=== PATIENT | male | born 1960 | race Caucasian/White ===

== ENCOUNTER 2024-08-26 15:37 | Outpatient (CLI) | payer MEDICARE, OTHER, SELFPAY ==
--- OUTSIDE RECORDS SUMMARY | 2024-08-26 15:45 | XMS_ITS | Clinical Summary ---
Author Organization [facility] Address [address] [place] [address] Care Team Providers Care Orange Picker Name Role Phone Susy Bauman SCAR[employer] - REFINERY [employer]ATOR [employer] Primary Care Provider Allergies Active Allergy Reactions Criticality Noted Date Comments Codeine Nausea And Vomiting Low 02/09/2013 Patient vomits when he takes pain killers Molds & Smuts 10/31/2019 Oxycodone-Acetaminoph en Nausea And Vomiting Low 04/15/2013 Hydrocodone-Acetamino phen Nausea And Vomiting Low 04/15/2013 Medications amLODIPine (NORVASC) 10 MG tablet Take 10 mg by mouth daily Active budesonide-form oterol (SYMBICORT) 80-4.5 MCG/ACT AERO Inhale 2 puffs into the lungs 2 times daily as needed Active glimepiride (AMARYL) 1 MG tablet Take 3 mg by mouth every morning (before breakfast) Active Ergocalciferol (VITAMIN D2 PO) Take by mouth Active albuterol-iprat ropium (COMBIVENT RESPIMAT) 20-100 MCG/ACT AERS inhaler Inhale 1 puff into the lungs every 6 hours as needed for Wheezing or Shortness of Breath 1 Inhaler 6 0 Active Active Problems Problem Noted Date Diagnosed Date Acute respiratory failure 03/11/2019 Other wrist sprain and strain 03/16/2013 Bilateral wrist pain 02/18/2013 COPD exacerbation Febrile illness Leukocytosis Tobacco abuse Pneumonia due to organism Sepsis with acute organ dysfunction without sept ic shock COPD with acute exacerbation Essential hypertension Resolved Problems Problem Noted Date Diagnosed Date Resolved Date Community acquired pneumonia of left lower lobe of lung 01/10/2020 01/10/2020 Immunizations Immunization Administration Dates Next Due DT (pediatric) 10/18/2008,01/01/1998 Influenza Virus Vaccine 02/14/1999 Pneumococcal, PPSV23, PNEUMO VAX 23, (age 2y+), SC/IM, 0.5mL 10/18/2008,01/24/2000 Td, unspecified formulation 10/18/2008, 8 Family History Medical History Relation Name Comments Diabetes Brother High Blood Pressure Brother Cancer Mother colon Relation Name Status Comments Brother Father Mother Social History Tobacco Use Types Packs/Day Years Used Date Smoking Tobacco: Former Cigarettes 0.5 38 1 982 - 03/07/2019 Smokeless Tobacco: Former Chew Tobacco Cessation:Counseling Given: Yes Alcohol Use Standard Drinks/Week Comments Yes 0 (1 standard drink = 0.6 oz pur e alcohol) occassional Sex and Gender Information Value Date Recorded Sex Assigned at Not on file Legal Sex Male 3:32 AM EST Gender Identity Not on file Sexual Orientation Not on file Last Filed Vital Signs Vital Sign Reading Time Taken Comments Blood Pressure 142/84 05/04/2019 10:46 AM EST Pulse 127 05/04/2019 10:37 AM EST Temperature 36 C (96.8 F) 03/15/2019 9:32 AM EST Respiratory Rate 17 05/04/2019 10:3 7 AM EST Oxygen Saturation 94% 05/04/2019 10: 37 AM EST RA Inhaled Oxygen Concentration - - Weight 136.4 kg (300 lb 12.8 oz) 2019 10:37 AM EST Height 182.9 cm (6') 05/04/2019 10:37 AM EST Body Mass Index 40.8 05/04/2019 10:37 AM EST Plan of Treatment Not on file Advance Directives * Full Code (Latest Code Status on File) Date Activated Date Inactivated Comments 03/11/2019 3:57 PM 03/15/2019 4:44 PM * Full Code Date Activated Date Inactivated Comments 06/10/2013 5:36 PM 06/11/2013 6:02 PM Care Teams Orange Picker Relationship Specialty Start Date End Date Susy Bauman APRN - [facility] [address] [phone] PCP - General 03/11/19
--- OUTSIDE RECORDS SUMMARY | 2024-08-26 15:45 | XMS_ITS | Clinical Summary ---
Author Organization AND [facility] 98 Care Team Providers Care Oil Distributor Name Role Phone Unavailable Primary Care Provider Unavailabl e Allergies Active Allergy Reactions Criticality Noted Date Comments Codeine Unknown 03/11/2016 Oxycodone-Acetaminophen Nausea 03/11/2016 Hydrocodone-Acetaminophen Sweating 03/11/2016 Medications oxymetazoline (AFRIN) 0.05 % SOLN Use 0.1-0.2 mLs in each nostril 3 (three) times daily. 1 bottle 8 Active acetaminophen (TYLENOL) 500 MG TABS Take 1,000 mg by mouth every 6 (six) hours as needed for Mild Pain (1-3). Active atorvastatin (LIPITOR) 40 MG TABSIndications: Dyslipidemia Take 1 tablet by mouth every evening. 30 tablet 6 0 Active ibuprofen (ADVIL,MOTRIN) 800 MG TABS Take 1 tablet by mouth every 8 (eight) hours as needed for Mild Pain (1-3). 50 tablet 0 Active methocarbamol (ROBAXIN) 750 MG TABS Take 1 tablet by mouth 4 (four) times daily as needed (FOR SPASM). 40 tablet 0 Active albuterol 108 (90 Base) mcg/puff AERSIndications: Chronic obstructive pulmonary disease, unspecified COPD type (HCC) Use 2 puffs every 4 (four) hours as needed. 1 inhaler 3 0 Active sildenafil (VIAGRA) 50 MG TABS Take 1 tablet by mouth daily as needed. 30 tablet 0 Active amlodipine (NORVASC) 10 MG TABSIndications: Essential hypertension TAKE 1 TABLET BY MOUTH EVERY DAY 90 tablet 1 0 Active glimepiride (AMARYL) 2 MG TABS TAKE 1 TABLET BY MOUTH EVERY DAY BEFORE BREAKFAST 90 tablet 1 0 Active glimepiride (AMARYL) 1 MG TABS TAKE 1 TABLET BY MOUTH EVERY DAY 30 tablet 2 0 Active Fluticasone Propionate (FLONASE NA) Use. Active albuterol (PROVENTIL) (2.5 MG/3ML) 0.083% NEBU 3 mLs by Nebulization route every 6 (six) hours as needed. 60 vial 0 Active budesonide-formo terol (SYMBICORT) 80-4.5 MCG/ACT AERO Use 2 puffs 2 (two) times daily. 1 inhaler 2 0 Active vitamin D-2 (ERGOCALCIFEROL) 53056 UNIT CAPS TAKE 1 CAPSULE BY MOUTH ONE TIME PER WEEK 8 capsule 1 0 Active Active Problems Problem Noted Date Diagnosed Date Type 2 diabetes mellitus wit hout complication, without long-term current use of insulin 02/11/2019 Vitamin D deficiency 02/11/2019 Chronic obstructive pulmonary disease 06/08/2018 Severe obesity with body mas s index (BMI) of 35.0 to 39.9 with serious comorbidity 06/08/2018 Other male erectile dysfunction 01/08/2018 Essential hypertension 03/26/2016 Pulmonary nodule 12/08/2014 Resolved Problems Problem Noted Date Diagnosed Date Resolved Date Non-compliance with treatment 11/13/2016 01/27/2017 Immunizations Immunization Administration Dates Next Due Influenza Whole, IM 02/14/1999 Influenza, IM (Adult)-Fluzone 02/14/1999 Pneumococcal Polysaccharide (PPV23) Pneumovax-23 10/18/2008,01/24/2000 dT, adult 10/18/2008,01/01/1998 Family History Relation Name Status Comments Father Mother Social History Tobacco Use Types Packs/Day Years Used Date Smoking Tobacco: Former Cigarettes Q uit: 03/09/2019 Smokeless Tobacco: Former Chew, Snuff Tobacco Cessation:Counseling Given: No Alcohol Use Standard Drinks/Week Comments Yes 0 (1 standard drink = 0.6 oz pur e alcohol) OCCASSIONALLY PHQ-2 Answer Date Recorded PHQ-2 Score 0 04/13/2019 Sex and Gender Information Value Date Recorded Sex Assigned at Not on file Legal Sex Male 5:06 AM EDT Gender Identity Not on file Sexual Orientation Not on file Last Filed Vital Signs Vital Sign Reading Time Taken Comments Blood Pressure 128/80 09/21/2019 11:39 AM EDT Pulse 103 10/28/2019 10:08 AM EDT Temperature 36.5 C (97.7 F) 09/21/2019 11:39 AM EDT Respiratory Rate - - Oxygen Saturation 93% 10/28/2019 10:08 AM EDT Inhaled Oxygen Concentration - - Weight 134.3 kg (296 lb) 09/21/2019 11:39 AM EDT Height 182.9 cm (6') 09/21/2019 11:39 AM EDT Body Mass Index 40.14 09/21/2019 11:39 AM EDT Plan of Treatment Health Maintenance Due Date Last Done Comments Colonoscopy 12/23/2003 Shingrix (#1) 2008 Pneumococcal 50+ (2 of 2 - PCV) 10/18/2009 10/18/2008, 01/24/2000 DTap,Tdap,and Td (2 - Td or Tdap) 10/18/2018 10/18/2008 (Previously Completed) PSA YEARLY 04/13/2020 04/13/2019, 06/11/2017 Influenza Vaccine (Season Ended) 2024 06/18/2018 (Declined), 02/14/1999, 02/14/1999 RSV Vaccine (60+ or ) (1 - 1-dose 75+ series) 2033 Pneumococcal 0-49 Discontinued 10/18/2008, 01/24/2000 Hepatitis C Screening Addressed 06/11/2017 (Refused) Overridden with the intention of not completing the topic Abdominal Aortic Aneurysm Screening Completed 09/22/2019, 06/26/2018 HPV Aged Out No longer eligi ble based on patient's age to complete this topic Meningococcal conjugate valent 4 (MCV4) Aged Out No longer eligible b ased on patient's age to complete this topic RSV Immunization (<20 months) Aged Out No longer eligible b ased on patient's age to complete this topic Goals Goal Patient Goal Type Associated Problems Recent Progress Patient-Stated? Author Blood Pressure < 140/90 Blood Pressure 128/80(2019 11:39 AM EDT) No Grosheim, Natividad L Note: http://www.nhlbi.nih.gov LDL, CALCULATED < 100 Result Component 130( 9 8:57 AM EDT) No Grosheim, Natividad L CREATININE < 1.3 Result Component 1(09/26/2019 4:34 PM EDT) No Grosheim, Natividad L Exercising Regularly Self-Managemen t No Grosheim, Natividda L Note: [email or web address] Patient has no barriers to completing goals Self-Managemen t No Grosheim, Natividad L Patient working to improve diet Self-Managemen t No Grosheim, Natividad L Patient is monitoring Blood Pressure weekly Self-Managemen t No Grosheim, Natividad L Note: Sample Blood Pressure Log Date Time Systolic Diastolic 1 2 3 4 5 http://www.nhlbi.nih.gov Procedures Procedure Name Priority Date/Time Associated Diagnosis Comments CT ABDOMEN PELVIS W CONTRAST STAT 09/22/2019 12:53 PM EDT Periumbilical abdominal pain Leukocytosis, unspecified type PROSTATIC SPECIF AG-BLOOD Routine 04/13/2019 11:21 AM EST from Last 3 Months or Most Recently Relevant to Health Maintenance Results * CT ABDOMEN PELVIS W CONTRAST (09/22/2019 12:53 PM EDT) Anatomical Region Laterality Modality Pelvis Computed Tomogra phy 09/22/2019 1:12 PM EDT Impressions 09/22/2019 1:28 PM EDT 3.2 cm solid mass or complex cyst in the right kidney. Recommend further evaluation with an MRI abdomen with and without contrast, as this lesion may represent renal cell carcinoma. NOTE: Report marked for documented transmission to the ordering physician per [facility] Radiology department protocol. Suspected pancreatic cysts which may also be further assessed on the recommended MRI abdomen. No evidence of appendicitis. Possible bowel wall thickening of the hepatic flexure and right aspect of the transverse colon, which may be due to underdistention or may represent colitis in the appropriate clinical setting. Narrative 09/22/2019 1:28 PM EDT HISTORY: Abd pain, unspecified Abd pain, appendicitis suspected Leukocytosis,, mid abdomen pain, umbilical pain, sharp pain, r/o appendicitis Periumbilical pain;Elevated white blood cell count, unspecified COMPARISON: Abdominal radiographs 09/21/2019 TECHNIQUE: Post IV contrast multiplanar CT images of the abdomen and pelvis NOTE: If there are questions about the content of this report, please contact [facility] radiology by calling [phone]. NOTE: Report marked for documented transmission to the ordering physician per [facility] Radiology department protocol. FINDINGS: LOWER CHEST: Unremarkable LIVER: Diffuse low attenuation consistent with fatty infiltration GALLBLADDER/BILE DUCTS: Gallbladder surgically absent. Bile ducts unremarkable PANCREAS: Possible fluid density lesions in the pancreatic head/neck region. No solid mass. No pancreatic duct dilation. SPLEEN: Unremarkable ADRENALS: Unremarkable KIDNEYS/URETERS: 3.2 x 2.3 x 2.2 cm solid mass in the upper pole of the right kidney. 8.7 cm simple cyst in the left kidney. GI TRACT: Colonic diverticulosis with no evidence of diverticulitis. Possible bowel wall thickening of the hepatic flexure right aspect of the transverse colon. No obstruction or pneumatosis. Normal appendix (series 3 image 60). VESSELS: Unremarkable. No aneurysm or dissection LYMPH NODES: Unremarkable. No enlarged lymph nodes ABD WALL: Unremarkable PELVIS: Unremarkable BONES: Degenerative changes of the spine. OTHER: None Procedure Note Eric Tovar MD - 09/22/2019 HISTORY: Abd pain, unspecified Abd pain, appendicitis suspected Leukocytosis,, mid abdomen pain,umbilical pain, sharp pain, r/o appendicitis Periumbilical pain;Elevatedwhite blood cell count, unspecified COMPARISON: Abdominal radiographs 09/21/2019 TECHNIQUE: Post IV contrast multiplanar CT images of the abdomen andpelvis NOTE: If there are questions about the content of this report, pleasecontact [facility] radiology by calling [phone]. NOTE: Report markedfor documented transmission to the ordering physician [facility]. FINDINGS: LOWER CHEST: Unremarkable LIVER: Diffuse low attenuation consistent with fatty infiltration GALLBLADDER/BILE DUCTS: Gallbladder surgically absent. Bile ductsunremarkable PANCREAS: Possible fluid density lesions in the pancreatic head/neckregion. No solid mass. No pancreatic duct dilation. SPLEEN: Unremarkable ADRENALS: Unremarkable KIDNEYS/URETERS: 3.2 x 2.3 x 2.2 cm solid mass in the upper pole of theright kidney. 8.7 cm simple cyst in the left kidney. GI TRACT: Colonic diverticulosis with no evidence of diverticulitis.Possible bowel wall thickening of the hepatic flexure right aspect of thetransverse colon. No obstruction or pneumatosis. Normal appendix (series 3image 60). VESSELS: Unremarkable. No aneurysm or dissection LYMPH NODES: Unremarkable. No enlarged lymph nodes ABD WALL: Unremarkable PELVIS: Unremarkable BONES: Degenerative changes of the spine. OTHER: None IMPRESSION 3.2 cm solid mass or complex cyst in the right kidney. Recommend furtherevaluation with an MRI abdomen with and without contrast, as this lesionmay represent renal cell carcinoma. NOTE: Report marked for documentedtransmission to the ordering physician per [facility] Radiology department protocol. Suspected pancreatic cysts which may also be further assessed on therecommended MRI abdomen. No evidence of appendicitis. Possible bowel wall thickening of the hepatic flexure and right aspect ofthe transverse colon, which may be due to underdistention or may representcolitis in the appropriate clinical setting. Rosalinda Ortega [facility] CT Final Result * PROSTATIC SPECIF AG-BLOOD (04/13/2019 11:21 AM EST) PROSTATIC SPECIF AG 3.77 <=4.00 ng/mL [facility] Comment: (NOTE) Ingestion of shanta doses of biotin (>5 mg/day) taken within 8 hours of drawing blood sample can interfere with this immunoassay test. Tested at: [facility] [employer] [facility], [address] [place] [address] 04/13/2019 11:2 1 AM EST 04/13/2019 9:51 PM EST Susy Bauman [facility] B[facility] ORDERABLES Final Result [facility] [address] [place], [place] [id number] [facility] from Last 3 Months or Most Recently Relevant to Health Maintenance
--- OUTSIDE RECORDS SUMMARY | 2024-08-26 15:45 | XMS_ITS | Encounter Summary ---
Author Organization [facility] Address [address] [place] [address] Care Team Providers Care Western Tack Assembly Line Worker Name Role Phone Susy Bauman APRN, CNP Primary Care Provider Encounter Details Date Type Department Care Team ([facility] Contact Info) Description 09/22/2013 PAT Telephone [facility] PAT [address] [place], [place] [phone] Traci Goldsmith RN Social History Tobacco Use Types Packs/Day Years Used Date Smoking Tobacco: Every Day Cigarettes Smokeless Tobacco: Never Alcohol Use Standard Drinks/Week Comments Yes 0 (1 standard drink = 0.6 oz pur e alcohol) occassional Sex and Gender Information Value Date Recorded Sex Assigned at Not on file Legal Sex Male 3:32 AM EST Gender Identity Not on file Sexual Orientation Not on file documented as of this encounter Plan of Treatment Not on file documented as of this encounter Visit Diagnoses Not on filedocumented in this encounter Care Teams Western Tack Assembly Line Worker Relationship Specialty Start Date End Date Susy Bauman APRN - CNP [facility] [place] [address] PCP - General 03/11/19 documented as of this encounter
--- OUTSIDE RECORDS SUMMARY | 2024-08-26 15:45 | XMS_ITS | Encounter Summary ---
Author Organization [facility] [place] [address] Phone Care Team Providers Care Automated Teller Manager Name Role Phone Susy Bauman CNP Primary Care Provider [phone] Encounter Details Date Type Department Care Team (Late st Contact Info) Description 03/25/[address] [facility] V[facility] [place] [address] [place] [address] Social History Tobacco Use Types Packs/Day Years Used Date Smoking Tobacco: Every Day Cigarettes Smokeless Tobacco: Former Chew, Snuff Alcohol Use Standard Drinks/Week Comments Yes 0 (1 standard drink = 0.6 oz pur e alcohol) OCCASSIONALLY Sex and Gender Information Value Date Recorded Sex Assigned at Not on file Legal Sex Male 5:06 AM EDT Gender Identity Not on file Sexual Orientation Not on file documented as of this encounter Plan of Treatment Not on file documented as of this encounter Goals Goal Patient Goal Type Associated Problems Recent Progress Patient-Stated? Author Blood Pressure < 140/90 Blood Pressure 128/80(2019 11:39 AM EDT) Natividad Anthony Note: http://www.nhlbi.nih.gov LDL, CALCULATED < 100 Result Component 130( 9 8:57 AM EDT) No Grosheim, Natividad L CREATININE < 1.3 Result Component 1(09/26/2019 4:34 PM EDT) No Grosheim, Natividad L Exercising Regularly Self-Managemen t No Grosheim, Natividad L Note: [email or web address] Patient has no barriers to completing goals Self-Managemen t No Grosheim, Natividad L Patient working to improve diet Self-Managemen t No Grosheim, Natividad L Patient is monitoring Blood Pressure weekly Self-Managemen t No Grosheim, Natividad L Note: Sample Blood Pressure Log Date Time Systolic Diastolic 1 2 3 4 5 http://www.nhlbi.nih.gov documented as of this encounter Procedures Procedure Name Priority Date/Time Associated Diagnosis Comments ELECTROCARDIOGRAM, COMPLETE Routine 03/11/2019 ELECTROCARDIOGRAM, COMPLETE Routine 03/09/2019 documented in this encounter Results * ELECTROCARDIOGRAM, COMPLETE (03/11/2019) us Historical Med EKG Final Result * ELECTROCARDIOGRAM, COMPLETE (03/09/2019) us Historical Med EKG Final Result documented in this encounter Visit Diagnoses Not on filedocumented in this encounter Additional Health Concerns Infection Onset Date Last Indicated Resolved Time COVID-19 Suspect 09/02/2019 09/02/2019 09/16/2019 1:28 PM EDT documented as of this encounter Care Teams Automated Teller Manager Relationship Specialty Start Date End Date Susy Bauman CNP PCP - General 01/08/18 03/08/20 documented as of this encounter
--- OUTSIDE RECORDS SUMMARY | 2024-08-26 15:45 | XMS_ITS ---
Author Organization Unknown TREATMENT PLAN [facility] Start Date Provider Encounter for Check-up [phone] [facility]
--- OUTSIDE RECORDS SUMMARY | 2024-08-26 15:45 | XMS_ITS | Encounter Summary ---
Author Organization [facility] Address [address] [place] [address] Care Team Providers Care Community Development Aide Name Role Phone Susy Bauman APRN, CNP Primary Care Provider Encounter Details Date Type Department Care Team ([facility] Contact Info) Description 04/15/2013 PAT Telephone [facility] PAT [address] [place], [place] [phone] Traci Goldsmith RN Social History Tobacco Use Types Packs/Day Years Used Date Smoking Tobacco: Every Day Alcohol Use Standard Drinks/Week Comments Yes 0 (1 standard drink = 0.6 oz pur e alcohol) Sex and Gender Information Value Date Recorded Sex Assigned at Not on file Legal Sex Male 3:32 AM EST Gender Identity Not on file Sexual Orientation Not on file documented as of this encounter Last Filed Vital Signs Vital Sign Reading Time Taken Comments Blood Pressure - - Pulse - - Temperature - - Respiratory Rate - - Oxygen Saturation - - Inhaled Oxygen Concentration - - Weight 111.1 kg (245 lb) 04/15/2013 10:27 AM EST Height 182.9 cm (6') 04/15/2013 10:27 AM EST Body Mass Index 33.23 04/15/2013 10:27 AM EST documented in this encounter Plan of Treatment Not on file documented as of this encounter Visit Diagnoses Not on filedocumented in this encounter Care Teams Community Development Aide Relationship Specialty Start Date End Date Susy Bauman APRN - CNP [address] [place] [id number] PCP - General 03/11/19 documented as of this encounter
--- OUTSIDE RECORDS SUMMARY | 2024-08-26 15:45 | XMS_ITS | Encounter Summary ---
Author Organization [facility] Address [address] [place] [address] Care Team Providers Care Ski Binding Fitter And Repairer Name Role Phone Susy Bauman APRN, CNP Primary Care Provider Encounter Details Date Type Department Care Team ([facility] Contact Info) Description 08/22/2013 PAT Telephone [facility] PAT [address] [place], [place] [phone] Deanne Tyler, JENA Social History Tobacco Use Types Packs/Day Years Used Date Smoking Tobacco: Every Day Cigarettes Alcohol Use Standard Drinks/Week Comments Yes 0 [...] on filedocumented in this encounter Care Teams Ski Binding Fitter And Repairer Relationship Specialty Start Date End Date Susy Bauman APRN - CNP [facility] [place] [address] PCP - General 03/11/19 documented as of this encounter
--- OUTSIDE RECORDS SUMMARY | 2024-08-26 15:45 | XMS_ITS | Referral Summary ---
Author Organization AND [facility] 98 Care Team Providers Care Assistant Manager Trainee Name Role Phone Unavailable Primary Care Provider [...] inhaler 2 0 Active vitamin D-2 (ERGOCALCIFEROL) 01161 UNIT CAPS TAKE 1 CAPSULE BY MOUTH [...] Polysaccharide (PPV23) Pneumovax-23 10/18/2008,01/24/2000 dT, adult 10/18/2008,01/01/1998 Social History Tobacco Use Types Packs/Day Years [...] 09/21/2019 11:39 AM EDT Plan of Treatment Not on file Goals Goal Patient Goal Type Associated Problems [...] Self-Managemen t No Grosheim, Natividad L Note: [email or web address] Patient has no barriers to completing goals [...] documented transmission to the ordering physician per [facility] Radiology department protocol. Suspected pancreatic cysts which [...] the content of this report, please contact [facility] radiology by calling [phone]. NOTE: Report marked for documented transmission to the ordering physician per [facility] Radiology department protocol. FINDINGS: LOWER CHEST: Unremarkable [...] about the content of this report, pleasecontact [facility] radiology by calling [phone]. NOTE: Report markedfor documented transmission to the ordering physician [facility]. FINDINGS: LOWER CHEST: Unremarkable LIVER: [...] for documentedtransmission to the ordering physician per [facility] Radiology department protocol. Suspected pancreatic cysts which may also be further assessed on therecommended MRI abdomen. No evidence of appendicitis. Possible bowel wall thickening of the hepatic flexure and right aspect ofthe transverse colon, which may be due to underdistention or may representcolitis in the appropriate clinical setting. us Rosalinda Ortega CNP CT Final Result * PROSTATIC SPECIF AG-BLOOD (04/13/2019 11:21 AM EST) PROSTATIC SPECIF AG 3.77 <=4.00 ng/mL [facility] Comment: (NOTE) Ingestion of shanta doses of biotin (>5 mg/day) taken within 8 hours of drawing blood sample can interfere with this immunoassay test. Tested at: [facility], [address] [place] [address] 04/13/2019 11:2 1 AM EST 04/13/2019 9:51 PM EST us Susy Bauman [facility] BLOOD ORDERABLES Final Result [facility] [address] [place] [address] [facility] from Last 3 Months or Most Recently Relevant to Health Maintenance
[2024-08-26 17:02] LABS: Basophils # 0.3 K/mm3 (0-0.2); Basophils % 0.9 % (0.1-2.0); Eosinophils % 0.1 % (0.1-12.0); Hematocrit 43.2 % (42.0-52.0); Hemoglobin 13.8 g/dL (14.1-18.0); Immature Granulocytes # 5.85 10^3uL; Immature Granulocytes % 17.8 %; Lymphocytes # 2.8 K/mm3 (0.7-4.5); Lymphocytes % 8.5 % (10-50); Mean Corpuscular HGB Conc 31.9 g/dL (31.8-35.4); Mean Corpuscular Hemoglobin 29.7 pg (27.0-31.2); Mean Corpuscular Volume 92.9 fl (80-94); Mean Platelet Volume 10.3 fl (7.4-10.4); Monocytes # 2.5 K/mm3 (0.1-1.0); Monocytes % 7.6 % (1.7-9.3); Neutrophils # 21.4 K/mm3 (1.8-7.8); Neutrophils % 65.1 % (37.0-80.0); Nucleated Red Blood Cells # 0.02 10^3/uL; Nucleated Red Blood Cells % 0.1 %; Platelet Count 144 K/mm3 (142-424); Red Blood Count 4.65 M/mm3 (4.60-6.20); Red Cell Distribution Width 21.6 % (11.5-17.5); Red Cell Distribution Width-SD 72.8 fL
[2024-08-26 17:09] LABS: Creatinine,Urine Random 152 mg/dL (Not Estab.)
[2024-08-26 17:21] LABS: Hemoglobin A1C 8.7 % (4.0-6.0)
[2024-08-26 17:23] LABS: White Blood Count 32.9 K/mm3 (4.8-10.8)
[2024-08-26 17:24] LABS: MANUAL DIFFERENTIAL MANUAL DIFFERENTIAL (MANUAL DIFF)
[2024-08-26 17:42] LABS: Alanine Aminotransferase 22 U/L (12-78); Albumin Level 4.6 g/dl (3.5-5.0); Albumin/Globulin Ratio 1.6 (1.1-1.8); Alkaline Phosphatase 83 U/L (38-126); Anion Gap 15.4 mEq/L (5-15); Aspartate Amino Transferase 28 U/L (17-59); Bilirubin,Total 0.8 mg/dl (0.2-1.3); Blood Urea Nitrogen 20 mg/dl (9-20); Calcium 10.3 mg/dl (8.4-10.2); Carbon Dioxide 24 mmol/L (22.0-30.0); Chloride 103 mmol/L (98-107); Cholesterol 124 mg/dl (140-200); Estimated Glomerular Filt Rate 85 ml/min (>60); GFR (African American) 102 ML/MIN (>60); Globulin 2.9 g/dL (1.3-3.2); Glucose 93 mg/dl (74-100); HDL Cholesterol 25 mg/dl (40-60); Potassium 4.4 mmoL/L (3.5-5.1); Sodium 138 mmol/L (136-145); Total Protein,Serum 7.5 g/dl (6.3-8.2); Triglycerides 165 mg/dl (30-150); VLDL Cholesterol 33 mg/dL (0-40)
[2024-08-26 17:47] LABS: Eosinophils % 2 % (0-3); Lymphocytes % 15 % (10-50); Metamyelocytes % 1 (0-1); Monocytes % 19 % (2-9); Myelocytes % 1 (0-1); Neutrophils % 57 % (42-76); Total Cells Counted 100
[2024-08-26 17:48] LABS: Giant Platelets 1+; Platelet Estimate Normal
[2024-08-26 17:49] LABS: Anisocytosis 1+; Ovalocytes 1+; Polychromasia 1+; Target Cells 1+
[2024-08-26 17:50] LABS: Macrocytosis 1+; Microcytosis 1+; Poikilocytosis 1+
[2024-08-26 17:52] LABS: Tear Drop Cells 1+
[2024-08-26 17:53] LABS: Basophilic Stippling 1+; Direct LDL Cholesterol < 30.00 mg/dL (100-129)
[2024-08-26 18:13] LABS: Thyroid Stimulating Hormone 5.75 uIU/mL (0.465-4.68)
[2024-08-28 15:48] LABS: Peripheral Smear Review Scanned Result
== END 2024-08-26 23:59 | disposition home or self-care (01) ==
LOC: LAB 15:43
PROVIDERS: PCP Family Medicine; Visit Provider Family Medicine
DX: C95.10 Chronic leukemia of unspecified cell type not having achieved remission (principal); E11.9 Type 2 diabetes mellitus without complications; R97.20 Elevated prostate specific antigen [PSA]; Z12.5 Encounter for screening for malignant neoplasm of prostate
CPT/HCPCS: 36415; 80053; 80061; 82043; 82570; 83036; 84443; 85007; 85025; G0103

== ENCOUNTER 2024-11-16 14:40 | Outpatient (CLI) | payer MEDICARE, OTHER, SELFPAY ==
--- OUTSIDE RECORDS SUMMARY | 2024-11-16 14:45 | XMS_ITS | Encounter Summary ---
Author Organization [facility] Address [facility] [place] [address] Phone Care Team Providers Care Wire Chief Name Role Phone Susy Bauman CNP Primary Care Provider +1- [phone] Encounter Details Date Type Department Care Team (Late st Contact Info) Description 03/25/2019 SCAN [facility] Heart & Vascular [place] [address] [place] [address] Social History Tobacco Use Types [...] Self-Managemen t No Grosheim, Natividad L Note: [email or web address] Patient has no barriers to completing goals [...] documented as of this encounter Care Teams Wire Chief Relationship Specialty Start Date End Date Susy Bauman CNP PCP - General 01/08/18 03/08/20 documented as of this encounter
--- OUTSIDE RECORDS SUMMARY | 2024-11-16 14:45 | XMS_ITS | Clinical Summary ---
Author Organization [facility] Address [address] [place] [id number] Care Team Providers Care Geological Specialist Name Role Phone None, None Primary Care Provider Unavailabl e Allergies Active Allergy Reactions Criticality Noted Date Comments Codeine 04/19/2013 N & V Hydrocodone 04/19/2013 N & V Oxycodone 04/19/2013 N & V Medications aspirin 81 mg Tablet, Delayed Release (E.C.) 81 mg daily. Ac tive losartan (COZAAR) 100 mg Tablet 100 mg daily. Active predniSONE (DELTASONE) 20 mg tabletIndicatio ns:Acute bronchitis 3 tabs QD for 3 day, 2 tabs QD for 3 days, 1 tab QD for 3 days, 1/2 tab QD for 4 days. 20 Tab 0 12/08/2014 Active benzonatate (TESSALON) 200 mg capsuleIndicati ons:Acute bronchitis Dispense #40. Take one cap PO TID PRN cough. Swallow whole. Do not chew or suck. 40 Cap 1 12/08/2014 Active azithromycin (ZITHROMAX) 250 mg tablet Take 2 tabs today, and then 1 tab QD for 4 more days. 6 Tab 0 03/30/2015 Active Active Problems Problem Noted Date Diagnosed Date HTN (hypertension) 12/08/2014 Pulmonary nodule 12/08/2014 Colon polyp 12/08/2014 Hx of cholecystectomy 12/08/2014 Traumatic rupture of tendon of wrist - bilat 01/2014 Immunizations Immunization Administration Dates Next Due Influenza (whole) 02/14/1999 Pneumococcal Polysaccharide 23 Valent (PNEUMOVAX ) 10/18/2008,01/24/2000 dT 10/18/2008,01/01/1998 Family History Medical History Relation Name Comments Cancer Mother colon Relation Name Status Comments Father Mother Social History Tobacco Use Types Packs/Day Years Used Date Smoking Tobacco: Every Day Cigarettes Smokeless Tobacco: Never Tobacco Cessation:Ready to Q uit: No; Counseling Given: Yes Alcohol Use Standard Drinks/Week Comments Yes 0 (1 standard drink = 0.6 oz pur e alcohol) occ Sex and Gender Information Value Date Recorded Sex Assigned at Not on file Legal Sex Male 5:21 PM EST Gender Identity Not on file Sexual Orientation Not on file Last Filed Vital Signs Vital Sign Reading Time Taken Comments Blood Pressure 158/100 12/08/2014 12:13 PM EDT Pulse 85 12/08/2014 12:13 PM EDT Temperature 36.7 C (98 F) 12/08/2014 12:13 PM EDT Respiratory Rate 12 12/08/2014 12:13 PM EDT Oxygen Saturation 96% 12/08/2014 12:13 PM EDT Inhaled Oxygen Concentration - - Weight 113.4 kg (250 lb) 12/08/2014 12:13 PM EDT Height 182.9 cm (6') 12/08/2014 12:13 PM EDT Body Mass Index 33.91 12/08/2014 12:13 PM EDT Plan of Treatment Health Maintenance Due Date Last Done Comments Cologuard 1958 Colonoscopy 1958 Colorectal Cancer Screening 1958 FIT 1958 Lipid Screening 1976 Tetanus Vaccination (Every 10 Years) 1976 Hepatitis C Virus (HCV) Screening 12/23/1979 Zoster-RZV(Shingrix) (1 of 2) 2008 Pneumococcal Vaccine: 50+ Ye ars (2 of 2 - PCV) 10/18/2009 10/18/2008, 01/24/2000 Fall Risk Assessment 12/23/2023 Advance Care Planning 03/09/2024 Depression Screening 03/09/2024 COVID-19 Vaccine ( - season) 2024 Influenza Vaccination (#1) 2024 02/14/1999 RSV Vaccines (1 - 1-dose 75+ series) 2033 Influenza Vaccination (Yearly) Discontinued 02/14/1999 Care Teams Geological Specialist Relationship Specialty Start Date End Date None, None [address] [place] [address] PCP - General 02/24/18
--- OUTSIDE RECORDS SUMMARY | 2024-11-16 14:45 | XMS_ITS | Encounter Summary ---
Author Organization [facility] Address [address], [address] [place] [address] Care Team Providers Care Assistant Sales Manager Name Role Phone Susy Bauman APRN, CNP Primary Care Provider Encounter Details Date Type Department Care Team ([facility] Contact Info) Description 04/15/2013 PAT Telephone [facility] PAT [address] [place], [place] [phone] Traci Goldsmith RN Social History Tobacco Use [...] on filedocumented in this encounter Care Teams Assistant Sales Manager Relationship Specialty Start Date End Date Susy Bauman APRN - CNP [address] [place] [id number] PCP - General 03/11/19 documented as of this encounter
--- OUTSIDE RECORDS SUMMARY | 2024-11-16 14:46 | XMS_ITS | Clinical Summary ---
Author Organization [facility] Address [address], [address] [place] [address] Care Team Providers Care Emt Basic Name Role Phone Susy Bauman SCARLET - PICK UP ATTENDANT Primary Care Provider Allergies Active Allergy Reactions [...] 5:36 PM 06/11/2013 6:02 PM Care Teams Emt Basic Relationship Specialty Start Date End Date Susy Bauman APRN - BUTCH [address] [place] [address] PCP - General 03/11/19
--- OUTSIDE RECORDS SUMMARY | 2024-11-16 14:46 | XMS_ITS | Encounter Summary ---
Author Organization [facility] Address [address], [address] [place] [address] Care Team Providers Care Job Coach/Job Developer Name Role Phone Susy Bauman APRN, CNP Primary Care Provider Encounter Details Date Type Department Care Team (Late st Contact Info) Description 09/22/2013 PAT Telephone [facility] PAT [address] [place], [place] [phone] Traci Goldsmith RN Social History Tobacco Use [...] on filedocumented in this encounter Care Teams Job Coach/Job Developer Relationship Specialty Start Date End Date Susy Bauman APRN - CNP [facility] [place] [address] PCP - General 03/11/19 documented as of this encounter
--- OUTSIDE RECORDS SUMMARY | 2024-11-16 14:48 | XMS_ITS | Referral Summary ---
Author Organization [facility] 98 Care Team Providers Care Salvage Grinder Name Role Phone Unavailable Primary Care Provider [...] inhaler 2 0 Active vitamin D-2 (ERGOCALCIFEROL) 14026 UNIT CAPS TAKE 1 CAPSULE BY MOUTH [...] Self-Managemen t No Grosheim, Natividad L Note: [email or web address] Patient has no barriers to completing goals [...] documented transmission to the ordering physician per [facility] Radiology department protocol. Suspected pancreatic cysts which [...] the content of this report, please contact [facility] radiology by calling [phone]. NOTE: Report marked for documented transmission to the ordering physician per [facility] Radiology department protocol. FINDINGS: LOWER CHEST: Unremarkable [...] about the content of this report, pleasecontact [facility] radiology by calling [phone]. NOTE: Report markedfor documented transmission to the [facility]. FINDINGS: LOWER CHEST: Unremarkable LIVER: [...] for documentedtransmission to the ordering physician per [facility] Radiology department protocol. Suspected pancreatic cysts which [...] EST) PROSTATIC SPECIF AG 3.77 <=4.00 ng/mL [facility] Comment: (NOTE) Ingestion of shanta doses of biotin (>5 mg/day) taken within 8 hours of drawing blood sample can interfere with this immunoassay test. Tested at: [facility], [address] [place] [address] 04/13/2019 11:2 1 AM EST 04/13/2019 9:51 PM EST us Susy Bauman [facility]OD ORDERABLES Final Result [facility] [address] [place] [address] [facility] from Last 3 Months or Most Recently Relevant to Health Maintenance
--- OUTSIDE RECORDS SUMMARY | 2024-11-16 14:48 | XMS_ITS | Clinical Summary ---
Author Organization [facility] 98 Care Team Providers Care Automobile Repair Service Estimator Name Role Phone Unavailable Primary Care Provider [...] inhaler 2 0 Active vitamin D-2 (ERGOCALCIFEROL) 91025 UNIT CAPS TAKE 1 CAPSULE BY MOUTH [...] PSA YEARLY 04/13/2020 04/13/2019, 06/11/2017 Influenza Vaccine (#1) 2024 9 (Declined), 02/14/1999, 02/14/1999 RSV Vaccine (60+ or [...] Self-Managemen t No Grosheim, Natividad L Note: [email or web address] Patient has no barriers to completing goals [...] documented transmission to the ordering physician per [facility] Radiology department protocol. Suspected pancreatic cysts which [...] the content of this report, please contact [facility] radiology by calling [phone]. NOTE: Report marked for documented transmission to the ordering physician per [facility] Radiology department protocol. FINDINGS: LOWER CHEST: Unremarkable [...] about the content of this report, pleasecontact [email or web address] radiology by calling [phone]. NOTE: Report markedfor documented transmission to the [facility]. FINDINGS: LOWER CHEST: Unremarkable LIVER: [...] for documentedtransmission to the ordering physician per [facility] Radiology department protocol. Suspected pancreatic cysts which may also be further assessed on therecommended MRI abdomen. No evidence of appendicitis. Possible bowel wall thickening of the hepatic flexure and right aspect ofthe transverse colon, which may be due to underdistention or may representcolitis in the appropriate clinical setting. Rosalinda Ortega [facility] CT Final Result * PROSTATIC SPECIF AG-BLOOD (04/13/2019 11:21 AM EST) PROSTATIC SPECIF AG 3.77 <=4.00 ng/mL [place] [facility] Comment: (NOTE) Ingestion of shanta doses of biotin (>5 mg/day) taken within 8 hours of drawing blood sample can interfere with this immunoassay test. Tested at: [facility], [address] [place] [address] 04/13/2019 11:2 1 AM EST 04/13/2019 9:51 PM EST Susy Bauman [facility] BLOOD ORDERABLES Final Result [facility] [address] [place] [address] [place] [facility] from Last 3 Months or Most Recently Relevant to Health Maintenance
--- OUTSIDE RECORDS SUMMARY | 2024-11-16 14:49 | XMS_ITS | Encounter Summary ---
Author Organization [facility] Address [address], [address] [place] [address] Care Team Providers Care Trace Clerk Name Role Phone Susy Bauman APRN, CNP Primary Care Provider Encounter Details Date Type Department Care Team ([facility] Contact Info) Description 08/22/2013 PAT Telephone [facility] PAT [address] [place], [place] [phone] Deanne Tyler, RN Social History Tobacco Use Types Packs/Day [...] on filedocumented in this encounter Care Teams Trace Clerk Relationship Specialty Start Date End Date Susy Bauman APRN - CNP [facility] [place] [address] PCP - General 03/11/19 documented as of this encounter
--- OUTSIDE RECORDS SUMMARY | 2024-11-16 14:49 | XMS_ITS | CCD ---
Author Name Interface, [id number] lity Address [place] [address] Organization [facility] Address [place] [address] Care Team Providers Care Linux Security Administrator Name Role Phone Raji Pizano MD Unavailable Unavailable Allergies and Adverse Reactions Medication/Group Name Reaction Severity Date codeine 04/27/2024 Care Plan Date Type Value 06/29/2024 APPOINTMENT [facility]ZANO TELEMED CLD S WP (PT RQ ) 06/24/2024 APPOINTMENT PIZANO TELEMED CLD S WP (PT RQ ) 05/27/2024 APPOINTMENT PIZANO TELEMED 4 WK 04/27/2024 APPOINTMENT PIZANO TELEMED SWP 04/08/2024 APPOINTMENT PIZANO L OV 4WKS 04/08/2024 APPOINTMENT PIZANO L OV 4WKS 03/11/2024 APPOINTMENT PIZANO L OV CLD SWP 03/11/2024 APPOINTMENT PIZANO L OV CLD [facility] 02/23/2024 APPOINTMENT PIZANO L OV 4WKS 02/23/2024 APPOINTMENT PIZANO L OV 4WKS 02/18/2024 APPOINTMENT PIZANO/KB ORAL TREAT MENT REVIEW 02/16/2024 APPOINTMENT PIZANO L OV 4WKS 02/16/2024 APPOINTMENT PIZANO L OV 4WKS 01/22/2024 APPOINTMENT PIZANO L OV 4WKS 01/22/2024 APPOINTMENT PIZANO L OV 4WKS 01/22/2024 APPOINTMENT PIZANO L OV 4WKS 01/22/2024 APPOINTMENT PIZANO L OV 4WKS 12/24/2023 APPOINTMENT PIZANO ELECTRICAL LABORATORY TECHNICIAN REF [facility] 12/24/2023 APPOINTMENT PIZANO ELECTRICAL LABORATORY TECHNICIAN LAB 12/24/2023 LABORDER TSH panel 12/24/2023 LABORDER BCR-ABL1 minor ( p190) quant panel 12/24/2023 LABORDER BCR-ABL1 major ( p210) quant panel 12/24/2023 LABORDER Chronic hepatiti s panel (A,B & C) 12/24/2023 LABORDER QIG 12/24/2023 LABORDER HIV 1/2 antibody panel 12/24/2023 LABORDER CMP 12/24/2023 LABORDER CBC w/auto diff with reflex 12/24/2023 LABORDER LDH panel 12/24/2023 LABORDER Flow Cytometry ( Leukemia/Lymphoma Phenotyping Panel) 12/24/2023 LABORDER C-reactive prote in panel 12/24/2023 LABORDER CA 19-9 panel 01/11/2024 LABORDER MRI abdomen w/ & w/o contrast 01/22/2024 LABORDER CBC w/auto diff with reflex 01/22/2024 LABORDER CMP 01/22/2024 LABORDER Sedimentation ra te panel 01/22/2024 LABORDER BCR-ABL1 major ( p210) quant panel 02/23/2024 LABORDER CMP 02/23/2024 LABORDER Uric acid panel 02/23/2024 LABORDER CBC w/auto diff with reflex 03/01/2024 LABORDER CMP 03/01/2024 LABORDER CBC w/auto diff with reflex 03/11/2024 LABORDER CMP 03/11/2024 LABORDER CBC w/auto diff with reflex 03/25/2024 LABORDER CBC w/auto diff with reflex 03/25/2024 LABORDER CMP 04/08/2024 LABORDER CBC w/auto diff with reflex 04/08/2024 LABORDER CMP 04/14/2024 LABORDER CBC w/auto diff with reflex 05/11/2024 LABORDER CMP 05/11/2024 LABORDER CBC w/auto diff with reflex 05/27/2024 LABORDER CBC w/auto diff with reflex 05/27/2024 LABORDER CMP 06/10/2024 LABORDER CBC w/auto diff with reflex 06/10/2024 LABORDER CMP 06/24/2024 LABORDER CBC w/auto diff with reflex 06/24/2024 LABORDER CMP 07/14/2024 LABORDER CMP 07/14/2024 LABORDER CBC w/auto diff with reflex Reason for Visit PIZANO TELEMED CLD SWP (PT RQ ) Encounters Date Name 06/29/2024 Thrombocytopenic dis order (disorder) Functional Status Date Name/Question Score/Answer 11/12/2024 Are you deaf, or do you have ser ious difficulty hearing? Yes 11/12/2024 Are you blind or do you have serious difficulty seeing, even when wearing glasses? No 11/12/2024 Because of a physica l, mental, or emotional condition, do you have serious difficulty concentrating, remembering, or making decisions? No 11/12/2024 Do you have serious difficulty w alking or climbing stairs? No 11/12/2024 Do you have difficulty dressing or bathing? No 11/12/2024 Because of a physica l, mental, or emotional condition, do you have difficulty doing errands alone such as visiting a physician's office or shopping? No Immunizations Date Name Route Dose Instructions Refusal Reason Stat us Covid-19 vaccine (Pfizer) Not given other reason Not Administered Flu vaccine - Adult Not given other reason Not Administered Pneumococcal vaccine (13 valent) Not given other reason Not Administered Zoster vaccine Not g iven other reason Not Administered Diagnostic Results Date Type Test Units Lower Limit Upper Limit Result Flag Comments Status Ordered By Specimen Source Lab Address 01/21 BCR-A BL1 major (p210 ) quant panel BCR-A BL1 major (p210 ) quant inter preta tion BCR-ABL 1 MAJOR (p210) QUANTIT ATIVE FINAL [facility] Whole Blood 01/21 BCR-A BL1 major (p210 ) quant panel PDF Repor t See futures trader d FINAL [facility] Whole Blood 01/21 Manua l diffe renti al Teard rop cells 1+ FINAL [facility]. [address] [facility] [address] CLIA#45D [id number] 01/21 Manua l diffe renti al Promy elocy te % % 0.0 0.0 1 High FINAL [place] [address] [address] [facility] [address] CLIA#45D [id number] 01/21 Manua l diffe renti al Ellip tocyt e 0.00 FINAL [place] [address] [address] [facility] [address] CLIA#45D [id number] 01/21 Manua l diffe renti al Poiki locyt osis (shap e) 1+ FINAL Raji [facility] [place]. [address] [place] [address] CLIA#45D [id number] 12/23 TSH panel TSH, mIU/L mIU/L 0.4 4.5 6.37 High FINAL Raji Pizano Serum Med Fusion.2 [address] [facility] [address] [address] 12/23 C-alex ctive prote in panel C-alex ctive prote in, quant , mg/L mg/L 4.5 FINAL [facility].2 [address] [facility] [address].[place] [facility] [address] 12/23 BCR-A BL1 minor (p190 ) quant panel BCR-A BL1, minor (p190 ) BCR-ABL 1 MINOR (p190) QUANTIT ATIVE Procedure s/Addenda BCR/ABL1 by Quant RT-PCR: Minor(p19 0)Interpr etationTh e BCR-ABL1 Minor (p190) fusion transcrip t was not detected. This result doesnot preclude the presence of very low levels of BCR-ABL1 transcrip t below theassay limit of detection .Current and Previous Test Results Accession # Specimen Collectio n Date BCR-ABL1M inor % [id number] Whole Blood 4 0.0000Res ultBCR-AB L1 Minor (p190) fusion transcrip t not detectedM ethodolog y: This test was performed by real-time , reverse-t ranscript ionpolyme rase chain reaction (RT-PCR) to measure the quantity of BCR-ABL1 Minor(p19 0) fusion transcrip ts. Amplifica tion of endogenou s ABL1 is assessed as areferenc e for relative quantific ation and RNA quality. The normalize d copynumbe r (NCN) is derived by comparing the amount of BCR-ABL1 mRNA normalize d toABL1 and is reported as a percentag e. The lower limit of quantific ation for thisassay is approxima tely 0.036%.In tended Use: This test can detect the t(9;22) BCR-ABL1 Minor (p190) fusiontra nscript (i.e. the minor breakpoin t cluster region variant, e1a2). The [id number] cript is found in a small minority of CML and the majority of [place] hiachromo some-posi tive precursor B-ALL. This test may be used to monitor theeffica cy of therapy and is not recommend ed as a sole primary diagnosti c test forCML or ALL. The trend of these results over time is more informati ve of diseasest atus than an individua l result.Re ferences: Wilver et al. Establish ment of a standardi zed multiplex assay with the analytica lperforma ncerequir ed for quantitat ric measureme nt of BCRABL1 on the internati onal reporting scale. Blood Cancer Journal 1(e13):1- 9, 2010.Milton lewis et al. Desirable performan ce character istics for BCR-ABL measureme nton an internati onal reporting scale to allow consisten t interpret ation ofindivid ual patient response and compariso n of response rate between clinicalt rials. Blood.112 :3330-333 8, 2007.Paco paniagua et al. Inter-Lab oratory Compariso n of Chronic Myeloid Leukemia MinimalRe sidual Disease Monitorin g: Summary and Recommend ations. JMD 9(4):421- 430,2006. Hannah et al. Standardi zation and vice president quality improvement studies of real-maura e quantit ative reverse transcrip tase polymeras e chain reaction (RQ-PCR) of fusiongen e transcrip ts for minimal residual disease detection in leukemia A [facility] inst Cancer Program. Leukemia 17, 2318 235, 2002.Rah PARKER. The diversity of BCR-ABL fusion proteins and their relations hip toleukemi a phenotype . Blood 88:2375-2 384,1995. This test was developed and its analytica l performan ce character istics have beendeter mined by [employer] [facility]. It has not been cleared or approvedb y the U.S. Food and Drug Administr ation. This assay has been validated pursuantt o the CLIA regulatio ns and is used for clinical purposes. Technical and Professio nal services performed at: [facility], [address] [place] [address], [address], [place] [address], CLIA# [id number] 7 Rn Team Leader, Lisa Mcdowell MD, PhD Electr onically Signed Out Ruben Kwon, Ph.D., FACPati [facility] Name: SHERI MARROQUIN [facility]. Rec. #: [id number] ccession #: [id number] 3Taken: 4Received : 4Reported : 4Physicia n(s): JINGDONG SUSpecime n(s) ReceivedA : Whole Blood with EDTAClini danii HistoryD7 2.823 D69.6 FINAL Jingdong Pizano Whole Blood 01/21 Sedim entat ion rate panel ESR mm/h 0.0 20.0 2 FINAL Jingdong Pizano Whole Blood Med Fusion.2 [address] [place] [address] [address] [address] 02/11 Bone marro w biops y diagn osis See futures trader d 07/14 Lab Repor t See futures trader d 03/11 CMP ALT/S GPT U/L 16.0 63.0 20 FINAL Jingdong Pizano Plasma [facility] [place]. [address] [place] [address] CLIA#45D [id number] 03/11 CMP Gluco se mg/dL 74.0 106.0 169 High FINAL Jingdong Pizano Plasma [facility] [place]. [address] [place] [address] CLIA#45D [id number] 03/11 CMP Total prote in g/dL 6.4 8.2 7.6 FINAL Jingdong Pizano Plasma [facility] [place]. [address] [place] [address] CLIA#45D [id number] 03/11 CMP AST/S GOT U/L 15.0 37.0 14 Low FINAL Jingdong Pizano Plasma [facility] [place]. [address] [place] [address] CLIA#45D [id number] 03/11 CMP Bilir ubin, total mg/dL 0.2 1.0 0.7 FINAL Jingdong Pizano Plasma [facility] [place]. [address] [place] [address] CLIA#45D [id number] 03/11 CMP Sodiu m mmol/L 136.0 145.0 140 FINAL Jingdong Pizano Plasma [address] [place] [address] CLIA#45D [id number] 03/11 CMP Alkal ine phosp hatas e U/L 46.0 116.0 93 FINAL Jingdong Pizano Plasma [address] [place] [id number] CLIA#45D [id number] 03/11 CMP Calci um mg/dL 8.5 10.1 9.7 FINAL Jingdong Pizano Plasma [address] [place] [id number] CLIA#45D [id number] 03/11 CMP GFR estim ate mL/min /1.73m sq 81 Result based on the eGFR 2020 calculati on.60-89 mL/min/1. 73m^2 without kidney damage may be normal.60 -89 mL/min/1. 73m^2 for 3 months or more, along with kidney damage, may indicate early kidney disease.C alculatio n modified to the 2020 formula effective 06/07/22. FINAL Jingdong Pizano Plasma [address] [place] [address] CLIA#45D [id number] 03/11 CMP CO2 mmol/L 21.0 32.0 27.7 FINAL Jingdong Pizano Plasma [address] [place] [id number] CLIA#45D [id number] 03/11 CMP Creat inine , mg/dL mg/dL 0.55 1.3 1.02 FINAL Jingdong Pizano Plasma [address] [place] [address] CLIA#45D [id number] 03/11 CMP Chlor anil mmol/L 97.0 107.0 105.00 FINAL Jingdong Pizano Plasma [address] [place] [address] CLIA#45D [id number] 03/11 CMP BUN mg/dL 7.0 18.0 10 FINAL Jingdong Pizano Plasma [address] [place] [address] CLIA#45D [id number] 03/11 CMP Album in g/dL 3.4 5.0 4.1 FINAL Jingdong Pizano Plasma [facility]. [address] [place] [address] CLIA#45D [id number] 03/11 CMP Potas sium mmol/L 3.5 5.1 4.2 FINAL Jingdong Pizano Plasma [facility]. [address] [place] [address] CLIA#45D [id number] 12/23 LDH panel LDH U/L 85.0 227.0 529 High FINAL Jingdong Pizano Plasma [facility]. [address] [place] [address] CLIA#45D [id number] 12/23 Chron ic hepat itis panel Hepat itis B core antib angeline, total NonReac t FINAL Jingdong Pizano Serum Med Fusion.[address] [place] [address] [address] [address] 12/23 Chron ic hepat itis panel Hepat itis C antib angeline, qual NonReac t HCV antibody was non-react ric. There is no laborator y evidence of HCV infection . In most cases, no further action is required. However, if recent HCV exposure is suspected , a test for HCV RNA (test code 41400) is suggested . FINAL Jingdong Pizano Serum Med Fusion.[address] [place] [address] [address] [address] 12/23 Chron ic hepat itis panel Hepat itis B surfa ce antig en NonReac t FINAL Jingdong Pizano Serum Med Fusion.[address] [place] [address] [address] [address] 12/23 Chron ic hepat itis panel Hepat itis A ab, total , qual NonReac t FINAL Jingdong Pizano Serum Med Fusion.[address] [place] [address] [address] [address] 12/23 Chron ic hepat itis panel Hepat itis B surfa ce ab, qual NonReac t FINAL Jingdong Pizano Serum Med Fusion.[address] [place] [address] [address] [address] 03/11 CBC w/aut o diff with refle x MCV fL 80.0 94.0 89.1 FINAL Jingdong Pizano Whole Blood [facility]. [address] [place] [address] CLIA#45D [id number] 03/11 CBC w/aut o diff with refle x RBC 10^6/u L 4.7 6.1 5.1 FINAL Raji Pizano Whole Blood [address] [place] [address] CLIA#45D [id number] 03/11 CBC w/aut o diff with refle x MPV fL 9.4 12.4 ---- FINAL Raji Pizano Whole Blood [place] [address] [address] [place] [address] CLIA#45D [id number] 03/11 CBC w/aut o diff with refle x Auto CBC comme nts Man Diff FINAL Raji Pizano Whole Blood [place] [address] [address] [place] [address] CLIA#45D [id number] 03/11 CBC w/aut o diff with refle x HGB g/dL 14.0 18.0 14.3 FINAL Raji Pizano Whole Blood [place] [address] [address] [place] [address] CLIA#45D [id number] 03/11 CBC w/aut o diff with refle x MCHC g/dL 33.0 37.0 31.8 Low FINAL Raji Pizano Whole Blood [place] [address] [address] [place] [address] CLIA#45D [id number] 03/11 CBC w/aut o diff with refle x HCT % 40.0 50.0 45.00 FINAL Raji Pizano Whole Blood [facility]. [address] [place] [address] CLIA#45D [id number] 03/11 CBC w/aut o diff with refle x Plate let, immat ure, fract ion % 1.0 7.0 18 High FINAL Raji Pizano Whole Blood [place] [address] [address] [place] [address] CLIA#45D [id number] 03/11 CBC w/aut o diff with refle x NRBC, % % 0.0 0.2 0.2 FINAL Raji Pizano Whole Blood [place] [address] [address] [place] [address] CLIA#45D [id number] 03/11 CBC w/aut o diff with refle x WBC 10^3/u L 4.8 10.8 30.5 High [facility]. [address] [place] [address] . [address]. [place] [address] CLIA#45D [id number] 03/11 CBC w/aut o diff with refle x PLT 10^3/u L 130.0 400.0 158 Platelet count obtained using fluoresce nt platelet methodolo gy. [facility]AL [facility]. [address] [place] [address] . [address]. [place] [address] CLIA#45D [id number] 03/11 CBC w/aut o diff with refle x RDW % 10.5 14.5 25.5 High [facility]. [address] [place] [address] . [address] [place] [address] CLIA#45D [id number] 03/11 CBC w/aut o diff with refle x MCH pg 27.0 31.0 28.3 FINAL [facility] Whole Blood [facility]. [address] [place] [address] CLIA#45D [id number] 03/11 CBC w/aut o diff with refle x NRBC, absol alfredo, x 10^3/ uL 10^3/u L 0.0 0.0 0.1 High FINAL [facility] Whole Blood [place] [address] [address] [place] [address] CLIA#45D [id number] 03/11 Manua l diffe renti al Metam yeloc yte % % 2 FINAL [place] [address] [address] [place] [address] CLIA#45D [id number] 03/11 Manua l diffe renti al Myelo cyte count 10^3/u L 0.00 FINAL [facility]. [address] [place] [address] CLIA#45D [id number] 03/11 Manua l diffe renti al LY# (M) 10^3/u L 1.2 3.4 2.65 FINAL [facility]. [address] [place] [address] CLIA#45D [id number] 03/11 Manua l diffe renti al Polyc hroma camila (M) 1+ FINAL [facility]. [address] [place] [address] CLIA#45D [id number] 03/11 Manua l diffe renti al Plate let estim ate Normal FINAL [facility]. [address] [place] [address] CLIA#45D [id number] 03/11 Manua l diffe renti al Lymph ocyte % % 15.0 41.0 9 Low FINAL [facility]. [address] [place] [address] CLIA#45D [id number] 03/11 Manua l diffe renti al Metam yeloc yte 10^3/u L 0.58 FINAL [facility]. [address] [place] [address] CLIA#45D [id number] 03/11 Manua l diffe renti al Band % % 0.0 0.0 15 High FINAL [facility]. [address] [place] [address] CLIA#45D [id number] 03/11 Manua l diffe renti al Neutr ophil % (M) % 40.0 77.0 62 FINAL [facility]. [address] [place] [address] CLIA#45D [id number] 03/11 Manua l diffe renti al Promy elocy te, absol alfredo 10^3/u L 0.00 FINAL [facility]. [address] [place] [address] CLIA#45D [id number] 03/11 Manua l diffe renti al Monoc yte % % 3.0 11.0 12 High FINAL [facility]. [address] [place] [address] CLIA#45D [id number] 03/11 Manua l diffe renti al MO# (M) 10^3/u L 0.0 1.0 3.57 High FINAL [facility]. [address] [place] [address] CLIA#45D [id number] 03/11 Manua l diffe renti al Blast count 10^3/u L 0.00 FINAL [facility]. [address] [place] [address] CLIA#45D [id number] 03/11 Manua l diffe renti al Aniso cytos is (size ) 2+ FINAL [place] [address] [address] [place] [address] CLIA#45D [id number] 03/11 Manua l diffe renti al Basop hil count (M) 10^3/u L 0.0 0.2 0.31 High FINAL [facility]. [address] [place] [address] CLIA#45D [id number] 03/11 Manua l diffe renti al Micro cytos is 1+ FINAL [place] [address] [address] [place] [address] CLIA#45D [id number] 03/11 Manua l diffe renti al ANC (M) K/uL 1.5 6.5 23.4 High FINAL [facility]. [address] [place] [address] CLIA#45D [id number] 03/11 Manua l diffe renti al Basop hil % % 0.0 1.0 1 FINAL [place] [address] [address] [place] [address] CLIA#45D [id number] 12/23 Leuke nadine/L ympho ma pheno typin g panel Leuk/ Lymph , panel inter preta tion Leukemi a/Lymph yfn Panel by Flow Procedure s/Addenda Flow Cytometry - Leukemia/ Lymphoma ProfileIn terpretat ionGranul ocytic left-shif t.Flow Cytometri c Immunophe notype: No immunophe notypic abnormali tiesdetec mandeep CD45 vs SSComment :Flow cytometry of periphera l blood demonstra pita the presence of immature myeloidce lls. There is no increase in myeloid blasts (0.2%); however, it should benoted that this methodolo gy may underesti mate the percentag e of morpholog icallyide ntifiable blasts. Periphera l blood smear and bone marrow morpholog icexamina tions may be of use for further evaluatio n. Cytogenet ic analysis andFISH studies may also be of use in this regard.Re sultsSpec imen Type: Periphera l BloodOthe r Cells:0.2 % Myeloblas ts0.2% Polyclona l B-cells, [place]/Leiva bda ratio=1.2 :14.9% Small T-cells, CD4:CD8 ratio=2.6 :10.1% Natural Killer (NK) cells1.7% Mature Monocytes 0.2% Immature Monocytes 90.5% Neutrophi ls0.3% Eosinophi ls0.6% Basophils <0.1% Plasma cellsViab ility: 89.1% Cellulari ty: 46.3 x10^6 cells / mL, 4.0 mLtotal specimenM arkers analyzed: CD2, CD3, CD4, CD5, CD7, CD8, CD10, CD11b, CD13, CD14, CD16, CD19, CD20, CD33,CD34 , CD38, CD45, CD56, CD64, CD117, CD123, HLA-DR, [place], LambdaThi s test was developed and its analytica l performan ce character istics have beendeter mined by [facility]. It has not been cleared or approved by the U.S. Foodand Drug Administr ation. This assay has been validated pursuant to the [facility] ations and is used for clinical purposes. Electr onically Signed Out Mauri Natarajan M.D.Techn ical services performed at: [facility], [address] [place] [address] [address], [id number] , [place] [address]- CLIA# [id number] Rn Team Leader, Lisa Damon MD, PhD.Profe ssional services performed at: [facility], [address], [place] [address].Pat ient Name: SHERI MARROQUIN [facility]. Rec. #: [id number] ccession #: [id number] : 4Received : 4Reported : 4Physicia n(s): Jingdong SuSpecime n(s) ReceivedA : Whole Blood with EDTAClini danii HistoryD7 2.823 D69.6 FINAL Jingdong Pizano Periphera l Blood or Bone Marrow 6 cells / mL, 4.0 mL 12/23 HIV 1/2 antib angeline panel HIV ag/ab , 4th gen NonReac t HIV-1 antigen and HIV-1/HIV -2 antibodie s were not detected. There is no laborator y evidence of HIV infection .(Note)PL EASE NOTE: This informati on has been disclosed to you from recordswh ose confident iality may be protected by state law. If your staterequ ires such protectio n, then the state law prohibits you frommakin g any further disclosur e of the informati on without the specificw ritten consent of the person to whom it pertains, or as otherwise permitted by law. A general authoriza tion for the release of medicalor other informati on is NOT sufficien t for this purpose.T he performan ce of this assay has not been clinicall y validated inpatient s less than 2 years old.For additiona l informati on, please refer tohttp:// education .QPSoftware/faq/F AQ106(Thi s link is being provided for informati onal/educ atst. luke's jer[facility].) FINAL Jingdong Pizano Serum Med Fusion.2 [address] [place] [address] [address] [address] 02/22 Uric acid panel Uric acid mg/dL 3.5 7.2 5.9 FINAL Jingdong Pizano Plasma [facility]. [address] [place] [address] . [address] [facility] [address] CLIA#45D [id number] 12/23 Immun oglob ulin measu remen t IgA, quant mg/dl 87.0 474.0 208.00 FINAL Jingdong Pizano Serum [facility]. [address] [place] [address] . [address] [facility] [address] CLIA#45D [id number] 12/23 Immun oglob ulin measu remen t IgG, quant mg/dl 681.0 1648.0 1086.00 FINAL [facility]. [address] [place] [address] . [address] [facility] [address] CLIA#45D [id number] 12/23 Immun oglob ulin measu remen t IgM, quant mg/dl 48.0 312.0 218.00 FINAL [facility]. [address] [place] [address] . [address] [facility] [address] CLIA#45D [id number] 06/08 CT scan resul t See futures trader d 12/23 CA 19-9 panel CA 19-9 U/mL 33 (Note)Thi s test was performed using the Siemens chemilumi nescent method.Va lues obtained from different assay methods cannot be usedinter changeabl y. CA 19-9 levels, regardles s of value, should not beinterpr eted as absolute evidence of the presence or absence ofdisease . FINAL [facility] Serum Med Fusion.2 [address] [place] [address] [address] [address] 02/22 [place] diffe renti al Hypoc hromi a 1+ FINAL [facility]. [address] [place] [address] . [address] [facility] [address] CLIA#45D [id number] 02/22 Lakeshia buiti al Myelo cyte % % 3 FINAL [facility]. [address] [place] [address] [address]. [facility] [address] CLIA#45D [id number] Medications Date Name Route Dose Frequency Instructions Start Date End Date Status Fill Status Indication 06/29 Elemen naif iron Nutrit ional Supple ment Oral orally 85.0 mg every day quantity sufficient for 30 days active 12/22 Amlodi pine Oral orally 2.0 mg daily active 06/29 Sennos ides Oral orally 7.5 mg every day at bedtime prn constipation active 12/22 Ascorb ic Acid Oral orally 500.0 mg BID active 12/22 Tamsul osin Oral orally 0.4 mg daily active 12/22 Ergoca lcifer ol Oral orally 1250.0 every week active 12/22 Glimep iride Oral orally 2.0 mg every morning administer with breakfast active 12/22 Albute rol HFA Inhale r 90 mcg/ac tuatio n inhaled 2.0 every 6 hours prn shortness of breath or wheezing active 12/22 Atorva statin Oral orally 40.0 mg daily inactive 12/22 Tadala lex Oral orally 10.0 mg daily prn sexual activity; administer approximately 30min before sexual activity; do not use more than 1 dose per 24hrs inactive 05/27 Albute rol Nebuli zed (lilliam ntrate ) inhaled 5.0 every 6 hours prn shortness of breath or wheezing active 05/27 [address]ou s Drug twice a day magnesium malate active 07/21 hydrox yurea 500 MG Oral Capsul e orally 1.0 capsul e As Directed 2024 active Myelodyspla stic/myelop roliferativ e neoplasm, unclassifia ble (disorder) 06/15 hydrox yurea 500 MG Oral Capsul e orally 1.0 capsul e As Directed 2024 active Myelodyspla stic/myelop roliferativ e neoplasm, unclassifia ble (disorder) 03/23 hydrox yurea 500 MG Oral Capsul e orally 1.0 capsul e daily 2024 active Myelodyspla stic/myelop roliferativ e neoplasm, unclassifia ble (disorder) 03/11 hydrox yurea 500 MG Oral Capsul e orally 1.0 capsul e daily 2024 active 03/04 hydrox yurea 500 MG Oral Capsul e orally 1.0 capsul e every other day 2023 active CML 02/17 ondans etron 8 MG Oral Tablet orally 1.0 tablet every 8 hours 2023 active 02/16 dasati nib 100 MG Oral Tablet orally 100.0 mg daily Take whole with water. Take antacids 2 hrs before or 2 hrs after each dose. Do not take H2-antagonist or PPI. 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 For evaluation of cystic lesion (s) of the head of the pancreas. 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 Positive BCR ABL 1. Pt requires full sedation for the procedure. Ordered 02/18/2024 Physician Order RTC chemo teaching Dasatinib O rdered 02/23/2024 Physician Order RTC MD Ordered 03/11/2024 Physician Order RTC MD Ordered 04/08/2024 Physician Order RTC MD Ordered 04/14/2024 Physician Order RTC NALDO/Lab Ordered 04/27/2024 Physician Order RTC MD telehealth Or dered 05/27/2024 Physician Order RTC ELECTRICAL LABORATORY TECHNICIAN/PA telehealth Ok to see MD per Dr. Pizano Ordered 06/24/2024 Physician Order RTC ELECTRICAL LABORATORY TECHNICIAN/PA telehealth Ordered 09/14/2024 Physician Order Transitional car e management services with the following required elements: Communication (direct contact, telephone, electronic) with the patient and/or caregiver within 2 business days of discharge At least moderate level of medical decision making duri D/C Social History Date Name Value 02/18/2024 Sex Male Vital Signs Date Type Value 12/24/2023 BSA 2.41 12/24/2023 BMI 38.08 12/24/2023 Height 71.00 12/24/2023 Weight 273.00 12/24/2023 Intravascular Systolic 144 12/24/2023 Intravascular Diastolic 88 12/24/2023 Respiratory Rate 16.00 12/24/2023 Heart Beat 81.00 12/24/2023 Body Temperature 98.90 12/24/2023 Pain Scale 0.00 01/22/2024 Height 71.00 01/22/2024 Pain Scale 2.00 02/18/2024 Respiratory Rate 18.00 02/18/2024 Body Temperature 97.20 02/18/2024 Intravascular Systolic 147 02/18/2024 Intravascular Diastolic 88 02/18/2024 Pain Scale 0.00 02/18/2024 Weight 272.00 02/18/2024 Height 71.00 02/18/2024 BMI 37.94 02/18/2024 BSA 2.40 02/18/2024 Oxygen Saturation 98.00 02/18/2024 Heart Beat 79.00 02/23/2024 Height 71.00 02/23/2024 BSA 2.39 02/23/2024 Pain Scale 0.00 02/23/2024 Intravascular Systolic 145 02/23/2024 Intravascular Diastolic 80 02/23/2024 Respiratory Rate 16.00 02/23/2024 Heart Beat 98.00 02/23/2024 Body Temperature 98.70 02/23/2024 Weight 268.00 02/23/2024 BMI 37.38 03/11/2024 Body Temperature 99.30 03/11/2024 BSA 2.41 03/11/2024 BMI 38.21 03/11/2024 Height 71.00 03/11/2024 Weight 274.00 03/11/2024 Intravascular Systolic 135 03/11/2024 Intravascular Diastolic 88 03/11/2024 Pain Scale 0.00 03/11/2024 Heart Beat 97.00 03/11/2024 Respiratory Rate 16.00 04/27/2024 Height 71.00 04/27/2024 Pain Scale 0.00 05/27/2024 Pain Scale 0.00 05/27/2024 Height 71.00 06/29/2024 Height 71.00 06/29/2024 Pain Scale 0.00 Notes Section * HemOn Follow Up - [facility] [address] [address] [place] [address] P: F: PATIENT: SHERI MARROQUIN : 1960 Date of Service: 06/29/2024 Referring Provider: Dr. Romain Graham Chief Complaint: Principal Diagnosis: * Leukemoid reaction ( ICD-10:D72.823 ;Leukemoid reaction ) * Leukocytosis ( ICD-10:D72.828 ;Other elevated white blood cell count ) * Myelodysplastic/myeloproliferative neoplasm, unclassifiable (disorder) ( ICD- 10:C94.6 ;Myelodysplastic disease, not elsewhere classified ) * Thrombocytopenic disorder (disorder) ( ICD-10:D69.6 ;Thrombocytopenia, unspecified ) Diagnosis*: Treatment History: ? Treatment History*: Pathology: History of Present Illness: Sheri Marroquin is a 63-year-old gentleman referred by his primary care physician Dr. Romain Graham for evaluation of leukocytosis? and? thrombocytopenia. Per record from [facility], he has been having mild thrombocytopenia since at least March 2020, with platelet count ranging between 110s and 120s most of the time, although there was a platelet count of 81,000 in March 2020, and occasional normal platelet count. ?His hemoglobin level has been mildly low to normal. ?White blood cell count was also normal in the past, but started trending up since October 2022. ? Most recent labs on December 09, 2023 showed a WBC 39.9, segments 71%, lymphocytes 9%, hemoglobin 15.2, and platelet count 138,000. ?Repeated CBC on December 11, 2023 showed a persistent leukocytosis (WBC 38.8, neutrophils 88.8%, lymphocytes 8%), normal hemoglobin level (14.2), and thrombocytopenia (126,000). He had a?bone marrow aspiration and biopsy on February 12, 2024.?Initially?concerning for?CML. ?However,?final?report?showed myeloproliferative neoplasm.? Marked?leukocytosis with left shift and rare circulating blasts (2%).? Iron store?absent.? Comment:?Markedly hypercellular marrow (greater than 95%?cellular)?for age with a marked?granulocytic hyperplasia.? Blasts are?mildly increased (3% by?CD34 immunostain).? The megakaryocytes?show variable?morphology.? No dysplasia is identified.? BCR/ABL 1 FISH is negative.? Myeloid?next-generation sequencing panel?reveals?multiple mutations?(see below).? O verall,?these findings are consistent with a?myeloproliferative neoplasm?or possibly?a myelodysplastic/myeloproliferative neoplasm, although a specific diagnosis remains difficult.? Early?pretty fibrotic?primary myelofibrosis?is a consideration, although?the patient's white blood cell count is higher than?typically seen in this?entity?and?megakaryocyte?clustering is not appreciated.? The JAK2 mutation essentially?excludes?entities such as?atypical CML, and CMML.? Clinical correlation and close follow-up is recommended. Morphology: Markedly hypercellular bone marrow with?myeloid hypoplasia and 3% blasts.? Marked Leukocytosis with left shift and rare?circulating blasts (2%).? Iron storage absent. Flow cytometry: The findings reveal no definitive?immunophenotypic evidence of?hematolymphoid malignancy. Cytogenetics:? Normal male karyotype Negative?BCR:: ABL 1?rearrangement [t(9;22)?translocation]?by FISH. Molecular?diagnostics: Myeloid NGS panel?reveals multiple mutations including?JAK2?V617F,?CBL,?TET2,?and?SRSF2 On hydroxyurea?for?myeloproliferative?neoplasm.? Interval History: Sheri is evaluated today through?telemedicine encounter via?VSee platform.? This?audio/video assessment is?patient?initiated assessment, and a consent was?obtained.? He is at home, and the provider is in office. He has been doing very well recently with no acute events. ?Denies any?infections.? He is still recovering from the flu?he had?8 weeks ago.? He is getting?his strength back?gradually. ?He still feels?shortness of breath?with?physical activities, but generally?i mproved.? He denies any fever or chills.? He has been eating pretty well?and weight has been stable. He had a lab check?on June 14, 2024, with WBC?23.9, decreased from 26.5. ?Had a repeated lab work?a few days ago?on?June 27, 2024.? However,?leukocytosis?has slightly?worsened, with WBC?25.2.? He is currently taking hydroxyurea 500 mg daily, except for 1000 mg?on Mondays,?Wednesdays and Fridays. ?He has been?compliant?with the treatment and?tolerating?very well. Past Medical History: Hypertension, asthma, cancer of the right kidney, chronic kidney disease, diabetes, hyperlipidemia, - Diabetes - Torn tendon in left lower leg on lateral side Past Surgical History: ? 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 Take 1000mg Thursday, Thursday, and Thursday. Take 500mg on Thursday, Thursday, , Thursday * Senokot (Sennosides Oral) 7.5 mg orally every day at bedtime prn constipation * Ondansetron Oral 8 mg tablet 1 tablet orally every 8 hours as needed for nausea and vomiting. * Ascorbic Acid Oral 500 mg orally BID * Ergocalciferol Oral orally every week * Tamsulosin Oral 0.4 mg orally daily * Albuterol Nebulized (concentrate) inhaled every 6 hours prn shortness of breath or wheezing * Aniceto-plex sr (Elemental iron Nutritional Supplement Oral) 85 mg orally every day quantity sufficient for 30 days * Glimepiride Oral 2 mg orally every morning administer with breakfast * Albuterol HFA Inhaler 90 mcg/actuation inhaled every 6 hours prn shortness of breath or wheezing * Amlodipine Oral 5 mg tablet 2 mg orally daily * Miscellaneous Drug twice a day magnesium malate Medications reviewed and reconciled with patient. Medications*: - Albuterol inhaler - Glimepiride for diabetes Allergies: * codeine Allergies*: Smoking Status: Smoking Tobacco : none found; Smokeless Tobacco : none found; Vaping : none found Social History: He is , he smoked half a pack a day for 36 years, and quit in February 2019. ?Denies alcohol abuse or illicit drug use. Family History: * Father: - COPD * Mother: - Colorectal cancer Family History*: Mother had colon cancer at age 78 ROS: General: +WEIGHT LOSS Musculoskeletal: +JOINT PAIN Vitals: Height: None Today; Weight: None Today; Blood pressure: , Pulse: , Temperature: , Respirations: , Pain Scale: Karnofsky: Not Assessed Physical Exam: General: ?Well-developed, well-nourished, sitting in chair, wearing a facial mask?with oxygen. ?Appeared comfortable with no acute distress.?He is oriented x 3.? See below for?previous?physical?examination findings. Eyes - PERRLA, EOMI, No scleral icterus or erythema.? ENT - Normal nasal mucosa. No nasal or pharyngeal erythema or discharge. No ulceration in oral cavity. ? Neck - Supple. Trachea midline. No thyromegaly. No jugular vein distension. No carotid bruits. ?No lymphadenopathy Lungs - Clear to auscultation, no crackles or wheezes.? Cardiovascular - RRR. No m/r/g.? Abdomen - Soft, NT, ND. No masses or hepatosplenomegaly. ?Bowel sound normal. Extremities - No edema, cyanosis or clubbing. ? Musculoskeletal - Muscle strength 5/5 in all extremities. No joint swelling. Normal range of motion.? Neurological - Awake, alert and oriented x 3, CN II-XII grossly intact. Labs: CBC Lab Results 06/14/2024 05/10/2024 04/26/2024 03/11/2024 03/04/20 24 02/23/2024 CBC WBC x 10^3/uL 30.5 (H) 27.4 (H) RBC x 10^6/uL 5.1 5.1 NRBC, absolute, x 10^3/uL 0.1 (H) 0.1 (H) NRBC, % 0.2 0.4 (H) HGB g/dL 14.3 14.2 HCT % 45.00 44.10 MCV fL 89.1 86.0 MCH pg 28.3 27.7 MCHC g/dL 31.8 (L) 32.2 (L) RDW % 25.5 (H) 23.6 (H) PLT x 10^3/uL 158 114 (L) MPV fL ---- ---- Platelet, immature, fraction % 18 (H) 18 (H) Auto CBC comments Man Diff Man Dif f Chemistries Lab Results 06/14/2024 05/10/2024 04/26/2024 03/11/2024 03/04/20 24 02/23/2024 Chemistries Glucose mg/dL 169 (H) 194 (H) BUN mg/dL 10 17 Creatinine, mg/dL 1.02 1.04 Sodium mmol/L 140 138 Potassium mmol/L 4.2 4.2 Chloride mmol/L 105.00 103.00 CO2 mmol/L 27.7 24.1 Calcium mg/dL 9.7 9.6 Albumin g/dL 4.1 3.8 Total protein g/dL 7.6 7.6 Bilirubin, total mg/dL 0.7 1.0 Alkaline phosphatase U/L 93 97 AST/SGOT U/L 14 (L) 13 (L) ALT/SGPT U/L 20 25 Uric acid mg/dL 5.9 GFR estimate mL/min/1.73m2 81 80 Tumor Markers Lab Results 06/14/2024 05/10/2024 04/26/2024 03/11/2024 03/04/20 24 02/23/2024 Tumor Markers Labs*: - White blood cell count: 60.4 (current), 50,000 (previous visit) - Platelet count: 138 (current), 177 (previous visit) - Lymphocytes: 5% - Creatinine: 1.07 - Blood sugar: high - BCR-ABL: positive, not quantifiable December 28, 2023 BCR-ABL 1 major (p210) fusion transcript detected; low positive (nonquantifiable). ? However, the transcript detected is below the limit of quantification for this assay (0.002%, MR 4.7). Imaging: CT of the chest abdomen and pelvis with contrast on December 16, 2023. 1. ?Postsurgical changes of partial right nephrectomy. No evidence of recurrent or metastatic disease. 2. ?Unchanged small pulmonary nodules. No new or enlarging nodules. ?6 mm nodule in the posterior left lower lobe; 3 mm nodule in the medial left lower lobe, and a 4 mm nodule in the superior segment of the right lower lobe, all unchanged. ?No new or enlarging pulmonary nodules. 3. ?Unchanged enlarged bilateral external iliac lymph nodes, on the right side measuring 2.3 x 1.9 cm, on the left side measuring 2.1 x 1.9 cm, unchanged from November 2021.. No enlarging lymph nodes in the abdomen or pelvis. 4. ?Similar appearance of what appears to be a cluster of cysts versus a large cyst with internal septations in the pancreatic head. No pancreatic duct dilation. Consider a full characterization with MRI abdomen with and without contrast. MRI ABDOMEN W WO CONTRAST ?02/01/2024? COMPARISON: CT chest abdomen and pelvis 12/16/2023. IMPRESSION: 1. ?Large nonenhancing cluster of cysts occupying the pancreatic head and neck. The aggregate measures 6.2 x 2.4 x 2.7 cm. There is a 15 mm cyst at the pancreatic body and an 8 mm cyst at the pancreatic tail. No pancreatic ductal dilatation. 2. ?Mild hepatic steatosis. 3. ?9 cm cyst off the lower pole of the left kidney. Problem List: * Leukemoid reaction ( ICD-10:D72.823 ;Leukemoid reaction ) * Leukocytosis ( ICD-10:D72.828 ;Other elevated white blood cell count ) * Myelodysplastic/myeloproliferative neoplasm, unclassifiable (disorder) ( ICD- 10:C94.6 ;Myelodysplastic disease, not elsewhere classified ) * Thrombocytopenic disorder (disorder) ( ICD-10:D69.6 ;Thrombocytopenia, unspecified ) * COPD ( ICD-10:J44.9 ;Chronic obstructive pulmonary disease, unspecified ) * 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) ( ICD-10:E11.65 ;Type 2 diabetes mellitus with hyperglycemia ) * Essential hypertension (disorder) ( ICD-10:I10 ;Essential (primary) hypertension ) * Hyperlipidemia (disorder) ( ICD-10:E78.2 ;Mixed hyperlipidemia ) * Other long-term current use of drug therapy ( ICD-10:Z79.899 ;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 ?Myeloproliferative neoplasm?versus?myelodysplastic/myeloproliferative neoplasm. -Normal baseline WBC on December 21, 2020 (9.3). ?Slightly elevated WBC in November 2021 (11.1),and October 2022 (13.0). ?Significantly elevated WBC on December 08 and December 11, 2023 (39.9, and 38.8). -Lab work (December 24, 2023)?showed further? worsened leukocytosis?(WBC?50.0 -->60.4). -Asymptomatic with no obvious source of infection clinically. -Peripheral smear reviewed. ?No evidence of blasts.?Flow cytometry?from peripheral blood negative. - BCR-ABL 1 major (p210) fusion transcript detected; low positive (nonquantifiable). ?However, the transcript detected is below the limit of quantification for this assay (0.002%, MR 4.7).? Repeated BCR ABL 1?(major p210)?was negative. -?Bone marrow aspiration and biopsy on February 12, 2024.?Initially?concerning for?CML. ?However,?final?report?showed myeloproliferative neoplasm.? Marked?leukocytosis with left shift and rare circulating blasts (2%).? Iron store?absent.? Comment:?Markedly hypercellular marrow (greater than 95%?cellular)?for age with a marked?granulocytic hyperplasia.? Blasts are?mildly increased (3% by?CD34 immunostain).? The megakaryocytes?show variable?morphology.? No dysplasia is identified.? BCR/ABL 1 FISH is negative.? Myeloid?next-generation sequencing panel?reveals?multiple mutations?(see below).? Overall, ?these findings are consistent with a?myeloproliferative neoplasm?or possibly?a myelodysplastic/myeloproliferative neoplasm, although a specific diagnosis remains difficult.? Early?prefibrotic?primary myelofibrosis?is a consideration, although?the patient's white blood cell count is higher than?typically seen in this?entity?and?megakaryocyte?clustering isnot appreciated.? The JAK2 mutation essentially?excludes?entities such as?atypical CML,and CMML.? Clinical correlation and close follow-up is recommended. Myeloid NGS panel?revealsmultiple mutations including?JAK2?V617F,?CBL,?TET2,?and?SRSF2 -?Discussed with the patient and?his ?about?unclear but possible diagnosis of?MPN, versus?MDS/MPN, versus?early?prefibrotic?primary? myelofibrosis.?Need cl ose monitor?while?on treatment.? -Continue?hydroxyurea. ?Started with?500 mg?every other day. ?Increased to 500 mg daily from April 07, 2024.? Had hospitalization?due to?upper respiratory?tract?infection (flu A, and pneumonia)?with lab findings of thrombocytopenia (platelet count?87,000).? Hydrea was temporarily held, and resumed on?April 15, 2024?(500 mg?daily). - Repeated lab work April 26, 2024.? WBC?33.7, hemoglobin 11.6, platelet count?180,000.? - Lab work on May 10, 2024. ?WBC 36.6, hemoglobin 12.4 g/dL, MCV 86.3%, platelet count 116,000 - Labs on May 26, 2024. ?WBC 36.5, hemoglobin 12.7, MCV 87.1%, platelet count to 80,000. -?Continue?Hydrea. ?Changed to?500 mg?daily, except?for 1000 mg?on?Mondays,Wednesdays and Fridays?starting from?(May 27, 2024). -Repeated?lab work on?June 27, 2024?showed?improved, but still?elevated WBC count (25.2).? Asked patient to?take?1000 mg every day, except for?500 mg on Mondays and Fridays?(from?June 29, 2024). -He is planning to move to?[place]?mid July 2024. ?Will repeat labs in 2 weeks?in [place].? If?WBC count?is not?further decreased to?15.0 or lower,?we will change?hydroxyurea to 1000 mg?daily.? He voiced understanding of the plan. -Will send records to?office when he establish care with a new oncologist?in [place], [place]. -He was asked to call with any questions or concerns in the interim. 2.?History of renal cell carcinoma of the right kidney -Diagnosed in March 2020, status post right robotic partial nephrectomy. 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 -Following up with urology service. 3. ?Pulmonary nodules. -Subcentimeter. ?No change compared with?previous imaging.? Continue monitor. 4.?Cystic?lesion in the head of the pancreas. -CT scan?December 16, 2023.? Findings of a cluster of cysts versus?a large?cyst with?internal septations?in the head of the pancreas.? No pancreatic duct dilatation. -MRI?of the abdomen showed?large nonenhancing cluster of cysts occupying the pancreatic head and neck. The aggregate measures 6.2 x 2.4 x 2.7 cm. There is a 15 mm cyst at the pancreatic body and an 8 mm cyst at the pancreatic tail. No pancreatic ductal dilatation.? Continue monitor. 5.?Hypertension, hyperlipidemia, diabetes, asthma, -Stable. ?Continue follow-up with Dr. Gladys Pizano MD ? Send copy of note to: DrTeddy?Romain Graham Electronically signed by Raji Pizano MD 06/29/2024 09:35 CDT * HemOnc Follow Up - [facility] [address] [place] [address] P: F: PATIENT: SHERI MARROQUIN : 1960 Date of Service: 05/27/2024 Referring Provider: Dr. Romain Graham Chief Complaint: Principal Diagnosis: * Leukemoid reaction ( ICD-10:D72.823 ;Leukemoid reaction ) * Leukocytosis ( ICD-10:D72.828 ;Other elevated white blood cell count ) * Myelodysplastic/myeloproliferative neoplasm, unclassifiable (disorder) ( ICD- 10:C94.6 ;Myelodysplastic disease, not elsewhere classified ) * Thrombocytopenic disorder (disorder) ( ICD-10:D69.6 ;Thrombocytopenia, unspecified ) Diagnosis*: Treatment History: ? Treatment History*: Pathology: History of Present Illness: Sheri Marroquin is a 63-year-old gentleman referred by his primary care physician Dr. Romain Graham for evaluation of leukocytosis? and? thrombocytopenia. Per record from [facility], he has been having mild thrombocytopenia since at least March 2020, with platelet count ranging between 110s and 120s most of the time, although there was a platelet count of 81,000 in March 2020, and occasional normal platelet count. ?His hemoglobin level has been mildly low to normal. ?White blood cell count was also normal in the past, but started trending up since October 2022. ? Most recent labs on December 09, 2023 showed a WBC 39.9, segments 71%, lymphocytes 9%, hemoglobin 15.2, and platelet count 138,000. ?Repeated CBC on December 11, 2023 showed a persistent leukocytosis (WBC 38.8, neutrophils 88.8%, lymphocytes 8%), normal hemoglobin level (14.2), and thrombocytopenia (126,000). He had a?bone marrow aspiration and biopsy on February 12, 2024.?Initially?concerning for?CML. ?However,?final?report?showed myeloproliferative neoplasm.? Marked?leukocytosis with left shift and rare circulating blasts (2%).? Iron store?absent.? Comment:?Markedly hypercellular marrow (greater than 95%?cellular)?for age with a marked?granulocytic hyperplasia.? Blasts are?mildly increased (3% by?CD34 immunostain).? The megakaryocytes?show variable?morphology.? No dysplasia is identified.? BCR/ABL 1 FISH is negative.? Myeloid?next-generation sequencing panel?reveals?multiple mutations?(see below).? O verall,?these findings are consistent with a?myeloproliferative neoplasm?or possibly?a myelodysplastic/myeloproliferative neoplasm, although a specific diagnosis remains difficult.? Early?pretty fibrotic?primary myelofibrosis?is a consideration, although?the patient's white blood cell count is higher than?typically seen in this?entity?and?megakaryocyte?clustering is not appreciated.? The JAK2 mutation essentially?excludes?entities such as?atypical CML, and CMML.? Clinical correlation and close follow-up is recommended. Morphology: Markedly hypercellular bone marrow with?myeloid hypoplasia and 3% blasts.? Marked Leukocytosis with left shift and rare?circulating blasts (2%).? Iron storage absent. Flow cytometry: The findings reveal no definitive?immunophenotypic evidence of?hematolymphoid malignancy. Cytogenetics:? Normal male karyotype Negative?BCR:: ABL 1?rearrangement [t(9;22)?translocation]?by FISH. Molecular?diagnostics: Myeloid NGS panel?reveals multiple mutations including?JAK2?V617F,?CBL,?TET2,?and?SRSF2 On hydroxyurea?for?myeloproliferative?neoplasm.? Interval History: Sheri?is evaluated through telemedicine visit today?via?[employer] platform.? This A/V visit?is patient initiated, and?a consent was obtained.? Patient is currently?located at his home, and?the provider is in clinic. He is currently taking?hydroxyurea 500?mg daily?for myeloproliferative?neoplasm.? Tolerating treatment well with no?bleeding or bruising.? He had?respiratory symptoms, associated with influenza? infection?5 weeks ago, much improved, however, still feeling weak and tired.? No fever or chills.? Hydrea?treatment was held for a few days,?but?was resumed?afterwards. Lab work?2 weeks ago?and yesterday?showed?persistent leukocytosis with?WBC around 33, and his platelet count was found to be?low?(80,000?yesterday). Past Medical History: Hypertension, asthma, cancer of the right kidney, chronic kidney disease, diabetes, hyperlipidemia, - Diabetes - Torn tendon in left lower leg on lateral side Past Surgical History: ? 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 * Ergocalciferol Oral orally every week * Tamsulosin Oral 0.4 mg orally daily * Ondansetron Oral 8 mg tablet 1 tablet orally every 8 hours as needed for nausea and vomiting. * Miscellaneous Drug twice a day magnesium malate * Albuterol HFA Inhaler 90 mcg/actuation inhaled every 6 hours prn shortness of breath or wheezing * Glimepiride Oral 2 mg orally every morning administer with breakfast Medications reviewed and reconciled with patient. Medications*: - Albuterol inhaler - Glimepiride for diabetes Allergies: * codeine Allergies*: Smoking Status: Smoking Tobacco : none found; Smokeless Tobacco : none found; Vaping : none found Social History: He is , he smoked half a pack a day for 36 years, and quit in February 2019. ?Denies alcohol abuse or illicit drug use. Family History: * Father: - COPD * Mother: - Colorectal cancer Family History*: Mother had colon cancer at age 78 ROS: General: +WEIGHT LOSS Musculoskeletal: +JOINT PAIN Vitals: Height: 71 in; Weight: None Today; Blood pressure: , Pulse: , Temperature: , Respirations: , Pain Scale: 0 Karnofsky: Not Assessed Physical Exam: General: ?Well-developed, well-nourished, sitting in chair, wearing a facial mask?with oxygen. ?Appeared comfortable with no acute distress.?He is oriented x 3.? See below for?previous?physical?examination findings. Eyes - PERRLA, EOMI, No scleral icterus or erythema.? ENT - Normal nasal mucosa. No nasal or pharyngeal erythema or discharge. No ulceration in oral cavity. ? Neck - Supple. Trachea midline. No thyromegaly. No jugular vein distension. No carotid bruits. ?No lymphadenopathy Lungs - Clear to auscultation, no crackles or wheezes.? Cardiovascular - RRR. No m/r/g.? Abdomen - Soft, NT, ND. No masses or hepatosplenomegaly. ?Bowel sound normal. Extremities - No edema, cyanosis or clubbing. ? Musculoskeletal - Muscle strength 5/5 in all extremities. No joint swelling. Normal range of motion.? Neurological - Awake, alert and oriented x 3, CN II-XII grossly intact. Labs: CBC Lab Results 04/26/2024 03/11/2024 03/04/2024 02/23/2024 02/12/2001/22/2024 CBC WBC x 10^3/uL 30.5 (H) 27.4 (H) 60.4 (H) RBC x 10^6/uL 5.1 5.1 5.2 NRBC, absolute, x 10^3/uL 0.1 (H) 0.1 (H) 0.2 (H) NRBC, % 0.2 0.4 (H) 0.3 (H) HGB g/dL 14.3 14.2 15.0 HCT % 45.00 44.10 46.50 MCV fL 89.1 86.0 88.7 MCH pg 28.3 27.7 28.6 MCHC g/dL 31.8 (L) 32.2 (L) 32.3 (L) RDW % 25.5 (H) 23.6 (H) 23.2 (H) PLT x 10^3/uL 158 114 (L) 138 MPV fL ---- ---- ---- Platelet, immature, fraction % 18 (H) 18 (H) 21 (H) Auto CBC comments Man Diff Man Diff Man Dif f Chemistries Lab Results 04/26/2024 03/11/2024 03/04/2024 02/23/2024 02/12/20 24 01/22/2024 Chemistries Glucose mg/dL 169 (H) 194 (H) 177 (H) BUN mg/dL 10 17 11 Creatinine, mg/dL 1.02 1.04 1.07 Sodium mmol/L 140 138 142 Potassium mmol/L 4.2 4.2 4.3 Chloride mmol/L 105.00 103.00 104.00 CO2 mmol/L 27.7 24.1 27.3 Calcium mg/dL 9.7 9.6 9.7 Albumin g/dL 4.1 3.8 3.9 Total protein g/dL 7.6 7.6 7.5 Bilirubin, total mg/dL 0.7 1.0 0.8 Alkaline phosphatase U/L 93 97 113 AST/SGOT U/L 14 (L) 13 (L) 17 ALT/SGPT U/L 20 25 21 Uric acid mg/dL 5.9 GFR estimate mL/min/1.73m2 81 80 77 Tumor Markers Lab Results 04/26/2024 03/11/2024 03/04/2024 02/23/2024 02/12/20 24 01/22/2024 Tumor Markers Labs*: - White blood cell count: 60.4 (current), 50,000 (previous visit) - Platelet count: 138 (current), 177 (previous visit) - Lymphocytes: 5% - Creatinine: 1.07 - Blood sugar: high - BCR-ABL: positive, not quantifiable December 28, 2023 BCR-ABL 1 major (p210) fusion transcript detected; low positive (nonquantifiable). ? However, the transcript detected is below the limit of quantification for this assay (0.002%, MR 4.7). Imaging: CT of the chest abdomen and pelvis with contrast on December 16, 2023. 1. ?Postsurgical changes of partial right nephrectomy. No evidence of recurrent or metastatic disease. 2. ?Unchanged small pulmonary nodules. No new or enlarging nodules. ?6 mm nodule in the posterior left lower lobe; 3 mm nodule in the medial left lower lobe, and a 4 mm nodule in the superior segment of the right lower lobe, all unchanged. ?No new or enlarging pulmonary nodules. 3. ?Unchanged enlarged bilateral external iliac lymph nodes, on the right side measuring 2.3 x 1.9 cm, on the left side measuring 2.1 x 1.9 cm, unchanged from November 2021.. No enlarging lymph nodes in the abdomen or pelvis. 4. ?Similar appearance of what appears to be a cluster of cysts versus a large cyst with internal septations in the pancreatic head. No pancreatic duct dilation. Consider a full characterization with MRI abdomen with and without contrast. MRI ABDOMEN W WO CONTRAST ?02/01/2024? COMPARISON: CT chest abdomen and pelvis 12/16/2023. IMPRESSION: 1. ?Large nonenhancing cluster of cysts occupying the pancreatic head and neck. The aggregate measures 6.2 x 2.4 x 2.7 cm. There is a 15 mm cyst at the pancreatic body and an 8 mm cyst at the pancreatic tail. No pancreatic ductal dilatation. 2. ?Mild hepatic steatosis. 3. ?9 cm cyst off the lower pole of the left kidney. Problem List: * Leukemoid reaction ( ICD-10:D72.823 ;Leukemoid reaction ) * Leukocytosis ( ICD-10:D72.828 ;Other elevated white blood cell count ) * Myelodysplastic/myeloproliferative neoplasm, unclassifiable (disorder) ( ICD- 10:C94.6 ;Myelodysplastic disease, not elsewhere classified ) * Thrombocytopenic disorder (disorder) ( ICD-10:D69.6 ;Thrombocytopenia, unspecified ) * COPD ( ICD-10:J44.9 ;Chronic obstructive pulmonary disease, unspecified ) * 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) ( ICD-10:E11.65 ;Type 2 diabetes mellitus with hyperglycemia ) * Essential hypertension (disorder) ( ICD-10:I10 ;Essential (primary) hypertension ) * Hyperlipidemia (disorder) ( ICD-10:E78.2 ;Mixed hyperlipidemia ) * Other long-term current use of drug therapy ( ICD-10:Z79.899 ;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 ?Myeloproliferative neoplasm?versus?myelodysplastic/myeloproliferative neoplasm. -Normal baseline WBC on December 21, 2020 (9.3). ?Slightly elevated WBC in November 2021 (11.1),and October 2022 (13.0). ?Significantly elevated WBC on December 08 and December 11, 2023 (39.9, and 38.8). -Lab work (December 24, 2023)?showed further? worsened leukocytosis?(WBC?50.0 -->60.4). -Asymptomatic with no obvious source of infection clinically. -Peripheral smear reviewed. ?No evidence of blasts.?Flow cytometry?from peripheral blood negative. - BCR-ABL 1 major (p210) fusion transcript detected; low positive (nonquantifiable). ?However, the transcript detected is below the limit of quantification for this assay (0.002%, MR 4.7).? Repeated BCR ABL 1?(major p210)?was negative. -?Bone marrow aspiration and biopsy on February 12, 2024.?Initially?concerning for?CML. ?However,?final?report?showed myeloproliferative neoplasm.? Marked?leukocytosis with left shift and rare circulating blasts (2%).? Iron store?absent.? Comment:?Markedly hypercellular marrow (greater than 95%?cellular)?for age with a marked?granulocytic hyperplasia.? Blasts are?mildly increased (3% by?CD34 immunostain).? The megakaryocytes?show variable?morphology.? No dysplasia is identified.? BCR/ABL 1 FISH is negative.? Myeloid?next-generation sequencing panel?reveals?multiple mutations?(see below).? Overall, ?these findings are consistent with a?myeloproliferative neoplasm?or possibly?a myelodysplastic/myeloproliferative neoplasm, although a specific diagnosis remains difficult.? Early?prefibrotic?primary myelofibrosis?is a consideration, although?the patient's white blood cell count is higher than?typically seen in this?entity?and?megakaryocyte?clustering isnot appreciated.? The JAK2 mutation essentially?excludes?entities such as?atypical CML,and CMML.? Clinical correlation and close follow-up is recommended. Myeloid NGS panel?revealsmultiple mutations including?JAK2?V617F,?CBL,?TET2,?and?SRSF2 -?Discussed with the patient and?his ?about?unclear but possible diagnosis of?MPN, versus?MDS/MPN, versus?early?prefibrotic?primary? myelofibrosis.?Need cl ose monitor?while?on treatment.? -Continue?hydroxyurea. ?Started with?500 mg?every other day. ?Increased to 500 mg daily from April 07, 2024.? Had recent hospitalization?due to?upper respiratory?tract?infection (flu A, and pneumonia)?with lab findings of thrombocytopenia (platelet count?87,000) .? Hydrea was temporarily held, and resumed on?April 15, 2024?(500 mg?daily). -Repeated lab work April 26, 2024.? WBC?33.7, hemoglobin 11.6, platelet count?180,000.? - Lab work on May 10, 2024. ?WBC 36.6, hemoglobin 12.4 g/dL, MCV 86.3%, platelet count 116,000 - Labs on May 26, 2024. ?WBC 36.5, hemoglobin 12.7, MCV 87.1%, platelet count to 80,000. -?Continue?Hydrea at current?dose and frequency (500 mg p.o. daily). - Will continue Hydrea.? He was asked to?take?500 mg?daily, except?for 1000 mg?on?Mondays, Wednesdays and Fridays?starting from today (May 27, 2024). -Lab check in 2 weeks?and 4 weeks?by home health nurse.? Will arrange telemedicine visit with a?nurse practitioner in 4 weeks.? -He was asked to call with any questions or concerns in the interim. 2.?History of renal cell carcinoma of the right kidney -Diagnosed in March 2020, status post right robotic partial nephrectomy. 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 -Following up with urology service (Dr. Talbot). 3. ?Pulmonary nodules. -Subcentimeter. ?No change compared with?previous imaging.? Continue monitor. 4.?Cystic?lesion in the head of the pancreas. -CT scan?December 16, 2023.? Findings of a cluster of cysts versus?a large?cyst with?internal septations?in the head of the pancreas.? No pancreatic duct dilatation. -MRI?of the abdomen showed?large nonenhancing cluster of cysts occupying the pancreatic head and neck. The aggregate measures 6.2 x 2.4 x 2.7 cm. There is a 15 mm cyst at the pancreatic body and an 8 mm cyst at the pancreatic tail. No pancreatic ductal dilatation.? Continue monitor. 5.?Hypertension, hyperlipidemia, diabetes, asthma, -Stable. ?Continue follow-up with Dr. Gladys Pizano MD ? Send copy of note to: ?Romain Graham Electronically signed by Raji Pizano MD 05/27/2024 09:47 CDT * [facility] Follow Up - [place] (Amended) ? [facility] [place] [address] P: F: PATIENT: SHERI MARROQUIN : 1960 Date of Service: 04/27/2024 Referring Provider: Dr. Romain Graham Chief Complaint: Principal Diagnosis: * Leukemoid reaction ( ICD-10:D72.823 ;Leukemoid reaction ) * Leukocytosis ( ICD-10:D72.828 ;Other elevated white blood cell count ) * Myelodysplastic/myeloproliferative neoplasm, unclassifiable (disorder) ( ICD- 10:C94.6 ;Myelodysplastic disease, not elsewhere classified ) * Thrombocytopenic disorder (disorder) ( ICD-10:D69.6 ;Thrombocytopenia, unspecified ) Diagnosis*: Treatment History: ? Treatment History*: Pathology: History of Present Illness: Sheri Marroqiun is a 63-year-old gentleman referred by his primary care physician Dr. Romain Graham for evaluation of leukocytosis? and? thrombocytopenia. Per record from [facility], he has been having mild thrombocytopenia since at least March 2020, with platelet count ranging between 110s and 120s most of the time, although there was a platelet count of 81,000 in March 2020, and occasional normal platelet count. ?His hemoglobin level has been mildly low to normal. ?White blood cell count was also normal in the past, but started trending up since October 2022. ? Most recent labs on December 09, 2023 showed a WBC 39.9, segments 71%, lymphocytes 9%, hemoglobin 15.2, and platelet count 138,000. ?Repeated CBC on December 11, 2023 showed a persistent leukocytosis (WBC 38.8, neutrophils 88.8%, lymphocytes 8%), normal hemoglobin level (14.2), and thrombocytopenia (126,000). He had a?bone marrow aspiration and biopsy on February 12, 2024.?Initially?concerning for?CML. ?However,?final?report?showed myeloproliferative neoplasm.? Marked?leukocytosis with left shift and rare circulating blasts (2%).? Iron store?absent.? Comment:?Markedly hypercellular marrow (greater than 95%?cellular)?for age with a marked?granulocytic hyperplasia.? Blasts are?mildly increased (3% by?CD34 immunostain).? The megakaryocytes?show variable?morphology.? No dysplasia is identified.? BCR/ABL 1 FISH is negative.? Myeloid?next-generation sequencing panel?reveals?multiple mutations?(see below).? O verall,?these findings are consistent with a?myeloproliferative neoplasm?or possibly?a myelodysplastic/myeloproliferative neoplasm, although a specific diagnosis remains difficult.? Early?pretty fibrotic?primary myelofibrosis?is a consideration, although?the patient's white blood cell count is higher than?typically seen in this?entity?and?megakaryocyte?clustering is not appreciated.? The JAK2 mutation essentially?excludes?entities such as?atypical CML, and CMML.? Clinical correlation and close follow-up is recommended. Morphology: Markedly hypercellular bone marrow with?myeloid hypoplasia and 3% blasts.? Marked Leukocytosis with left shift and rare?circulating blasts (2%).? Iron storage absent. Flow cytometry: The findings reveal no definitive?immunophenotypic evidence of?hematolymphoid malignancy. Cytogenetics:? Normal male karyotype Negative?BCR:: ABL 1?rearrangement [t(9;22)?translocation]?by FISH. Molecular?diagnostics: Myeloid NGS panel?reveals multiple mutations including?JAK2?V617F,?CBL,?TET2,?and?SRSF2 On hydroxyurea?for?myeloproliferative?neoplasm. Interval History: Sheri?is evaluated today through telemedicine visit to?via [employer] platform. He was recently hospitalized due to?upper respiratory?infection?and?acute respiratory failure.? He was tested positive for influenza A, treated with Tamiflu.? He was also given IV an tibiotics for possible?pneumonia, improved. ?He was?discharged home with?supplemental?oxygen.?He also took some steroids.? During hospital stay,?lab?showed?thrombocytopenia with platelet count to 87,000.? Hydroxyurea was?held.? He restarted?hydroxyurea?500 mg?dating from April 15, 2024.? He had a lab check yesterday (April 26, 2024) which showed?WBC 33.7, hemoglobin 11.6, and platelet count to 180,000. He denies any fever or chills.? Breathing has much improved. ?He is able to walk?longer distance without?shortness of breath.? Past Medical History: Hypertension, asthma, cancer of the right kidney, chronic kidney disease, diabetes, hyperlipidemia, - Diabetes - Torn tendon in left lower leg on lateral side Past Surgical History: ? 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 * Hydroxyurea Oral 500 mg capsule 1 capsule orally daily. * Tamsulosin Oral 0.4 mg orally daily * Amlodipine Oral 5 mg tablet 2 mg orally daily * Atorvastatin Oral 40 mg orally daily * Glimepiride Oral 2 mg orally every morning administer with breakfast * Tadalafil Oral 10 mg orally daily prn sexual activity; administer approximately 30min before sexualactivity; do not use more than 1 dose per 24hrs * Ergocalciferol Oral orally every week Medications reviewed and reconciled with patient. Medications*: - Albuterol inhaler - Glimepiride for diabetes Allergies: * codeine Allergies*: Smoking Status: Smoking Tobacco : none found; Smokeless Tobacco : none found; Vaping : none found Social History: He is , he smoked half a pack a day for 36 years, and quit in February 2019. ?Denies alcohol abuse or illicit drug use. Family History: * Father: - COPD * Mother: - Colorectal cancer Family History*: Mother had colon cancer at age 78 ROS: General: +WEIGHT LOSS Musculoskeletal: +JOINT PAIN Vitals: Height: None Today; Weight: None Today; Blood pressure: , Pulse: , Temperature: , Respirations: , Pain Scale: Karnofsky: Not Assessed Physical Exam: General: ?Well-developed, well-nourished, sitting in chair, wearing a facial mask?with oxygen. ?Appeared comfortable with no acute distress.?He is oriented x 3.? See below for?previous?physical?examination findings. Eyes - PERRLA, EOMI, No scleral icterus or erythema.? ENT - Normal nasal mucosa. No nasal or pharyngeal erythema or discharge. No ulceration in oral cavity. ? Neck - Supple. Trachea midline. No thyromegaly. No jugular vein distension. No carotid bruits. ?No lymphadenopathy Lungs - Clear to auscultation, no crackles or wheezes.? Cardiovascular - RRR. No m/r/g.? Abdomen - Soft, NT, ND. No masses or hepatosplenomegaly. ?Bowel sound normal. Extremities - No edema, cyanosis or clubbing. ? Musculoskeletal - Muscle strength 5/5 in all extremities. No joint swelling. Normal range of motion.? Neurological - Awake, alert and oriented x 3, CN II-XII grossly intact. Labs: CBC Lab Results 04/26/2024 03/11/2024 03/04/2024 02/23/2024 02/12/20 24 01/22/2024 CBC WBC x 10^3/uL 30.5 (H) 27.4 (H) 60.4 (H) RBC x 10^6/uL 5.1 5.1 5.2 NRBC, absolute, x 10^3/uL 0.1 (H) 0.1 (H) 0.2 (H) NRBC, % 0.2 0.4 (H) 0.3 (H) HGB g/dL 14.3 14.2 15.0 HCT % 45.00 44.10 46.50 MCV fL 89.1 86.0 88.7 MCH pg 28.3 27.7 28.6 MCHC g/dL 31.8 (L) 32.2 (L) 32.3 (L) RDW % 25.5 (H) 23.6 (H) 23.2 (H) PLT x 10^3/uL 158 114 (L) 138 MPV fL ---- ---- ---- Platelet, immature, fraction % 18 (H) 18 (H) 21 (H) Auto CBC comments Man Diff Man Diff Man Dif f Chemistries Lab Results 04/26/2024 03/11/2024 03/04/2024 02/23/2024 02/12/20 24 01/22/2024 Chemistries Glucose mg/dL 169 (H) 194 (H) 177 (H) BUN mg/dL 10 17 11 Creatinine, mg/dL 1.02 1.04 1.07 Sodium mmol/L 140 138 142 Potassium mmol/L 4.2 4.2 4.3 Chloride mmol/L 105.00 103.00 104.00 CO2 mmol/L 27.7 24.1 27.3 Calcium mg/dL 9.7 9.6 9.7 Albumin g/dL 4.1 3.8 3.9 Total protein g/dL 7.6 7.6 7.5 Bilirubin, total mg/dL 0.7 1.0 0.8 Alkaline phosphatase U/L 93 97 113 AST/SGOT U/L 14 (L) 13 (L) 17 ALT/SGPT U/L 20 25 21 Uric acid mg/dL 5.9 GFR estimate mL/min/1.73m2 81 80 77 Tumor Markers Lab Results 04/26/2024 03/11/2024 03/04/2024 02/23/2024 02/12/2001/22/2024 Tumor Markers Labs*: - White blood cell count: 60.4 (current), 50,000 (previous visit) - Platelet count: 138 (current), 177 (previous visit) - Lymphocytes: 5% - Creatinine: 1.07 - Blood sugar: high - BCR-ABL: positive, not quantifiable December 28, 2023 BCR-ABL 1 major (p210) fusion transcript detected; low positive (nonquantifiable). ? However, the transcript detected is below the limit of quantification for this assay (0.002%, MR 4.7). Imaging: CT of the chest abdomen and pelvis with contrast on December 16, 2023. 1. ?Postsurgical changes of partial right nephrectomy. No evidence of recurrent or metastatic disease. 2. ?Unchanged small pulmonary nodules. No new or enlarging nodules. ?6 mm nodule in the posterior left lower lobe; 3 mm nodule in the medial left lower lobe, and a 4 mm nodule in the superior segment of the right lower lobe, all unchanged. ?No new or enlarging pulmonary nodules. 3. ?Unchanged enlarged bilateral external iliac lymph nodes, on the right side measuring 2.3 x 1.9 cm, on the left side measuring 2.1 x 1.9 cm, unchanged from November 2021.. No enlarging lymph nodes in the abdomen or pelvis. 4. ?Similar appearance of what appears to be a cluster of cysts versus a large cyst with internal septations in the pancreatic head. No pancreatic duct dilation. Consider a full characterization with MRI abdomen with and without contrast. MRI ABDOMEN W WO CONTRAST ?02/01/2024? COMPARISON: CT chest abdomen and pelvis 12/16/2023. IMPRESSION: 1. ?Large nonenhancing cluster of cysts occupying the pancreatic head and neck. The aggregate measures 6.2 x 2.4 x 2.7 cm. There is a 15 mm cyst at the pancreatic body and an 8 mm cyst at the pancreatic tail. No pancreatic ductal dilatation. 2. ?Mild hepatic steatosis. 3. ?9 cm cyst off the lower pole of the left kidney. Problem List: * Leukemoid reaction ( ICD-10:D72.823 ;Leukemoid reaction ) * Leukocytosis ( ICD-10:D72.828 ;Other elevated white blood cell count ) * Myelodysplastic/myeloproliferative neoplasm, unclassifiable (disorder) ( ICD- 10:C94.6 ;Myelodysplastic disease, not elsewhere classified ) * Thrombocytopenic disorder (disorder) ( ICD-10:D69.6 ;Thrombocytopenia, unspecified ) * COPD ( ICD-10:J44.9 ;Chronic obstructive pulmonary disease, unspecified ) * 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) ( ICD-10:E11.65 ;Type 2 diabetes mellitus with hyperglycemia ) * Essential hypertension (disorder) ( ICD-10:I10 ;Essential (primary) hypertension ) * Hyperlipidemia (disorder) ( ICD-10:E78.2 ;Mixed hyperlipidemia ) * Other long-term current use of drug therapy ( ICD-10:Z79.899 ;Other [facility] (current) drug therapy ) * Pancreatic cyst ( ICD-10:K86.2 ;Cyst of pancreas ) * Sleep apnea (disorder) ( ICD-10:G47.33 ;Obstructive sleep apnea (adult) (pediatric) ) * Vitamin D deficiency (disorder) ( ICD-10:E55.9 ;Vitamin D deficiency, unspecified ) Impression: 1. ?Myeloproliferative neoplasm?versus?myelodysplastic/myeloproliferative neoplasm. -Normal baseline WBC on December 21, 2020 (9.3). ?Slightly elevated WBC in November 2021 (11.1),and October 2022 (13.0). ?Significantly elevated WBC on December 08 and December 11, 2023 (39.9, and 38.8). -Lab work (December 24, 2023)?showed further? worsened leukocytosis?(WBC?50.0 -->60.4). -Asymptomatic with no obvious source of infection clinically. -Peripheral smear reviewed. ?No evidence of blasts.?Flow cytometry?from peripheral blood negative. - BCR-ABL 1 major (p210) fusion transcript detected; low positive (nonquantifiable). ?However, the transcript detected is below the limit of quantification for this assay (0.002%, MR 4.7).? Repeated BCR ABL 1?(major p210)?was negative. -?Bone marrow aspiration and biopsy on February 12, 2024.?Initially?concerning for?CML. ?However,?final?report?showed myeloproliferative neoplasm.? Marked?leukocytosis with left shift and rare circulating blasts (2%).? Iron store?absent.? Comment:?Markedly hypercellular marrow (greater than 95%?cellular)?for age with a marked?granulocytic hyperplasia.? Blasts are?mildly increased (3% by?CD34 immunostain).? The megakaryocytes?show variable?morphology.? No dysplasia is identified.? BCR/ABL 1 FISH is negative.? Myeloid?next-generation sequencing panel?reveals?multiple mutations?(see below).? Overall, ?these findings are consistent with a?myeloproliferative neoplasm?or possibly?a myelodysplastic/myeloproliferative neoplasm, although a specific diagnosis remains difficult.? Early?prefibrotic?primary myelofibrosis?is a consideration, although?the patient's white blood cell count is higher than?typically seen in this?entity?and?megakaryocyte?clustering isnot appreciated.? The JAK2 mutation essentially?excludes?entities such as?atypical CML,and CMML.? Clinical correlation and close follow-up is recommended. Myeloid NGS panel?revealsmultiple mutations including?JAK2?V617F,?CBL,?TET2,?and?SRSF2 -?Discussed with the patient and?his ?about?unclear but possible diagnosis of?MPN, versus?MDS/MPN, versus?early?prefibrotic?primary? myelofibrosis.?Need cl ose monitor?while?on treatment.? -Continue?hydroxyurea. ?Started with?500 mg?every other day. ?Increased to 500 mg daily from April 07, 2024.? Had recent hospitalization?due to?upper respiratory?tract?infection (flu A, and pneumonia)?with lab findings of thrombocytopenia (platelet count?87,000) .? Hydrea was temporarily held, and resumed on?April 15, 2024?(500 mg?daily). -Repeated lab work April 26, 2024.? WBC?33.7, hemoglobin 11.6, platelet count?180,000.? Continue?Hydrea at current?dose and frequency (500 mg p.o. daily). -Lab check in 2 weeks?by home health nurse.? Will arrange telemedicine visit with a?nurse practitioner in 4 weeks.? He also needs lab check in 4 weeks?by home health nurse. -He was asked to call with any questions or concerns in the interim. 2.?History of renal cell carcinoma of the right kidney -Diagnosed in March 2020, status post right robotic partial nephrectomy. 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 -Following up with urology service (Dr. Talbot). 3. ?Pulmonary nodules. -Subcentimeter. ?No change compared with?previous imaging.? Continue monitor. 4.?Cystic?lesion in the head of the pancreas. -CT scan?December 16, 2023.? Findings of a cluster of cysts versus?a large?cyst with?internal septations?in the head of the pancreas.? No pancreatic duct dilatation. -MRI?of the abdomen showed?large nonenhancing cluster of cysts occupying the pancreatic head and neck. The aggregate measures 6.2 x 2.4 x 2.7 cm. There is a 15 mm cyst at the pancreatic body and an 8 mm cyst at the pancreatic tail. No pancreatic ductal dilatation.? Continue monitor. 5.?Hypertension, hyperlipidemia, diabetes, asthma, -Stable. ?Continue follow-up with Dr. Graham Addendum?May 26, 2024. Lab work on May 10, 2024. ?WBC 36.6, hemoglobin 12.4 g/dL, MCV 86.3%, platelet count 116,000 Labs on May 26, 2024. ?WBC 36.5, hemoglobin 12.7, MCV 87.1%, platelet count to 80,000. Due to persistent?leukocytosis,?will?adjust?hydroxyurea?dose/frequency, and?closely monitor?WBC, and platelet count.. Raji Pizano MD ? Send copy of note to: ?Romain Graham Electronically signed by Raji Pizano MD 05/26/2024 21:19 CDT * HemOnc Follow Up - [facility] [place] [address] P: F: PATIENT: SHERI MARROQUIN : 1960 Date of Service: 03/11/2024 Referring Provider: Dr. Romain Graham Chief Complaint: Principal Diagnosis: * Leukemoid reaction ( ICD-10:D72.823 ;Leukemoid reaction ) * Leukocytosis ( ICD-10:D72.828 ;Other elevated white blood cell count ) * Myelodysplastic/myeloproliferative neoplasm, unclassifiable (disorder) ( ICD- 10:C94.6 ;Myelodysplastic disease, not elsewhere classified ) * Thrombocytopenic disorder (disorder) ( ICD-10:D69.6 ;Thrombocytopenia, unspecified ) Diagnosis*: Treatment History: ? Treatment History*: Pathology: History of Present Illness: Sheri Marroquin is a 62-year-old gentleman referred by his primary care physician Dr. Romain Graham for evaluation of leukocytosis? and? thrombocytopenia. Per record from [facility], he has been having mild thrombocytopenia since at least March 2020, with platelet count ranging between 110s and 120s most of the time, although there was a platelet count of 81,000 in March 2020, and occasional normal platelet count. ?His hemoglobin level has been mildly low to normal. ?White blood cell count was also normal in the past, but started trending up since October 2022. ? Most recent labs on December 09, 2023 showed a WBC 39.9, segments 71%, lymphocytes 9%, hemoglobin 15.2, and platelet count 138,000. ?Repeated CBC on December 11, 2023 showed a persistent leukocytosis (WBC 38.8, neutrophils 88.8%, lymphocytes 8%), normal hemoglobin level (14.2), and thrombocytopenia (126,000). He denies recent?infections.? He is not on any steroids treatment.? He is a non-smoker.? He has been eating?healthy,?trying to?control his?weight and?diabetes. He had a?bone marrow aspiration and biopsy on February 12, 2024.?Initially?concerning for?CML. ?However,?final?report?showed myeloproliferative neoplasm.? Marked?leukocytosis with left shift and rare circulating blasts (2%).? Iron store?absent.? Comment:?Markedly hypercellular marrow (greater than 95%?cellular)?for age with a marked?granulocytic hyperplasia.? Blasts are?mildly increased (3% by?CD34 immunostain).? The megakaryocytes?show variable?morphology.? No dysplasia is identified.? BCR/ABL 1 FISH is negative.? Myeloid?next-generation sequencing panel?reveals?multiple mutations?(see below).? O verall,?these findings are consistent with a?myeloproliferative neoplasm?or possibly?a myelodysplastic/myeloproliferative neoplasm, although a specific diagnosis remains difficult.? Early?pretty fibrotic?primary myelofibrosis?is a consideration, although?the patient's white blood cell count is higher than?typically seen in this?entity?and?megakaryocyte?clustering is not appreciated.? The JAK2 mutation essentially?excludes?entities such as?atypical CML, and CMML.? Clinical correlation and close follow-up is recommended. Morphology: Markedly hypercellular bone marrow with?myeloid hypoplasia and 3% blasts.? Marked Leukocytosis with left shift and rare?circulating blasts (2%).? Iron storage absent. Flow cytometry: The findings reveal no definitive?immunophenotypic evidence of?hematolymphoid malignancy. Cytogenetics:? Normal male karyotype Negative?BCR:: ABL 1?rearrangement [t(9;22)?translocation]?by FISH. Molecular?diagnostics: Myeloid NGS panel?reveals multiple mutations including?JAK2?V617F,?CBL,?TET2,?and?SRSF2 Interval History: Sheri returns to the clinic today with his for scheduled office visit.? He is currently on?hydroxyurea?500 mg?p.o.?every other day.? Lab work?today showed?elevated white blood cell again?(30.5, from 15?2 weeks ago).? He is doing very well clinically?with no complaints. He is here today to discuss?final bone marrow aspiration and biopsy?results. Past Medical History: Hypertension, asthma, cancer of the right kidney, chronic kidney disease, diabetes, hyperlipidemia, - Diabetes - Torn tendon in left lower leg on lateral side Past Surgical History: ? 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 * Ondansetron Oral 8 mg tablet 1 tablet orally every 8 hours as needed for nausea and vomiting. * Tamsulosin Oral 0.4 mg orally daily * Amlodipine Oral 5 mg tablet 2 mg orally daily * Atorvastatin Oral 40 mg orally daily * Glimepiride Oral 2 mg orally every morning administer with breakfast * Tadalafil Oral 10 mg orally daily prn sexual activity; administer approximately 30min before sexualactivity; do not use more than 1 dose per 24hrs * Ergocalciferol Oral orally every week Medications reviewed and reconciled with patient. Medications*: - Albuterol inhaler - Glimepiride for diabetes Allergies: * codeine Allergies*: Smoking Status: Smoking Tobacco : none found; Smokeless Tobacco : none found; Vaping : none found Social History: He is , he smoked half a pack a day for 36 years, and quit in February 2019. ?Denies alcohol abuse or illicit drug use. Family History: * Father: - COPD * Mother: - Colorectal cancer Family History*: Mother had colon cancer at age 78 ROS: General: +WEIGHT LOSS Musculoskeletal: +JOINT PAIN Vitals: Height: 71 in; Weight: 274 lb; Blood pressure: 135/88, Pulse: 97, Temperature: 99.3 F, Respirations: 16, Pain Scale: 0 Karnofsky: Not Assessed Physical Exam: General: ?Well-developed, well-nourished, sitting in chair, ?appeared comfortable with no acute distress.? Eyes - PERRLA, EOMI, No scleral icterus or erythema.? ENT - Normal nasal mucosa. No nasal or pharyngeal erythema or discharge. No ulceration in oral cavity. ? Neck - Supple. Trachea midline. No thyromegaly. No jugular vein distension. No carotid bruits. ?No lymphadenopathy Lungs - Clear to auscultation, no crackles or wheezes.? Cardiovascular - RRR. No m/r/g.? Abdomen - Soft, NT, ND. No masses or hepatosplenomegaly. ?Bowel sound normal. Extremities - No edema, cyanosis or clubbing. ? Musculoskeletal - Muscle strength 5/5 in all extremities. No joint swelling. Normal range of motion.? Neurological - Awake, alert and oriented x 3, CN II-XII grossly intact. Labs: CBC Lab Results 03/11/2024 03/04/2024 02/23/2024 02/12/2024 01/22/20 24 12/24/2023 CBC WBC x 10^3/uL 30.5 (H) 27.4 (H) 60.4 (H) 50.0 (H) RBC x 10^6/uL 5.1 5.1 5.2 5.2 NRBC, absolute, x 10^3/uL 0.1 (H) 0.1 (H) 0.2 (H) 0.2 (H) NRBC, % 0.2 0.4 (H) 0.3 (H) 0.3 (H) HGB g/dL 14.3 14.2 15.0 14.8 HCT % 45.00 44.10 46.50 45.90 MCV fL 89.1 86.0 88.7 89.0 MCH pg 28.3 27.7 28.6 28.7 MCHC g/dL 31.8 (L) 32.2 (L) 32.3 (L) 32.2 (L) RDW % 25.5 (H) 23.6 (H) 23.2 (H) 23.2 (H) PLT x 10^3/uL 158 114 (L) 138 177 MPV fL ---- ---- ---- ---- Platelet, immature, fraction % 18 (H) 18 (H) 21 (H) 18 (H) Auto CBC comments Man Diff Man Diff Man Diff Man Dif f Chemistries Lab Results 03/11/2024 03/04/2024 02/23/2024 02/12/2024 01/22/20 24 12/24/2023 Chemistries Glucose mg/dL 169 (H) 194 (H) 177 (H) 188 (H) BUN mg/dL 10 17 11 11 Creatinine, mg/dL 1.02 1.04 1.07 0.94 Sodium mmol/L 140 138 142 138 Potassium mmol/L 4.2 4.2 4.3 4.7 Chloride mmol/L 105.00 103.00 104.00 102.00 CO2 mmol/L 27.7 24.1 27.3 27.5 Calcium mg/dL 9.7 9.6 9.7 9.8 Albumin g/dL 4.1 3.8 3.9 4.0 Total protein g/dL 7.6 7.6 7.5 7.8 Bilirubin, total mg/dL 0.7 1.0 0.8 0.7 Alkaline phosphatase U/L 93 97 113 106 AST/SGOT U/L 14 (L) 13 (L) 17 12 (L) ALT/SGPT U/L 20 25 21 22 LDH U/L 529 (H) Uric acid mg/dL 5.9 GFR estimate mL/min/1.73m2 81 80 77 90 C-reactive protein, quant, mg/L 4.5 Tumor Markers Lab Results 03/11/2024 03/04/2024 02/23/2024 02/12/2024 01/22/20 24 12/24/2023 Tumor Markers CA 19-9 U/mL 33 Labs*: - White blood cell count: 60.4 (current), 50,000 (previous visit) - Platelet count: 138 (current), 177 (previous visit) - Lymphocytes: 5% - Creatinine: 1.07 - Blood sugar: high - BCR-ABL: positive, not quantifiable Imaging: CT of the chest abdomen and pelvis with contrast on December 16, 2023. 1. ?Postsurgical changes of partial right nephrectomy. No evidence of recurrent or metastatic disease. 2. ?Unchanged small pulmonary nodules. No new or enlarging nodules. ?6 mm nodule in the posterior left lower lobe; 3 mm nodule in the medial left lower lobe, and a 4 mm nodule in the superior segment of the right lower lobe, all unchanged. ?No new or enlarging pulmonary nodules. 3. ?Unchanged enlarged bilateral external iliac lymph nodes, on the right side measuring 2.3 x 1.9 cm, on the left side measuring 2.1 x 1.9 cm, unchanged from November 2021.. No enlarging lymph nodes in the abdomen or pelvis. 4. ?Similar appearance of what appears to be a cluster of cysts versus a large cyst with internal septations in the pancreatic head. No pancreatic duct dilation. Consider a full characterization with MRI abdomen with and without contrast. MRI ABDOMEN W WO CONTRAST ?02/01/2024? COMPARISON: CT chest abdomen and pelvis 12/16/2023. IMPRESSION: 1. ?Large nonenhancing cluster of cysts occupying the pancreatic head and neck. The aggregate measures 6.2 x 2.4 x 2.7 cm. There is a 15 mm cyst at the pancreatic body and an 8 mm cyst at the pancreatic tail. No pancreatic ductal dilatation. 2. ?Mild hepatic steatosis. 3. ?9 cm cyst off the lower pole of the left kidney. Problem List: * Leukemoid reaction ( ICD-10:D72.823 ;Leukemoid reaction ) * Leukocytosis ( ICD-10:D72.828 ;Other elevated white blood cell count ) * Myelodysplastic/myeloproliferative neoplasm, unclassifiable (disorder) ( ICD- 10:C94.6 ;Myelodysplastic disease, not elsewhere classified ) * Thrombocytopenic disorder (disorder) ( ICD-10:D69.6 ;Thrombocytopenia, unspecified ) * COPD ( ICD-10:J44.9 ;Chronic obstructive pulmonary disease, unspecified ) * 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) ( ICD-10:E11.65 ;Type 2 diabetes mellitus with hyperglycemia ) * Essential hypertension (disorder) ( ICD-10:I10 ;Essential (primary) hypertension ) * Hyperlipidemia (disorder) ( ICD-10:E78.2 ;Mixed hyperlipidemia ) * Other long-term current use of drug therapy ( ICD-10:Z79.899 ;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 ?Myeloproliferative neoplasm?versus?myelodysplastic/myeloproliferative neoplasm. -Normal baseline WBC on December 21, 2020 (9.3). ?Slightly elevated WBC in November 2021 (11.1),and October 2022 (13.0). ?Significantly elevated WBC on December 08 and December 11, 2023 (39.9, and 38.8). -Lab work (December 24, 2023)?showed further? worsened leukocytosis?(WBC?50.0 -->60.4). -Asymptomatic with no obvious source of infection clinically. -Peripheral smear reviewed. ?No evidence of blasts.?Flow cytometry?from peripheral blood negative. - BCR-ABL 1 major (p210) fusion transcript detected; low positive (nonquantifiable). ?However, the transcript detected is below the limit of quantification for this assay (0.002%, MR 4.7).? Repeated BCR ABL 1?(major p210)?was negative. -?Bone marrow aspiration and biopsy on February 12, 2024.?Initially?concerning for?CML. ?However,?final?report?showed myeloproliferative neoplasm.? Marked?leukocytosis with left shift and rare circulating blasts (2%).? Iron store?absent.? Comment:?Markedly hypercellular marrow (greater than 95%?cellular)?for age with a marked?granulocytic hyperplasia.? Blasts are?mildly increased (3% by?CD34 immunostain).? The megakaryocytes?show variable?morphology.? No dysplasia is identified.? BCR/ABL 1 FISH is negative.? Myeloid?next-generation sequencing panel?reveals?multiple mutations?(see below).? Overall, ?these findings are consistent with a?myeloproliferative neoplasm?or possibly?a myelodysplastic/myeloproliferative neoplasm, although a specific diagnosis remains difficult.? Early?prefibrotic?primary myelofibrosis?is a consideration, although?the patient's white blood cell count is higher than?typically seen in this?entity?and?megakaryocyte?clustering isnot appreciated.? The JAK2 mutation essentially?excludes?entities such as?atypical CML,and CMML.? Clinical correlation and close follow-up is recommended. Myeloid NGS panel?revealsmultiple mutations including?JAK2?V617F,?CBL,?TET2,?and?SRSF2 -?Discussed with the patient and?his ?about?unclear but possible diagnosis of?MPN, versus?MDS/MPN, versus?early?prefibrotic?primary? myelofibrosis.?Need cl ose monitor?while?on treatment.? -Continue?hydroxyurea. ?Currently on?500 mg?every other day. ?Will increase to 500 mg daily from today (April 07, 2024). -Lab check in 2 weeks in [place].? Return to clinic in 4 weeks to see me. -He and his were asked to call with any questions or concerns in the interim. 2.?History of renal cell carcinoma of the right kidney -Diagnosed in March 2020, status post right robotic partial nephrectomy. 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 -Following up with urology service (Dr. Talbot). 3. ?Pulmonary nodules. -Subcentimeter. ?No change compared with?previous imaging.? Continue monitor. 4.?Cystic?lesion in the head of the pancreas. -CT scan?December 16, 2023.? Findings of a cluster of cysts versus?a large?cyst with?internal septations?in the head of the pancreas.? No pancreatic duct dilatation. -MRI?of the abdomen showed?large nonenhancing cluster of cysts occupying the pancreatic head and neck. The aggregate measures 6.2 x 2.4 x 2.7 cm. There is a 15 mm cyst at the pancreatic body and an 8 mm cyst at the pancreatic tail. No pancreatic ductal dilatation.? Continue monitor. 5.?Hypertension, hyperlipidemia, diabetes, asthma, -Stable. ?Continue follow-up with Dr. Gladys Pizano MD ? 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 [address] P: F: PATIENT: SHERI MARROQUIN : 1960 Date of Service: 02/23/2024 Referring Provider: Dr. 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, Stage Chronic phase Date of Dx:02/12/2024 Disease Status: Initial presentation; Hepatitis B Testing Status: Result: Negative; CML Relative Risk-Sokal: High; BCR-ABL at Diagnosis: Positive; ICD-10:C92.10 ;Chronic myeloidleukemia, BCR/ABL-positive, not having achieved remission ) * Leukemoid reaction ( ICD-10:D72.823 ;Leukemoid reaction ) * Leukocytosis ( ICD-10:D72.828 ;Other elevated white blood cell count ) * Thrombocytopenic disorder (disorder) ( ICD-10:D69.6 ;Thrombocytopenia, unspecified ) Diagnosis*: Treatment History: Dasatinib Q30D (CML) Cycle Length: 30 Number Cycles: 6 Start: C1D1 on 02/24/2024 Assoc Dx: CML LOT:1st Line or Induction Stage: Chronic phase 02/24/2024 C1 D1 * Dasatinib Oral, 100 mg qday Treatment History*: Pathology: History of Present Illness: Sheri Marroquin is a 62-year-old gentleman referred by his primary care physician Dr. Romain Graham for evaluation of leukocytosis? and? thrombocytopenia. Per record from [facility], he has been having mild thrombocytopenia since at least March 2020, with platelet count ranging between 110s and 120s most of the time, although there was a platelet count of 81,000 in March 2020, and occasional normal platelet count. ?His hemoglobin level has been mildly low to normal. ?White blood cell count was also normal in the past, but started trending up since October 2022. ? Most recent labs on December 09, 2023 showed a WBC 39.9, segments 71%, lymphocytes 9%, hemoglobin 15.2, and platelet count 138,000. ?Repeated CBC on December 11, 2023 showed a persistent leukocytosis (WBC 38.8, neutrophils 88.8%, lymphocytes 8%), normal hemoglobin level (14.2), and thrombocytopenia (126,000). He denies recent?infections.? He is not on any steroids treatment.? He is a non-smoker.? He has been eating?healthy,?trying to?control his?weight and?diabetes. Interval History: Sheri returns to the clinic today with his for a scheduled office visit.? Since last visit,?he had a?MRI of the abdomen?with and without contrast on February 01, 2024, which showed?large?nonenhancing?cluster of?cysts occupying the pancreatic?head?and the neck?with the?aggregate?measures 6.2?x 2.4 x 2.7 cm, as well as a 15 mm cyst?at the pancreatic?body, and 8 mm cyst at the pancreatic tail.? No pancreatic?ductal dilatation. 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 Markedly hypercellular marrow?(95% cellularity)?with myeloid?hypoplasia and 3% blasts.? Marked leukocytosis and left shift?with rare circulating?blasts (2%).? Pending cytogenetic?and molecular?testing. I received a phone call later on (February 22, 2024)?from?[place]?with?[facility]service?mentioning that?further?evaluation needs to be done before?making diagnosis. ? The previously?reported?CML?may not be?the real diagnosis.? I will be notified?when the final diagnosis?is made. Due to?concern of extreme?leukocytosis,?hydroxyurea?2000?milligram daily?was start ed on?Thursday,?February 20, 2024.? He has been on it for 4 days, and?repeated lab worktoday showed?already?significantly improved leukocytosis (WBC?27, from?60).? He has been doing very well clinically.? Pending uric acid level?to see if he needs to take allopurino l?to prevent?tumor lysis. Past Medical History: Hypertension, asthma, cancer of the right kidney, chronic kidney disease, diabetes, hyperlipidemia, - Diabetes - Torn tendon in left lower leg on lateral side Past Surgical History: ? 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 * Amlodipine Oral 5 mg tablet 2 mg orally daily * Ergocalciferol Oral orally every week * Glimepiride Oral 2 mg orally every morning administer with breakfast * Tadalafil Oral 10 mg orally daily prn sexual activity; administer approximately 30min before sexualactivity; do not use more than 1 dose per 24hrs * Dasatinib Oral 100 mg tablet 100 mg orally daily. Take with or without food. * Hydroxyurea Oral 1,000 mg tablet 2 capsule orally daily. * Tamsulosin Oral 0.4 mg orally daily * Atorvastatin Oral 40 mg orally daily Medications reviewed and reconciled with patient. Medications*: - Albuterol inhaler - Glimepiride for diabetes Allergies: * codeine Allergies*: Smoking Status: Smoking Tobacco : none found; Smokeless Tobacco : none found; Vaping : none found Social History: He is , he smoked half a pack a day for 36 years, and quit in February 2019. ?Denies alcohol abuse or illicit drug use. Family History: * Father: - COPD * Mother: - Colorectal cancer Family History*: Mother had colon cancer at age 78 ROS: General: +WEIGHT LOSS Musculoskeletal: +JOINT PAIN Vitals: Height: 71 in; Weight: 268 lb; Blood pressure: 145/80, Pulse: 98, Temperature: 98.7 F, Respirations: 16, Pain Scale: 0 Karnofsky: Not Assessed Physical Exam: General: ?Well-developed, well-nourished, sitting in chair, ?appeared comfortable with no acute distress.? Eyes - PERRLA, EOMI, No scleral icterus or erythema.? ENT - Normal nasal mucosa. No nasal or pharyngeal erythema or discharge. No ulceration in oral cavity. ? Neck - Supple. Trachea midline. No thyromegaly. No jugular vein distension. No carotid bruits. ?No lymphadenopathy Lungs - Clear to auscultation, no crackles or wheezes.? Cardiovascular - RRR. No m/r/g.? Abdomen - Soft, NT, ND. No masses or hepatosplenomegaly. ?Bowel sound normal. Extremities - No edema, cyanosis or clubbing. ? Musculoskeletal - Muscle strength 5/5 in all extremities. No joint swelling. Normal range of motion.? Neurological - Awake, alert and oriented x 3, CN II-XII grossly intact. Labs: CBC Lab Results 02/23/2024 01/22/2024 12/24/2023 12/11/2023 CBC WBC x 10^3/uL 27.4 (H) 60.4 (H) 50.0 (H) RBC x 10^6/uL 5.1 5.2 5.2 NRBC, absolute, x 10^3/uL 0.1 (H) 0.2 (H) 0.2 (H) NRBC, % 0.4 (H) 0.3 (H) 0.3 (H) HGB g/dL 14.2 15.0 14.8 HCT % 44.10 46.50 45.90 MCV fL 86.0 88.7 89.0 MCH pg 27.7 28.6 28.7 MCHC g/dL 32.2 (L) 32.3 (L) 32.2 (L) RDW % 23.6 (H) 23.2 (H) 23.2 (H) PLT x 10^3/uL 114 (L) 138 177 MPV fL ---- ---- ---- Platelet, immature, fraction % 18 (H) 21 (H) 18 (H) Auto CBC comments Man Diff Man Diff Man Diff Chemistries Lab Results 02/23/2024 01/22/2024 12/24/2023 12/11/2023 Chemistries Glucose mg/dL 194 (H) 177 (H) 188 (H) BUN mg/dL 17 11 11 Creatinine, mg/dL 1.04 1.07 0.94 Sodium mmol/L 138 142 138 Potassium mmol/L 4.2 4.3 4.7 Chloride mmol/L 103.00 104.00 102.00 CO2 mmol/L 24.1 27.3 27.5 Calcium mg/dL 9.6 9.7 9.8 Albumin g/dL 3.8 3.9 4.0 Total protein g/dL 7.6 7.5 7.8 Bilirubin, total mg/dL 1.0 0.8 0.7 Alkaline phosphatase U/L 97 113 106 AST/SGOT U/L 13 (L) 17 12 (L) ALT/SGPT U/L 25 21 22 LDH U/L 529 (H) Uric acid mg/dL 5.9 GFR estimate mL/min/1.73m2 80 77 90 C-reactive protein, quant, mg/L 4.5 Tumor Markers Lab Results 02/23/2024 01/22/2024 12/24/2023 12/11/2023 Tumor Markers CA 19-9 U/mL 33 Labs*: - White blood cell count: 60.4 (current), 50,000 (previous visit) - Platelet count: 138 (current), 177 (previous visit) - Lymphocytes: 5% - Creatinine: 1.07 - Blood sugar: high - BCR-ABL: positive, not quantifiable Imaging: CT of the chest abdomen and pelvis with contrast on December 16, 2023. 1. ?Postsurgical changes of partial right nephrectomy. No evidence of recurrent or metastatic disease. 2. ?Unchanged small pulmonary nodules. No new or enlarging nodules. ?6 mm nodule in the posterior left lower lobe; 3 mm nodule in the medial left lower lobe, and a 4 mm nodule in the superior segment of the right lower lobe, all unchanged. ?No new or enlarging pulmonary nodules. 3. ?Unchanged enlarged bilateral external iliac lymph nodes, on the right side measuring 2.3 x 1.9 cm, on the left side measuring 2.1 x 1.9 cm, unchanged from November 2021.. No enlarging lymph nodes in the abdomen or pelvis. 4. ?Similar appearance of what appears to be a cluster of cysts versus a large cyst with internal septations in the pancreatic head. No pancreatic duct dilation. Consider a full characterization with MRI abdomen with and without contrast. MRI ABDOMEN W WO CONTRAST ?02/01/2024? COMPARISON: CT chest abdomen and pelvis 12/16/2023. IMPRESSION: 1. ?Large nonenhancing cluster of cysts occupying the pancreatic head and neck. The aggregate measures 6.2 x 2.4 x 2.7 cm. There is a 15 mm cyst at the pancreatic body and an 8 mm cyst at the pancreatic tail. No pancreatic ductal dilatation. 2. ?Mild hepatic steatosis. 3. ?9 cm cyst off the lower pole of the left kidney. 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/12/2024, Stage Chronic phase Date of Dx:02/12/2024 ; ICD-10:C92.10 ;Chronic myeloid leukemia, BCR/ABL- positive, not having achieved remission ) * Leukemoid reaction ( ICD-10:D72.823 ;Leukemoid reaction ) * Leukocytosis ( ICD-10:D72.828 ;Other elevated white blood cell count ) * Thrombocytopenic disorder (disorder) ( ICD-10:D69.6 ;Thrombocytopenia, unspecified ) * COPD ( ICD-10:J44.9 ;Chronic obstructive pulmonary disease, unspecified ) * 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) ( ICD-10:E11.65 ;Type 2 diabetes mellitus with hyperglycemia ) * Essential hypertension (disorder) ( ICD-10:I10 ;Essential (primary) hypertension ) * Hyperlipidemia (disorder) ( ICD-10:E78.2 ;Mixed hyperlipidemia ) * Other long-term current use of drug therapy ( ICD-10:Z79.899 ;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 ?Leukocytosis -Normal baseline WBC on December 21, 2020 (9.3). ?Slightly elevated WBC in November 2021 (11.1),and October 2022 (13.0). ?Significantly elevated WBC on December 08 and December 11, 2023 (39.9, and 38.8). -Lab work (December 24, 2023)?showed further? worsened leukocytosis?(WBC?50.0 -->60.4). -Asymptomatic with no obvious source of infection clinically. -Peripheral smear reviewed. ?No evidence of blasts.?Flow cytometry?from peripheral blood negative. - BCR-ABL 1 major (p210) fusion transcript detected; low positive (nonquantifiable). ?However, the transcript detected is below the limit of quantification for this assay (0.002%, MR 4.7).? Repeated BCR ABL 1?(major p210)?was negative. -?Bone marrow aspiration and biopsy on February 12, 2024.? -->?Initial?pathology?report showed myeloproliferative neoplasm, favor chronic myeloid leukemia, chronic phase. ?Markedly hypercellular bone marrow with myeloid hypoplasia and 3% blasts. ?Marked leukocytosis with left shift and rare circulating blasts (2%). ?Iron stores absent. Markedly hypercellular (greater than 95% cellular)?marrow for age with marked granulocytic hyperplasia. ?Blasts are mildly increased (3% by CD34 immunostain and manual differential). ?Overall, these findings are highly suggestive of chronic myeloid leukemia. ?The overall blast count is consistent with chronic phase. ?BCR/ABL 1 FISH and BCR/ABL 1 quantitative assay are pending. -->?I got a phone call from ?Devon from?[facility], mentioning that?further?workup needs to be done before making a definite diagnosis.? -Discussed with the patient and?his ?about?the?current situation of?pending?pathology report/diagnosis. ?They understand that?further treatment will be based on diagnosis.? Will arrange?an office visit in 2 weeks?or sooner?for further discussion of?treatment plan. -In the meantime, continue?hydroxyurea. ?Since there is already dramatic decrease of?whiteblood cell count, will decrease?hydroxyurea?from 2000 mg p.o. daily?to 1000 mg p.o. daily.? Lab check in 1 week in [place]?[facility]; and?return to clinic in 2 weeks?in [place]?for an office visit, and a lab check. -He and his were asked to call with any questions or concerns in the interim. 2. ?Mild thrombocytopenia -Unclear etiology. ?Differentials include infection/inflammation, nutritional, medications, autoimmune, bone marrow dysfunction, etc. -Pending CRP, ESR, hepatitis panel, HIV antibodies, LDH,? -CT of the chest abdomen and pelvis December 16, 2023 showed no evidence of hepatosplenomegaly. -Repeated lab work?on December 24, 2023?showed resolved thrombocytopenia (platelet count 177,000). 3. ?History of renal cell carcinoma of the right kidney -Diagnosed in March 2020, status post right robotic partial nephrectomy. 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 -Following up with urology service (Dr. Talbot). 4. ?Pulmonary nodules. -Subcentimeter. ?No change compared with?previous imaging.? Continue monitor. 5.?Cystic?lesion in the head of the pancreas. -CT scan?December 16, 2023.? Findings of a cluster of cysts versus?a large?cyst with?internal septations?in the head of the pancreas.? No pancreatic duct dilatation. -MRI?of the abdomen showed?large nonenhancing cluster of cysts occupying the pancreatic head and neck. The aggregate measures 6.2 x 2.4 x 2.7 cm. There is a 15 mm cyst at the pancreatic body and an 8 mm cyst at the pancreatic tail. No pancreatic ductal dilatation.? Continue monitor. 6.?Hypertension, hyperlipidemia, diabetes, asthma, -Stable. ?Continue follow-up with Dr. Gladys Pizano MD ? Send copy of note to: ?Romain Graham Electronically signed by Raji Pizano MD 02/23/2024 16:22 FREIGHT SEPARATOR * *Ghulam SINGH Follow Up Note - TR Note MD/NALDO [facility] [place] [address] [place] [address] P: Patient Name: SHERI MARROQUIN Patient Patient : 1960 Date of Service:?02/18/2024 NALDO Treatment Review and Coordination Note Referring Provider: Dr. Romain Graham Chief Complaint: Mr. Marroquin presents today for a treatment review regarding newly diagnosed chronic myeloid leukemia (CML). His treatment will be dasatanib. Principal Diagnosis: * CML ( Stage Date: 02/12/2024, Stage Chronic phase Date of Dx:02/12/2024 Disease Status: Initial presentation; Hepatitis B Testing Status: Result: Negative; CML Relative Risk-Sokal: High; BCR-ABL at Diagnosis: Positive; ICD-10:C92.10 ;Chronic myeloidleukemia, BCR/ABL-positive, not having achieved remission ) * Leukemoid reaction ( ICD-10:D72.823 ;Leukemoid reaction ) * Leukocytosis ( ICD-10:D72.828 ;Other elevated white blood cell count ) * Thrombocytopenic disorder (disorder) ( ICD-10:D69.6 ;Thrombocytopenia, unspecified ) Diagnosis*: Treatment History: Dasatinib Q30D (CML)[Assoc Dx: CML LOT: 1st Line or Induction Stage: Chronic phase ] Treatment History*: Pathology: - Bone marrow biopsy (February 11): - Myeloproliferative neoplasm, favor chronic CML, chronic phase - Marked hypercellular - 3% blast History of Present Illness: Sheri Marroquin is a 62-year-old gentleman referred by his primary care physician Dr. Romain Graham for evaluation of leukocytosis? and? thrombocytopenia. Per record from [facility], he has been having mild thrombocytopenia since at least March 2020, with platelet count ranging between 110s and 120s most of the time, although there was a platelet count of 81,000 in March 2020, and occasional normal platelet count. ?His hemoglobin level has been mildly low to normal. ?White blood cell count was also normal in the past, but started trending up since October 2022. ? Most recent labs on December 09, 2023 showed a WBC 39.9, segments 71%, lymphocytes 9%, hemoglobin 15.2, and platelet count 138,000. ?Repeated CBC on December 11, 2023 showed a persistent leukocytosis (WBC 38.8, neutrophils 88.8%, lymphocytes 8%), normal hemoglobin level (14.2), and thrombocytopenia (126,000). Bone marrow aspiration and biopsy on February 12, 2024. Pathology showed myeloproliferative neoplasm, favor chronic myeloid leukemia, chronic phase. ?Markedly hypercellular bone marrow with myeloid hypoplasia and 3% blasts. ?Marked leukocytosis withleft shift and rare circulating blasts (2%). ?Iron stores absent. Comment: The patient's bone marrow is markedly hypercellular (greater than 95% cellular) for age with marked granulocytic hyperplasia. ?Blasts are mildly increased (3% by CD34 immunostain and manual differential) and a subset of megakaryocytes show Dorff morphology. ?Overall, these findings are highly suggestive of chronic myeloid leukemia. ?The overall blast count is consistent with chronic phase. ?BCR/ABL 1 FISH and BCR/ABL 1 quantitative assay are pending. ? Sokal index 1.3, based on age (63 years old), normal spleen size, normal platelet count (138,000), and percent mild blasts in peripheral blood (2%). ?Considered high risk. ?2-year survival 65%.?Median survival 2.5 years. Preferred treatment include second-generation TKI (bosutinib, Dasatinib, or nilotinib) or Allosteric TKI (asciminib), or other recommended regimen (first generation TKI, imatinib) Interval History: Mr. Marroquin reports experiencing random spots of bruising on chest and back over the past year, along with occasional epistaxis. 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 Mr. Marroquin's white bloodcell count increased from 50 to 60 in a month (normal is 5-10)..? Mr. Marroquin denies any current significant symptoms, issues with reflux or heartburn.?He denies recent?infections.? He is not on any steroids treatment.? He is a non-smoker.? Past Medical History: Hypertension, asthma, cancer of the right kidney, chronic kidney disease, diabetes, hyperlipidemia, - Diabetes - Torn tendon in left lower leg on lateral side - Kidney cancer Past Surgical History: ? Past Surgical History*: Cholecystectomy January 2011, inguinal hernia repair (left) 1991, right knee arthroscopy, laparoscopic partial nephrectomy (right) April 05, 2020, left shoulder surgery, tonsillectomy 1981 - Surgery on both knees for torn meniscus ? 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 Medications: * Glimepiride Oral * Ondansetron Oral?8 mg tablet * Albuterol HFA Inhaler 90 mcg/actuation * Amlodipine Oral?5 mg tablet * Tadalafil Oral * Tamsulosin Oral * Dasatinib Oral?100 mg tablet * Hydroxyurea Oral?1,000 mg tablet * Atorvastatin Oral * Ascorbic Acid Oral * Ergocalciferol Oral Medications*: - Albuterol inhaler - Glimepiride for diabetes Allergies: * codeine Allergies*: Smoking Status: Smoking Tobacco : none found; Smokeless Tobacco : none found; Vaping : none found Social History: He is , he smoked half a pack a day for 36 years, and quit in February 2019. ?Denies alcohol abuse or illicit drug use. ? Family History: * Father: - COPD * Mother: - Colorectal cancer Family History*: Mother had colon cancer at age 78 ? ROS: GENERAL: -fever, -chills, -night sweats, -anorexia, -weight loss EYES: -blurred vision, -double vision HEENT: -tinnitus, -epistaxis, -mucositis, -sore throat, -vertigo CARDIOVASCULAR: -chest pain, -palpitations, -syncope, -orthopnea RESPIRATORY: -cough, -wheezing, -hemoptysis, -shortness of breath GI: -nausea, -vomiting, -diarrhea, -constipation, -melena, -hematochezia, -heartburn : -dysuria, -frequency, -urgency, -hematuria MUSCULOSKELETAL: -bone pain, -joint pain, -joint swelling, -limited range of motion SKIN: -rash, -pruritus, -abrasions or lesions NEUROLOGIC: -headache, -numbness, -tingling, -weakness, -tremor, -seizures, - change in mentation PSYCHIATRIC: -insomnia, -depression, -anxiety HEMATOLOGIC: -easy bruising, -easy bleeding Vitals: Height 71 inl Weight 272 lb; Blood pressure: 147/88, Pulse: 79, Temperature: 97.2 F, Respirations: 18, Pain Scale: 0 Physical Exam: GENERAL: Well developed, well-nourished 63-year-old gentleman in no acute distress. Skin turgor good for age. ?not evidently jaundiced. Good hygiene. ?Patient clean. Patient is accompanied by his ?for this exam.? MOOD: Euthymic without evidence of agitation, anxiety, or depression. EYES: PERRL, no sclera icterus. HENT: Normocephalic, Atraumatic SKIN: No rashes, petechiae, or excessive bruising to visible areas of skin MUSCULOSKELETAL: Normal gait, digits unremarkable. ?Movement of all four extremities seen and symmetric. No tremor is seen. PSYCHIATRIC: Alert and oriented x 3, normal mood & affect, judgment intact. FUNCTIONAL: Patient ambulates without difficulty and without assistive devices. PAIN: No pain reported. Labs: Lab Results 01/22/2024 12/24/2023 12/11/2023 CBC WBC x 10^3/uL 60.4 (H) 50.0 (H) RBC x 10^6/uL 5.2 5.2 NRBC, absolute, x 10^3/uL 0.2 (H) 0.2 (H) NRBC, % 0.3 (H) 0.3 (H) HGB g/dL 15.0 14.8 HCT % 46.50 45.90 MCV fL 88.7 89.0 MCH pg 28.6 28.7 MCHC g/dL 32.3 (L) 32.2 (L) RDW % 23.2 (H) 23.2 (H) PLT x 10^3/uL 138 177 MPV fL ---- ---- Platelet, immature, fraction % 21 (H) 18 (H) Auto CBC comments Man Diff Man Diff Manual Differential Neutrophil % (M) % 57 65 Band % 21 (H) 9 Lymphocyte % 5 (L) 7 (L) Monocyte % 2 (L) 5 Basophil % 1 Metamyelocyte % 5 10 Myelocyte % 10 3 Promyelocyte % 1 (H) 1 (H) ANC (M) x 10^3/uL 46.8 (H) 36.8 (H) LY# (M) x 10^3/uL 2.72 3.65 (H) MO# (M) x 10^3/uL 1.09 (H) 2.25 (H) Basophil count (M) x 10^3/uL 0.45 (H) Metamyelocyte x 10^3 2.72 5.00 Myelocyte count x 10^3 5.98 1.35 Promyelocyte, absolute x 10^3/uL 0.54 0.45 Blast count x 10^3/uL 0.00 0.00 Anisocytosis (size) 3+ 3+ Teardrop cells 1+ Elliptocyte 0.00 0.00 Poikilocytosis (shape) 1+ 2+ Hypochromia 1+ Polychromasia (M) 1+ 1+ Platelet estimate Decreased Normal Chemistries Glucose mg/dL 177 (H) 188 (H) BUN mg/dL 11 11 Creatinine, mg/dL 1.07 0.94 Sodium mmol/L 142 138 Potassium mmol/L 4.3 4.7 Chloride mmol/L 104.00 102.00 CO2 mmol/L 27.3 27.5 Calcium mg/dL 9.7 9.8 Albumin g/dL 3.9 4.0 Total protein g/dL 7.5 7.8 Bilirubin, total mg/dL 0.8 0.7 Alkaline phosphatase U/L 113 106 AST/SGOT U/L 17 12 (L) ALT/SGPT U/L 21 22 LDH U/L 529 (H) GFR estimate mL/min/1.73m2 77 90 C-reactive protein, quant, mg/L 4.5 Tumor Markers CA 19-9 U/mL 33 Immunology Hepatitis A ab, total, qual NonReact Hepatitis B surface antigen NonReact Hepatitis B surface ab, qual NonReact Hepatitis B core antibody, total NonReact Hepatitis C antibody, qual NonReact HIV ag/ab, 4th gen NonReact IgG, quant mg/dL 1086.00 IgA, quant mg/dL 208.00 IgM, quant mg/dL 218.00 Hormones TSH, mIU/L 6.37 (H) Pathology/Cytology Leuk/Lymph, panel interpretation Leukemia/Lymphoma Panel by [employer] BCR-ABL1 major (p210) quant interpretation BCR-ABL1 MAJOR (p210) QUANTITATIVE BCR-ABL1 MAJOR (p210) QUANTITATIVE BCR-ABL1, minor (p190) BCR-ABL1 MINOR (p190) QUANTITATIVE Lab - Other ESR mm/hr 2 Lab Report See attached Labs*: - White blood cell count: 60.4 (current), 50,000 (previous visit) - Platelet count: 138 (current), 177 (previous visit) - Lymphocytes: 5% - Creatinine: 1.07 - Blood sugar: high - BCR-ABL: positive, not quantifiable - White blood cell count: 60,000 (normal range up to 10,000) - Hemoglobin: Normal - Platelets: Normal - Blasts: 2% - BCR-ABL: Low-positive for T922 BCR label, one major mutation Imaging: CT of the chest abdomen and pelvis with contrast on December 16, 2023. 1. ?Postsurgical changes of partial right nephrectomy. No evidence of recurrent or metastatic disease. 2. ?Unchanged small pulmonary nodules. No new or enlarging nodules. ?6 mm nodule in the posterior left lower lobe; 3 mm nodule in the medial left lower lobe, and a 4 mm nodule in the superior segment of the right lower lobe, all unchanged. ?No new or enlarging pulmonary nodules. 3. ?Unchanged enlarged bilateral external iliac lymph nodes, on the right side measuring 2.3 x 1.9 cm, on the left side measuring 2.1 x 1.9 cm, unchanged from November 2021.. No enlarging lymph nodes in the abdomen or pelvis. 4. ?Similar appearance of what appears to be a cluster of cysts versus a large cyst with internal septations in the pancreatic head. No pancreatic duct dilation. Consider a full characterization with MRI abdomen with and without contrast. - MRI: Kidney, no cancer recurrence noted 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/12/2024, Stage Chronic phase Date of Dx:02/12/2024 ; ICD-10:C92.10 ;Chronic myeloid leukemia, BCR/ABL- positive, not having achieved remission ) * Leukemoid reaction ( ICD-10:D72.823 ;Leukemoid reaction ) * Leukocytosis ( ICD-10:D72.828 ;Other elevated white blood cell count ) * Thrombocytopenic disorder (disorder) ( ICD-10:D69.6 ;Thrombocytopenia, unspecified ) * COPD ( ICD-10:J44.9 ;Chronic obstructive pulmonary disease, unspecified ) * 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) ( ICD-10:E11.65 ;Type 2 diabetes mellitus with hyperglycemia ) * Essential hypertension (disorder) ( ICD-10:I10 ;Essential (primary) hypertension ) * Hyperlipidemia (disorder) ( ICD-10:E78.2 ;Mixed hyperlipidemia ) * Other long-term current use of drug therapy ( ICD-10:Z79.899 ;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 ?Leukocytosis -Normal baseline WBC on December 21, 2020 (9.3). ?Slightly elevated WBC in November 2021 (11.1),and October 2022 (13.0). ?Significantly elevated WBC on December 08 and December 11, 2023 (39.9, and 38.8). -Lab work (December 24, 2023)?showed further? worsened leukocytosis?(WBC?50.0 -->60.4). -Asymptomatic with no obvious source of infection clinically. -Differentials include leukemoid reaction associated with occult infection, medication side effects, versus leukemia, etc. -Peripheral smear reviewed. ?No evidence of blasts. -?Flow cytometry negative. - BCR-ABL 1 major (p210) fusion transcript detected; low positive (nonquantifiable). ?However, the transcript detected is below the limit of quantification for this assay (0.002%, MR 4.7). - A bone marrow aspiration and biopsy is suggested to check for potential problems and to avoid delayed detection of disease progression. -Close monitor. ?If leukocytosis is persistent, will need a bone marrow aspiration and biopsy. -?Return to clinic in 4 weeks for reevaluation. ? 2. ?Mild thrombocytopenia -Unclear etiology. ?Differentials include infection/inflammation, nutritional, medications, autoimmune, bone marrow dysfunction, etc. -Pending CRP, ESR, hepatitis panel, HIV antibodies, LDH,? -CT of the chest abdomen and pelvis December 16, 2023 showed no evidence of hepatosplenomegaly. -Repeated lab work?on December 24, 2023?showed resolved thrombocytopenia (platelet count 177,000). -Clinically doing well. ?Continue monitor 3. ?History of renal cell carcinoma of the right kidney -Diagnosed in March 2020, status post right robotic partial nephrectomy. 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 -Following up with urology service (Dr. Talbot). 4. ?Pulmonary nodules. -Subcentimeter. ?No change compared with?previous imaging.? Continue monitor. 5.?Cystic?lesion in the head of the pancreas. -CT scan?December 16, 2023.? Findings of a cluster of cysts versus?a large?cyst with?internal septations?in the head of the pancreas.? No pancreatic duct dilatation. -Recommended?for a full?characterization?with MRI?of the abdomen with and without contrast. 6.?Hypertension, hyperlipidemia, diabetes, asthma, -Stable. ?Continue follow-up with Dr. Graham Addendum February 02, 2024. MRI ABDOMEN W WO CONTRAST ?02/01/2024? COMPARISON: CT chest abdomen and pelvis 12/16/2023. ? FINDINGS:? Liver: -No suspicious hepatic lesion -Non-cirrhotic morphology -Mild hepatic steatosis. Biliary: -Intrahepatic and extra hepatic biliary tree nondistended -Gallbladder has been resected. ? Spleen: -Splenic volume not increased -No focal splenic abnormality ? Pancreas: Large nonenhancing cluster of cysts occupying the pancreatic head and neck. There is no pancreatic ductal dilatation. At the pancreatic body there is a smoothly marginated 15 mm nonenhancing pancreatic cyst. There is an 8 mm cyst at the pancreatic tail?nonenhancing. ? Adrenals: -Unremarkable ? Kidneys: -Kidneys appear symmetric -No suspicious renal lesion. There is a 9 cm cyst off the lower pole of the left kidney. -No hydronephrosis ? Lymph nodes: -No adenopathy by size criteria. Peritoneum: -No upper abdominal free fluid. Vasculature: Unremarkable ? Bowel: -Unremarkable ? Osseous: Unremarkable Soft tissues: Unremarkable. Thorax:Visualized thorax unremarkable ? IMPRESSION: 1. ?Large nonenhancing cluster of cysts occupying the pancreatic head and neck. The aggregate measures 6.2 x 2.4 x 2.7 cm. There is a 15 mm cyst at the pancreatic body and an 8 mm cyst at the pancreatic tail. No pancreatic ductal dilatation. 2. ?Mild hepatic steatosis. 3. ?9 cm cyst off the lower pole of the left kidney. Addendum?February 16, 2024. Raji Pizano MD [facility] - - Described patient's risk index score as 1.3, indicating high risk (over 1.2 is considered high risk). - Estimated 2-year survival rate at 65% and median survival at 2.5 years based on risk calculations. - Initiated Hydrea (hydroxyurea) as a temporary measure while awaiting targeted therapy.? 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 - Selected dasatinib (Sprycel) as the primary treatment drug due to its potency for high-risk cases. - Planned to monitor white blood cell count, blast percentage, and overall response to treatment. - Aimed to reduce total white blood cells and blast cells to achieve remission. - Considered potential for long-term survival with good treatment response. - Prescribed ondansetron for potential nausea as a precautionary measure. - Scheduled follow-up visit with Dr. Pizano for further discussion. Plan: C92.10 CHRONIC MYELOID LEUKEMIA, BCR/ABL-POSITIVE, NOT HAVING ACHIEVED REMISSION: - Educated patient on CML as a chronic, slow-growing type of leukemia, not hereditary. - Explained preference for targeted drugs over bone marrow transplants for CML treatment. - Instructed to take medication at the same time daily, avoiding missed doses. - Advised to avoid antacid medicines; occasional use of calcium carbonate acceptable if from medication. - Warned about potential decrease in white and RBC counts due to treatment. - Discussed potential side effects: edema in extremities, diarrhea, arthralgia/myalgia, cutaneous reactions, nausea, vomiting, cephalalgia. - Instructed to report pyrexia, chills, or cardiac palpitations. - Recommend use of automated check-in system for symptom reporting. - Advised to avoid NSAIDs; use acetaminophen for cephalalgia if needed. - Recommend hydrocortisone cream for minor cutaneous reactions. - Suggested polyethylene glycol for constipation. - Ordered regular hematological monitoring to check white blood cell counts, hemoglobin levels, andplatelet counts. - Initiated Hydrea (hydroxyurea) 2000 mg daily, administered as two 1000 mg tablets daily in the morning. - Prescribed dasatinib (Sprycel) 1 tablet daily, to commence when available after insurance approval. - Prescribed ondansetron every 8 hours as needed for nausea. - Schedule follow-up visit with Dr. Pizano on Thursday. Z85.528 PERSONAL HISTORY OF OTHER MALIGNANT NEOPLASM OF KIDNEY: - Explained that CML is not related to renal cancer. LIFESTYLE CHANGES: - Encouraged maintaining regular physical activity. ?Smoking history: Former smoker.?Clinic contact information was provided, and it was discussed when to call our office. Wallet card was provided. ?Introduced patient to [facility]. ?Patient is in agreement with recommended plan of care and wishes to proceed. ?Questions appeared to be answered to their satisfaction. ?Consent was reviewed and signed. A total of?50?minutes were spent with patient in counseling and coordination.? This was my first visit with this patient and involved extensive review of the medical records and imaging studies that are pertinent for the management of this patient?s condition. 10?minutes were spent in review of?medical records and treatment plan, preparation of patienteducation materials, case discussion with physician, and documentation. 40?minutes were spent with patient and his . RINKU Morrell APRN [facility] Send copy of note: Dr. Romain Graham . Electronically signed by RINKU Morrell APRN 02/18/2024 12:56 FREIGHT SEPARATOR * *Pizano - DS Follow Up Note - HemOnc (Amended) ? [facility] [address] [place] [address] [facility] [address] P: F: PATIENT: SHERI MARROQUIN : 1960 Date of Service: 01/22/2024 Referring Provider: Dr. Romain Graham Chief Complaint: Mr. Marroquin presents today for follow-up regarding leukocytosis Principal Diagnosis: * Leukemoid reaction ( ICD-10:D72.823 ;Leukemoid reaction ) * Leukocytosis ( ICD-10:D72.828 ;Other elevated white blood cell count ) * Thrombocytopenic disorder (disorder) ( ICD-10:D69.6 ;Thrombocytopenia, unspecified ) Diagnosis*: Treatment History: ? Treatment History*: Pathology: History of Present Illness: Sheri Marroquin is a 62-year-old gentleman referred by his primary care physician Dr. Romain Graham for evaluation of leukocytosis? and? thrombocytopenia. Per record from [facility], he has been having mild thrombocytopenia since at least March 2020, with platelet count ranging between 110s and 120s most of the time, although there was a platelet count of 81,000 in March 2020, and occasional normal platelet count. ?His hemoglobin level has been mildly low to normal. ?White blood cell count was also normal in the past, but started trending up since October 2022. ? Most recent labs on December 09, 2023 showed a WBC 39.9, segments 71%, lymphocytes 9%, hemoglobin 15.2, and platelet count 138,000. ?Repeated CBC on December 11, 2023 showed a persistent leukocytosis (WBC 38.8, neutrophils 88.8%, lymphocytes 8%), normal hemoglobin level (14.2), and thrombocytopenia (126,000). He denies recent?infections.? He is not on any steroids treatment.? He is a non-smoker.? He has been eating?healthy,?trying to?control his?weight and?diabetes. Interval History: Mr. Marroquin's white blood cell count has increased from 50,000 at the last visit to 60,400 currently, while platelet count has decreased from 177 to 138, though still within normal range. Flow cytometry was performed and was negative for cancer cells in peripheral blood. BCR-ABL test was positive but not quantifiable. Hemoglobin is normal, Sodium, potassium, and liver function tests are normal, while creatinine is 1.07. Blood glucose is elevated. Mr. Marroquin denies taking any steroids or receiving steroid injections. He reports using an albuterol inhaler. Mr. Marroquin mentions experiencing sharp, stinging, burning pains in knees and ankles, as well as soreness in shoulders and knees. He has lost weight, going from 297 lbs to 248 lbs about a month and a half ago. A bone marrow aspiration and biopsy has been recommended?due to worsened leukocytosis. Past Medical History: Hypertension, asthma, cancer of the right kidney, chronic kidney disease, diabetes, hyperlipidemia, - Diabetes - Torn tendon in left lower leg on lateral side Past Surgical History: ? 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 Medications*: - Albuterol inhaler - Glimepiride for diabetes Allergies: * codeine Allergies*: Smoking Status: Smoking Tobacco : none found; Smokeless Tobacco : none found; Vaping : none found Social History: He is , he smoked half a pack a day for 36 years, and quit in February 2019. ?Denies alcohol abuse or illicit drug use. Family History: * Father: - COPD * Mother: - Colorectal cancer Family History*: Mother had colon cancer at age 78 ROS: General: +WEIGHT LOSS Musculoskeletal: +JOINT PAIN Vitals: Height: None Today; Weight: None Today; Blood pressure: , Pulse: , Temperature: , Respirations: , Pain Scale: Karnofsky: Not Assessed Physical Exam: General: ?Well-developed, well-nourished, sitting in chair, ?appeared comfortable with no acute distress.? Eyes - PERRLA, EOMI, No scleral icterus or erythema.? ENT - Normal nasal mucosa. No nasal or pharyngeal erythema or discharge. No ulceration in oral cavity. ? Neck - Supple. Trachea midline. No thyromegaly. No jugular vein distension. No carotid bruits. ?No lymphadenopathy Lungs - Clear to auscultation, no crackles or wheezes.? Cardiovascular - RRR. No m/r/g.? Abdomen - Soft, NT, ND. No masses or hepatosplenomegaly. ?Bowel sound normal. Extremities - No edema, cyanosis or clubbing. ? Musculoskeletal - Muscle strength 5/5 in all extremities. No joint swelling. Normal range of motion.? Neurological - Awake, alert and oriented x 3, CN II-XII grossly intact. Labs: CBC Lab Results 01/22/2024 12/24/2023 12/11/2023 CBC WBC x 10^3/uL 60.4 (H) 50.0 (H) RBC x 10^6/uL 5.2 5.2 NRBC, absolute, x 10^3/uL 0.2 (H) 0.2 (H) NRBC, % 0.3 (H) 0.3 (H) HGB g/dL 15.0 14.8 HCT % 46.50 45.90 MCV fL 88.7 89.0 MCH pg 28.6 28.7 MCHC g/dL 32.3 (L) 32.2 (L) RDW % 23.2 (H) 23.2 (H) PLT x 10^3/uL 138 177 MPV fL ---- ---- Platelet, immature, fraction % 21 (H) 18 (H) Auto CBC comments Man Diff Man Diff Chemistries Lab Results 01/22/2024 12/24/2023 12/11/2023 Chemistries Glucose mg/dL 177 (H) 188 (H) BUN mg/dL 11 11 Creatinine, mg/dL 1.07 0.94 Sodium mmol/L 142 138 Potassium mmol/L 4.3 4.7 Chloride mmol/L 104 102 CO2 mmol/L 27.3 27.5 Calcium mg/dL 9.7 9.8 Albumin g/dL 3.9 4.0 Total protein g/dL 7.5 7.8 Bilirubin, total mg/dL 0.8 0.7 Alkaline phosphatase U/L 113 106 AST/SGOT U/L 17 12 (L) ALT/SGPT U/L 21 22 LDH U/L 529 (H) GFR estimate mL/min/1.73m2 77 90 C-reactive protein, quant, mg/L 4.5 Tumor Markers Lab Results 01/22/2024 12/24/2023 12/11/2023 Tumor Markers CA 19-9 U/mL 33 Labs*: - White blood cell count: 60.4 (current), 50,000 (previous visit) - Platelet count: 138 (current), 177 (previous visit) - Lymphocytes: 5% - Creatinine: 1.07 - Blood sugar: high - BCR-ABL: positive, not quantifiable Imaging: CT of the chest abdomen and pelvis with contrast on December 16, 2023. 1. ?Postsurgical changes of partial right nephrectomy. No evidence of recurrent or metastatic disease. 2. ?Unchanged small pulmonary nodules. No new or enlarging nodules. ?6 mm nodule in the posterior left lower lobe; 3 mm nodule in the medial left lower lobe, and a 4 mm nodule in the superior segment of the right lower lobe, all unchanged. ?No new or enlarging pulmonary nodules. 3. ?Unchanged enlarged bilateral external iliac lymph nodes, on the right side measuring 2.3 x 1.9 cm, on the left side measuring 2.1 x 1.9 cm, unchanged from November 2021.. No enlarging lymph nodes in the abdomen or pelvis. 4. ?Similar appearance of what appears to be a cluster of cysts versus a large cyst with internal septations in the pancreatic head. No pancreatic duct dilation. Consider a full characterization with MRI abdomen with and without contrast. 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 ) * COPD ( ICD-10:J44.9 ;Chronic obstructive pulmonary disease, unspecified ) * 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) ( ICD-10:E11.65 ;Type 2 diabetes mellitus with hyperglycemia ) * Essential hypertension (disorder) ( ICD-10:I10 ;Essential (primary) hypertension ) * Hyperlipidemia (disorder) ( ICD-10:E78.2 ;Mixed hyperlipidemia ) * Other long-term current use of drug therapy ( ICD-10:Z79.899 ;Other [facility] (current[facility] drug therapy ) * Pancreatic cyst ( ICD-10:K86.2 ;Cyst of pancreas ) * Sleep apnea (disorder) ( ICD-10:G47.33 ;Obstructive sleep apnea (adult) (pediatric) ) * Vitamin D deficiency (disorder) ( ICD-10:E55.9 ;Vitamin D deficiency, unspecified ) Impression: 1. ?Leukocytosis -Normal baseline WBC on December 21, 2020 (9.3). ?Slightly elevated WBC in November 2021 (11.1),and October 2022 (13.0). ?Significantly elevated WBC on December 08 and December 11, 2023 (39.9, and 38.8). -Lab work (December 24, 2023)?showed further? worsened leukocytosis?(WBC?50.0 -->60.4). -Asymptomatic with no obvious source of infection clinically. -Differentials include leukemoid reaction associated with occult infection, medication side effects, versus leukemia, etc. -Peripheral smear reviewed. ?No evidence of blasts. -?Flow cytometry negative. - BCR-ABL 1 major (p210) fusion transcript detected; low positive (nonquantifiable). ?However, the transcript detected is below the limit of quantification for this assay (0.002%, MR 4.7). - A bone marrow aspiration and biopsy is suggested to check for potential problems and to avoid delayed detection of disease progression. -Close monitor. ?If leukocytosis is persistent, will need a bone marrow aspiration and biopsy. -?Return to clinic in 4 weeks for reevaluation. ? 2. ?Mild thrombocytopenia -Unclear etiology. ?Differentials include infection/inflammation, nutritional, medications, autoimmune, bone marrow dysfunction, etc. -Pending CRP, ESR, hepatitis panel, HIV antibodies, LDH,? -CT of the chest abdomen and pelvis December 16, 2023 showed no evidence of hepatosplenomegaly. -Repeated lab work?on December 24, 2023?showed resolved thrombocytopenia (platelet count 177,000). -Clinically doing well. ?Continue monitor 3. ?History of renal cell carcinoma of the right kidney -Diagnosed in March 2020, status post right robotic partial nephrectomy. 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 -Following up with urology service (Dr. Talbot). 4. ?Pulmonary nodules. -Subcentimeter. ?No change compared with?previous imaging.? Continue monitor. 5.?Cystic?lesion in the head of the pancreas. -CT scan?December 16, 2023.? Findings of a cluster of cysts versus?a large?cyst with?internal septations?in the head of the pancreas.? No pancreatic duct dilatation. -Recommended?for a full?characterization?with MRI?of the abdomen with and without contrast. 6.?Hypertension, hyperlipidemia, diabetes, asthma, -Stable. ?Continue follow-up with Dr. Graham Addendum February 02, 2024. MRI ABDOMEN W WO CONTRAST ?02/01/2024? COMPARISON: CT chest abdomen and pelvis 12/16/2023. ? FINDINGS:? Liver: -No suspicious hepatic lesion -Non-cirrhotic morphology -Mild hepatic steatosis. Biliary: -Intrahepatic and extra hepatic biliary tree nondistended -Gallbladder has been resected. ? Spleen: -Splenic volume not increased -No focal splenic abnormality ? Pancreas: Large nonenhancing cluster of cysts occupying the pancreatic head and neck. There is no pancreatic ductal dilatation. At the pancreatic body there is a smoothly marginated 15 mm nonenhancing pancreatic cyst. There is an 8 mm cyst at the pancreatic tail?nonenhancing. ? Adrenals: -Unremarkable ? Kidneys: -Kidneys appear symmetric -No suspicious renal lesion. There is a 9 cm cyst off the lower pole of the left kidney. -No hydronephrosis ? Lymph nodes: -No adenopathy by size criteria. Peritoneum: -No upper abdominal free fluid. Vasculature: Unremarkable ? Bowel: -Unremarkable ? Osseous: Unremarkable Soft tissues: Unremarkable. Thorax:Visualized thorax unremarkable ? IMPRESSION: 1. ?Large nonenhancing cluster of cysts occupying the pancreatic head and neck. The aggregate measures 6.2 x 2.4 x 2.7 cm. There is a 15 mm cyst at the pancreatic body and an 8 mm cyst at the pancreatic tail. No pancreatic ductal dilatation. 2. ?Mild hepatic steatosis. 3. ?9 cm cyst off the lower pole of the left kidney. Addendum?February 16, 2024. Bone marrow aspiration and biopsy on February 12, 2024. Pathology showed myeloproliferative neoplasm, favor chronic myeloid leukemia, chronic phase. ?Markedly hypercellular bone marrow with myeloid hypoplasia and 3% blasts. ?Marked leukocytosis withleft shift and rare circulating blasts (2%). ?Iron stores absent. Comment: The patient's bone marrow is markedly hypercellular (greater than 95% cellular) for age with marked granulocytic hyperplasia. ?Blasts are mildly increased (3% by CD34 immunostain and manual differential) and a subset of megakaryocytes show Dorff morphology. ?Overall, these findings are highly suggestive of chronic myeloid leukemia. ?The overall blast count is consistent with chronic phase. ?BCR/ABL 1 FISH and BCR/ABL 1 quantitative assay are pending. ? Sokal index 1.3, based on age (63 years old), normal spleen size, normal platelet count (138,000), and percent mild blasts in peripheral blood (2%). ?Considered high risk. ?2-year survival 65%.?Median survival 2.5 years. Preferred treatment include second-generation TKI (bosutinib, Dasatinib, or nilotinib) or Allosteric TKI (asciminib), or other recommended regimen (first generation TKI, imatinib) Raji Pizano MD ? 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 Romain Graham Reason for Consultation/Chief Complaint: Leukocytosis, and?thrombocytopenia Principal Diagnosis: * Leukemoid reaction ( ICD-10:D72.823 ;Leukemoid reaction ) * Leukocytosis ( ICD-10:D72.828 ;Other elevated white blood cell count ) * Thrombocytopenic disorder (disorder) ( ICD-10:D69.6 ;Thrombocytopenia, unspecified ) Diagnosis*: Treatment History: ? Treatment History*: Pathology: History of Present Illness: Sheri Marroquin is a 62-year-old gentleman referred by his primary care physician Dr. Romain Graham for evaluation of leukocytosis? and? thrombocytopenia. Per record from [facility], he has been having mild thrombocytopenia since at least March 2020, with platelet count ranging between 110s and 120s most of the time, although there was a platelet count of 81,000 in March 2020, and occasional normal platelet count. ?His hemoglobin level has been mildly low to normal. ?White blood cell count was also normal in the past, but started trending up since October 2022. ? Most recent labs on December 09, 2023 showed a WBC 39.9, segments 71%, lymphocytes 9%, hemoglobin 15.2, and platelet count 138,000. ?Repeated CBC on December 11, 2023 showed a persistent leukocytosis (WBC 38.8, neutrophils 88.8%, lymphocytes 8%), normal hemoglobin level (14.2), and thrombocytopenia (126,000). He denies recent?infections.? He is not on any steroids treatment.? He is a non-smoker.? He has been eating?healthy,?trying to?control his?weight and?diabetes. Past Medical History: Hypertension, asthma, cancer of the right kidney, chronic kidney disease, diabetes, hyperlipidemia, Past Surgical History: ? 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 Medications*: Allergies: * codeine Allergies*: Smoking Status: Smoking Tobacco : none found; Smokeless Tobacco : none found; Vaping : none found Social History: He is , he smoked half a pack a day for 36 years, and quit in February 2019. ?Denies alcohol abuse or illicit drug use. Family History: * Father: - COPD * Mother: - Colorectal cancer Family History*: Mother had colon cancer at age 78 ROS: Constitutional - Denied fever, chills, night sweat, or weight loss. ? Eyes - Denied double vision, blurry vision. No itching of the eyes or photo sensitivity.? ENT - No nasal congestion, rhinorrhea. No changes in hearing. ? NECK - Denied neck stiffness or masses.? Cardiovascular - No chest pain, heart palpitation, dyspnea on exertion, no leg edema. ? Pulmonary - Denied cough, shortness of breath, pleurisy.? Gastrointestinal - Denied abdominal pain, nausea, vomiting, diarrhea or constipation.? Genitourinary - Denied urinary frequency or urgency. No dysuria, pyuria or hematuria.? Endocrine - Denied heat or cold- intolerance, polydipsia or polyuria.? Musculoskeletal - No changes in muscle strengths, no joint tenderness or swelling. ? Neurologic - No focal motor or sensation changes. Denied syncope or seizures.? Psychiatric - Denies depression, anxiety, memory loss, hallucinations, or paranoia? Hematologic/Lymph - Denies easy bruising, bleeding. Denied lymphadenopathy.? Allergic/Immunologic: denies urticaria, recurrent infections,? Dermatologic - Denied skin rash or ulcerations.? Vitals: Height: 71 in; Weight: 273 lb; Blood pressure: 144/88, Pulse: 81, Temperature: 98.9 F, Respirations: 16, Pain Scale: 0 Karnofsky: Not Assessed Physical Exam: General: ?Well-developed, well-nourished, sitting in chair, ?appeared comfortable with no acute distress.? Eyes - PERRLA, EOMI, No scleral icterus or erythema.? ENT - Normal nasal mucosa. No nasal or pharyngeal erythema or discharge. No ulceration in oral cavity. ? Neck - Supple. Trachea midline. No thyromegaly. No jugular vein distension. No carotid bruits. ?No lymphadenopathy Lungs - Clear to auscultation, no crackles or wheezes.? Cardiovascular - RRR. No m/r/g.? Abdomen - Soft, NT, ND. No masses or hepatosplenomegaly. ?Bowel sound normal. Extremities - No edema, cyanosis or clubbing. ? Musculoskeletal - Muscle strength 5/5 in all extremities. No joint swelling. Normal range of motion.? Neurological - Awake, alert and oriented x 3, CN II-XII grossly intact. Labs: CBC Lab Results 12/24/2023 12/11/2023 CBC WBC x 10^3/uL 50.0 (H) RBC x 10^6/uL 5.2 NRBC, absolute, x 10^3/uL 0.2 (H) NRBC, % 0.3 (H) HGB g/dL 14.8 HCT % 45.90 MCV fL 89.0 MCH pg 28.7 MCHC g/dL 32.2 (L) RDW % 23.2 (H) PLT x 10^3/uL 177 MPV fL ---- Platelet, immature, fraction % 18 (H) Auto CBC comments Man Diff Chemistries Lab Results 12/24/2023 12/11/2023 Chemistries Glucose mg/dL 188 (H) BUN mg/dL 11 Creatinine, mg/dL 0.94 Sodium mmol/L 138 Potassium mmol/L 4.7 Chloride mmol/L 102 CO2 mmol/L 27.5 Calcium mg/dL 9.8 Albumin g/dL 4.0 Total protein g/dL 7.8 Bilirubin, total mg/dL 0.7 Alkaline phosphatase U/L 106 AST/SGOT U/L 12 (L) ALT/SGPT U/L 22 GFR estimate mL/min/1.73m2 90 Tumor Markers None Today Labs*: Imaging: CT of the chest abdomen and pelvis with contrast on December 16, 2023. 1. ?Postsurgical changes of partial right nephrectomy. No evidence of recurrent or metastatic disease. 2. ?Unchanged small pulmonary nodules. No new or enlarging nodules. ?6 mm nodule in the posterior left lower lobe; 3 mm nodule in the medial left lower lobe, and a 4 mm nodule in the superior segment of the right lower lobe, all unchanged. ?No new or enlarging pulmonary nodules. 3. ?Unchanged enlarged bilateral external iliac lymph nodes, on the right side measuring 2.3 x 1.9 cm, on the left side measuring 2.1 x 1.9 cm, unchanged from November 2021.. No enlarging lymph nodes in the abdomen or pelvis. 4. ?Similar appearance of what appears to be a cluster of cysts versus a large cyst with internal septations in the pancreatic head. No pancreatic duct dilation. Consider a full characterization with MRI abdomen with and without contrast. ? Problem List: * Leukemoid reaction ( ICD-10:D72.823 ;Leukemoid reaction ) * Leukocytosis ( ICD-10:D72.828 ;Other elevated white blood cell count ) * Thrombocytopenic disorder (disorder) ( ICD-10:D69.6 ;Thrombocytopenia, unspecified ) * COPD ( ICD-10:J44.9 ;Chronic obstructive pulmonary disease, unspecified ) * 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) ( ICD-10:E11.65 ;Type 2 diabetes mellitus with hyperglycemia ) * Essential hypertension (disorder) ( ICD-10:I10 ;Essential (primary) hypertension ) * Hyperlipidemia (disorder) ( ICD-10:E78.2 ;Mixed hyperlipidemia ) * Other long-term current use of drug therapy ( ICD-10:Z79.899 ;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 ?Leukocytosis -Normal baseline WBC on December 21, 2020 (9.3). ?Slightly elevated WBC in November 2021 (11.1),and October 2022 (13.0). ?Significantly elevated WBC on December 08 and December 11, 2023 (39.9, and 38.8). -Lab work today (December 24, 2023)?showed worsened leukocytosis?(WBC?50.0). -Asymptomatic with no obvious source of infection clinically. -Differentials include leukemoid reaction associated with occult infection, medication side effects, versus leukemia, etc. -Peripheral smear reviewed. ?No evidence of blasts. -Ordered a flow cytometry, and a BCR ABL 1 for further evaluation. -Close monitor. ?If leukocytosis is persistent, will need a bone marrow aspiration and biopsy. -?Return to clinic in 4 weeks for reevaluation. ? 2. ?Mild thrombocytopenia -Unclear etiology. ?Differentials include infection/inflammation, nutritional, medications, autoimmune, bone marrow dysfunction, etc. -Pending CRP, ESR, hepatitis panel, HIV antibodies, LDH,? -CT of the chest abdomen and pelvis December 16, 2023 showed no evidence of hepatosplenomegaly. -Repeated lab work?on December 24, 2023?showed resolved thrombocytopenia (platelet count 177,000). -Clinically doing well. ?Continue monitor 3. ?History of renal cell carcinoma of the right kidney -Diagnosed in March 2020, status post right robotic partial nephrectomy. 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 -Following up with urology service (Dr. Talbot). 4. ?Pulmonary nodules. -Subcentimeter. ?No change compared with?previous imaging.? Continue monitor. 5.?Cystic?lesion in the head of the pancreas. -CT scan?December 16, 2023.? Findings of a cluster of cysts versus?a large?cyst with?internal septations?in the head of the pancreas.? No pancreatic duct dilatation. -Recommended?for a full?characterization?with MRI?of the abdomen with and without contrast. 6.?Hypertension, hyperlipidemia, diabetes, asthma, -Stable. ?Continue follow-up with Dr. Graham Addendum December 28, 2023 BCR-ABL 1 major (p210) fusion transcript detected; low positive (nonquantifiable). ? However, the transcript detected is below the limit of quantification for this assay (0.002%, MR 4.7). Raji Pizano MD ? Send copy of note to: ?Romain Graham Electronically signed by Raji Pizano MD 12/28/2023 15:26 CDT
[2024-11-16 15:35] LABS: Hematocrit 36.9 % (42.0-52.0); Hemoglobin 11.7 g/dL (14.1-18.0); Immature Granulocytes % 10.3 %; Mean Corpuscular HGB Conc 31.7 g/dL (31.8-35.4); Mean Corpuscular Hemoglobin 30.2 pg (27.0-31.2); Mean Corpuscular Volume 95.1 fl (80-94); Nucleated Red Blood Cells % 0.1 %; Platelet Count 148 K/mm3 (142-424); Red Blood Count 3.88 M/mm3 (4.60-6.20); Red Cell Distribution Width-SD 66.4 fL; White Blood Count 25.2 K/mm3 (4.8-10.8)
[2024-11-16 16:01] LABS: Anisocytosis 1+; Hypochromasia 1+; RBC Morphology Normal
[2024-11-16 16:09] LABS: Total Cells Counted 100
== END 2024-11-16 23:59 | disposition home or self-care (01) ==
LOC: LAB 14:43
PROVIDERS: PCP Family Medicine; Visit Provider Internal Medicine Medical Oncology
DX: C93.10 Chronic myelomonocytic leukemia not having achieved remission (principal)
CPT/HCPCS: 36415; 85007; 85025

== ENCOUNTER 2024-12-10 15:37 | Inpatient (IN) | payer MEDICARE, OTHER, SELFPAY ==
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
--- OUTSIDE RECORDS SUMMARY | 2024-11-18 10:00 | XMS_ITS ---
Author Organization [facility] Address [facility]0 [facility] 36 [facility] [address] [place] [id number] Care Team Providers Care Cistern Room Operator Name Role Phone Marek Holland Unavailable [phone] Allergies Allergen (clinical drug ingredient) Drug/Non Drug Allergy documented on EMR Reaction Allergy Type Onset Date Status codeine Codeine Unknown Drug Allergy Active Reason For Referral Diagnosis 1 Chronic obstructive pulmonary disease, unspecified COPD type (J44.9) [facility] Referring Provider First Name Marek Referring Provider Last Name Amalia Referring Provider Speciality [facility] ctice Referred Organization [facility] OP Referred Provider Cathy Cardoso Referred Address [address] [facility] [address] [facility],JESS[facility],[phone], Referred Provider Specialty Pulmonary [facility] General Notes Silvia Waters 2024 02:52:13 PM > faxed to Evelin Christensen Brynn 11/23/2024 03:35:41 PM > spoke with [facility] Pulmonology; they are calling today to set up the appt for the patient Referral Priority Routine REASON FOR VISIT pain under LT shoulder blade Medications Medication SIG (Take, Route, Frequency, Duration) Notes Start Date End Date Status Tamsulosin HCl 0.4 MG 1 capsule Orally O nce a day Active Glimepiride 2 MG 1 Tablet Orally twic e a day Active Hydroxyurea 500 MG 1 capsule Orally Onc e a day Active amLODIPine Besylate 5 MG 1 tablet Orally Once a day Active Formoterol Fumarate 20 MCG/2ML 2 mL Inhalation Twice a day; Duration: 30 days Active Ipratropium-Albuterol 0.5-2.5 (3) MG/3ML 3 mL as needed Inhalation every 6 hrs Active Albuterol Sulfate (2.5 MG/3ML) 0.083% 3 mL as needed Inhalation every 6 hrs Active Problems Problem Type SNOMED Code ICD Code Onset Dates Problem Status W/U Status Risk Notes Problem COPD - Chronic obstructive pulmonary disease (07164074) Chronic obstructive pulmonary disease, unspecified COPD type (J44.9) Active confirmed Problem Obese class II (830457297282365 ) BMI 37.0-37.9, adult (Z68.37) Active confirmed Problem Obesity (157936386) Non morbid obesity (E66.9) Active confirmed Vital Signs Weight 277.8 lbs 11/18/2024 Blood pressure systolic 138 mm Hg 11/19/19 25 Blood pressure diastolic 82 mm Hg 025 Heart Rate 128 /min 11/18/2024 Height 72 in 11/18/2024 BMI 37.67 kg/m2 11/18/2024 Encounters Encounter Location Date Provider Diagnosis [facility] [address] [facility] 36 [facility] [address] [place] [phone] 11/18/2024 Marek Amalia Chronic obstructive pulmonary disease, unspecified COPD type J44.9 ; Acute pain of left shoulder M25.512 ; BMI 37.0-37.9, adult Z68.37 and Non morbid obesity E66.9 Assessments Encounter Date Diagnosis (ICD Code) Assessment Notes Treatment Notes Treatment Clinical Notes Section Notes 11/18/2024 Chronic obstructive pulmonary disease, unspecified COPD type (ICD-10 - J44.9) 11/18/2024 Acute pain of left shoulder (ICD-10 - M25.512) heating pad to affected areas 2 to 3 times a day TENS unit OTC recommended 11/18/2024 BMI 37.0-37.9, adult (ICD-10 - Z68.37) 11/18/2024 Non morbid obesity (ICD-10 - E66.9) Plan Of Treatment Medication Medication Name Sig Start Date Stop Date Notes Formoterol Fumarate 20 MCG/2ML 2 mL Inhalation Twice a day; Duration: 30 days Treatment Notes Assessment Notes Acute pain of left shoulder heating pad to affected areas 2 to 3 times a day TENS unit OTC recommended Referrals Referral Date Details 11/18/2024 11/18/2024, Cathy Cardoso, [address], [place], [place], [phone], Next Appt Details Follow Up: via phone to repo rt progress, Reason: Provider Name:Marek Ngo ry, 02/24/2025 01:30:00 PM, [address] [facility] [address], [place], [place], [phone], Progress Notes * Thad CABRERADOB:1960 (63 yo M)Acc No.[id number]:11/18/2024 Progress Notes Patient: Thad FORTUNE Provider: Kam Holland M.D. :1960 A ge:63 Y S ex:Male Date:11/18/2024 Address:[address] [place] [address] Subjective: * Chief Complaints: * 1 . pain under LT shoulder blade. * HPI: S houlder/Upper arm: 63 year old male presents with c/o shoulder pain P t states the pain does not radiate anywhere else it just feels like a jabbing pain. Pt states this started last week. Pt states he has been having clear mucus come up in the morning. E NT/respiratory: c/o Short of Breath P t states he has had shortness of breath for the past week. * ROS: D ERMATOLOGY: no R rojelio. n o H adrienne. G ASTROENTEROLOGY: no N ausea. n o V omiting. U ROLOGY: no D ifficulty urinating. n o B lood in urine. * Medical History: H ypertension, Allergic Rhinitis, COPD, Asthma, Chronic Leukemia, Type 2 diabetes, BPH, 35 pack year smoking history, quit in 2019. * Surgical History: R T Kidney Cyst [...] . Alcohol: no. * Medications: T aking Formoterol Fumarate 20 MCG/2ML Nebulization Solution 2 mL Inhalation Twice a day , Taking Albuterol Sulfate (2.5 MG/3ML) 0.083% Nebulization Solution [...] reconciled with the patient * Allergies: C odeine. Objective: * Vitals: W t: 277.8, Temp: 97.8, BP: 138/82, HR: 128, Nurse: KATHY, Ht: 72, BMI:37.67. * Examination: G eneral Examination: General Appearance: N AD. H eart: R SR. L ungs:?clear to auscultation. B ack: s ome tenderness to palpation along the left mid trapezieus muscle, spasm present. Assessment: * Assessment: 1. C hronic obstructive pulmonary disease, unspecified COPD type - J44.9 (Primary) ?2. A cute pain of left shoulder - M25.512 3 . B [place] 37.0-37.9, adult - Z68.37 4 . N on morbid obesity - E66.9 Plan: * Treatment: 2. A cute pain of left shoulder Notes: heating pad to affected areas 2 to 3 times a day TENS unit OTC recommended * Procedure Codes: G 2211 Complex e/m visit add on, 1036F TOBACCO NON-USER, G8783 BP SCR PRFRM RCMDD DEFIND SCR INTVL, G8752 MOST RECENT SYSTOLIC BP < 140MM HG, G8754 MOST RECENT DIASTOLIC BP < 90MM HG * Follow Up: v ia phone to report progress * Images: Billing Information: * Visit Code: 79199 Office Visit, Est Pt., Level 3. * Procedure Codes: G2211 Complex e/m visit add on. 1036F TOBACCO NON-USER. G8783 BP SCR PRFRM RCMDD DEFIND SCR INTVL. G8752 MOST RECENT SYSTOLIC BP < 140MM HG. G8754 MOST RECENT DIASTOLIC BP < 90MM HG. * Electronic signature of Raquel Holland MD on 12/10/2024 at 03:50 PM EDT Sign off status: Pending * Provider: Kam Holland M.D. Date: 0 11/18/2024 Generated for Bal buchanan/Thad/eTransmitting on: 1 03:50 PM EDT History and Physical Notes * HPI (History of Present Illness) Category Sub-Category Detail Notes Category Not es ENT/respiratory Short of Breath Pt states he has had shortness of breath for the past week Shoulder/Upper arm shoulder pain Pt states the pain does not radiate anywhere else it just feels like a jabbing pain. Pt states this started last week. Pt states he has been having clear mucus come up in the morning Examination Category Sub-Category Detail Notes Category Not es General Examination Heart: RSR Lungs: clear to auscultatio n General Appearance: NAD Back: some tenderness to p alpation along the left mid trapezieus muscle, spasm present Consultation Request Notes Referral Date Referring Provider Referred Provider Not es 11/18/2024 Marek Holland Srinadh
--- OUTSIDE RECORDS SUMMARY | 2024-12-07 10:45 | XMS_ITS ---
Author Organization [facility] Address [facility] [address] [place] [phone] Care Team Providers Care Food Service Sales Representatives Name Role Phone [place]ar, Marek Unavailable [phone] Allergies Allergen (clinical drug ingredient) Drug/Non Drug Allergy documented on EMR Reaction Allergy Type Onset Date Status codeine Codeine Unknown Drug Allergy Active REASON FOR VISIT bump on the back of his neck and a spot on his arm Medications Medication SIG (Take, Route, Frequency, Duration) Notes Start Date End Date Status Glimepiride 2 MG 1 Tablet Orally twic e a day Active Hydroxyurea 500 MG 1 capsule Orally Onc e a day Active amLODIPine Besylate 5 MG 1 tablet Orally Once a day Active Tamsulosin HCl 0.4 MG 1 capsule Orally O nce a day; Duration: 30 days Active Formoterol Fumarate 20 MCG/2ML 2 mL Inhalation Twice a day; Duration: 30 days Active Ipratropium-Albuterol 0.5-2.5 (3) MG/3ML 3 mL as needed Inhalation every 6 hrs Active Albuterol Sulfate (2.5 MG/3ML) 0.083% 3 mL as needed Inhalation every 6 hrs Active Vital Signs Weight 279.8 lbs 12/07/2024 Blood pressure systolic 130 mm Hg 12/08/19 25 Blood pressure diastolic 76 mm Hg 025 Heart Rate 110 /min 12/07/2024 Height 72 in 12/07/2024 BMI 37.94 kg/m2 12/07/2024 Encounters Encounter Location Date Provider Diagnosis [facility] [address] [place]ESS[place] Marte [phone] 12/07/2024 Marek Holland Neoplasm of uncertai n behavior of skin of forearm D48.5 Assessments Encounter Date Diagnosis (ICD Code) Assessment Notes Treatment Notes Treatment Clinical Notes Section Notes 12/07/2024 Neoplasm of uncertain behavior of skin of forearm (ICD-10 - D48.5) Plan Of Treatment Pending Test Test Name Order Date P-Surgical Pathology 12/07/2024 Next Appt Details Follow Up: via phone to repo rt test results, Reason: Provider Name:Marek Ngo ry, 02/24/2025 01:30:00 PM, [address], [place], [place], [phone], Procedure Notes * Category Sub-Category Detail Notes Shave Biopsy Indication: Uncertain nature of the lesion Consent: All risks, benefits, and potential complications were discussed including bleeding, infection, scarring, and the need for further surgery to improve the resultant scar or to remove a cancerous process. It was explained that this procedure was for diagnostic purposes and was not being performed with the intention of curing the condition Method: The biopsy was taken using the tangential shave technique. The area was first prepped with Betadine and anesthetized with 1% Lidocaine with epi. A flexible blade was used to harvest a medical device sales representative specimen, Light ED for hemostasis Post-op: The likelihood of sc arring and the possibility of recurrence was reiterated to the patient. The patient is instructed to cleanse the wound twice daily with soap and water or hydrogen peroxide, and then apply a bandage for one week's time. The patient is instructed to notify the office if the wound site(s) ooze, become painful or red. The biopsy specimen was sent to the laboratory for pathological evaluation Progress Notes * Thad CABRERADOB:1960 (63 yo M)Acc No.[id number]:12/07/2024 Progress Notes Patient: Thad FORTUNE Provider: Kam Holland M.D. :1960 A ge:63 Y S ex:Male Date:12/07/2024 Address:[address] [place] [address] Subjective: * Chief Complaints: * 1 . Bump on the back of his neck and a spot on his arm. * HPI: D ermatology: 63 year old male presents with c/o knot P t complains of knot on the back of his neck. Pt states it has gotten bigger but is not painful. c/o Scratch Pt states he has a place on his lower right arm that has gotten bigger. Pt states it has been there for a few months. * Medical History: H ypertension, Allergic Rhinitis, [...] Tablet Orally twice a day , Taking Formoterol Fumarate 20 MCG/2ML Nebulization Solution 2 mL Inhalation Twice a day , Taking Tamsulosin HCl 0.4 MG Capsule 1 capsule Orally Once a day , Medication List reviewed and reconciled with the patient * Allergies: C odeine. Objective: * Vitals: W t: 279.8, Temp: 98.3, BP: 130/76, HR: 110, Nurse: KATHY, Ht: 72, BMI:37.94. * Examination: G eneral Examination: General Appearance: N AD. S kin: d istal right forearm with a 1.1 cm pink pearly papule with a small central skin ulceration, mid posterior neck with a 1 cm wide subcutaneous, soft moveable mass, seems to be a sebaceous cyst vs a lipoma. Assessment: * Assessment: 1. N eoplasm of uncertain behavior of skin of forearm - D48.5 (Primary) Plan: * Treatment: * Procedures: S have Biopsy: Indication: U ncertain nature of the lesion. C onsent:?All risks, benefits,and potential complications were discussed including bleeding, infection, scarring, and the need for further surgery to improve the resultant scar or to remove a cancerous process. It was explained that this procedure was for diagnostic purposes and was not being performed with the intention of curing the condition. M ethod: T he biopsy was taken using the tangential shave technique. The area was first prepped with Betadine and anesthetized with 1% Lidocaine with epi. A flexible blade was used to harvest a medical device sales representative specimen, Light ED for hemostasis. P ost-op: T he likelihood of scarring and the possibility of recurrence was reiterated to the patient. The patient is instructed to cleanse the wound twice daily with soap and water or hydrogen peroxide, and then apply a bandage for one week's time. The patient is instructed to notify the office if the wound site(s) ooze, become painful or red. The biopsy specimen was sent to the laboratory for pathological evaluation. * Procedure Codes: 1 1302 SHAVE LESION,TRUNK,ARMS,LEGS 1.1 TO 2.0 CM, G2211 Complex e/m visit add on * Follow Up: v ia phone to report test results * Images: Billing Information: * Visit Code: * Procedure Codes: 14604 SHAVE LESION,TRUNK,ARMS,LEGS 1.1 TO 2.0 CM. G2211 Complex e/m visit add on. * Electronic signature of Raquel Holland MD on 12/10/2024 at 03:50 PM EDT Sign off status: Pending * Provider: Kam Holland M.D. Date: Generated for Bal buchanan/Thad/Miriam on: 03:50 PM EDT History and Physical Notes * HPI (History of Present Illness) Category Sub-Category Detail Notes Category Not es Dermatology knot Pt complains of knot on the back of his neck. Pt states it has gotten bigger but is not painful Scratch Pt states he has a p lace on his lower right arm that has gotten bigger. Pt states it has been there for a few months Examination Category Sub-Category Detail Notes Category Not es General Examination General Appearance: NAD Skin: distal right forearm with a 1.1 cm pink pearly papule with a small central skin ulceration, mid posterior neck with a 1 cm wide subcutaneous, soft moveable mass, seems to be a sebaceous cyst vs a lipoma
[2024-12-10] VITALS (12 sets, daily range): BP systolic 105–135; BP diastolic 60–96; PULSE 88–140; RESP 17–30; TEMP 36.7–37.4; O2SAT 90–95; BMI 35.2; BMI 36.4
--- NOTE | 2024-12-10 15:39 | ECG_ITS ---
APPROVED REPORT Exam: Resting ECG HR:144 bpm ECG Measurements Heart Rate 144 AXES QRSd 102 QRS 41 QT 300 T 51 QTc 383 Conclusion ATRIAL FLUTTER/TACHYCARDIA WITH RAPID VENTRICULAR RESPONSE WITH ABERRANT CONDUCTION OR VENTRICULAR PREMATURE COMPLEXES MODERATE ST DEPRESSION [0.05+ mV ST DEPRESSION] ABNORMAL ECG UNCONFIRMED REPORT Narrow complex, irregular rhythm, no identifiable P waves, tachycardia consistent with A-fib with RVR. No ST elevation or depression to suggest STEMI. No T wave inversions. Occasional PVC Electronically signed by : JAYME MURRAY, 12/10/2024 20:40:56
--- OUTSIDE RECORDS SUMMARY | 2024-12-10 15:50 | XMS_ITS | Encounter Summary ---
Author Organization [facility] [place] [place] [address] Phone Care Team Providers Care Packing Inspector Name Role Phone Susy Bauman CNP Primary Care Provider [phone] Encounter Details Date Type Department Care Team (Late st Contact Info) Description 03/25/2019 SCAN [facility] [place] [address] [place] [address] Social History Tobacco Use Types [...] Self-Managemen t No [place], Natividad L Note: [email or web address] Patient has no barriers to completing goals [...] documented as of this encounter Care Teams Packing Inspector Relationship Specialty Start Date End Date Susy Bauman CNP PCP - General 01/08/18 03/08/20 documented as of this encounter
--- OUTSIDE RECORDS SUMMARY | 2024-12-10 15:50 | XMS_ITS | Continuity of Care Document ---
Author Organization [facility] [place] Address [address] [place] [address] Assessment No assessment recorded. Plan of Treatment Reminders Order Date Submit Date Provider Last Modified By Organization Details Last Modified Time Details Appointments OV EST 15 2025 11:15A M Merrill Delgado Jr, MD Not available Not available Not available Lab None recorded. Referral None recorded. Procedures None recorded. Surgeries None recorded. Imaging None recorded. Medication Orders levofloxa myles 500 mg tablet 2024 025 [facility][id number], [address] [place], [address], 10/29/2024 05:02:16 Patient TargetsNo targets recorded. Patient InstructionsNo instructions recorded. Reason for Referral None Reported. Medical Equipment None Reported. Allergies Allergen ID Allergen Name Allergen Category Reaction Reaction Severity Criticality Documentation Date Start Date Code Code System Note Provider Name and Address Organization Details Recorded Time [id number] codeine medicatio n Not available Not available Not available 10/19/2024 2670 RxNorm Samra Mcdonald [facility] 09:08:37 Medications Name Sig Start Date Stop Date Status Note LastModified by Organization Details LastModified Time hydroxyurea 500 mg capsule TAKE 1 CAPSULE BY MOUTH EVERY DAY active Not Available Not Available No t Available ipratropium 0.5 mg-albutero l 3 mg (2.5 mg base)/3 mL nebulizatio n soln INHALE 3 MLS INTO THE LUNGS EVERY 6 (SIX) HOURS NEEDED FOR SHORTNESS OF BREATH OR WHEEZING active Not Available Not Available No t Available albuterol sulfate 2.5 mg/3 mL (0.083 %) solution for nebulizatio n USE 3 MLS IN NEBULIZER EVERY 6 (SIX) HOURS NEEDED FOR WHEEZING OR SHORTNESS OF BREATH active Not Available Not Available No t Available ondansetron HCl 8 mg tablet TAKE 1 TABLET ORALLY EVERY 8 HOURS NEEDED FOR NAUSEA AND VOMITING. active Not Available Not Available No t Available amlodipine 5 mg tablet TAKE 2 TABLETS BY MOUTH EVERY DAY active Not Available Not Available No t Available Ready-To-Us e Enema 19 gram-7 gram/[address] MLS (1 EACH TOTAL) RECTALLY ONCE FOR 1 DOSE 10/19 completed Not Available Not Available Not Available ciprofloxac in 500 mg tablet TAKE 1 TABLET (500 MG TOTAL) BY MOUTH 2 (TWO) TIMES DAILY START THE DAY PRIOR TO BIOPSY. FOR 5 DAYS 10/19 completed Not Available Not Available Not Available glimepiride 2 mg tablet TAKE 1 TABLET BY MOUTH 2 TIMES DAILY. active Not Available Not Available No t Available tamsulosin 0.4 mg capsule TAKE 1 CAPSULE BY MOUTH EVERY DAY active Not Available Not Available No t Available budesonide 0.5 mg/2 mL suspension for nebulizatio n 2 MLS (0.5 MG TOTAL) BY NEBULIZAT ION ROUTE 2 (TWO) TIMES DAILY active Not Available Not Available No t Available cefuroxime axetil 500 mg tablet TAKE 1 TABLET BY MOUTH 2 TIMES DAILY FOR 14 DAYS. active Not Available Not Available No t Available levofloxaci n 500 mg tablet Take 1 tablet every 24 hours by oral route for 3 days. 10/29 completed Not Available Not Available Not Available albuterol sulfate HFA 90 mcg/actuati on aerosol inhaler INHALE 2 PUFFS INTO THE LUNGS EVERY 6 HOURS NEEDED FOR WHEEZE active Not Available Not Available No t Available formoterol fumarate 20 mcg/2 mL solution for nebulizatio n USE 2 MLS (20 MCG TOTAL) IN NEBULIZER 2 (TWO) TIMES DAILY active Not Available Not Available No t Available Spiriva Respimat 2.5 mcg/actuati on solution for inhalation INHALE 2 PUFFS BY MOUTH INTO THE LUNGS DAILY active Not Available Not Available No t Available Vitals Date Recorded Body height Body mass index (BMI) Body weight Provider Name and Address Organization Details Last Updated DateTime 10/19/2024 182.88 cm 35.4 kg/m2 559374.61 g Samra Mcdonald [place] [facility] [place] 10/19/2024 09:08:27 Social History None recorded. Functional Status Question Answer Note LastModified by Organization D etails LastModified Time What is your level of alcohol consumption? None [email or web address] Information not available 10/19/2024 Mental Status None recorded. Family History Nothing Reported Notes:Mother and Father both Medical History Condition Response Diabetes Y Kidney Stones Y Past Encounters Encounter ID Performer Location Encounter Start Date Encounter Closed Date Diagnosis/Indication Diagnosis SNOMED-CT Code Diagnosis ICD10 Code Diagnosis IMO Codes Diagnosis Note [id number] Merrill Delgado Jr, MD [facility] [address] [address] 10/19/2024 08:43:49 10/19/2024 09:58:40 Prostate specific antigen above reference range 694156984 R97.20 [id number] patient with elevated PSA. His PSA was 8.0 in August 26, 2024. He was 4.6 in December 2023. MRI of the prostate has shown no significan t suspicious areas. CT scan has shown some bilateral pelvic lymphadeno kalee. We have discussed options of close monitoring versus prostate biopsy. Patient would like to proceed with prostate biopsy. We discussed the operative procedure, complicati ons including blood in the urine, stool and ejaculate and possible sepsis. We will cover him with antibiotic s and he was to perform enema preop. History of primary malignant neoplasm of kidney 460684885 Z85.528 [id number] patient is status post right partial nephrectom y in 2020 in [facility]. Follow up studies have shown no evidence of renal cell carcinoma. Erectile dysfunction 860 269257 N52.9 [id number] Patient complains of erectile dysfunctio n. We discussed treatment options. We will hold off until after his prostate biopsy. Health Concerns Section Related Observation LastModified by Organization Detai ls LastModified Time None Recorded Concern Status LastModified by Organization Details LastModified Time None Recorded Payers Encounter Date Sequence Insurance Name Policy Number Policy Santiago Covered Member ID Santiago Member ID Guarantor Name 10/19/2024 1 MEDICARE-IN (MEDICARE) Stephanie Marroquin [id number] Stephanie Marroquin 10/19/2024 2 DIANNAEtherios (MEDICARE SUPPLEMENT) Stephanie Marroquin [id number] Stephanie Marroquin Notes Date Note Type Note Provider Name and Address Organization Details Recorded Time 10/19/2024 text/html ROS as noted in the HPI PATIENT IS A 63-YEAR-OLD WHITE MALE REFERRED FOR ELEVATED PSA. HIS PSA WAS 8.0 ON AUGUST 26, 2024. PATIENT WAS RECENTLY MOVED TO [facility] FROM [facility]. HE HAS A HISTORY OF A RIGHT PARTIAL NEPHRECTOMY IN 2020. EXTENSIVE RECORDS REVIEW WAS PERFORMED PER RECORDS THAT HE BROUGHT IN FROM HIS FORMER UROLOGIST AND PRIMARY CARE PHYSICIAN. MRI SCAN IN MARCH 2024 REVEALED A 70 G PROSTATE WITH NO EVIDENCE OF A PI-RADS [address] SCAN HAS SHOWN bilateral pelvic lymphadenopathy with lymph nodes greater than 2 cm. Patient has been seen by medical oncology for possible lymphoproliferative disorder. Bone scan December 2023 showed no evidence of metastatic disease. patient was on Flomax.Patient also complains of erectile dysfunction and history of kidney stones. Merrill Delgado Jr, MD [address] [place] [address], [address], [place], [address], [place] [facility] [place] 11/03/2024 09:31:22
--- OUTSIDE RECORDS SUMMARY | 2024-12-10 15:50 | XMS_ITS | Encounter Summary ---
Author Organization [facility] Address [address], [address] [place] [address] Care Team Providers Care Blueberry Grower Name Role Phone Susy Bauman APRN, CNP Primary Care Provider Encounter Details Date Type Department Care Team ([facility] Contact Info) Description 04/15/2013 PAT Telephone [facility] PAT [address], [place] [id number] Traci Goldsmith RN Social History Tobacco Use [...] on filedocumented in this encounter Care Teams Blueberry Grower Relationship Specialty Start Date End Date Susy Bauman APRN - CNP [address] [place] [id number] PCP - General 03/11/19 documented as of this encounter
--- OUTSIDE RECORDS SUMMARY | 2024-12-10 15:50 | XMS_ITS | CCD ---
Author Name Interface, [id number] lity Address [place] [address] Organization [facility] Address [place] [address] Care Team Providers Care Information Technology Security Analyst Name Role Phone Raji Pizano MD Unavailable [...] SWP 03/11/2024 APPOINTMENT PIZANO L OV CLD [facility] 02/23/2024 APPOINTMENT PIZANO L OV 4WKS 02/23/2024 APPOINTMENT PIZANO L OV 4WKS 02/18/2024 APPOINTMENT PIZANO/KB ORAL TREAT MENT REVIEW 02/16/2024 APPOINTMENT PIZANO L OV 4WKS 02/16/2024 APPOINTMENT PIZANO L OV 4WKS 01/22/2024 APPOINTMENT PIZANO L OV 4WKS 01/22/2024 APPOINTMENT PIZANO L OV 4WKS 01/22/2024 APPOINTMENT PIZANO L OV 4WKS 01/22/2024 APPOINTMENT PIZANO L OV 4WKS 12/24/2023 APPOINTMENT PIZANO ATTENDING RADIOLOGIST REF [facility] 12/24/2023 APPOINTMENT PIZANO ATTENDING RADIOLOGIST LAB 12/24/2023 LABORDER TSH panel 12/24/2023 LABORDER [...] (PT RQ ) Encounters Date Name 06/29/2024 Leukocytosis Functional Status Date Name/Question Score/Answer 11/12/2024 Are [...] BCR-ABL 1 MAJOR (p210) QUANTIT ATIVE FINAL [facility] Whole Blood 01/21 BCR-A BL1 major (p210 ) quant panel PDF Repor t See laborer yard d FINAL [facility] Whole Blood 01/21 Manua l diffe renti al Teard rop cells 1+ FINAL [facility]. [facility] [address] [facility] [address] CLIA#45D [id number] 01/21 Manua l diffe renti al Promy elocy te % % 0.0 0.0 1 High FINAL [facility]. [facility] [address] [facility] [address] CLIA#45D [id number] 01/21 Manua l diffe renti al Ellip tocyt e 0.00 FINAL [facility]. [facility] [address] [facility] [address] CLIA#45D [id number] 01/21 Manua l diffe renti al Poiki locyt osis (shap e) 1+ FINAL [facility] [place]. [address] [place] [address] CLIA#45D [id number] 12/23 TSH panel TSH, mIU/L mIU/L 0.4 4.5 6.37 High FINAL [facility] Serum Med Fusion.2 [address] [facility] [address] [address] 12/23 C-alex ctive prote in panel C-alex ctive prote in, quant , mg/L mg/L 4.5 FINAL [facility] Serum Med Fusion.2 [address] [facility] [address] Building 12.[place] [facility] [address] 12/23 BCR-A BL1 minor (p190 ) quant [...] Specimen Collectio n Date BCR-ABL1M inor % [id number] Whole Blood 4 0.0000Res ultBCR-AB L1 [...] breakpoin t cluster region variant, e1a2). The [id number] cript is found in a small minority [...] 430,2006. Hannah et al. Standardi zation and it quality assurance analyst studies of real-maura e quantit ative reverse transcrip tase polymeras e chain reaction (RQ-PCR) of fusiongen e transcrip ts for minimal residual disease detection in leukemia A [facility] inst Cancer [facility]. Leukemia 17, 2318 235, 2002.Rah PARKER. The diversity of BCR-ABL fusion proteins and their relations hip toleukemi a phenotype . Blood 88:2375-2 384,1995. This test was developed and its analytica l performan ce character istics have beendeter mined by [employer] [facility]. It has not been cleared or approvedb y the U.S. Food and Drug Administr ation. This assay has been validated pursuantt o the CLIA regulatio ns and is used for clinical purposes. Technical and Professio nal services performed at: [facility], [address] [place] [address], [address], [place] [address], CLIA# [id number] 7 Green Feed Attendant, Lisa Mcdowell MD, PhD Electr onically Signed Out Ruben Kwon Ph.D., FACMGPati ent Name: SHERI MARROQUIN [facility]. Rec. #: [id number] ccession #: [id number] 3Taken: 4Received : 4Reported : 4Physicia n(s): JINGDONG SUSpecime n(s) ReceivedA : Whole Blood with EDTAClini danii HistoryD7 2.823 D69.6 FINAL Jingdong Pizano Whole Blood 01/21 Sedim entat ion rate panel ESR mm/h 0.0 20.0 2 FINAL Jingdong Pizano Whole Blood Med Fusion.2 [address] [place] [address] [address] [address] 07/14 Lab Repor t See laborer yard d 03/11 CMP ALT/S GPT U/L 16.0 63.0 20 FINAL Jingdong Pizano Plasma [facility] [place]. [facility] [address] [place] [address] CLIA#45D [id number] 03/11 CMP Gluco se mg/dL 74.0 106.0 169 High FINAL Jingdong Pizano Plasma [facility] [place]. [facility] [address] [place] [address] CLIA#45D [id number] 03/11 CMP Total prote in g/dL 6.4 8.2 7.6 FINAL Jingdong Pizano Plasma [facility] [place]. [facility] [address] [place] [address] CLIA#45D [id number] 03/11 CMP AST/S GOT U/L 15.0 37.0 14 Low FINAL Jingdong Pizano Plasma [facility] [place]. [facility] [address] [place] [address] CLIA#45D [id number] 03/11 CMP Bilir ubin, total mg/dL 0.2 1.0 0.7 FINAL Jingdong Pizano Plasma [facility] [place]. [facility] [address] [place] [address] CLIA#45D [id number] 03/11 CMP Sodiu m mmol/L 136.0 145.0 140 FINAL Jingdong Pizano Plasma [facility] [place]. [facility] [address] [place] [address] CLIA#45D [id number] 03/11 CMP Alkal ine phosp hatas e U/L 46.0 116.0 93 FINAL Jingdong Pizano Plasma [address] [place] [address] CLIA#45D [id number] 03/11 CMP Calci um mg/dL 8.5 10.1 9.7 [facility]AL [facility] [address] [place] [facility] CLIA#45D [id number] 03/11 CMP GFR estim ate mL/min /1.73m sq 81 Result based on the eGFR 2020 calculati on.60-89 mL/min/1. 73m^2 without kidney damage may be normal.60 -89 mL/min/1. 73m^2 for 3 months or more, along with kidney damage, may indicate early kidney disease.C alculatio n modified to the 2020 formula effective 06/07/22. FINAL Jingdong Pizano Plasma [address] . [address] [place] [id number] CLIA#45D [id number] 03/11 CMP CO2 mmol/L 21.0 32.0 27.7 FINAL Jingdong Pizano Plasma [address] [place] [address] CLIA#45D [id number] 03/11 CMP Creat inine , mg/dL mg/dL 0.55 1.3 1.02 [facility]AL [facility] [address] [place] [id number] CLIA#45D [id number] 03/11 CMP Chlor anil mmol/L 97.0 107.0 105.00 FINAL Jingdong Pizano Plasma [address] [place] [address] CLIA#45D [id number] 03/11 CMP BUN mg/dL 7.0 18.0 10 FINAL Jingdong Pizano Plasma [address] [place] [address] CLIA#45D [id number] 03/11 CMP Album in g/dL 3.4 5.0 4.1 FINAL Jingdong Pizano Plasma [address] [place] [id number] CLIA#45D [id number] 03/11 CMP Potas sium mmol/L 3.5 5.1 4.2 FINAL Jingdong Pizano Plasma [facility]. [address] [place] [address] CLIA#45D [id number] 12/23 LDH panel LDH U/L 85.0 227.0 529 High FINAL Jingdong Pizano Plasma [facility]. [address] [place] [address] CLIA#45D [id number] 12/23 Chron ic hepat itis panel Hepat itis B core antib angeline, total NonReac t FINAL Jingdong Pizano Serum Med Fusion.[address] [place] [address] 12[place] [address] 12/23 Chron ic hepat itis panel Hepat itis C antib angeline, qual NonReac t HCV antibody was non-react ric. There is no laborator y evidence of HCV infection . In most cases, no further action is required. However, if recent HCV exposure is suspected , a test for HCV RNA (test code 02224) is suggested . FINAL Jingdong Pizano Serum Med Fusion.[address] [place] [address] 12[place] [address] 12/23 Chron ic hepat itis panel Hepat itis B surfa ce antig en NonReac t FINAL Jingdong Pizano Serum Med Fusion.[address] [place] [address] Building 12.[place] [address] 12/23 Chron ic hepat itis panel Hepat itis A ab, total , qual NonReac t FINAL Jingdong Pizano Serum Med Fusion.[address] [place] [address] Building 12.[place] [address] 12/23 Chron ic hepat itis panel Hepat itis B surfa ce ab, qual NonReac t FINAL Jingdong Pizano Serum Med Fusion.[address] [place] [address] [address] 12[place] [address] 03/11 CBC w/aut o diff with refle x MCV fL 80.0 94.0 89.1 FINAL Jingdong Pizano Whole Blood [facility]. [address] [place] [address] CLIA#45D [id number] 03/11 CBC w/aut o diff with refle x RBC 10^6/u L 4.7 6.1 5.1 FINAL Raji Pizano Whole Blood [facility]. [facility] [address] [place] [address] CLIA#45D [id number] 03/11 CBC w/aut o diff with refle x MPV fL 9.4 12.4 ---- FINAL Raji Pizano Whole Blood [facility]. [facility] [address] [place] [address] CLIA#45D [id number] 03/11 CBC w/aut o diff with refle x Auto CBC comme nts Man Diff FINAL Raji Pizano Whole Blood [facility]. [facility] [address] [place] [address] CLIA#45D [id number] 03/11 CBC w/aut o diff with refle x HGB g/dL 14.0 18.0 14.3 FINAL Raji Pizano Whole Blood [facility]. [facility] [address] [place] [address] CLIA#45D [id number] 03/11 CBC w/aut o diff with refle x MCHC g/dL 33.0 37.0 31.8 Low FINAL Raji Pizano Whole Blood [facility]. [facility] [address] [place] [address] CLIA#45D [id number] 03/11 CBC w/aut o diff with refle x HCT % 40.0 50.0 45.00 FINAL Raji Pizano Whole Blood [facility]. [facility] [address] [place] [address] CLIA#45D [id number] 03/11 CBC w/aut o diff with refle x Plate let, immat ure, fract ion % 1.0 7.0 18 High FINAL Raji Pizano Whole Blood [facility]. [facility] [address] [place] [address] CLIA#45D [id number] 03/11 CBC w/aut o diff with refle x NRBC, % % 0.0 0.2 0.2 FINAL Raji Pizano Whole Blood [facility]. [facility] [address] [place] [address] CLIA#45D [id number] 03/11 CBC w/aut o diff with refle x WBC 10^3/u L 4.8 10.8 30.5 High FINAL Raji Pizano Whole Blood [facility]. [address] [place] [address] . [address] [place] [address] CLIA#45D [id number] 03/11 CBC w/aut o diff with refle x PLT 10^3/u L 130.0 400.0 158 Platelet count obtained using fluoresce nt platelet methodolo gy. FINAL Raji Pizano Whole Blood [address] [place] [facility] CLIA#45D [id number] 03/11 CBC w/aut o diff with refle x RDW % 10.5 14.5 25.5 High FINAL Raji Pizano Whole Blood [address] [place] [address] CLIA#45D [id number] 03/11 CBC w/aut o diff with refle x MCH pg 27.0 31.0 28.3 FINAL Raji Pizano Whole Blood [address] [place] [id number] CLIA#45D [id number] 03/11 CBC w/aut o diff with refle x NRBC, absol nome, x 10^3/ uL 10^3/u L 0.0 0.0 0.1 High FINAL Raji Pizano Whole Blood [address] [place] [address] CLIA#45D [id number] 03/11 Manua l diffe renti al Metam yeloc yte % % 2 FINAL Raji [address] [place] [id number] CLIA#45D [id number] 03/11 Manua l diffe renti al Myelo cyte count 10^3/u L 0.00 FINAL Raji [address] [place] [address] CLIA#45D [id number] 03/11 Manua l diffe renti al LY# (M) 10^3/u L 1.2 3.4 2.65 FINAL Raji [address] [place] [id number] CLIA#45D [id number] 03/11 Manua l diffe renti al Polyc hroma camila (M) 1+ FINAL [facility]. [address] [place] [address] CLIA#45D [id number] 03/11 Manua l diffe renti al Plate let estim ate Normal [facility]AL [facility]. [address] [place] [address] CLIA#45D [id number] 03/11 Manua l diffe renti al Lymph ocyte % % 15.0 41.0 9 Low [facility]AL [facility]. [address] [place] [address] CLIA#45D [id number] 03/11 Manua l diffe renti al Metam yeloc yte 10^3/u L 0.58 FINAL [facility]. [address] [place] [address] CLIA#45D [id number] 03/11 Manua l diffe renti al Band % % 0.0 0.0 15 High [facility]AL [facility]. [address] [place] [address] CLIA#45D [id number] 03/11 Manua l diffe renti al Neutr ophil % (M) % 40.0 77.0 62 FINAL [facility]. [address] [place] [address] CLIA#45D [id number] 03/11 Manua l diffe renti al Promy elocy te, absol nome 10^3/u L 0.00 FINAL [facility]. [address] [place] [address] CLIA#45D [id number] 03/11 Manua l diffe renti al Monoc yte % % 3.0 11.0 12 High [facility]AL [facility]. [address] [place] [address] CLIA#45D [id number] 03/11 Manua l diffe renti al MO# (M) 10^3/u L 0.0 1.0 3.57 High FINAL [address] [facility] [address] CLIA#45D [id number] 03/11 Manua l diffe renti al Blast count 10^3/u L 0.[address] [place] [address] CLIA#45D [id number] 03/11 Manua l diffe renti al Aniso cytos is (size ) 2+ FINAL [address] [place] [address] CLIA#45D [id number] 03/11 Manua l diffe renti al Basop hil count (M) 10^3/u L 0.0 0.2 0.31 High FINAL [address] [place] [address] CLIA#45D [id number] 03/11 Manua l diffe renti al Micro cytos is 1+ FINAL [address] [place] [address] CLIA#45D [id number] 03/11 Manua l diffe renti al ANC (M) K/uL 1.5 6.5 23.4 High FINAL [address] [place] [address] CLIA#45D [id number] 03/11 Manua l diffe renti al Basop hil % % 0.0 1.0 [address] [place] [id number] CLIA#45D [id number] 12/23 Leuke nadine/L ympho ma pheno typin g panel Leuk/ Lymph , panel inter preta tion Leukemi a/Lymph yfn Panel by Flow Procedure s/Addenda Flow Cytometry - Leukemia/ Lymphoma ProfileIn terpretat ionGranul ocytic left-shif t.Flow Cytometri c Immunophe notype: No immunophe notypic abnormali tiesdetec madneep CD45 vs SSComment :Flow cytometry of periphera [...] Cells:0.2 % Myeloblas ts0.2% Polyclona l B-cells, Steger/Leiva bda ratio=1.2 :14.9% Small T-cells, CD4:CD8 ratio=2.6 :10.1% Natural Killer (NK) cells1.7% Mature Monocytes 0.2% Immature Monocytes 90.5% Neutrophi ls0.3% Eosinophi ls0.6% Basophils <0.1% Plasma cellsViab ility: 89.1% Cellulari ty: 46.3 x10^6 cells / mL, 4.0 mLtotal specimenM arkers analyzed: CD2, CD3, CD4, CD5, CD7, CD8, CD10, CD11b, CD13, CD14, CD16, CD19, CD20, CD33,CD34 , CD38, CD45, CD56, CD64, CD117, CD123, HLA-DR, Steger, LambdaThi s test was developed and its analytica l performan ce character istics have beendeter mined by [facility]. It has not been cleared or approved by the U.S. Foodand Drug Administr ation. This assay has been validated pursuant to the [facility] ations and is used for clinical purposes. Electr onically Signed Out Mauri Natarajan M.D.Techn ical services performed at: [facility], [address] [place] [address] 121, [id number] , [place] [address]- CLIA# [id number] 7 Green Feed Attendant, Lisa Damon MD, PhD.Profe ssional services performed at: [facility], [address] [place] [address].Pat ient Name: RAHEEMMIGUEL AAlba [facility]ERI [facility]. Rec. #: [id number] ccession #: [id number] : 4Received : 4Reported : 4Physicia n(s): Raji SuSpecime n(s) ReceivedA : Whole Blood with EDTAClini danii HistoryD7 2.823 D69.6 FINAL Raji Pizano Periphera l Blood or Bone Marrow [...] l informati on, please refer tohttp:// education .[email or web address]/faq/F [email or web address](Thi s link is being provided for informati onal/educ at[facility].) FINAL Raji Pizano Serum Med Fusion.2 [address] [place] [address] [address] [address] [address] 02/11 Bone marro w biops y diagn osis See laborer yard d 02/22 Uric acid panel Uric acid mg/dL 3.5 7.2 5.9 FINAL Viviong Pizano Plasma [facility]. [facility] [address] [facility] [address] CLIA#45D [id number] 12/23 Immun oglob ulin measu remen t IgA, quant mg/dl 87.0 474.0 208.00 FINAL Viviong Pizano Serum [facility]. [address] [place] [address] . [address] [facility] [address] CLIA#45D [id number] 12/23 Immun oglob ulin measu remen t IgG, quant mg/dl 681.0 1648.0 1086.00 FINAL [facility]. [facility] [address] [facility] [address] CLIA#45D [id number] 12/23 Immun oglob ulin measu remen t IgM, quant mg/dl 48.0 312.0 218.00 FINAL [facility]. [facility] [address] [facility] [address] CLIA#45D [id number] 06/08 CT scan resul t See laborer yard d 12/23 CA 19-9 panel CA 19-9 U/mL 33 (Note)Thi s test was performed using the Siemens chemilumi nescent method.Va lues obtained from different assay methods cannot be usedinter changeabl y. CA 19-9 levels, regardles s of value, should not beinterpr eted as absolute evidence of the presence or absence ofdisease . FINAL [facility] Serum Med Fusion.2 [address] [place] [address] [address] 12.[facility] [address] 02/22 Lakeshia ruggiero al Hypoc hromi a 1+ FINAL [facility]. [address] [place] [address] . [address] [facility] [address] CLIA#45D [id number] 02/22 Lakeshia ruggiero al Myelo cyte % % 3 FINAL [facility]. [address] [place] [address] . [address] [facility] [address] CLIA#45D [id number] Medications Date Name Route Dose Frequency Instructions Start Date End Date Status Fill Status Indication 06/29 Donald naif iron Nutrit ional Supple ment Oral orally 85.0 mg every day quantity sufficient for 30 days active 12/22 Amlodi pine Oral orally 2.0 mg daily active 06/29 Sennos ides Oral orally 7.5 mg every day at bedtime prn constipation active 12/22 Ascorb ic Acid Oral orally 500.0 mg BID active 12/22 Tamsul osin Oral orally 0.4 mg daily active 12/22 Glimep iride Oral orally 2.0 mg every morning administer with breakfast active 12/22 Ergoca lcifer ol Oral orally 1250.0 every week active 12/22 Albute rol HFA Inhale r [...] telehealth Or dered 05/27/2024 Physician Order RTC ATTENDING RADIOLOGIST/PA telehealth Ok to see MD per Dr. Pizano Ordered 06/24/2024 Physician Order RTC ATTENDING RADIOLOGIST/PA telehealth Ordered 09/14/2024 Physician Order Transitional car e management services with the following required elements: Communication (direct contact, telephone, electronic) with the patient and/or caregiver within 2 business days of discharge At least moderate level of medical decision making duri D/C Social History Date Name Value 02/18/2024 Sex Male Vital Signs Date Type Value 12/24/2023 BMI 38.08 12/24/2023 Height 71.00 12/24/2023 Weight 273.00 12/24/2023 Pain Scale 0.00 12/24/2023 BSA 2.41 12/24/2023 Heart Beat 81.00 12/24/2023 Body Temperature 98.90 12/24/2023 Intravascular Systolic 144 12/24/2023 Intravascular Diastolic 88 12/24/2023 Respiratory Rate 16.00 01/22/2024 Pain Scale 2.00 01/22/2024 Height 71.00 02/18/2024 Respiratory Rate 18.00 02/18/2024 Body Temperature 97.20 02/18/2024 Intravascular Systolic 147 02/18/2024 Intravascular Diastolic 88 02/18/2024 Pain Scale 0.00 02/18/2024 Weight 272.00 02/18/2024 Height 71.00 02/18/2024 BMI 37.94 02/18/2024 BSA 2.40 02/18/2024 Oxygen Saturation 98.00 02/18/2024 Heart Beat 79.00 02/23/2024 Pain Scale 0.00 02/23/2024 Weight 268.00 02/23/2024 Body Temperature 98.70 02/23/2024 BSA 2.39 02/23/2024 Height 71.00 02/23/2024 BMI 37.38 02/23/2024 Intravascular Systolic 145 02/23/2024 Intravascular Diastolic 80 02/23/2024 Respiratory Rate 16.00 02/23/2024 Heart Beat 98.00 03/11/2024 BMI 38.21 03/11/2024 BSA 2.41 03/11/2024 Pain Scale 0.00 03/11/2024 Height 71.00 03/11/2024 Body Temperature 99.30 03/11/2024 Intravascular Systolic 135 03/11/2024 Intravascular Diastolic 88 03/11/2024 Respiratory Rate 16.00 03/11/2024 Heart Beat 97.00 03/11/2024 Weight 274.00 04/27/2024 Height 71.00 04/27/2024 Pain Scale 0.00 05/27/2024 Pain Scale 0.00 05/27/2024 Height 71.00 06/29/2024 Pain Scale 0.00 06/29/2024 Height 71.00 Notes Section * HemOnc Follow Up - [facility] [place] [address] P: F: PATIENT: SHERI MARROQUIN : 1960 [...] of leukocytosis? and? thrombocytopenia. 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 -He is planning to move to?[place]?mid July 2024. ?Will repeat labs in 2 weeks?in [place].? If?WBC count?is not?further decreased to?15.0 or lower,?we will change?hydroxyurea to 1000 mg?daily.? He voiced understanding of the plan. -Will send records to?office when he establish care with a new oncologist?in [place], [place]. -He was asked to call with [...] CDT * HemOnc Follow Up - [facility] [address] [place] [address] P: F: PATIENT: SHERI MARROQUIN : 1960 [...] of leukocytosis? and? thrombocytopenia. Per record from [facility] [place] [facility], he has been having mild thrombocytopenia since [...] Surgery on both knees for torn meniscus HSE SPECIALIST History: Medications: * Amlodipine Oral 5 mg [...] use of drug therapy ( ICD-10:Z79.899 ;Other group home (current) drug therapy ) * Pancreatic cyst [...] Raji Pizano MD 05/27/2024 09:47 CDT * [facility] ? [facility] [place] [address] P: F: PATIENT: SHERI MARROQUIN : 1960 [...] of leukocytosis? and? thrombocytopenia. Per record from [facility] [place] [facility], he has been having mild thrombocytopenia since [...] Sheri?is evaluated today through telemedicine visit to?via [employer]. He was recently hospitalized due to?upper [...] Surgery on both knees for torn meniscus HSE SPECIALIST History: Medications: * Albuterol HFA Inhaler 90 [...] use of drug therapy ( ICD-10:Z79.899 ;Other group home (current) drug therapy ) * Pancreatic cyst [...] 21:19 CDT * HemOnc Follow Up - [facility] [address] [place] [address] P: F: PATIENT: SHERI MARROQUIN : 1960 [...] of leukocytosis? and? thrombocytopenia. Per record from [facility] [place] [facility], he has been having mild thrombocytopenia since [...] Surgery on both knees for torn meniscus HSE SPECIALIST History: Medications: * Albuterol HFA Inhaler 90 [...] use of drug therapy ( ICD-10:Z79.899 ;Other group home (current) drug therapy ) * Pancreatic cyst [...] 2024). -Lab check in 2 weeks in [place]?[facility].? Return to clinic in 4 weeks to [...] signed by Raji Pizano MD 03/11/2024 18:27 ASSISTANT GUEST SERVICES MANAGER * HemOnc Follow Up - [facility] [place] [address] P: F: PATIENT: SHERI MARROQUIN : 1960 [...] of leukocytosis? and? thrombocytopenia. 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 Lab check in 1 week in [place]?[facility]; and?return to clinic in 2 weeks?in [place]?for an office visit, and a lab check. [...] signed by Raji Pizano MD 02/23/2024 16:22 ASSISTANT GUEST SERVICES MANAGER * *Ghulam SINGH Follow Up Note - TR Note MD/NALDO [facility] [address] [place] [address] P: Patient Name: SHERI MARROQUIN Patient Patient [...] of leukocytosis? and? thrombocytopenia. Per record from [facility], he has been having mild thrombocytopenia since [...] on both knees for torn meniscus ? HSE SPECIALIST History: ? Medications: * Glimepiride Oral * [...] use of drug therapy ( ICD-10:Z79.899 ;Other group home (current) drug therapy ) * Pancreatic cyst [...] kidney. Addendum?February 16, 2024. Raji Pizano MD [facility] - [place] - - Described patient's risk index score as 1.3, indicating high risk (over 1.2 is considered high risk). - Estimated 2-year survival rate at 65% and median survival at 2.5 years based on risk calculations. - Initiated Hydrea (hydroxyurea) as a temporary measure while awaiting targeted therapy.? He will pick out hand and start today. - Selected dasatinib (Sprycel) [...] patient and his . RINKU Morrell APRN [facility] - [place] - Send copy of note: Dr. Romain Graham . Electronically signed by RINKU Morrell APRN 02/18/2024 12:56 ASSISTANT GUEST SERVICES MANAGER * *Pizano - DS Follow Up Note - HemOnc (Amended) ? [facility] [address] [place] [address] P: F: PATIENT: SHERI MARROQUIN : 1960 [...] of leukocytosis? and? thrombocytopenia. 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 and? thrombocytopenia. Per record from [facility], he has been having mild thrombocytopenia since [...] 05, 2020, left shoulder surgery, tonsillectomy 1981 HSE SPECIALIST History: Medications: * Albuterol HFA Inhaler 90 [...] use of drug therapy ( ICD-10:Z79.899 ;Other group home (current) drug therapy ) * Sleep apnea [...] diabetes, asthma, -Stable. ?Continue follow-up with Dr. Grahma Addendum December 28, 2023 BCR-ABL 1 major (p210) fusion transcript detected; low positive (nonquantifiable). ? However, the transcript detected is below the limit of quantification for this assay (0.002%, MR 4.7). Raji Pizano MD ? Send copy of note to: ?Romain Graham Electronically signed by Raji Pizano MD 12/28/2023 15:26 CDT
--- OUTSIDE RECORDS SUMMARY | 2024-12-10 15:51 | XMS_ITS ---
Author Name Interface, [id number] lity Address [place] [address] Organization [facility] Address [place] [address] Allergies and Adverse Reactions Medication/Group Name Reaction Severity Date codeine 04/27/2024 Plan Date Type Value 06/29/2024 APPOINTMENT [facility] S WP (PT RQ ) 07/14/2024 LABORDER CMP 07/14/2024 LABORDER CBC w/auto diff with reflex Reason for Visit [facility] SWP (PT RQ ) Encounters Date Name 06/29/2024 Leukemoid reaction 06/29/2024 Leukocytosis 06/29/2024 Myelodysplastic/myel oproliferative neoplasm, unclassifiable (disorder) 06/29/2024 Thrombocytopenic dis order (disorder) Diagnostic Results Date Type Test Units Lower Limit Upper Limit Result Flag Comments Status Ordered By Specimen Source Lab Address 07/14 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 t See 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 parts d Medications Date Name Route Dose Frequency Instructions Start Date End Date Status Fill Status Indication 12/22 Ergocal ciferol Oral orally 1250.0 every week active 12/22 Amlodip ine Oral orally 2.0 mg daily active 12/22 Ascorbi c Acid Oral orally 500.0 mg BID active 12/22 Tamsulo sin Oral orally 0.4 mg daily active 06/29 Sennosi bean Oral orally 7.5 mg every day at bedtime prn constipation active 05/27 Miscell aneous Drug twice a day magnesium malate active 06/29 Element al iron Nutriti onal Supplem ent Oral orally 85.0 mg every day quantity sufficient for 30 days active 05/27 Albuter ol Nebuliz ed (concen trate) inhaled 5.0 every 6 hours prn shortness of breath or wheezing active 12/22 Albuter ol HFA Inhaler 90 mcg/act uation inhaled 2.0 every 6 hours prn shortness of breath or wheezing active 12/22 Glimepi ride Oral orally 2.0 mg every morning administer with breakfast active 07/21 hydroxy urea 500 MG Oral Capsule orally 1.0 capsul e As Directed 2024 active Myelodysplas tic/myelopro liferative neoplasm, unclassifiab le (disorder) 06/15 hydroxy urea 500 MG Oral Capsule orally 1.0 capsul e As Directed 2024 active Myelodysplas tic/myelopro liferative neoplasm, unclassifiab le (disorder) 03/23 hydroxy urea 500 MG Oral Capsule orally 1.0 capsul e daily 2024 active Myelodysplas tic/myelopro liferative neoplasm, unclassifiab le (disorder) 03/11 hydroxy urea 500 MG Oral Capsule orally 1.0 capsul e daily 2024 active 03/04 hydroxy urea 500 MG Oral Capsule orally 1.0 capsul e every other day 2023 active CML 02/17 ondanse fatuma 8 MG Oral Tablet orally 1.0 tablet every 8 hours 2023 active 02/16 hydroxy urea 1000 MG Oral Tablet orally 2.0 capsul [...] (disorder) Active Vitamin D deficiency (disorder) Active Myelodysplastic/myeloprolife rative neoplasm, unclassifiable (disorder) Active Vital Signs Date Type Value 06/29/2024 Height 71.00 06/29/2024 Pain Scale 0.00 Notes Section * HemOnc Follow Up - [facility] [place] [address] [place] [address] P: F: PATIENT: SHERI CABRERA : 1960 Date of Service: 06/29/2024 Referring [...] History*: Pathology: History of Present Illness: Sheri Cabrera is a 63-year-old gentleman referred by his primary care physician Dr. Romain Graham for evaluation of leukocytosis?? and?? thrombocytopenia. Per record from [facility], he has been having mild thrombocytopenia since at least March 2020, with platelet count ranging between 110s and 120s most of the time, although there was a platelet count of 81,000 in March 2020, and occasional normal platelet count. ??His hemoglobin level has been mildlylow to normal. ??White blood cell count was also normal in the past, but started trending up since October 2022. ?? Most recent labs on December 09, 2023 showed a WBC 39.9, segments 71%, lymphocytes 9%, hemoglobin 15.2, and platelet count 138,000. ??Repeated CBC on December 11, 2023 showed a persistent leukocytosis (WBC 38.8, neutrophils 88.8%, lymphocytes 8%), normal hemoglobin level (14.2), and thrombocytopenia (126,000). He had a??bone marrow aspiration and biopsy on February 12, 2024.?Initially??concerning for??CML.??However,??final??report??showed myeloproliferative neoplasm.?? Marked??leukocytosis with left shift and rare circulating blasts (2%).?? Iron store??absent.?? Comment:??Markedly hypercellular marrow(greater than 95%??cellular)??for age with a marked??granulocytic hyperplasia.?? Blasts are??mildlyincreased (3% by??CD34 immunostain).?? The megakaryocytes??show variable??morphology.?? No dysplasia is identified.?? BCR/ABL 1 FISH is negative.?? Myeloid??next-generation sequencing panel??reveals??multiple mutations??(see below).?? Overall,??these findings are consistent with a??myeloproliferative neoplasm??or possibly??a myelodysplastic/myeloproliferative neoplasm, although a specific diagnosis remains difficult.?? Early??pretty fibrotic??primary myelofibrosis??is a consideration, although??the patient's white blood cell count is higher than??typically seen in this??entity??and??megakaryocyte??clustering is not appreciated.?? The JAK2 mutation essentially??excludes??entities such as??aty pical CML, and CMML.?? Clinical correlation and close follow-up is recommended. Morphology: Markedly hypercellular bone marrow with??myeloid hypoplasia and 3% blasts.?? Marked Leukocytosis with left shift and rare??circulating blasts (2%).?? Iron storage absent. Flow cytometry: The findings reveal no definitive??immunophenotypic evidence of??hematolymphoid malignancy. Cytogenetics:?? Normal male karyotype Negative??BCR:: ABL 1??rearrangement [t(9;22)??translocation]??by FISH. Molecular??diagnostics: Myeloid NGS panel??reveals multiple mutations including??JAK2??V617F,??CBL,??TET2,??and??SRSF2 On hydroxyurea??for??myeloproliferative??neoplasm.?? Interval History: Sheri is evaluated today through??telemedicine encounter via??[employer] platform.?? This??audio/video assessment is??patient??initiated assessment, and a consent was??obtained.?? He is at home, and the provider is in office. He has been doing very well recently with no acute events. ??Denies any??infections.?? He is still recovering from the flu??he had??8 weeks ago.?? He is getting??his strength back??gradually. ??He still feels??shortness of breath??with??physical activities, but generally??improved.?? He denies any f ever or chills.?? He has been eating pretty well??and weight has been stable. He had a lab check??on June 14, 2024, with WBC??23.9, decreased from 26.5. ??Had a repeated lab work??a few days ago??on??June 27, 2024.?? However,??leukocytosis??has slightly??worsened, with WBC??25.2.?? He is currently taking hydroxyurea 500 mg daily, except for 1000 mg??on Mondays,??Wednesdays and Fridays. ??He has been??compliant??with the treatment and??tolerating??very well. 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 ??Denies alcohol abuse or illicit drug use. Family History: * Father: - COPD * Mother: - Colorectal cancer Family History*: Mother had colon cancer at age 78 ROS: General: +WEIGHT LOSS Musculoskeletal: +JOINT PAIN Vitals: Height: None Today; Weight: None Today; Blood pressure: , Pulse: , Temperature: , Respirations: , Pain Scale: Karnofsky: Not Assessed Physical Exam: General: ??Well-developed, well-nourished, sitting in chair, wearing a facial mask??with oxygen. ??Appeared comfortable with no acute distress.?He is oriented x 3.?? See below for??previous??physical??examination findings. Eyes - PERRLA, EOMI, No scleral icterus or erythema.?? ENT - Normal nasal mucosa. No nasal or pharyngeal erythema or discharge. No ulceration in oral cavity. ? Neck - Supple. Trachea midline. No thyromegaly. No jugular vein distension. No carotid bruits. ??Nolymphadenopathy Lungs - Clear to auscultation, no crackles or wheezes.?? Cardiovascular - RRR. No m/r/g.?? Abdomen - Soft, NT, ND. No masses or hepatosplenomegaly. ??Bowel sound normal. Extremities - No edema, cyanosis or clubbing. ?? Musculoskeletal - Muscle strength 5/5 in all extremities. No joint swelling. Normal range of motion.?? Neurological - Awake, alert and oriented x [...] (p210) fusion transcript detected; low positive (nonquantifiable). ?? However, the transcript detected is below the limit of quantification for this assay (0.002%, MR 4.7). Imaging: CT of the chest abdomen and pelvis with contrast on December 16, 2023. 1. ??Postsurgical changes of partial right nephrectomy. No evidence of recurrent or metastatic disease. 2. ??Unchanged small pulmonary nodules. No new or enlarging nodules. ??6 mm nodule in the posteriorleft lower lobe; 3 mm nodule in the medial left lower lobe, and a 4 mm nodule in the superior segment of the right lower lobe, all unchanged. ??No new or enlarging pulmonary nodules. 3. ??Unchanged enlarged bilateral external iliac lymph nodes, on the right side measuring 2.3 x 1.9cm, on the left side measuring 2.1 x 1.9 cm, unchanged from November 2021.. No enlarging lymph nodes in the abdomen or pelvis. 4. ??Similar appearance of what appears to be a cluster of cysts versus a large cyst with internal septations in the pancreatic head. No pancreatic duct dilation. Consider a full characterization with MRI abdomen with and without contrast. MRI ABDOMEN W WO CONTRAST ??02/01/2024? COMPARISON: CT chest abdomen and pelvis 12/16/2023. IMPRESSION: 1. ??Large nonenhancing cluster of cysts occupying the pancreatic head and neck. The aggregate measures 6.2 x 2.4 x 2.7 cm. There is a 15 mm cyst at the pancreatic body and an 8 mm cyst at the pancreatic tail. No pancreatic ductal dilatation. 2. ??Mild hepatic steatosis. 3. ??9 cm cyst off the lower pole of [...] use of drug therapy ( ICD-10:Z79.899 ;Other nursing home (current) drug therapy ) * Pancreatic cyst ( ICD-10:K86.2 ;Cyst of pancreas ) * Sleep apnea (disorder) ( ICD-10:G47.33 ;Obstructive sleep apnea (adult) (pediatric) ) * Vitamin D deficiency (disorder) ( ICD-10:E55.9 ;Vitamin D deficiency, unspecified ) Impression: Plan 1. ??Myeloproliferative neoplasm??versus??myelodysplastic/myeloproliferative neoplasm. -Normal baseline WBC on December 21, 2020 (9.3). ??Slightly elevated WBC in November 2021 (11.1), and October 2022 (13.0). ??Significantly elevated WBC on December 08 and December 11, 2023 (39.9, and 38.8). -Lab work (December 24, 2023)??showed further?? worsened leukocytosis??(WBC??50.0 -->60.4). -Asymptomatic with no obvious source of infection clinically. -Peripheral smear reviewed. ??No evidence of blasts.??Flow cytometry??from peripheral blood negative. - BCR-ABL 1 major (p210) fusion transcript detected; low positive (nonquantifiable). ??However, thetranscript detected is below the limit of quantification for this assay (0.002%, MR 4.7).?? Repeated BCR ABL 1??(major p210)??was negative. -??Bone marrow aspiration and biopsy on February 12, 2024.?Initially??concerning for??CML. ??However,??final??report??showed myeloproliferative neoplasm.?? Marked??leukocytosis with left shift and rare circulating blasts (2%).?? Iron store??absent.?? Comment:??Markedly hypercellular marrow (greater than 95%??cellular)??for age with a marked??granulocytic hyperplasia.?? Blasts are??mildly increased (3% by??CD34 immunostain).?? The megakaryocytes??show variable??morphology.?? No dysplasia is identified.?? BCR/ABL 1 FISH is negative.?? Myeloid??next-generation sequencing panel??reveals??multiple mutations??(see below).?? Overall,??these findings are consistent with a??myeloproliferative neoplasm??or possibly??a myelodysplastic/myeloproliferative neoplasm, although a specific diagnosis remai ns difficult.?? Early??prefibrotic??primary myelofibrosis??is a consideration, although??the patient's white blood cell count is higher than??typically seen in this??entity??and??megakaryocyte??clustering is not appreciated.?? The JAK2 mutation essentially??excludes??entities such as??atypical CML,and CMML.?? Clinical correlation and close follow-up is recommended. Myeloid NGS panel??reveals multiple mutations including??JAK2??V617F,??CBL,??TET2,??and??SRSF2 -??Discussed with the patient and??his ??about??unclear but possible diagnosis of??MPN, versus??MDS/MPN, versus??early??prefibrotic?primary?? myelofibrosis.?Need close monitor??while??on treatment.?? -Continue??hydroxyurea. ??Started with??500 mg??every other day. ??Increased to 500 mg daily from April 07, 2024.?? Had hospitalization??due to??upper respiratory??tract??infection (flu A, and pneumonia)??with lab findings of thrombocytopenia (platelet count??87,000).?? Hydrea was temporarily held, and resumed on??April 15, 2024??(500 mg??daily). - Repeated lab work April 26, 2024.?? WBC??33.7, hemoglobin 11.6, platelet count??180,000.?? - Lab work on May 10, 2024. ??WBC 36.6, hemoglobin 12.4 g/dL, MCV 86.3%, platelet count 116,000 - Labs on May 26, 2024. ??WBC 36.5, hemoglobin 12.7, MCV 87.1%, platelet count to 80,000. -??Continue??Hydrea. ??Changed to??500 mg??daily, except??for 1000 mg??on??Mondays, Wednesdays and Fridays??starting from??(May 27, 2024). -Repeated??lab work on??June 27, 2024??showed??improved, but still??elevated WBC count (25.2).?? Asked patient to??take??1000 mg every day, except for??500 mg on Mondays and Fridays??(from??June 29, 2024). -He is planning to move to??[place]??mid July 2024. ??Will repeat labs in 2 weeks??in [place].?? If??WBC count??is not??further decreased to??15.0 or lower,??we will change??hydroxyurea to 1000 mg??daily.?? He voiced understanding of the plan. -Will send records to??office when he establish care with a new oncologist??in [place], [place]. -He was asked to call with any questions or concerns in the interim. 2.??History of renal cell carcinoma of the right kidney -Diagnosed in March 2020, status post right robotic partial nephrectomy. 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 -Following up with urology service. 3. ??Pulmonary nodules. -Subcentimeter. ??No change compared with??previous imaging.?? Continue monitor. 4.?Cystic??lesion in the head of the pancreas. -CT scan??December 16, 2023.?? Findings of a cluster of cysts versus??a large??cyst with??internal septations??in the head of the pancreas.?? No pancreatic duct dilatation. -MRI??of the abdomen showed??large nonenhancing cluster of cysts occupying the pancreatic head and neck. The aggregate measures 6.2 x 2.4 x 2.7 cm. There is a 15 mm cyst at the pancreatic body and an8 mm cyst at the pancreatic tail. No pancreatic ductal dilatation.?? Continue monitor. 5.??Hypertension, hyperlipidemia, diabetes, asthma, -Stable. ??Continue follow-up with Dr. Gladys Raines MD ? Send copy of note to: DrTeddy??Romain Graham Electronically signed by Raji Raines MD 06/29/2024 09:35 CDT
--- OUTSIDE RECORDS SUMMARY | 2024-12-10 15:51 | XMS_ITS | Clinical Summary ---
Author Organization [facility] Address [address] [place] [id number] Care Team Providers Care Generalist Name Role Phone None, None Primary Care [...] Influenza Vaccination (Yearly) Discontinued 02/14/1999 Care Teams Generalist Relationship Specialty Start Date End Date None, None [address] [place] [address] PCP - General 02/24/18
--- OUTSIDE RECORDS SUMMARY | 2024-12-10 15:51 | XMS_ITS | Clinical Summary ---
Author Organization [facility] 98 Care Team Providers Care Entry Clerk Name Role Phone Unavailable Primary Care Provider [...] inhaler 2 0 Active vitamin D-2 (ERGOCALCIFEROL) 99057 UNIT CAPS TAKE 1 CAPSULE BY MOUTH [...] Self-Managemen t No Gros[place], Natividad L Note: [email or web address] Patient has no barriers to completing goals [...] documented transmission to the ordering physician per [facility] Radiology department protocol. Suspected pancreatic [...] the content of this report, please contact [facility] radiology by calling [phone]. NOTE: Report marked for documented transmission to the ordering physician per [facility] Radiology department protocol. FINDINGS: LOWER [...] about the content of this report, pleasecontact [facility] radiology by calling [phone]. NOTE: Report markedfor documented transmission to the ordering physician [facility]. FINDINGS: LOWER CHEST: [...] for documentedtransmission to the ordering physician per [facility] Radiology department protocol. Suspected pancreatic cysts which may also be further assessed on therecommended MRI abdomen. No evidence of appendicitis. Possible bowel wall thickening of the hepatic flexure and right aspect ofthe transverse colon, which may be due to underdistention or may representcolitis in the appropriate clinical setting. Rosalinda Ortega [facility] CT Final Result * PROSTATIC SPECIF AG-BLOOD (04/13/2019 11:21 AM EST) PROSTATIC SPECIF AG 3.77 <=4.00 ng/mL [facility] Comment: (NOTE) Ingestion of shanta doses of biotin (>5 mg/day) taken within 8 hours of drawing blood sample can interfere with this immunoassay test. Tested at: [facility], [address] [place] [address] 04/13/2019 11:2 1 AM EST 04/13/2019 9:51 PM EST Susy Bauman [facility] ORDERABLES Final Result [facility] [address] [place] [address] [facility] from Last 3 Months or Most Recently Relevant to Health Maintenance
--- OUTSIDE RECORDS SUMMARY | 2024-12-10 15:51 | XMS_ITS | Encounter Summary ---
Author Organization [facility] Address [address], [address] [place] [address] Care Team Providers Care Source Water Protection Specialist Name Role Phone Susy Bauman APRN, CNP Primary Care Provider Encounter Details Date Type Department Care Team (Late st Contact Info) Description 09/22/2013 PAT Telephone [facility] PAT [address] [place], [place] [id number] Traci Goldsmith RN Social History Tobacco Use [...] on filedocumented in this encounter Care Teams Source Water Protection Specialist Relationship Specialty Start Date End Date Susy Bauman APRN - CNP [facility] [place] [address] PCP - General 03/11/19 documented as of this encounter
--- OUTSIDE RECORDS SUMMARY | 2024-12-10 15:51 | XMS_ITS ---
Author Name Interface, [id number] lity Address [place] [address] Organization [facility] Address [place] [address] Allergies and Adverse Reactions Medication/Group Name Reaction Severity Date codeine 04/27/2024 Plan Date Type Value 06/29/2024 APPOINTMENT RAINES TELEMED CLD S WP (PT RQ ) 06/24/2024 APPOINTMENT RAINES TELEMED CLD S WP (PT RQ ) 05/27/2024 APPOINTMENT RAINES TELEMED 4 WK 04/27/2024 APPOINTMENT RAINES TELEMED SWP 04/08/2024 APPOINTMENT RAINES L OV 4WKS 04/08/2024 APPOINTMENT RAINES L OV 4WKS 03/11/2024 APPOINTMENT RAINES L OV CLD SWP 03/11/2024 APPOINTMENT RAINES L OV CLD SWP 02/23/2024 APPOINTMENT RAINES L OV 4WKS 02/23/2024 APPOINTMENT RAINES L OV 4WKS 02/18/2024 APPOINTMENT RAINES/KB ORAL TREAT MENT REVIEW 02/23/2024 LABORDER CMP 02/23/2024 LABORDER Uric acid [...] SWP (PT RQ ) Encounters Date Name 02/18/2024 CML 02/18/2024 COPD 02/18/2024 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) 02/18/2024 Leukemoid reaction 02/18/2024 Leukocytosis 02/18/2024 Myelodysplastic/myel oproliferative neoplasm, unclassifiable (disorder) 02/18/2024 Thrombocytopenic dis order (disorder) Immunizations Date Name Route Dose Instructions Refusal Reason Stat Flu vaccine - Adult Not given other reason Not Administered Pneumococcal vaccine (13 valent) Not given other reason Not Administered Zoster vaccine Not g iven other reason Not Administered Diagnostic Results Date Type Test Units Lower Limit Upper Limit Result Flag Comments Status Ordered By Specimen Source Lab Address 02/22 Uric acid panel Uric acid mg/dL 3.5 7.2 5.9 FINAL [facility] [address] [place] [address] CLIA#45D [id number] 02/22 CMP Sodiu m mmol/L 136.0 145.0 138 FINAL [facility] [address] [place] [address] CLIA#45D [id number] 02/22 CMP Potas sium mmol/L 3.5 5.1 4.2 FINAL [facility] [address] [place] [address] CLIA#45D [id number] 02/22 CMP Chlor anil mmol/L 97.0 107.0 103.00 FINAL [facility] [address] [place] [id number] CLIA#45D [id number] 02/22 CMP Calci um mg/dL 8.5 10.1 9.6 FINAL [facility] [place] [address] [address] [place] [address] CLIA#45D [id number] 02/22 CMP CO2 mmol/L 21.0 32.0 24.1 FINAL [facility] [address] [place] [address] CLIA#45D [id number] 02/22 CMP BUN mg/dL 7.0 18.0 17 FINAL [facility] [address] [place] [address] CLIA#45D [id number] 02/22 CMP Creat inine , mg/dL mg/dL 0.55 1.3 1.04 FINAL [facility] [address] [place] [address] CLIA#45D [id number] 02/22 CMP GFR estim ate mL/min /1.73m sq 80 Result based on the eGFR 2020 calculati on.60-89 mL/min/1. 73m^2 without kidney damage may be normal.60 -89 mL/min/1. 73m^2 for 3 months or more, along with kidney damage, may indicate early kidney disease.C alculatio n modified to the 2020 formula effective 06/07/22. FINAL [facility] [address] [place] [address] CLIA#45D [id number] 02/22 CMP Gluco se mg/dL 74.0 106.0 194 High FINAL [facility] [address] [place] [address] CLIA#45D [id number] 02/22 CMP Album in g/dL 3.4 5.0 3.8 FINAL [facility] [address] [place] [address] CLIA#45D [id number] 02/22 CMP Total prote in g/dL 6.4 8.2 7.6 FINAL [facility] [address] [place] [address] CLIA#45D [id number] 02/22 CMP Bilir ubin, total mg/dL 0.2 1.0 1.0 FINAL [facility] [place]. [address] [place] [address] CLIA#45D [id number] 02/22 CMP Alkal ine phosp hatas e U/L 46.0 116.0 97 FINAL [facility] Plasma [facility] [place]. [address] [place] [address] CLIA#45D [id number] 02/22 CMP AST/S GOT U/L 15.0 37.0 13 Low FINAL [facility] Plasma [facility] [place]. [address] [place] [address] CLIA#45D [id number] 02/22 CMP ALT/S GPT U/L 16.0 63.0 25 FINAL [facility] Plasma [facility] [place]. [address] [place] [address] CLIA#45D [id number] 02/22 Manua l diffe renti al Neutr ophil % (M) % 40.0 77.0 80 High Toxic Vaculoati on Present [facility] [address] [place] [address] CLIA#45D [id number] 02/22 Manua l diffe renti al Band % % 0.0 0.0 0 [facility]AL [facility] [address] [place] [address] CLIA#45D [id number] 02/22 Manua l diffe renti al Lymph ocyte % % 15.0 41.0 11 Low Atypical Lymphs Few Seen [facility] [address] [place] [address] CLIA#45D [id number] 02/22 Manua l diffe renti al Monoc yte % % 3.0 11.0 2 Low [facility] [address] [place] [address] CLIA#45D [id number] 02/22 Manua l diffe renti al Basop hil % % 0.0 1.0 3 High [facility]AL [facility] [address] [place] [address] CLIA#45D [id number] 02/22 Manua l diffe renti al Metam yeloc yte % % [address] [facility]. [facility] [address] [place] [facility] CLIA#45D [id number] 02/22 Manua l diffe renti al Myelo cyte % % 3 FINAL [place] [address] [address] [place] [address] CLIA#45D [id number] 02/22 Manua l diffe renti al ANC (M) K/uL 1.5 6.[address] [facility]. [facility] [address] [place] [address] CLIA#45D [id number] 02/22 Manua l diffe renti al LY# (M) 10^3/u L 1.[address] [facility]. [facility] [address] [place] [id number] CLIA#45D [id number] 02/22 Manua l diffe renti al MO# (M) 10^3/u L 0.[address] [facility]. [facility] [address] [place] [id number] CLIA#45D [id number] 02/22 Manua l diffe renti al Basop hil count (M) 10^3/u L 0.0 0.[address] [facility]. [facility] [address] [place] [address] CLIA#45D [id number] 02/22 Manua l diffe renti al Metam yeloc yte 10^3/u L 0.[address] [facility]. [facility] [address] [place] [id number] CLIA#45D [id number] 02/22 Manua l diffe renti al Myelo cyte count 10^3/u L 0.79 FINAL [place] [address] [address] [place] [address] CLIA#45D [id number] 02/22 Manua l diffe renti al Promy elocy te, absol [place] 10^3/u L 0.[address] [facility]. [facility] [address] [place] [address] CLIA#45D [id number] 02/22 Manua l diffe renti al Blast count 10^3/u L 0.[address] [facility]. [facility] [address] [place] [address] CLIA#45D [id number] 02/22 Manua l diffe renti al Plate let estim ate Decreas ed FINAL [facility]. [facility] [address] [place] [address] CLIA#45D [id number] 02/22 Manua l diffe renti al Aniso cytos is (size ) 1+ FINAL [facility]. [facility] [address] [place] [address] CLIA#45D [id number] 02/22 Manua l diffe renti al Polyc hroma camila (M) 1+ FINAL [facility]. [facility] [address] [place] [address] CLIA#45D [id number] 02/22 Manua l diffe renti al Hypoc hromi a 1+ FINAL [facility]. [facility] [address] [place] [address] CLIA#45D [id number] 02/22 CBC w/aut o diff with refle x WBC 10^3/u L 4.8 10.8 27.4 High [facility]. [facility] [address] [place] [address] CLIA#45D [id number] 02/22 CBC w/aut o diff with refle x RBC 10^6/u L 4.7 6.1 5.1 [facility]. [facility] [address] [place] [address] CLIA#45D [id number] 02/22 CBC w/aut o diff with refle x HGB g/dL 14.0 18.0 14.2 [facility]. [facility] [address] [place] [address] CLIA#45D [id number] 02/22 CBC w/aut o diff with refle x HCT % 40.0 50.0 44.10 FINAL [facility] Whole Blood [facility]. [facility] [address] [place] [address] CLIA#45D [id number] 02/22 CBC w/aut o diff with refle x MCV fL 80.0 94.0 86.0 FINAL [facility] Whole Blood [facility]. [facility] [address] [place] [address] CLIA#45D [id number] 02/22 CBC w/aut o diff with refle x MCHC g/dL 33.0 37.0 32.2 Low FINAL [facility] Whole Blood [facility]. [facility] [address] [place] [address] CLIA#45D [id number] 02/22 CBC w/aut o diff with refle x MCH pg 27.0 31.0 27.7 FINAL [facility] Whole Blood [facility]. [facility] [address] [place] [address] CLIA#45D [id number] 02/22 CBC w/aut o diff with refle x MPV fL 9.4 12.4 ---- FINAL [facility] Whole Blood [facility]. [facility] [address] [place] [address] CLIA#45D [id number] 02/22 CBC w/aut o diff with refle x RDW % 10.5 14.5 23.6 High FINAL [facility] Whole Blood [facility]. [facility] [address] [place] [address] CLIA#45D [id number] 02/22 CBC w/aut o diff with refle x PLT 10^3/u L 130.0 400.0 114 Low Platelet count obtained using fluoresce nt platelet methodolo gy. FINAL [facility] Whole Blood [facility]. [facility] [address] [place] [address] CLIA#45D [id number] 02/22 CBC w/aut o diff with refle x Plate let, immat ure, fract ion % 1.0 7.0 18 High FINAL [facility] Whole Blood [place] [address] [address] [place] [address] CLIA#45D [id number] 02/22 CBC w/aut o diff with refle x NRBC, % % 0.0 0.2 0.4 High FINAL [facility] Whole Blood [place] [address] [address] [place] [address] CLIA#45D [id number] 02/22 CBC w/aut o diff with refle x NRBC, absol [place], x 10^3/ uL 10^3/u L 0.0 0.0 0.1 High FINAL [facility] [address] [place] [address] CLIA#45D [id number] 02/22 CBC w/aut o diff with refle x Auto CBC comme nts Man Diff FINAL [facility] [address] [place] [address] CLIA#45D [id number] 03/04 Lab Repor t See wrapper off d 03/11 CBC w/aut o diff with refle x WBC 10^3/u L 4.8 10.8 30.5 High FINAL [facility] Whole Blood [address] [place] [address] CLIA#45D [id number] 03/11 CBC w/aut o diff with refle x RBC 10^6/u L 4.7 6.1 5.1 FINAL [facility] Whole Blood [place] [address] [address] [place] [address] CLIA#45D [id number] 03/11 CBC w/aut o diff with refle x HGB g/dL 14.0 18.0 14.3 FINAL [facility] Whole Blood [place] [address] [address] [place] [address] CLIA#45D [id number] 03/11 CBC w/aut o diff with refle x HCT % 40.0 50.0 45.00 FINAL [facility] Whole Blood [place] [address] [address] [place] [address] CLIA#45D [id number] 03/11 CBC w/aut o diff with refle x MCV fL 80.0 94.0 89.1 FINAL [facility] [address] [place] [address] CLIA#45D [id number] 03/11 CBC w/aut o diff with refle x MCHC g/dL 33.0 37.0 31.8 Low FINAL [facility] [address] [place] [address] CLIA#45D [id number] 03/11 CBC w/aut o diff with refle x MCH pg 27.0 31.0 28.3 FINAL [facility] [address] [place] [address] CLIA#45D [id number] 03/11 CBC w/aut o diff with refle x MPV fL 9.4 12.4 ---- FINAL [facility] [address] [place] [address] CLIA#45D [id number] 03/11 CBC w/aut o diff with refle x RDW % 10.5 14.5 25.5 High FINAL [facility] [address] [place] [address] CLIA#45D [id number] 03/11 CBC w/aut o diff with refle x PLT 10^3/u L 130.0 400.0 158 Platelet count obtained using fluoresce nt platelet methodolo gy. FINAL [facility] [address] [place] [address] CLIA#45D [id number] 03/11 CBC w/aut o diff with refle x Plate let, immat ure, fract ion % 1.0 7.0 18 High FINAL [facility] [address] [place] [address] CLIA#45D [id number] 03/11 CBC w/aut o diff with refle x NRBC, % % 0.0 0.2 0.2 FINAL [facility] [address] [facility] [address] CLIA#45D [id number] 03/11 CBC w/aut o diff with refle x NRBC, absol [place], x 10^3/ uL 10^3/u L 0.0 0.0 0.1 High FINAL [facility] Whole Blood [facility]. [address] [place] [address] . [address] [place] [address] CLIA#45D [id number] 03/11 CBC w/aut o diff with refle x Auto CBC comme nts Man Diff FINAL [facility] [address] [place] [address] CLIA#45D [id number] 03/11 CMP Sodiu m mmol/L 136.0 145.0 140 FINAL [facility] Plasma [facility]. [address] [place] [address] . [address]. [place] [address] CLIA#45D [id number] 03/11 CMP Potas sium mmol/L 3.5 5.1 4.2 FINAL [facility] Plasma [facility]. [address] [place] [address] . [address] [place] [address] CLIA#45D [id number] 03/11 CMP Chlor anil mmol/L 97.0 107.0 105.00 FINAL [facility] Plasma [facility]. [address] [place] [address] . [address] [place] [address] CLIA#45D [id number] 03/11 CMP Calci um mg/dL 8.5 10.1 9.7 FINAL [facility] Plasma [facility]. [address] [place] [address] . [address] [place] [address] CLIA#45D [id number] 03/11 CMP CO2 mmol/L 21.0 32.0 27.7 FINAL [facility] Plasma [facility]. [facility] [address] [place] [address] CLIA#45D [id number] 03/11 CMP BUN mg/dL 7.0 18.0 10 FINAL [facility] Plasma [facility]. [address] [place] [address] . [address] [place] [address] CLIA#45D [id number] 03/11 CMP Creat inine , mg/dL mg/dL 0.55 1.3 1.02 FINAL [facility] [address] [place] [id number] CLIA#45D [id number] 03/11 CMP GFR estim ate mL/min /1.73m sq 81 Result based on the eGFR 2020 calculati on.60-89 mL/min/1. 73m^2 without kidney damage may be normal.60 -89 mL/min/1. 73m^2 for 3 months or more, along with kidney damage, may indicate early kidney disease.C alculatio n modified to the 2020 formula effective 06/07/22. FINAL [facility] [address] [place] [address] CLIA#45D [id number] 03/11 CMP Gluco se mg/dL 74.0 106.0 169 High FINAL [facility] [address] [place] [address] CLIA#45D [id number] 03/11 CMP Album in g/dL 3.4 5.0 4.1 FINAL [facility] [address] [place] [address] CLIA#45D [id number] 03/11 CMP Total prote in g/dL 6.4 8.2 7.6 FINAL [facility] [address] [place] [address] CLIA#45D [id number] 03/11 CMP Bilir ubin, total mg/dL 0.2 1.0 0.7 FINAL [facility] [address] [place] [address] CLIA#45D [id number] 03/11 CMP Alkal ine phosp hatas e U/L 46.0 116.0 93 FINAL [facility] [address] [place] [address] CLIA#45D [id number] 03/11 CMP AST/S GOT U/L 15.0 37.0 14 Low FINAL [facility] [address] [place] [address] CLIA#45D [id number] 03/11 CMP ALT/S GPT U/L 16.0 63.0 20 FINAL [facility] [place]. [address] [place] [address] CLIA#45D [id number] 03/11 Manua l diffe renti al Neutr ophil % (M) % 40.0 77.0 62 [facility] [address] [place] [address] CLIA#45D [id number] 03/11 Manua l diffe renti al Band % % 0.0 0.0 15 High [facility]AL [facility]. [address] [place] [address] CLIA#45D [id number] 03/11 Manua l diffe renti al Lymph ocyte % % 15.0 41.0 9 Low [facility]AL [facility]. [address] [place] [address] CLIA#45D [id number] 03/11 Manua l diffe renti al Monoc yte % % 3.0 11.0 12 High FINAL [facility]. [facility] [address] [place] [address] CLIA#45D [id number] 03/11 Manua l diffe renti al Basop hil % % 0.0 1.0 1 FINAL [facility]. [address] [place] [address] CLIA#45D [id number] 03/11 Manua l diffe renti al Metam yeloc yte % % 2 FINAL [facility]. [address] [place] [address] CLIA#45D [id number] 03/11 Manua l diffe renti al ANC (M) K/uL 1.5 6.5 23.4 High FINAL [facility]. [facility] [address] [place] [address] CLIA#45D [id number] 03/11 Manua l diffe renti al LY# (M) 10^3/u L 1.2 3.4 2.65 FINAL [facility]. [facility] [address] [place] [address] CLIA#45D [id number] 03/11 Manua l diffe renti al MO# (M) 10^3/u L 0.0 [address] [facility]. [facility] [address] [place] [facility] CLIA#45D [id number] 03/11 Manua l diffe renti al Basop hil count (M) 10^3/u L 0.0 [address] [facility]. [facility] [address] [place] [address] CLIA#45D [id number] 03/11 Manua l diffe renti al Metam yeloc yte 10^3/u L 0.[address] [facility]. [facility] [address] [place] [address] CLIA#45D [id number] 03/11 Manua l diffe renti al Myelo cyte count 10^3/u L 0.[address] [facility]. [facility] [address] [place] [address] CLIA#45D [id number] 03/11 Manua l diffe renti al Promy elocy te, absol [place] 10^3/u L 0.[address] [facility]. [facility] [address] [place] [address] CLIA#45D [id number] 03/11 Manua l diffe renti al Blast count 10^3/u L 0.[address] [facility]. [facility] [address] [place] [address] CLIA#45D [id number] 03/11 Manua l diffe renti al Plate let estim ate Normal FINAL [place] [address] [address] [place] [address] CLIA#45D [id number] 03/11 Manua l diffe renti al Aniso cytos is (size ) 2+ FINAL [facility]. [facility] [address] [place] [address] CLIA#45D [id number] 03/11 Manua l diffe renti al Polyc hroma camila (M) 1+ FINAL [facility] [place]. [address] [place] [address] CLIA#45D [id number] 03/11 Lakeshia ivon ruggiero al Micro cytos is 1+ FINAL [facility]. [address] [place] [address] CLIA#45D [id number] 04/26 Lab Repor t See wrapper off d 05/10 Lab Repor t See wrapper off d 06/08 CT scan resul t See wrapper off d 06/14 Lab Repor t See wrapper off d 07/14 Lab Repor t See wrapper off d Medications Date Name Route Dose Frequency [...] (disorder) Active Vital Signs Date Type Value 02/18/2024 BMI 37.94 02/18/2024 Height 71.00 02/18/2024 Weight 272.00 02/18/2024 Pain Scale 0.00 02/18/2024 Body Temperature 97.20 02/18/2024 Oxygen Saturation 98.00 02/18/2024 Respiratory Rate 18.00 02/18/2024 Heart Beat 79.00 02/18/2024 BSA 2.40 02/18/2024 Intravascular Systolic 147 02/18/2024 Intravascular Diastolic 88 02/23/2024 BSA 2.39 02/23/2024 BMI 37.38 02/23/2024 Height 71.00 02/23/2024 Weight 268.00 02/23/2024 Pain Scale 0.00 02/23/2024 Intravascular Systolic 145 02/23/2024 Intravascular Diastolic 80 02/23/2024 Respiratory Rate 16.00 02/23/2024 Body Temperature 98.70 02/23/2024 Heart Beat 98.00 03/11/2024 Respiratory Rate 16.00 03/11/2024 BMI 38.21 03/11/2024 Intravascular Systolic 135 03/11/2024 Intravascular Diastolic 88 03/11/2024 Body Temperature 99.30 03/11/2024 Heart Beat 97.00 03/11/2024 BSA 2.41 03/11/2024 Pain Scale 0.00 03/11/2024 Weight 274.00 03/11/2024 Height 71.00 04/27/2024 Pain Scale 0.00 04/27/2024 Height 71.00 05/27/2024 Height 71.00 05/27/2024 Pain Scale 0.00 06/29/2024 Height 71.00 06/29/2024 Pain Scale 0.00 Notes Section * *Ghulam Ames Follow Up Note - TRC Note MD/NALDO [facility] [address] [address] P: Patient Name: SHERI CABRERA Patient Patient : 1960 Date of Service:??02/18/2024 NALDO Treatment Review and Coordination Note Referring Provider: Dr. Romain Graham Chief Complaint: Mr. Cabrera presents today for a treatment review regarding [...] 3% blast History of Present Illness: Sheri Cabrera is a 62-year-old gentleman referred by his primary care physician Dr. Romain Graham for evaluation of leukocytosis?? and?? thrombocytopenia. Per record from [facility], he has been having mild thrombocytopenia [...] neoplasm, favor chronic myeloid leukemia, chronic phase. ??Markedly hypercellular bone marrow with myeloid hypoplasia and 3% blasts. ??Marked leukocytosis with left shift and rare circulating blasts (2%). ??Iron stores absent. Comment: The patient's bone marrow is markedly hypercellular (greater than 95% cellular) for age with marked granulocytic hyperplasia. ??Blasts are mildly increased (3% by CD34 immunostain and manualdifferential) and a subset of megakaryocytes show Dorff morphology. ??Overall, these findings are highly suggestive of chronic myeloid leukemia. ??The overall blast count is consistent with chronic phase. ??BCR/ABL 1 FISH and BCR/ABL 1 quantitative assay are pending. ?? Sokal index 1.3, based on age (63 years old), normal spleen size, normal platelet count (138,000), and percent mild blasts in peripheral blood (2%). ??Considered high risk. ??2-year survival 65%. ??Median survival 2.5 years. Preferred treatment include second-generation TKI (bosutinib, Dasatinib, or nilotinib) or Allosteric TKI (asciminib), or other recommended regimen (first generation TKI, imatinib) Interval History: Mr. Cabrera reports experiencing random spots of bruising on chest and back over the past year, along with occasional epistaxis. 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 Mr. Cabrera's white bloodcell count increased from 50 to 60 in a month (normal is 5-10)..?? Mr. Cabrera denies any current significant symptoms, issues with reflux or heartburn.?He denies recent??infections.?? He is not on any steroids treatment.?? He is a non-smoker.? Past Medical History: [...] on both knees for torn meniscus ? 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 Medications: * Glimepiride Oral * Ondansetron Oral??8 mg tablet * Albuterol HFA Inhaler 90 mcg/actuation * Amlodipine Oral??5 mg tablet * Tadalafil Oral * Tamsulosin Oral * Dasatinib Oral??100 mg tablet * Hydroxyurea Oral??1,000 mg tablet * Atorvastatin Oral * Ascorbic [...] ??Denies alcohol abuse or illicit drug use. ? [...] acute distress. Skin turgor good for age. ??not evidently jaundiced. Good hygiene. ??Patient clean. Patient is accompanied by his ??for this exam.?? MOOD: Euthymic without evidence of agitation, anxiety, or depression. EYES: PERRL, no sclera icterus. HENT: Normocephalic, Atraumatic SKIN: No rashes, petechiae, or excessive bruising to visible areas of skin MUSCULOSKELETAL: Normal gait, digits unremarkable. ??Movement of all four extremities seen and symmetric. [...] use of drug therapy ( ICD-10:Z79.899 ;Other jail (current) drug therapy ) * Pancreatic cyst ( ICD-10:K86.2 ;Cyst of pancreas ) * Sleep apnea (disorder) ( ICD-10:G47.33 ;Obstructive sleep apnea (adult) (pediatric) ) * Vitamin D deficiency (disorder) ( ICD-10:E55.9 ;Vitamin D deficiency, unspecified ) Impression: 1. ??Leukocytosis -Normal baseline WBC on December 21, 2020 [...] effects, versus leukemia, etc. -Peripheral smear reviewed. ??No evidence of blasts. -??Flow cytometry negative. - BCR-ABL 1 major (p210) fusion transcript detected; low positive (nonquantifiable). ??However, thetranscript detected is below the limit of quantification for this assay (0.002%, MR 4.7). - A bone marrow aspiration and biopsy is suggested to check for potential problems and to avoid delayed detection of disease progression. -Close monitor. ??If leukocytosis is persistent, will need a bone marrow aspiration and biopsy. -??Return to clinic in 4 weeks for reevaluation. ?? 2. ??Mild thrombocytopenia -Unclear etiology. ??Differentials include infection/inflammation, nutritional, medications, autoimmune, bone marrow dysfunction, etc. -Pending CRP, ESR, hepatitis panel, HIV antibodies, LDH,?? -CT of the chest abdomen and pelvis December 16, 2023 showed no evidence of hepatosplenomegaly. -Repeated lab work??on December 24, 2023??showed resolved thrombocytopenia (platelet count 177,000). -Clinically doing well. ??Continue monitor 3. ??History of renal cell carcinoma of the right kidney -Diagnosed in March 2020, status post right robotic partial nephrectomy. 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 -Following up with urology service (Dr. Talbot). 4. ??Pulmonary nodules. -Subcentimeter. ??No change compared with??previous imaging.?? Continue monitor. 5.?Cystic??lesion in the head of the pancreas. -CT scan??December 16, 2023.?? Findings of a cluster of cysts versus??a large??cyst with??internal septations??in the head of the pancreas.?? No pancreatic duct dilatation. -Recommended??for a full??characterization??with MRI??of the abdomen with and without contrast. 6.??Hypertension, hyperlipidemia, diabetes, asthma, -Stable. ??Continue follow-up with Dr. Graham Addendum February 02, 2024. MRI ABDOMEN W WO CONTRAST ??02/01/2024? COMPARISON: CT chest abdomen and pelvis 12/16/2023. ?? FINDINGS:?? Liver: -No suspicious hepatic lesion -Non-cirrhotic morphology -Mild hepatic steatosis. Biliary: -Intrahepatic and extra hepatic biliary tree nondistended -Gallbladder has been resected. ?? Spleen: -Splenic volume not increased -No focal splenic abnormality ?? Pancreas: Large nonenhancing cluster of cysts occupying the pancreatic head and neck. There is no pancreatic ductal dilatation. At the pancreatic body there is a smoothly marginated 15 mm nonenhancing pancreatic cyst. There is an 8 mm cyst at the pancreatic tail??nonenhancing. ?? Adrenals: -Unremarkable ?? Kidneys: -Kidneys appear symmetric -No suspicious renal lesion. There is a 9 cm cyst off the lower pole of the left kidney. -No hydronephrosis ?? Lymph nodes: -No adenopathy by size criteria. Peritoneum: -No upper abdominal free fluid. Vasculature: Unremarkable ?? Bowel: -Unremarkable ?? Osseous: Unremarkable Soft tissues: Unremarkable. Thorax:Visualized thorax unremarkable ?? IMPRESSION: 1. ??Large nonenhancing cluster of cysts occupying the pancreatic head and neck. The aggregate measures 6.2 x 2.4 x 2.7 cm. There is a 15 mm cyst at the pancreatic body and an 8 mm cyst at the pancreatic tail. No pancreatic ductal dilatation. 2. ??Mild hepatic steatosis. 3. ??9 cm cyst off the lower pole of the left kidney. Addendum??February 16, 2024. Raji Raines MD [facility] - - Described patient's risk index score as 1.3, indicating high risk (over 1.2 is considered high risk). - Estimated 2-year survival rate at 65% and median survival at 2.5 years based on risk calculations. - Initiated Hydrea (hydroxyurea) as a temporary measure while awaiting targeted therapy.?? 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 - Selected dasatinib (Sprycel) [...] measure. - Scheduled follow-up visit with Dr. Raines for further discussion. Plan: C92.10 CHRONIC MYELOID [...] nausea. - Schedule follow-up visit with Dr. Raines on Thursday. Z85.528 PERSONAL HISTORY OF OTHER [...] plan of care and wishes to proceed. ??Questionsappeared to be answered to their satisfaction. ?Consent was reviewed and signed. A total of??50??minutes were spent with patient in counseling and coordination.?? This was my first visit with this patient and involved extensive review of the medical records and imaging studies that are pertinent for the management of this patient??s condition. 10??minutes were spent in review of??medical records and treatment plan, preparation of patient education materials, case discussion with physician, and documentation. 40??minutes were spent with patient and his . RINKU Morrell APRNX - Florian - Send copy of note: Dr. Romain Graham . Electronically signed by AUTUMN Morrell APRNNS 02/18/2024 12:56 [facility]
--- OUTSIDE RECORDS SUMMARY | 2024-12-10 15:51 | XMS_ITS | Encounter Summary ---
Author Organization [facility] Address [address], [address] [place] [address] Care Team Providers Care Parts Counterman Name Role Phone Susy Bauman APRN, CNP Primary Care Provider Encounter Details Date Type Department Care Team ([facility] Contact Info) Description 08/22/2013 PAT Telephone [facility] PAT [address] [place] [address], [place] [id number] Deanne Tyler, RN Social History Tobacco Use [...] on filedocumented in this encounter Care Teams Parts Counterman Relationship Specialty Start Date End Date Susy Bauman APRN - CNP [facility] [place] [address] PCP - General 03/11/19 documented as of this encounter
--- OUTSIDE RECORDS SUMMARY | 2024-12-10 15:51 | XMS_ITS | Clinical Summary ---
Author Organization [facility] Address [address], [address] [place] [address] Care Team Providers Care Potato Sorter Name Role Phone Susy Bauman SCARLET - SERVICE CREW LEADER Primary Care Provider Allergies Active Allergy Reactions [...] 5:36 PM 06/11/2013 6:02 PM Care Teams Potato Sorter Relationship Specialty Start Date End Date Susy Bauman APRN - BUTCH [address] [place] [address] PCP - General 03/11/19
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
--- OUTSIDE RECORDS SUMMARY | 2024-12-10 15:51 | XMS_ITS | Data Portability ---
Author Organization [place] - [facility] and [facility] Address [address] [place] [address] Assessment No assessment recorded. Plan of Treatment Reminders Order Date Submit Date Provider Last Modified By Organization Details Last Modified Time Details Appointments OV EST 15 2025 11:15A M Merrill Delgado Jr, MD Not available Not available Not available Lab None recorded. Referral None recorded. Procedures None recorded. Surgeries None recorded. Imaging None recorded. Medication Orders levofloxa myles 500 mg tablet 2024 025 [facility][id number], [address] [place], [address], 10/29/2024 05:02:16 Patient TargetsNo targets recorded. Patient InstructionsNo instructions recorded. Reason for Referral None Reported. Results Created Date Observation Date Name Description Value Unit Range Abnormal Flag Note LastModifiedBy Organization Detail LastModifiedTime 11/04/1911/03/2024 RFS-P ATHOL OGY SPECI MEN REQUE ST pathreq See Scann ed Repor t Testi ng perfo rmed at [facility] [address] [place] [address] Phone : [phone] or [phone] Fax: Madison poe M.D., Medic al Direc tor Not Available [facility] (Pre-Op Clinic) [address] [place] [address] [place], [address], 11/09/2024 14:02:46 Result Notes None recorded. Medical Equipment None Reported. Allergies Allergen ID Allergen Name Allergen Category Reaction Reaction Severity Criticality Documentation Date Start Date Code Code System Note Provider Name and Address Organization Details Recorded Time 766232 codeine medicatio n Not available Not available Not available 10/19/2024 8540 [facility] Samra garcía, [place] - [facility] - [place] 5 09:08:37 Medications Name Sig Start Date Stop [...] Updated DateTime 10/19/2024 182.88 cm 35.4 kg/m2 832233.[address] [facility] 10/19/2024 09:08:27 Social History None recorded. Functional Status Question Answer Note LastModified by Organization D etails LastModified Time What is your level of alcohol consumption? None [email or web address] Information not available 10/19/2024 Mental Status None recorded. Family History Nothing Reported Notes:Mother and Father both Medical History Condition Response Diabetes Y Kidney Stones Y Past Encounters Encounter ID Performer Location Encounter Start Date Encounter Closed Date Diagnosis/Indication Diagnosis SNOMED-CT Code Diagnosis ICD10 Code Diagnosis IMO Codes Diagnosis Note [id number] Merrill Delgado Jr, MD [facility] [address] [address] 10/19/2024 08:43:49 10/19/2024 09:58:40 Prostate specific antigen above reference range [id number] R97.20 [id number] patient with elevated PSA. His PSA was [...] History of primary malignant neoplasm of kidney 284168387 Z85.528 [id number] patient is status post right partial nephrectom y in 2020 in [facility]. Follow up studies have shown no evidence of renal cell carcinoma. Erectile dysfunction 860 211572 N52.9 [id number] Patient complains of erectile dysfunctio n. We discussed treatment options. We will hold off until after his prostate biopsy. Health Concerns Section Related Observation LastModified by Organization Detai ls LastModified Time None Recorded Concern Status LastModified by Organization Details LastModified Time None Recorded Advance Directives Directive None Recorded Payers Insurance Date Sequence Insurance Name Policy Number Policy Santiago Covered Member ID Santiago Member ID Guarantor Name 11/10/2024 2 [employer] (MEDICARE SUPPLEMENT) Stephanie Brayzaki [id number] Stephanie Marroquin 11/04/2024 1 [place] Stephanie Warren Cara [id number] Stephanie Marroquin Notes Date Note Type Note Provider Name and Address Organization Details Recorded Time 10/19/2024 text/html ROS as noted in the HPI PATIENT IS A 63-YEAR-OLD WHITE MALE REFERRED FOR ELEVATED PSA. HIS PSA WAS 8.0 ON AUGUST 26, 2024. PATIENT WAS RECENTLY MOVED TO [facility] FROM [facility]. HE HAS A HISTORY OF [...] of kidney stones. Merrill Delgado Jr, MD [address] [place] [address], [address], [place], [address], [place] - [facility] - [place] 11/03/2024 09:31:22
--- NOTE | 2024-12-10 15:52 | XR_ITS ---
PROCEDURE INFORMATION: Exam: XR Chest Exam date and time: 12/10/2024 5:10 PM Age: 63 years old Clinical indication: Shortness of breath TECHNIQUE: Imaging protocol: Radiologic exam of the chest. Views: 1 view. Total images: 2 COMPARISON: CT ANGIO CHEST PE PROTOCOL 12/10/2024 5:04 PM FINDINGS: Lungs: Atelectatic changes noted within both lung bases. Pleural spaces: No pleural effusion. No pneumothorax. Heart/Mediastinum: Heart demonstrates mild diffuse enlargement. Bones/joints: Unremarkable. IMPRESSION: 1. Mild cardiomegaly. 2. Atelectatic changes noted within both lung bases.
--- NOTE | 2024-12-10 15:52 | CT_ITS ---
PROCEDURE INFORMATION: Exam: CTA Chest With Contrast Exam date and time: 12/10/2024 5:04 PM Age: 63 years old Clinical indication: Other: Chest pain, SOB, new afib rvr TECHNIQUE: Imaging protocol: Computed tomographic angiography of the chest with contrast. Exam focused on the arteries. 3D rendering (Not supervised by radiologist): MIP and/or 3D reconstructed images were created by the technologist. Radiation optimization: All CT scans at this facility use at least one of these dose optimization techniques: automated exposure control; mA and/or kV adjustment per patient size (includes targeted exams where dose is matched to clinical indication); or iterative reconstruction. Contrast material: ISOVUE; Contrast volume: 70 ml; Contrast route: INTRAVENOUS (IV); COMPARISON: CT ABDOMEN PELVIS W CON 12/10/2024 5:04 PM FINDINGS: Pulmonary arteries: Small subsegmental pulmonary emboli are present in the posterior right lower lobe seen on images 75 through 81 of series 5. The RV/LV ratio is less than 1.0. Aorta: Unremarkable. No aortic aneurysm. No aortic dissection. No acute intramural thoracic aortic hematoma. Lungs: Subsegmental atelectases are present in both lower lungs. No consolidation. No masses. Pleural spaces: Unremarkable. No pneumothorax. No pleural effusion. Heart: Moderate cardiomegaly. A moderately large pericardial effusion is present. Moderately severe coronary artery calcification is present. Lymph nodes: Unremarkable. No enlarged lymph nodes. Bones/joints: Unremarkable. No acute fracture. Soft tissues: Unremarkable. IMPRESSION: 1. Small subsegmental pulmonary emboli are present in the posterior right lower lobe seen on images 75 through 81 of [address] CT evidence of right heart strain. 2. Moderate cardiomegaly. A moderately large pericardial effusion is present. Moderately severe coronary artery calcification is present. 3. Subsegmental atelectases are present in both lower lungs. No consolidations or masses.
--- NOTE | 2024-12-10 15:55 | [facility].EDCP ---
Discharge Plan Disposition Patient Disposition: Admitted Prescriptions Prescriptions: No Action hydroxyurea 500 mg capsule 500 mg PO DAILY amlodipine 5 mg tablet 5 mg PO DAILY glimepiride 2 mg tablet 2 mg PO BID tamsulosin 0.4 mg capsule PO albuterol sulfate 90 mcg/actuation HFA aerosol inhaler inhalation Referrals Follow up/Referrals: Provider,Referral, [Referring, Medical] - See instructions Clinical Impressions Clinical Impression: Atrial fibrillation with rapid ventricular response, Acute pericardial effusion, Pulmonary embolism, Leukocytosis Print Language Print Language: Azeri Discharge ED Provider: Praful Chirinos General Chief Complaint: Chest Pain Stated Complaint: SOA Time Seen by Provider: 12/10/24 15:45 Mode of Arrival: Ambulatory Source of Information: Patient Description of Symptoms (Recalled from ER Triage Doc. by RN): PATIENT PRESENTS TO ED FOR CHEST PAIN ON INSPIRATION AND SHORTNESS OF BREATH THAT BEGAN LAST NIGHT. PT REPORTS NO CARDIAC HX. History of Present Illness HPI narrative: Thad Suh is a 63y male who presents to the emergency department for complaints of shortness of breath and tightness in his chest. Patient states that he was out working with hay yesterday when he had sudden onset shortness of breath and tightness in his chest, especially with coughing. Patient notes that he had elevated blood pressure at home with systolics in the 150s and took an extra dose of his blood pressure medication last night, however he did not sleep last night due to his symptoms. He denies any fevers or cough. He does state that he has nebulizer treatments for asthma and took these yesterday without relief. He denies any history of heart issues, heart attacks or heart arrhythmias. Patient is not on any anticoagulation. He did take an aspirin last night. Patient does report that in November, he had a prostate biopsy and had coughed up blood shortly afterward but has not coughed up blood since. He also notes that he has had bloody urine and had a large clot like substance in his urine that he believes may be a parasite. Patient reports a history of CLL followed by Dr. Romo with most recent WBC of 25 down from 80, hypertension, asthma, diabetes on glimepiride. Patient reports that he last smoked tobacco in 2019. Related Data Home Medications ?Medication ?Instructions ?Recorded ?Confirmed albuterol sulfate 90 mcg/actuation inhalation 09/13/24 09/13/24 aerosol inhaler amlodipine 5 mg tablet 5 mg PO DAILY 09/13/24 09/13/24 glimepiride 2 mg tablet 2 mg PO BID 09/13/24 09/13/24 hydroxyurea 500 mg capsule 500 mg PO DAILY 09/13/24 09/13/24 tamsulosin 0.4 mg capsule mg PO 09/13/24 09/13/24 Allergies Allergy/AdvReac Type Severity Reaction Status Date / Time codeine Allergy Mild Verified 09/13/24 11:26 [facility] Disclaimer: The information contained in this section may have been updated after the patient was seen, as this information can be updated by other users. Medical History (Updated 12/10/24 @ 18:18 by Praful Chirinos MD) Displaced fracture of clavicle BPH (benign prostatic hyperplasia) Type 2 diabetes mellitus Chronic leukemia Asthma COPD (chronic obstructive pulmonary disease) Allergic rhinitis Hypertension Surgical History H/O hernia repair H/O lateral meniscus repair of right knee H/O lateral meniscus repair of left knee History of cholecystectomy Family History Mother Cancer Social History (Updated 12/10/24 @ 15:45 by Renata Maciel RN) Smoking Status: Former smoker alcohol intake: never current occupational status: retired Travel in the last 8 weeks?: None Have you lived/traveled outside US in past 30 days?: No Contact w/someone who lives/traveled outside US past 30 days?: No Exposure to someone with infectious disease in past 14 days?: No Do you have a fever (greater than 100.4 F or 38 C)?: No Have you tested positive for COVID-19?: No Exposed to someone with COVID-19 in past 14 days?: No Do you have a sore throat?: No Do you have a cough?: No Do you have any weakness?: No Do you have any diarrhea?: No Are you experiencing any unusual bleeding?: No Do you have any muscle aches/pain?: No Do you have any abdominal pain?: No Are you experiencing loss of taste or smell?: No Other Medical History Have you received the Pneumonia Vaccine: No ROS Obtained: Yes Systems reviewed as appropriate & no additional complaints except as documented Physical Exam General General appearance: alert and in no apparent distress Head Head exam: atraumatic Eye Eye exam: Present normal appearance ENT ENT exam: Present normal external ear exam Neck Neck exam: Present full ROM Chest Chest inspection: Present symmetric chest wall rise Respiratory Respiratory exam: Present normal lung sounds bilaterally; Absent respiratory distress Cardiovascular Cardiovascular exam: Present tachycardia and irregular rhythm Abdominal Exam Abdominal exam: Present soft; Absent tenderness or guarding exam: Present deferred Extremities Exam Extremities exam: Present normal inspection Back Exam Back exam: Present normal inspection Neurological Exam Neurological exam: Present alert and oriented X3 Psychiatric Psychiatric exam: Present normal affect Skin Skin exam: Present warm and dry HEART Score HEART Score HEART Score assessment performed?: Yes History (anamnesis): Slightly suspicious ECG: Non-specific disturbance Age: 45-65 years Risk factors: Atherosclerosis history Troponin: </= normal limit HEART Score: 4 Procedures Limited Ultrasound Interpretation:: Limited cardiac ultrasound, performed by me personally, Praful Chirinos MD Indication: [-Chest pain -Shortness of breath -Syncope -Weakness -Swelling] Identified cardiac views: [-Cardiac parasternal long axis] [-Cardiac parasternal short axis] [-Cardiac apical four-chamber] [-Cardiac subxiphoid] Findings: [-Cardiac activity present -Wall motion grossly normal -Pericardial effusion absent -Right heart strain absent] Impression: -[From above] Images [were saved] to permanent archive The study [was] technically adequate CPT: 12439 This study was performed by me, and I personally interpreted all images/videos. Based on my clinical judgement, these images were [adequate/inadequate] and [did/did not] necessitate further imaging. Limited lung ultrasound was performed by me personally, Praful Chirinos MD A focused ultrasound exam of the pleural spaces was performed to evaluate for pneumothorax, pulmonary edema, pleural effusion and/or consolidation. The ultrasound was performed with the following indications, as noted in the H&P: [-Dyspnea -Chest pain -Hypoxia -Hypotension -Blunt thoracic trauma -Penetrating thoracic trauma] Identified structures: [RIGHT and/or LEFT] thoracic cavities were examined. Findings: Lung sliding: - [Left present] - [Right present] B-lines: - [Left absent] - [Right absent] Pleural effusion: - [Left absent] - [Right absent] Consolidation: - [Left absent] - [Right absent] Impression: - Pneumothorax [absent] - Pleural effusion [absent] - B-lines [absent] - Consolidation [absent] Images [were saved] to permanent archive The study [was] technically adequate CPT 64843-39 This study was performed by me, and I personally interpreted all images/videos. Based on my clinical judgement, these images were [adequate/inadequate] and [did/did not] necessitate further imaging. Critical Care Critical Care Time Critical Care Time: Yes Attestation: On 12/10/24, the high probability of a clinically significant, sudden or life threatening deterioration of the following system(s) required my full and direct attention, intervention and personal management. The time I documented below is in addition to time spent performing reported procedures but includes the following listed in this critical care notation. Total Time Total Critical Care Time: 60 Medical Decision Making Srikanth Inquiry Pt receiving controlled substance: No Vital Signs Vital Signs: 12/10/24 15:40 12/10/24 15:40 12/10/24 16:00 Temperature 98.0 F 98.0 F Temperature Source Oral Pulse Rate 140 H 135 H Pulse Rate [Right] 140 H Respiratory Rate 22 22 22 Blood Pressure 115/83 108/60 L Blood Pressure [Right Arm] 115/83 Blood Pressure Mean [Right Arm] 93 02 Sat by Pulse Oximetry 93 L 93 L 90 L Oxygen Delivery Method Simple Mask Oxygen Flow Rate (LPM) 2 12/10/24 16:09 12/10/24 16:31 12/10/24 17:39 Temperature Temperature Source Pulse Rate 100 H 125 H Pulse Rate [Right] Respiratory Rate 26 H 21 17 Blood Pressure 123/77 105/76 L 123/86 Blood Pressure [Right Arm] Blood Pressure Mean [Right Arm] 02 Sat by Pulse Oximetry 91 L 93 L 94 L Oxygen Delivery Method Simple Mask Simple Mask Simple Mask Oxygen Flow Rate (LPM) 2 2 2 Lab Data Labs: Lab Results 12/10/24 15:50: WBC 36.9 H*, RBC 4.33 L, Hgb 12.9 L, Hct 40.6 L, MCV 93.8, MCH 29.8, MCHC 31.8, RDW 20.0 H, Plt Count 98 L, MPV 10.4, Neut % (Auto) 77.6, Lymph % (Auto) 3.8 L, Navarro % (Auto) 12.3 H, Eos % (Auto) 0.1, Baso % (Auto) 0.3, Neut # (Auto) 28.6 H, Lymph # (Auto) 1.4, Navarro # (Auto) 4.5 H, Eos # (Auto) 0.0, Baso # (Auto) 0.1, Total Counted 100, Neutrophils % (Manual) 86 H, Lymphocytes % (Manual) 10, Monocytes % (Manual) 4, Platelet Estimate Moderate decrease, RBC Morphology Normal, PT 12.6 H, INR 1.15 H, APTT 30.5, Sodium 138, Potassium 4.6, Chloride 103, Carbon Dioxide 22, Anion Gap 17.6 H, BUN 15, Creatinine 1.00, Estimated Creat Clear 123, Estimated GFR 75, Est GFR ( Amer) 91, Glucose 256 H, Calcium 9.5, Magnesium 1.9, Total Bilirubin 2.0 H, AST 16 L, ALT 15, Alkaline Phosphatase 87, Troponin I < 0.01, NT-Pro-B Natriuret Pep 3880 H, Total Protein 7.3, Albumin 4.3, Globulin 3.0, Albumin/Globulin Ratio 1.4, TSH 2.46, Free T4 1.03 12/10/24 15:50 12/10/24 15:50 Response Orders (Tests/Meds): ED MEDICATIONS Generic Name Dose Route Start Last Admin Trade Name Freq PRN Reason Stop Dose Admin Enoxaparin Sodium 120 mg 12/10/24 18:11 Enoxaparin 120mg/0.8ml Syringe SUBCUT 12/10/24 18:12 ONCE ONE Ceftriaxone Sodium 2 gm/ 100 mls @ 200 mls/hr 12/10/24 17:45 Sodium Chloride IV 12/20/24 17:44 Q24H TY Sodium Chloride 10 ml 12/10/24 17:13 12/10/24 17:14 Sodium Chloride 0.9% 10ml Syr (Rad Only) IV 01/09/25 17:12 10 ml NEEDED PRN Administration Maintain IV Site Discontinued Medications Generic Name Dose Route Start Last Admin Trade Name Freq PRN Reason Stop Dose Admin Aspirin 325 mg 12/10/24 15:52 12/10/24 16:25 Aspirin 325mg Tablet PO 12/10/24 15:53 325 mg ONCE ONE Administration Diltiazem HCl 20 mg 12/10/24 15:56 12/10/24 16:26 Diltiazem 25mg/5ml Vial IV 12/10/24 15:57 20 mg ONCE ONE Administration Diltiazem HCl 30 mg 12/10/24 17:41 12/10/24 18:00 Diltiazem 25mg/5ml Vial IV 12/10/24 17:42 30 mg ONCE ONE Administration Iopamidol 70 ml 12/10/24 17:13 12/10/24 17:14 Iopamidol-370 (76%);100ml Bottle IV 12/10/24 17:14 70 ml ONCE ONE Administration Sodium Chloride 50 ml 12/10/24 17:13 12/10/24 17:14 0.9 % Sodium Chloride 50 Ml Vial IV 12/10/24 17:14 50 ml ONCE ONE Administration ORDERS Category Date Time Status CT abdomen pelvis w con Stat Cat Scan 12/10/24 16:[address] angio chest PE protocol Stat Cat Scan 12/10/24 15:52 Completed CXR --portable [XR chest portable] Stat Exams 12/10/24 15:52 Completed POCUS Point of Care (ER Only) Stat Exams 12/10/24 16:02 Completed BNP [NT Pro Brain Natriuretic Pep.] Stat Lab 12/10/24 15:50 Completed CBC w/Auto Diff [Complete Blood Count Auto Diff] Stat Lab 12/10/24 15:50 Completed CMP [Comprehensive Metabolic Panel] Stat Lab 12/10/24 15:50 Completed Free T4 (Free Thyroxine) Stat Lab 12/10/24 15:50 Completed Lactic Acid Stat Lab 12/10/24 17:50 Received Magnesium Stat Lab 12/10/24 15:50 Completed PT INR [Prothrombin Time INR] Stat Lab 12/10/24 15:50 Completed PTT [Activated Partial Thrombo Time] Stat Lab 12/10/24 15:50 Completed TSH [Thyroid Stimulating Hormone] Stat Lab 12/10/24 15:50 Completed Troponin I Q3H Lab 12/10/24 19:00 Ordered Troponin I Q3H Lab 12/10/24 22:00 Ordered Troponin I Stat Lab 12/10/24 15:50 Completed UA [Urinalysis and Microscopic] Stat Lab 12/10/24 15:52 Ordered Blood Culture Stat Micro 12/10/24 17:50 Received VBG [Venous Blood Gas] Stat RT 12/10/24 15:52 Ordered ECG Data Tracing #1: Attestation: I reviewed this ECG and interpreted as documented below: ECG Narrative: A-fib with RVR with rate at 144. No P waves identified. Narrow complex QRS. No ST elevation or depression. No inverted T waves. Occasional PVCs MDM Narrative Medical Decision Narrative: Thad Suh is a 63y male who presents to the emergency department for complaints of shortness of breath and tightness in his chest. Patient states that he was out working with hay yesterday when he had sudden onset shortness of breath and tightness in his chest, especially with coughing. Patient notes that he had elevated blood pressure at home with systolics in the 150s and took an extra dose of his blood pressure medication last night, however he did not sleep last night due to his symptoms. He denies any fevers or cough. He does state that he has nebulizer treatments for asthma and took these yesterday without relief. He denies any history of heart issues, heart attacks or heart arrhythmias. Patient is not on any anticoagulation. He did take an aspirin last night. Patient does report that in November, he had a prostate biopsy and had coughed up blood shortly afterward but has not coughed up blood since. He also notes that he has had bloody urine and had a large clot like substance in his urine that he believes may be a parasite. Patient reports a history of CLL followed by Dr. Romo with most recent WBC of 25 down from 80, hypertension, asthma, diabetes on glimepiride. Patient reports that he last smoked tobacco in 2019. On arrival, patient is tachycardic with an irregular narrow complex rhythm on monitor with a heart rate of 130 to 140 bpm with occasional PVCs. Initial blood pressure was 115/83 and was 123/77 on my assessment. Oxygen saturation 93 to 94% SpO2. Afebrile. Physical exam, stated above, revealed normal breath sounds bilaterally. No murmurs or rubs are appreciated. Patient is tachycardic with an irregular rhythm. Abdomen is soft, nontender nondistended. He has mild, nonpitting edema to his distal bilateral lower extremities. Differential diagnosis includes, but is not limited to: Pulmonary embolism, ACS, pericardial effusion malignant effusion, infection such as pneumonia, UTI, new onset A-fib, malignancy, electrolyte derangement, hyperthyroidism, among others. The most morbid conditions were considered and workup was based on these. Workup in the emergency department clued: [id number] cardiac ultrasound, chest x-ray, CT pulmonary embolism protocol, CBC with differential, CMP, magnesium level, TSH/free T4, troponin, BNP, VBG with lactate, blood culture x 2 urinalysis, PT/INR, PTT. Patient was given 3 and 25 mg of aspirin and 20 mg of IV diltiazem. EKG showed A-fib with RVR with a rate of 144 bpm with occasional PVCs but no ischemic changes. See interpretation above [id number] cardiac and lung ultrasound showed irregularly tachycardic rhythm with global hypokinesis of the left ventricle but with small pericardial effusion but there does appear to be hyperechogenic material within the pericardial sac. No right ventricular dilation. See procedure note for details. Patient has a few scattered B-lines in the left lung but no B-lines in the right lung. There is lung sliding bilaterally. This could represent slight pulmonary edema. Will avoid IV fluids at this time. Patient's workup shows worsening leukocytosis with white blood cell count of 36.9 (was 25.2 on 11/16 and 32.9 on 08/26). Patient's hemoglobin is stable at 12.9, hematocrit 40.6. He does have thrombocytopenia with platelets of 98 was previously 148 on the . Patient's differential shows monocyte predominance at 12.3%. 77.6% neutrophils. CMP with elevated anion gap of 17.6. No BRUNILDA. Electrolytes within normal limits. Glucose of 256. Bilirubin is elevated at 2.0, was previously normal. Liver enzymes otherwise within normal limits. Will also obtain CT abdomen pelvis with IV contrast due to concern for malignancy with patient's elevated bilirubin. Chart review shows that patient is followed by Dr. Romo with oncology. 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 Plan was to follow patient's blood counts and if increasing, will likely require bone marrow biopsy. CT imaging was interpreted by me personally prior to official radiology read. CT chest shows no large pulmonary embolism on my interpretation. Patient does have hyperenhancement of the pericardium suggesting pericardial effusion. Patient CT abdomen pelvis also shows a large left renal cyst. There is fat stranding to the bilateral perinephric areas, right worse than left. I reached out to radiology at approximately 1730 to see if radiology will read his scans sooner as there is currently a 60 to 80-minute wait time. They are currently reading the scans. I discussed patient's case with Dr. Merchant with cardiology as I am concerned patient likely has a malignant pericardial effusion versus hemopericardium as a source of his new onset A-fib with RVR. He agreed that patient does appear to have a small pericardial effusion on imaging and continue diltiazem for A-fib with RVR. He recommended admission for possible pericardiocentesis over the weekend or Thursday at the latest. I did discuss with radiologist about CT findings at approximately 1745. He reports a large pericardial effusion but no evidence of right heart strain. He has a small right lower lobe pulmonary embolism. Some atelectasis is appreciated. The patient does have a large left renal cyst and a either scar tissue or perinephric fat stranding along the right kidney. Patient does have an enlarged prostate but no other acute findings within the abdomen or pelvis. I do suspect that patient's pericardial effusion as well as worsening white blood cell count and pulmonary embolism could stem from worsening leukemia and I did discuss this with patient. 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 Given patient's continued A-fib with RVR with heart rate in the 130s but stable blood pressure, will administer 30 mg of IV diltiazem as well as 1 mg/kg of Lovenox. It is noted that patient is thrombocytopenic with platelets of 98, however he is not severely thrombocytopenic and the benefits of Lovenox for management of his pulmonary embolism outweigh the potential bleeding risk at this time. I discussed patient's case with Dr. Lynn with hospital medicine service for admission at approximately 1805 and he was in agreement to admit the patient.
[2024-12-10 16:06] LABS: Hematocrit 40.6 % (42.0-52.0); Hemoglobin 12.9 g/dL (14.1-18.0); Immature Granulocytes % 5.9 %; Mean Corpuscular HGB Conc 31.8 g/dL (31.8-35.4); Mean Corpuscular Hemoglobin 29.8 pg (27.0-31.2); Mean Corpuscular Volume 93.8 fl (80-94); Nucleated Red Blood Cells % 0.1 %; Platelet Count 98 K/mm3 (142-424); Red Blood Count 4.33 M/mm3 (4.60-6.20); Red Cell Distribution Width-SD 67.2 fL
[2024-12-10 16:11] LABS: White Blood Count 36.9 K/mm3 (4.8-10.8)
[2024-12-10 16:15] LABS: Alanine Aminotransferase 15 U/L (12-78); Albumin Level 4.3 g/dl (3.5-5.0); Albumin/Globulin Ratio 1.4 (1.1-1.8); Alkaline Phosphatase 87 U/L (38-126); Anion Gap 17.6 mEq/L (5-15); Aspartate Amino Transferase 16 U/L (17-59); Bilirubin,Total 2.0 mg/dl (0.2-1.3); Blood Urea Nitrogen 15 mg/dl (9-20); Calcium 9.5 mg/dl (8.4-10.2); Carbon Dioxide 22 mmol/L (22.0-30.0); Chloride 103 mmol/L (98-107); Creatinine Clearance Estimated 123 mL/min (50-200); Creatinine,Serum 1.00 mg/dl (0.66-1.25); Estimated Glomerular Filt Rate 75 ml/min (>60); GFR (African American) 91 ML/MIN (>60); Globulin 3.0 g/dL (1.3-3.2); Glucose 256 mg/dl (74-100); Magnesium 1.9 mg/dl (1.6-2.3); Potassium 4.6 mmoL/L (3.5-5.1); Sodium 138 mmol/L (136-145); Total Protein,Serum 7.3 g/dl (6.3-8.2)
--- NOTE | 2024-12-10 16:22 | CT_ITS ---
PROCEDURE INFORMATION: Exam: CT Abdomen And Pelvis With Contrast Exam date and time: 12/10/2024 5:04 PM Age: 63 years old Clinical indication: Other: SOB, elevated bilirubin. Prior history of a mass removed from the right kidney. TECHNIQUE: Imaging protocol: Computed tomography of the abdomen and pelvis with contrast. 3D rendering (Not supervised by radiologist): MIP and/or 3D reconstructed images were created by the technologist. Radiation optimization: All CT scans at this facility use at least one of these dose optimization techniques: automated exposure control; mA and/or kV adjustment per patient size (includes targeted exams where dose is matched to clinical indication); or iterative reconstruction. Contrast material: ISOVUE; Contrast volume: 70 ml; Contrast route: IV; COMPARISON: CT ANGIO CHEST PE PROTOCOL 12/10/2024 5:04 PM FINDINGS: Lungs: Multiple calcifications and questionable parenchymal scarring is seen in the mid-upper pole of the right kidney with some perinephric stranding present which could represent chronic postsurgical changes. No hydronephrosis. Heart: No significant abnormality. Liver: Normal. No mass. Gallbladder and biliary ducts: Prior cholecystectomy. The biliary ducts appear normal. No evidence of obstructive cholangiopathy. Pancreas: Normal. No ductal dilation. Spleen: Normal. No splenomegaly. Adrenal glands: Normal. No mass. Kidneys and ureters: The patient has a known large simple cyst in the left kidney measuring 10.1 x 8.0 cm transversely and 9.4 cm craniocaudally. 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 No hydronephrosis. Stomach and bowel: Moderately severe left-sided colonic diverticulosis is present with no evidence of acute diverticulitis, however. Appendix: No evidence of appendicitis. Intraperitoneal space: Unremarkable. No free air. No significant fluid collection. Vasculature: See Kidneys and ureters finding. Lymph nodes: Unremarkable. No enlarged lymph nodes. Urinary bladder: Unremarkable as visualized. Reproductive: The prostate gland is enlarged measuring 5.3 cm transversely. Bones/joints: Unremarkable. No acute fracture. Soft tissues: Unremarkable. IMPRESSION: 1. Prior cholecystectomy. The biliary ducts appear normal. No evidence of obstructive cholangiopathy. 2. Multiple calcifications and questionable parenchymal scarring is seen in the mid-upper pole of the right kidney with some perinephric stranding present which could represent chronic postsurgical changes. No hydronephrosis. 3. The patient has a known large simple cyst in the left kidney measuring 10.1 x 8.0 cm transversely and 9.4 cm craniocaudally. 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 No hydronephrosis. 4. Moderately severe left-sided colonic diverticulosis is present with no evidence of acute diverticulitis, however. 5. The prostate gland is enlarged measuring 5.3 cm transversely.
[2024-12-10 16:24] LABS: Activated Partial Thrombo Time 30.5 seconds (22.8-30.6); INR 1.15 (0.9-1.1); Prothrombin Time 12.6 seconds (10.1-12.5)
[2024-12-10] MEDS: ASPIRIN 325MG TABLET 325 MG PO (16:25)
[2024-12-10 16:26] LABS: NT Pro Brain Natriuretic Pep. 3880 pg/mL (0-125)
[2024-12-10 16:38] LABS: Troponin I < 0.01 ng/ml (0.00-0.034)
[2024-12-10 16:42] LABS: RBC Morphology Normal; Total Cells Counted 100
[2024-12-10 16:45] LABS: Thyroid Stimulating Hormone 2.46 uIU/mL (0.465-4.68)
[2024-12-10 16:48] LABS: Free T4 (Free Thyroxine) 1.03 ng/dl (0.78-2.19)
[2024-12-10] MEDS: SODIUM CHLORIDE 0.9% 10ML SYR (RAD ONLY) 10 ML IV (17:14)
[2024-12-10] MEDS: IOPAMIDOL-370 (76%);100ML BOTTLE 70 ML IV (17:14)
[2024-12-10] MEDS: 0.9 % SODIUM CHLORIDE 50 ML VIAL IV (17:14)
[2024-12-10] MEDS: ENOXAPARIN 120MG/0.8ML SYRINGE 120 MG SUBCUT (18:14)
--- NOTE | 2024-12-10 18:18 | PC.NURSE ---
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
--- NOTE | 2024-12-10 18:37 | PC.NURSE ---
Addendum entered by Renata Maciel RN 12/10/24 18:49: REPORT CALLED TO JENA ROY FOR ROOM 263 Original Note: REPORT CALLED TO JENA REZA FOR ROOM 263
[2024-12-10 19:02] LABS: Microscopic, Urine URINE MICROSCOPIC (MICROSCOPIC)
--- NOTE | 2024-12-10 19:07 | PC.NURSE ---
patient arrived to the floor from Emergency Department at 1905 via wheelchair.
--- NOTE | 2024-12-10 19:11 | EXP.HP ---
History of Present Illness *Admission Date: 12/10/24 *Reason for visit:: SOB *History of present illness: Patient is a 67-year-old male with past med history of hypertension asthma diabetes mellitus who presents to the hospital due to shortness of breath and chest tightness. According the patient it has been going on for few days provide since yesterday atrial flutter. Was he mentions the patient has been uncontrolled and he also has limitations. On further evaluation patient was found to be in A-fib with RVR as well as PE. Patient otherwise denied nausea vomiting diarrhea constipation dysuria fevers or chills. [facility] Disclaimer: The information contained in this section may have been updated after the patient was seen, as this information can be updated by other users. Medical History (Updated 12/10/24 @ 18:18 by Praful Chirinos MD) Displaced fracture of clavicle BPH (benign prostatic hyperplasia) Type 2 diabetes mellitus Chronic leukemia Asthma COPD (chronic obstructive pulmonary disease) Allergic rhinitis Hypertension Surgical History H/O hernia repair H/O lateral meniscus repair of right knee H/O lateral meniscus repair of left knee History of cholecystectomy Family History Mother Cancer Social History (Updated 12/10/24 @ 15:45 by Renata Maciel RN) Smoking Status: Former smoker alcohol intake: never current occupational status: retired Travel in the last 8 weeks?: None Have you lived/traveled outside [place] in past 30 days?: No Contact w/someone who lives/traveled outside US past 30 days?: No Exposure to someone with infectious disease in past 14 days?: No Do you have a fever (greater than 100.4 F or 38 C)?: No Have you tested positive for COVID-19?: No Exposed to someone with COVID-19 in past 14 days?: No Do you have a sore throat?: No Do you have a cough?: No Do you have any weakness?: No Do you have any diarrhea?: No Are you experiencing any unusual bleeding?: No Do you have any muscle aches/pain?: No Do you have any abdominal pain?: No Are you experiencing loss of taste or smell?: No Other Medical History Have you received the Pneumonia Vaccine: No Review of Systems Review of Systems Review of systems:: pertinent systems reviewed and negative unless documented below Meds Home Medications and Allergies Home Medications ?Medication ?Instructions ?Recorded ?Confirmed ?Type albuterol sulfate 90 mcg/actuation 90 mcg inhalation NEEDED PRN 09/13/24 12/10/24 History aerosol inhaler Asthma amlodipine 5 mg tablet 5 mg PO DAILY 09/13/24 12/10/24 History glimepiride 2 mg tablet 2 mg PO BID 09/13/24 12/10/24 History hydroxyurea 500 mg capsule 500 mg PO DAILY 09/13/24 12/10/24 History tamsulosin 0.4 mg capsule 0.4 mg PO DAILY 09/13/24 12/10/24 History New Prescriptions to Start Prescriptions: Allergies Allergy/AdvReac Type Severity Reaction Status Date / Time codeine Allergy Mild Verified 09/13/24 11:26 Exam Data for Last 24 hours Vital signs and Labs for Last 24 Hours: Temp Pulse Resp BP Pulse Ox O2 Del Method O2 Flow Rate 98.0 F 125 H 20 128/96 H 91 L Simple Mask 2 12/10/24 18:39 12/10/24 18:39 12/10/24 18:39 12/10/24 18:39 12/10/24 18:31 12/10/24 18:31 12/10/24 18:31 Laboratory Results - last 24 hr 12/10/24 15:50: WBC 36.9 H*, RBC 4.33 L, Hgb 12.9 L, Hct 40.6 L, MCV 93.8, MCH 29.8, MCHC 31.8, RDW 20.0 H, Plt Count 98 L, MPV 10.4, Neut % (Auto) 77.6, Lymph % (Auto) 3.8 L, [place] % (Auto) 12.3 H, Eos % (Auto) 0.1, Baso % (Auto) 0.3, Neut # (Auto) 28.6 H, Lymph # (Auto) 1.4, [place] # (Auto) 4.5 H, Eos # (Auto) 0.0, Baso # (Auto) 0.1, Total Counted 100, Neutrophils % (Manual) 86 H, Lymphocytes % (Manual) 10, Monocytes % (Manual) 4, Platelet Estimate Moderate decrease, RBC Morphology Normal, PT 12.6 H, INR 1.15 H, APTT 30.5, Sodium 138, Potassium 4.6, Chloride 103, Carbon Dioxide 22, Anion Gap 17.6 H, BUN 15, Creatinine 1.00, Estimated Creat Clear 123, Estimated GFR 75, Est GFR ( Amer) 91, Glucose 256 H, Calcium 9.5, Magnesium 1.9, Total Bilirubin 2.0 H, AST 16 L, ALT 15, Alkaline Phosphatase 87, Troponin I < 0.01, NT-Pro-B Natriuret Pep 3880 H, Total Protein 7.3, Albumin 4.3, Globulin 3.0, Albumin/Globulin Ratio 1.4, TSH 2.46, Free T4 1.03 12/10/24 17:50: Lactate 1.4 I & O for Last 24 hours: Intake & Output 12/07/24 12/08/24 12/09/24 12/10/24 23:59 23:59 23:59 23:59 Intake Total 100 / 100 Balance 100 / 100 Weight 117.934 kg Constitutional Constitutional: no acute distress *Routine HEENT Exam Head: Present normocephalic Eye: Present EOMI and PERRL ENT: Present mucous membranes moist *Routine Neck Exam Neck: Present supple; Absent lymphadenopathy *Routine Respiratory Exam Respiratory: Present CTA bilaterally *Routine Cardiovascular Exam Cardiovascular: Present tachycardia and irregular rhythm *Routine Abdominal Exam Abdominal: Present soft and normoactive bowel sounds; Absent tenderness *Routine Rectal Exam Rectal:: deferred *Routine Genitalia Exam Genitalia:: deferred *Routine Extremities Exam Extremities: Absent cyanosis, clubbing or edema *Routine Skin Exam Skin: Present warm; Absent rash *Routine Neurological Exam Neurological: Present alert and oriented X3 Assessment and Plan *Assessment and plan (1) Leukocytosis: Status: Acute Category: Medical Code(s): D72.829 - Elevated white blood cell count, unspecified (2) Pulmonary embolism: Status: Acute Category: Medical Code(s): I26.99 - Other pulmonary embolism without acute cor pulmonale (3) Acute pericardial effusion: Status: Acute Category: Medical Code(s): I30.9 - Acute pericarditis, unspecified (4) Atrial fibrillation with rapid ventricular response: Status: Acute Category: Medical Code(s): I48.91 - Unspecified atrial fibrillation (5) CMML (chronic myelomonocytic leukemia): Status: Acute Category: Medical Code(s): C93.10 - Chronic myelomonocytic leukemia not having achieved remission Plan Patient is a 67-year-old male with past med history of hypertension asthma diabetes mellitus who presents to the hospital due to shortness of breath and chest tightness. According the patient it has been going on for few days provide since yesterday atrial flutter. Was he mentions the patient has been uncontrolled and he also has limitations. On further evaluation patient was found to be in A-fib with RVR as well as PE. Patient otherwise denied nausea vomiting diarrhea constipation dysuria fevers or chills. Assessment and plan New onset A-fib with RVR Pericardial effusion Status post p.o. Cardizem Will transition to IV Cardizem, after heart rate remains well-controlled Order echocardiogram Monitor on cardiac telemetry Consult cardiology monitor troponin Pulmonary embolism CTA chest positive for small PE, no evidence of right heart strain Patient is started on therapeutic Lovenox Suspected UTI Start Rocephin Follow-up on urine cultures Thrombocytopenia Monitor CBC Patient is already established with hematology oncology as outpatient Chronic medical conditions Diabetes mellitus Hypertension CMML - Ordered insulin sliding scale Patient is started on Cardizem, monitor BP DVT PPx - Therapeutic lovenox
[2024-12-10 19:23] LABS: Color,Urine YELLOW (Yellow); Glucose,Urine (UA) Negative (Negative); Ketones,Urine TRACE (Negative); Leukocyte Esterase,Urine Negative (Negative); PH,Urine 5.5 (5.0-8.5); Protein,Urine 2+ (Negative); Specific Gravity, Urine 1.020 (1.005-1.030); Urobilinogen,Urine 1.0 EU/dl (0.2)
[2024-12-10] MEDS: dilTIAZem HCL 180MG CAP.ER.24H 180 MG PO (19:28)
[2024-12-10 19:32] LABS: Troponin I < 0.01 ng/ml (0.00-0.034)
[2024-12-10 19:32] LABS: Thyroid Stimulating Hormone 2.37 uIU/mL (0.465-4.68)
[2024-12-10 19:33] LABS: Bilirubin,Urine 2+ (Negative)
[2024-12-10 19:37] LABS: Hepatitis C Ab Qual. W/ RFX NEGATIVE (Negative)
[2024-12-10 19:58] LABS: Bacteria,Urine 1+ /lpf
[2024-12-10] MEDS: NEOSPORIN OINTMENT 0.9GM UDP 6 EACH TP (21:30)
[2024-12-10] MEDS: humaLOG 100 UNITS/ML 10ML VIAL (SSI) SUBCUT (21:47)
[2024-12-10] MEDS: TAMSULOSIN 0.4MG CAPSULE 0.4 MG PO (21:48)
[2024-12-10] MEDS: LEVALBUTEROL 1.25MG/3ML NEB 1.25 MG IH (21:51)
[2024-12-10 22:11] LABS: Hemoglobin A1C 8.2 % (4.0-6.0)
[2024-12-10 22:53] LABS: VBG HCO3 23.1 mmol/L (23-30); VBG PCO2 38.8 mmol/L (35-51); VBG PH 7.39 mmol/L (7.31-7.41); VBG PO2 41.0 mmol/L (28-40)
[2024-12-10 22:56] LABS: Lactate Venous 2.5 mmol/L (0.4-2.0)
[2024-12-10 23:25] LABS: Troponin I < 0.01 ng/ml (0.00-0.034)
[2024-12-11] VITALS (28 sets, daily range): BP systolic 110–145; BP diastolic 71–95; PULSE 79–121; RESP 18–30; TEMP 36.8–37.6; O2SAT 91–97; BMI 36.8
[2024-12-11 02:56] LABS: Reflex Lactic Add Lactic Reflex
[2024-12-11] MEDS: LEVALBUTEROL 1.25MG/3ML NEB 1.25 MG IH ×3 (03:32→20:01)
[2024-12-11 06:07] LABS: POC Glucose,Bedside 240 gm/dL (70-110)
[2024-12-11] MEDS: humaLOG 100 UNITS/ML 10ML VIAL (SSI) SUBCUT ×4 (06:12→20:30)
[2024-12-11 06:38] LABS: Hematocrit 35.8 % (42.0-52.0); Immature Granulocytes % 6.4 %; Mean Corpuscular HGB Conc 31.6 g/dL (31.8-35.4); Mean Corpuscular Hemoglobin 29.7 pg (27.0-31.2); Mean Corpuscular Volume 94.2 fl (80-94); Nucleated Red Blood Cells % 0.1 %; Platelet Count 85 K/mm3 (142-424); Red Blood Count 3.80 M/mm3 (4.60-6.20); Red Cell Distribution Width-SD 67.7 fL
[2024-12-11 06:50] LABS: Albumin Level 3.7 g/dl (3.5-5.0); Chloride 103 mmol/L (98-107)
[2024-12-11 06:51] LABS: Lactic Acid Follow Up (RFLX 1) 0.9 mmol/L (0.7-2.1); Potassium 4.2 mmoL/L (3.5-5.1)
[2024-12-11 06:53] LABS: Alanine Aminotransferase 14 U/L (12-78); Albumin/Globulin Ratio 1.2 (1.1-1.8); Alkaline Phosphatase 76 U/L (38-126); Anion Gap 16.2 mEq/L (5-15); Aspartate Amino Transferase 15 U/L (17-59); Bilirubin,Total 1.5 mg/dl (0.2-1.3); Carbon Dioxide 20 mmol/L (22.0-30.0); Cholesterol 69 mg/dl (140-200); Globulin 3.2 g/dL (1.3-3.2); Sodium 135 mmol/L (136-145); Total Protein,Serum 6.9 g/dl (6.3-8.2); Triglycerides 94 mg/dl (30-150)
[2024-12-11 06:54] LABS: Calcium 9.2 mg/dl (8.4-10.2); Glucose 255 mg/dl (74-100); HDL Cholesterol 21 mg/dl (40-60); Magnesium 2.0 mg/dl (1.6-2.3)
[2024-12-11 07:02] LABS: White Blood Count 36.9 K/mm3 (4.8-10.8)
--- NOTE | 2024-12-11 08:30 | EXP.ACUTE.PN ---
Subjective *Date: 12/11/24 *Time: 08:30 Interval history: Spoke to Dr. Lynn this morning about patient's admission. Patient has new onset A.fib and a small pulmonary embolism. He is in ICU on a cardizem drip. No new complaints this morning. Medical Exam Vital signs and Labs for Last 24 Hours: Vital Signs Temp Pulse Pulse Resp BP BP Pulse Ox 12/11/24 08:00 104 H 12/11/24 07:54 12/11/24 07:39 103 H 18 93 L 12/11/24 07:30 103 H 23 94 L 12/11/24 07:00 12/11/24 06:33 102 H 12/11/24 06:33 106 H 12/11/24 06:33 95 12/11/24 06:00 101 H 24 94 L 12/11/24 06:00 101 H 24 116/71 94 L 12/11/24 05:01 112 H 25 H 91 L 12/11/24 05:01 112 H 25 H 113/71 92 L 12/11/24 05:00 12/11/24 04:00 98.2 F 12/11/24 04:00 103 H 29 H 93 L 12/11/24 04:00 92 L 12/11/24 04:00 102 H 12/11/24 03:33 102 H 12/11/24 03:33 96 H 12/11/24 03:33 93 L 12/11/24 03:01 90 25 H 110/72 94 L 12/11/24 03:00 12/11/24 02:01 113 H 28 H 135/79 92 L 12/11/24 01:00 118 H 29 H 95 12/11/24 01:00 12/11/24 00:45 118 H 29 H 92 L 12/11/24 00:30 108 H 30 H 93 L 12/11/24 00:15 94 H 30 H 95 12/11/24 00:02 121 H 30 H 94 L 12/11/24 00:02 98.7 F 121 H 30 H 119/74 94 L 12/11/24 00:00 120 H 12/11/24 00:00 92 L 12/10/24 23:00 12/10/24 22:26 93 L 12/10/24 22:01 118 H 25 H 133/81 92 L 12/10/24 21:51 132 H 12/10/24 21:51 129 H 12/10/24 21:51 91 L 12/10/24 21:00 12/10/24 20:00 120 H 12/10/24 20:00 90 L 12/10/24 20:00 99.3 F 88 23 125/84 93 L 12/10/24 18:39 98.0 F 125 H 20 128/96 H 12/10/24 18:31 125 H 30 H 128/96 H 91 L 12/10/24 18:01 24 135/81 91 L 12/10/24 17:39 17 123/86 94 L 12/10/24 16:31 125 H 21 105/76 L 93 L 12/10/24 16:09 100 H 26 H 123/77 91 L 12/10/24 16:00 135 H 22 108/60 L 90 L 12/10/24 15:40 98.0 F 140 H 22 115/83 93 L 12/10/24 15:40 98.0 F 140 H 22 115/83 93 L O2 Del Method O2 Flow Rate FiO2 12/11/24 08:00 12/11/24 07:54 Venturi Mask 12 12/11/24 07:39 Venturi Mask 12 40 12/11/24 07:30 Venturi Mask 12 12/11/24 07:00 Venturi Mask 12 12/11/24 06:33 12/11/24 06:33 12/11/24 06:33 Venturi Mask 12 40 12/11/24 06:00 12/11/24 06:00 Venturi Mask 12 12/11/24 05:01 12/11/24 05:01 Venturi Mask 12 12/11/24 05:00 Venturi Mask 12 12/11/24 04:00 12/11/24 04:00 12/11/24 04:00 Venturi Mask 12 12/11/24 04:00 12/11/24 03:33 12/11/24 03:33 12/11/24 03:33 Venturi Mask 12 40 12/11/24 03:01 Venturi Mask 12 12/11/24 03:00 Venturi Mask 12 12/11/24 02:01 Venturi Mask 12 12/11/24 01:00 Venturi Mask 12 12/11/24 01:00 Venturi Mask 12 12/11/24 00:45 12/11/24 00:30 12/11/24 00:15 12/11/24 00:02 12/11/24 00:02 Venturi Mask 12 12/11/24 00:00 12/11/24 00:00 Venturi Mask 12 40 12/10/24 23:00 Venturi Mask 12 12/10/24 22:26 Venturi Mask 12 40 12/10/24 22:01 Venturi Mask 12 12/10/24 21:51 12/10/24 21:51 12/10/24 21:51 Simple Mask 3 12/10/24 21:00 Simple Mask 3 12/10/24 20:00 12/10/24 20:00 Simple Mask 3 12/10/24 20:00 Simple Mask 3 12/10/24 18:39 12/10/24 18:31 Simple Mask 2 12/10/24 18:01 Simple Mask 2 12/10/24 17:39 Simple Mask 2 12/10/24 16:31 Simple Mask 2 12/10/24 16:09 Simple Mask 2 12/10/24 16:00 Simple Mask 2 12/10/24 15:40 12/10/24 15:40 Intake and Output 12/10/24 12/11/24 12/11/24 23:59 07:59 15:59 Intake Total 105.833 / 597.060 8566.583 / 1042.583 Output Total 275 / 275 Balance 105.833 / 245.833 767.583 / 767.583 Intake: Intake, Oral Amount 960 / 960 Intake, Total IV Amount 105.833 / 105.833 82.583 / 82.583 Ceftriaxone Sodium 2 gm In 0.9 100 / 100 % Sodium Chloride 100 ml @ 200 mls/hr IV Q24H TY Rx#:[id number] dilTIAZem HCL 100 mg In 0.9 % 5.833 / 5.833 82.583 / 82.583 Sodium Chloride 100 ml @ 5 MG/ HR 5 mls/hr IV .Q20H TY Rx#: [id number] Output: Output, Urine Amount 275 / 275 Other: Number of Voids 1 Weight 269 lb 272 lb 6.4 oz Patient Weight 12/11/24 23:59 Weight 272 lb 6.4 oz Laboratory Results - last 24 hr 12/10/24 15:50: WBC 36.9 H*, RBC 4.33 L, Hgb 12.9 L, Hct 40.6 L, MCV 93.8, MCH 29.8, MCHC 31.8, RDW 20.0 H, Plt Count 98 L, MPV 10.4, Neut % (Auto) 77.6, Lymph % (Auto) 3.8 L, [place] % (Auto) 12.3 H, Eos % (Auto) 0.1, Baso % (Auto) 0.3, Neut # (Auto) 28.6 H, Lymph # (Auto) 1.4, [place] # (Auto) 4.5 H, Eos # (Auto) 0.0, Baso # (Auto) 0.1, Total Counted 100, Neutrophils % (Manual) 86 H, Lymphocytes % (Manual) 10, Monocytes % (Manual) 4, Platelet Estimate Moderate decrease, RBC Morphology Normal, PT 12.6 H, INR 1.15 H, APTT 30.5, Sodium 138, Potassium 4.6, Chloride 103, Carbon Dioxide 22, Anion Gap 17.6 H, BUN 15, Creatinine 1.00, Estimated Creat Clear 123, Estimated GFR 75, Est GFR ( Amer) 91, Glucose 256 H, Calcium 9.5, Magnesium 1.9, Total Bilirubin 2.0 H, AST 16 L, ALT 15, Alkaline Phosphatase 87, Troponin I < 0.01, NT-Pro-B Natriuret Pep 3880 H, Total Protein 7.3, Albumin 4.3, Globulin 3.0, Albumin/Globulin Ratio 1.4, TSH 2.46, Free T4 1.03 12/10/24 17:45: Hemoglobin A1c 8.2 H, TSH 2.37, HIV Ag/Ab Combo Qual Negative 12/10/24 17:50: Lactate 1.4, HCV Ab ALLY w/Rflx PCR Qn Negative 12/10/24 18:00: Troponin I < 0.01 12/10/24 18:58: Urine Color Yellow, Urine Appearance Clear, Urine pH 5.5, Ur Specific [place] 1.020, Urine Protein 2+ A, Urine Glucose (UA) Negative, Urine Ketones Trace, Urine Blood Trace-l, Urine Nitrate Positive A, Urine Bilirubin 2+ A, Urine Urobilinogen 1.0, Ur Leukocyte Esterase Negative, Urine RBC 5-10, Urine WBC 3-5, Ur Squamous Epith Cells 3-5, Urine Bacteria 1+ 12/10/24 22:42: VBG pH 7.39, VBG pCO2 38.8, VBG pO2 41.0 H, VBG HCO3 23.1, VBG Total CO2 24.3, VBG O2 Saturation 76.1 H, VBG Base Excess -1.8, VBG Lactic Acid 2.5 H, Troponin I < 0.01 12/11/24 06:00: POC Glucose 240 H 12/11/24 06:23: WBC 36.9 H*, RBC 3.80 L, Hct 35.8 L, MCV 94.2 H, MCH 29.7, MCHC 31.6 L, RDW 19.8 H, Plt Count 85 L, MPV 10.3, Neut % (Auto) 74.9, Lymph % (Auto) 3.6 L, [place] % (Auto) 14.7 H, Eos % (Auto) 0.1, Baso % (Auto) 0.3, Neut # (Auto) 27.6 H, Lymph # (Auto) 1.3, [place] # (Auto) 5.4 H, Eos # (Auto) 0.0, Baso # (Auto) 0.1, Sodium 135 L, Potassium 4.2, Chloride 103, Carbon Dioxide 20 L, Anion Gap 16.2 H, Glucose 255 H, Lactate 0.9, Calcium 9.2, Magnesium 2.0, Total Bilirubin 1.5 H, AST 15 L, ALT 14, Alkaline Phosphatase 76, Total Protein 6.9, Albumin 3.7 D, Globulin 3.2, Albumin/Globulin Ratio 1.2, Triglycerides 94, Cholesterol 69 L, LDL Cholesterol Direct < 30.00 L, VLDL Cholesterol 19, HDL Cholesterol 21 L, Cholesterol/HDL Ratio 3.3 I & O for Labs for Last 24 Hours: Intake & Output 12/08/24 12/09/24 12/10/24 12/11/24 23:59 23:59 23:59 23:59 Intake Total 105.833 / 936.318 1618.583 / 1042.583 Output Total 275 / 275 Balance 105.833 / 245.833 767.583 / 767.583 Weight 269 lb 272 lb 6.4 oz Constitutional: Present no acute distress Respiratory: Present normal respiratory effort Comment:: On supplemental oxygen Cardiac: Present Irregularly Regular GI: Present normal bowel sounds; Absent tenderness Extremities: Present normal inspection and full ROM Skin: Present intact; Absent erythema Neuro: Present Grossly Intact and moves all extremities Assessment and Plan *Assessment and plan (1) Leukocytosis: Status: Acute Category: Medical Code(s): D72.829 - Elevated white blood cell count, unspecified (2) Pulmonary embolism: Status: Acute Category: Medical Code(s): I26.99 - Other pulmonary embolism without acute cor pulmonale (3) Acute pericardial effusion: Status: Acute Category: Medical Code(s): I30.9 - Acute pericarditis, unspecified (4) Atrial fibrillation with rapid ventricular response: Status: Acute Category: Medical Code(s): I48.91 - Unspecified atrial fibrillation (5) CMML (chronic myelomonocytic leukemia): Status: Acute Category: Medical Code(s): C93.10 - Chronic myelomonocytic leukemia not having achieved remission Plan Oral cardizem has been ordered, will attempt to wean off of the drip today, formal Echo tomorrow, cardiology has been consulted.
[2024-12-11] MEDS: HYDROXYUREA 500MG CAPSULE 500 MG PO (08:42)
[2024-12-11] MEDS: dilTIAZem ER 240MG CAPSULE 240 MG PO (08:42)
[2024-12-11] MEDS: NEOMYCIN-POLYMYXIN-BACIT OINT 15GM TUBE TP (08:43)
[2024-12-11 09:18] LABS: Blood Urea Nitrogen 24 mg/dl (9-20); Creatinine Clearance Estimated 107 mL/min (50-200); Creatinine,Serum 1.20 mg/dl (0.66-1.25); Estimated Glomerular Filt Rate 61 ml/min (>60); GFR (African American) 74 ML/MIN (>60)
--- NOTE | 2024-12-11 10:33 | HMH.PHAINT1 ---
Pharmacy Intervention Comments: MEDICATION RECONCILIATION COMPLETED ON PATIENT USING EXTERNAL FILL HISTORY FROM PHARMACY. -GAURAV ESTEVEZ, ELLAD
[2024-12-11] MEDS: ACETAMINOPHEN 325MG TAB 650 MG PO (10:37)
[2024-12-11 12:39] LABS: Hemoglobin 11.3 g/dL (14.1-18.0)
[2024-12-11 12:41] LABS: RBC Morphology Normal; Total Cells Counted 100
[2024-12-11] MEDS: TRAMADOL 50MG TABLET 100 MG PO (14:05)
[2024-12-11 16:32] LABS: POC Glucose,Bedside 238 gm/dL (70-110)
[2024-12-11] MEDS: ENOXAPARIN 150MG/ML SYRINGE 125 MG SUBCUT (17:31)
[2024-12-11 20:02] LABS: POC Glucose,Bedside 185 gm/dL (70-110)
[2024-12-11] MEDS: TAMSULOSIN 0.4MG CAPSULE 0.4 MG PO (20:30)
[2024-12-12] VITALS (10 sets, daily range): BP systolic 113–146; BP diastolic 59–81; PULSE 70–124; RESP 16–22; TEMP 36.3–36.9; O2SAT 90–96; BMI 36.8
--- NOTE | 2024-12-12 02:37 | PC.NURSE ---
Pt AOx4. On venti mask 9L. Currently resting in bed with eyes closed. Respirations even and unlabored. Bed is low, locked, and call light is in reach.
[2024-12-12] MEDS: TRAMADOL 50MG TABLET 100 MG PO ×2 (04:19→13:58)
[2024-12-12] MEDS: LEVALBUTEROL 1.25MG/3ML NEB 1.25 MG IH (04:34)
[2024-12-12 04:58] LABS: POC Glucose,Bedside 141 gm/dL (70-110)
[2024-12-12] MEDS: ENOXAPARIN 150MG/ML SYRINGE 125 MG SUBCUT (06:14)
[2024-12-12 06:33] LABS: Hematocrit 35.1 % (42.0-52.0); Hemoglobin 10.6 g/dL (14.1-18.0); Immature Granulocytes % 8.3 %; Mean Corpuscular HGB Conc 30.2 g/dL (31.8-35.4); Mean Corpuscular Hemoglobin 28.9 pg (27.0-31.2); Mean Corpuscular Volume 95.6 fl (80-94); Nucleated Red Blood Cells % 0.1 %; Platelet Count 77 K/mm3 (142-424); Red Blood Count 3.67 M/mm3 (4.60-6.20); Red Cell Distribution Width-SD 67.0 fL
[2024-12-12 07:13] LABS: White Blood Count 37.1 K/mm3 (4.8-10.8)
--- NOTE | 2024-12-12 07:57 | EXP.PN ---
Subjective *Date: 12/12/24 *Time: 08:43 Interval history: Patient states he is short of breath at times. He denies any chest pain. He is eating without problems. He did sleep some last night. He still has some cough. O2 sats in the high 80s with conversation and returned back to 90s with regular respiratory effort. Laboratory data this morning shows a white blood cell count of 37,100. Hemoglobin is 10.6 hematocrit 35.1. Urine, sputum and blood culture results are pending. Exam Data for Last 24 hours Vital signs and Labs for Last 24 Hours: Temp Pulse Resp BP Pulse Ox O2 Del Method O2 Flow Rate 97.8 F 118 H 22 144/81 H 96 Venturi Mask 9 12/12/24 07:29 12/12/24 07:29 12/12/24 07:29 12/12/24 07:29 12/12/24 07:29 12/12/24 07:29 12/12/24 07:29 FiO2 35 12/11/24 20:01 Laboratory Results - last 24 hr 12/11/24 06:23: Hgb 11.3 L D, Total Counted 100, Neutrophils % (Manual) 83 H, Lymphocytes % (Manual) 7 L, Monocytes % (Manual) 10 H, Platelet Estimate Moderate decrease, RBC Morphology Normal, BUN 24 H D, Creatinine 1.20, Estimated Creat Clear 107, Estimated GFR 61, Est GFR ( Amer) 74 12/11/24 16:26: POC Glucose 238 H 12/11/24 19:52: POC Glucose 185 H 12/12/24 04:51: POC Glucose 141 H 12/12/24 05:18: WBC 37.1 H*, RBC 3.67 L, Hgb 10.6 L, Hct 35.1 L, MCV 95.6 H, MCH 28.9, MCHC 30.2 L, RDW 19.4 H, Plt Count 77 L, MPV 11.1 H, Neut % (Auto) 73.1, Lymph % (Auto) 6.4 L, [place] % (Auto) 11.8 H, Eos % (Auto) 0.1, Baso % (Auto) 0.3, Neut # (Auto) 27.1 H, Lymph # (Auto) 2.4, [place] # (Auto) 4.4 H, Eos # (Auto) 0.0, Baso # (Auto) 0.1 I & O for Last 24 hours: Intake & Output 12/09/24 12/10/24 12/11/24 12/12/24 11:59 11:59 11:59 11:59 Intake Total 1430.166 / 4175.643 6946 / 1320 Output Total 425 / 425 1225 / 1225 Balance 1005.166 / 1005.166 95 / 95 Weight 272 lb 6.4 oz 272 lb 6.098 oz Microbiology Reports for the Last 24 Hours: Microbiology 12/11/24 11:00 Sputum - Expectorated Sputum Gram Stain - Final 12/10/24 17:50 Blood Blood Culture - Preliminary NO GROWTH AFTER 24 HOURS 12/10/24 17:45 Blood Blood Culture - Preliminary NO GROWTH AFTER 24 HOURS Constitutional Constitutional: no acute distress Comments: Sitting on the bedside eating his breakfast. He has a Ventimask on. *Routine Respiratory Exam Respiratory: Present decreased breath sounds (Posteriorly) *Routine Cardiovascular Exam Cardiovascular: Present irregular rhythm (Monitor showing atrial fibs with a controlled ventricular response.) *Routine Abdominal Exam Abdominal: Present soft and normoactive bowel sounds; Absent tenderness *Routine Extremities Exam Extremities: Present full ROM; Absent edema or calf tenderness *Routine Neurological Exam Neurological: Present alert and oriented X3 Assessment and Plan *Assessment and plan (1) Leukocytosis: Status: Acute Category: Medical Code(s): D72.829 - Elevated white blood cell count, unspecified (2) Pulmonary embolism: Status: Acute Category: Medical Code(s): I26.99 - Other pulmonary embolism without acute cor pulmonale (3) Acute pericardial effusion: Status: Acute Category: Medical Code(s): I30.9 - Acute pericarditis, unspecified (4) Atrial fibrillation with rapid ventricular response: Status: Acute Category: Medical Code(s): I48.91 - Unspecified atrial fibrillation (5) CMML (chronic myelomonocytic leukemia): Status: Acute Category: Medical Code(s): C93.10 - Chronic myelomonocytic leukemia not having achieved remission (6) BPH (benign prostatic hyperplasia): Status: Acute Category: Medical Code(s): N40.0 - Benign prostatic hyperplasia without lower urinary tract symptoms (7) Type 2 diabetes mellitus: Status: Acute Category: Medical Code(s): E11.9 - Type 2 diabetes mellitus without complications (8) Hypertension: Status: Acute Category: Medical Code(s): I10 - Essential (primary) hypertension (9) COPD (chronic obstructive pulmonary disease): Status: Acute Category: Medical Code(s): J44.9 - Chronic obstructive pulmonary disease, unspecified Plan Patient remains off of Cardizem drip and will continue with p.o. Cardizem.. He has been moved down to the regular medical floor. Cardiology to see this a.m. Dr. Holland entry - Saw patient, agree with above note. Echo has been done, cardiology to see patient today.
[2024-12-12 08:05] LABS: Total Cells Counted 100
[2024-12-12 08:06] LABS: RBC Morphology Normal
[2024-12-12 08:39] LABS: Albumin Level 3.7 g/dl (3.5-5.0); Chloride 100 mmol/L (98-107); Potassium 4.0 mmoL/L (3.5-5.1); Sodium 134 mmol/L (136-145)
[2024-12-12 08:42] LABS: Alanine Aminotransferase 13 U/L (12-78); Albumin/Globulin Ratio 1.1 (1.1-1.8); Alkaline Phosphatase 86 U/L (38-126); Anion Gap 14.0 mEq/L (5-15); Aspartate Amino Transferase 14 U/L (17-59); Bilirubin,Total 1.0 mg/dl (0.2-1.3); Calcium 9.1 mg/dl (8.4-10.2); Carbon Dioxide 24 mmol/L (22.0-30.0); Globulin 3.3 g/dL (1.3-3.2); Glucose 137 mg/dl (74-100); Magnesium 2.2 mg/dl (1.6-2.3); Total Protein,Serum 7.0 g/dl (6.3-8.2)
--- NOTE | 2024-12-12 09:08 | CA_ITS ---
FINAL REPORT CLINICAL HISTORY: PE, shortness of breath FINDINGS: DUPLEX VENOUS SONOGRAPHY OF THE BILATERAL LOWER EXTREMITIES Multiple transverse and longitudinal scans were performed of the femoropopliteal deep venous systems, with augmentation and compression maneuvers. FINDINGS: Normal phasic flow was noted in the visualized deep venous systems. No intraluminal increased echogenicity is noted to suggest thrombus. There is normal compression and augmentation of the venous structures. No abnormal venous collaterals are seen. IMPRESSION: No evidence of deep venous thrombosis of the bilateral lower extremities. Reviewed, Interpreted and Dictated by Shira Pollack MD Transcribed by Barbara Wagner Authenticated and [facility]
[2024-12-12] MEDS: HYDROXYUREA 500MG CAPSULE 500 MG PO (09:27)
[2024-12-12] MEDS: dilTIAZem ER 240MG CAPSULE 240 MG PO (09:27)
[2024-12-12] MEDS: humaLOG 100 UNITS/ML 10ML VIAL (SSI) SUBCUT ×3 (11:19→20:44)
[2024-12-12 11:32] LABS: POC Glucose,Bedside 249 gm/dL (70-110)
--- NOTE | 2024-12-12 12:13 | EXP.CARD.CON ---
History of Present Illness History of Present Illness Consult date: 12/12/24 Requesting physician: Marek Holland Consult reason: atrial fibrillation Chief complaint: PE, A. fib with RVR, pericardial effusion, CMML Additional Medical History:: 1. Pulmonary embolus, 12/11/2024 2. New onset A-fib with RVR, 12/11/2024 3. Pericardial effusion, 12/11/2024 4. History of CMML (chronic myelomonocytic leukemia) 5. 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 Hypertension 7. Type 2 diabetes mellitus History of present illness: 63-year-old white male recently moved back to this area from [place] with history of hypertension, asthma, diabetes mellitus presented to the emergency department for shortness of breath and chest tightness. Patient relates this has been ongoing for several days. ER evaluation revealed patient to be in A-fib with RVR as well as having a pulmonary embolus without right heart strain and pericardial effusion. Patient has known CMML for which she has recently seen Dr. Miguel. Cardiology consulted for recommendations. Patient denies any prior cardiac history. [facility] Disclaimer: The information contained in this section may have been updated after the patient was seen, as this information can be updated by other users. Medical History (Updated 12/12/24 @ 12:22 by EDMOND Bernal) Displaced fracture of clavicle BPH (benign prostatic hyperplasia) Type 2 diabetes mellitus Chronic leukemia Asthma COPD (chronic obstructive pulmonary disease) Allergic rhinitis Hypertension Surgical History H/O hernia repair H/O lateral meniscus repair of right knee H/O lateral meniscus repair of left knee History of cholecystectomy Family History Cancer Mother Social History (Updated 12/10/24 @ 15:45 by Renata Maciel RN) Smoking Status: Former smoker alcohol intake: never current occupational status: retired Travel in the last 8 weeks?: None Have you lived/traveled outside US in past 30 days?: No Contact w/someone who lives/traveled outside US past 30 days?: No Exposure to someone with infectious disease in past 14 days?: No Do you have a fever (greater than 100.4 F or 38 C)?: No Have you tested positive for COVID-19?: No Exposed to someone with COVID-19 in past 14 days?: No Do you have a sore throat?: No Do you have a cough?: No Do you have any weakness?: No Do you have any diarrhea?: No Are you experiencing any unusual bleeding?: No Do you have any muscle aches/pain?: No Do you have any abdominal pain?: No Are you experiencing loss of taste or smell?: No Review of Systems Review of Systems Review of systems:: pertinent systems reviewed and negative unless documented below *Cardiovascular Cardiovascular: Reports chest pain and Reports dyspnea *Respiratory Respiratory: Reports dyspnea Exam Data for Last 24 hours Vital signs and Labs for Last 24 Hours: Temp Pulse Resp BP Pulse Ox O2 Del Method O2 Flow Rate 97.3 F L 120 H 22 133/75 96 Venturi Mask 9 12/12/24 11:42 12/12/24 11:42 12/12/24 11:42 12/12/24 11:42 12/12/24 11:42 12/12/24 11:42 12/12/24 11:42 FiO2 35 12/11/24 20:01 Laboratory Results - last 24 hr 12/11/24 06:23: Hgb 11.3 L D, Total Counted 100, Neutrophils % (Manual) 83 H, Lymphocytes % (Manual) 7 L, Monocytes % (Manual) 10 H, Platelet Estimate Moderate decrease, RBC Morphology Normal 12/11/24 16:26: POC Glucose 238 H 12/11/24 19:52: POC Glucose 185 H 12/12/24 04:51: POC Glucose 141 H 12/12/24 05:18: WBC 37.1 H*, RBC 3.67 L, Hgb 10.6 L, Hct 35.1 L, MCV 95.6 H, MCH 28.9, MCHC 30.2 L, RDW 19.4 H, Plt Count 77 L, MPV 11.1 H, Neut % (Auto) 73.1, Lymph % (Auto) 6.4 L, [place] % (Auto) 11.8 H, Eos % (Auto) 0.1, Baso % (Auto) 0.3, Neut # (Auto) 27.1 H, Lymph # (Auto) 2.4, [place] # (Auto) 4.4 H, Eos # (Auto) 0.0, Baso # (Auto) 0.1, Total Counted 100, Neutrophils % (Manual) 77 H, Lymphocytes % (Manual) 5 L, Monocytes % (Manual) 18 H, Platelet Estimate Moderate decrease, RBC Morphology Normal, Sodium 134 L, Potassium 4.0, Chloride 100, Carbon Dioxide 24, Anion Gap 14.0, Glucose 137 H D, Calcium 9.1, Magnesium 2.2, Total Bilirubin 1.0, AST 14 L, ALT 13, Alkaline Phosphatase 86, Total Protein 7.0, Albumin 3.7, Globulin 3.3 H, Albumin/Globulin Ratio 1.1 12/12/24 11:16: POC Glucose 249 H I & O for Last 24 hours: Intake & Output 12/10/24 12/11/24 12/12/24 12/13/24 11:59 11:59 11:59 11:59 Intake Total 1430.166 / 0523.726 8641 / 1720 Output Total 425 / 425 1575 / 1575 Balance 1005.166 / 1005.166 145 / 145 Weight 272 lb 6.4 oz 272 lb 6.098 oz Microbiology Reports for the Last 24 Hours: Microbiology 12/11/24 11:00 Sputum - Expectorated Sputum Gram Stain - Final 12/10/24 17:50 Blood Blood Culture - Preliminary NO GROWTH AFTER 24 HOURS 12/10/24 17:45 Blood Blood Culture - Preliminary NO GROWTH AFTER 24 HOURS Constitutional Constitutional: no acute distress Comments: Wearing Ventimask at 9 L/min to keep his oxygen saturation up *Routine Respiratory Exam Respiratory: Present decreased breath sounds and diminished air movement; Absent stridor, wheezes or crackles *Routine Cardiovascular Exam Cardiovascular: Present murmur and irregularly irregular; Absent gallop or rubs *Routine Extremities Exam Extremities: Present edema *Routine Neurological Exam Neurological: Present alert, oriented X3 and CN II-XII intact Meds Home Medications and Allergies Home Medications ?Medication ?Instructions ?Recorded ?Confirmed ?Type albuterol sulfate 90 mcg/actuation 2 puff inhalation Q6HP PRN 09/13/24 12/11/24 History aerosol inhaler Shortness Of Breath amlodipine 5 mg tablet 10 mg PO DAILY 09/13/24 12/11/24 History glimepiride 2 mg tablet 2 mg PO DAILY 09/13/24 12/11/24 History hydroxyurea 500 mg capsule 500 mg PO DAILY 09/13/24 12/10/24 History tamsulosin 0.4 mg capsule 0.4 mg PO DAILY 09/13/24 12/10/24 History formoterol fumarate 20 mcg/2 mL 2 ml inhalation BID 12/11/24 12/11/24 History solution for nebulization New Prescriptions to Start Prescriptions: Allergies Allergy/AdvReac Type Severity Reaction Status Date / Time codeine Allergy Mild Verified 09/13/24 11:26 Assessment and Plan *Assessment and plan (1) Atrial fibrillation with rapid ventricular response: Status: Acute Category: Medical Code(s): I48.91 - Unspecified atrial fibrillation (2) Acute pericardial effusion: Status: Acute Category: Medical Code(s): I30.9 - Acute pericarditis, unspecified (3) Pulmonary embolism: Status: Acute Qualifiers: Pulmonary embolism type: multiple subsegmental (without acute cor pulmonale) Qualified Code(s): I26.94 - Multiple subsegmental thrombotic pulmonary emboli without acute cor pulmonale Category: Medical Code(s): I26.99 - Other pulmonary embolism without acute cor pulmonale (4) CMML (chronic myelomonocytic leukemia): Status: Acute Qualifiers: Leukemia Active/Remission status: without remission Qualified Code(s): C93.10 - Chronic myelomonocytic leukemia not having achieved remission Category: Medical Code(s): C93.10 - Chronic myelomonocytic leukemia not having achieved remission (5) COPD (chronic obstructive pulmonary disease): Status: Acute Qualifiers: COPD type: unspecified COPD Qualified Code(s): J44.9 - Chronic obstructive pulmonary disease, unspecified Category: Medical Code(s): J44.9 - Chronic obstructive pulmonary disease, unspecified (6) Hypertension: Status: Acute Qualifiers: Hypertension type: primary hypertension Qualified Code(s): I10 - Essential (primary) hypertension Category: Medical Code(s): I10 - Essential (primary) hypertension (7) Type 2 diabetes mellitus: Status: Acute Qualifiers: Diabetes mellitus [employer] insulin use: without fci use Diabetes mellitus complication status: with circulatory complication Diabetes mellitus complication detail: with other circulatory complications Qualified Code(s): E11.59 - Type 2 diabetes mellitus with other circulatory complications Category: Medical Code(s): E11.9 - Type 2 diabetes mellitus without complications Plan 1. Atrial fibrillation with RVR -On oral diltiazem -add low dose bisoprolol -On Lovenox -Echo shows normal LV systolic function with mild RV dilation and mild reduction in RV function with biatrial dilation 2. Small subsegmental pulmonary emboli present in the posterior right lower lobe without cardiac strain -On Lovenox 3. Pericardial effusion, acute -Echocardiogram shows it to be small and circumferential. No evidence of tamponade. -Continue to monitor serial TTE's. 4. CMML -Platelets declining from 148,000-77,000 in the last month -Followed by Dr. Miguel 5. Hypertension, controlled 6. COPD 7. Type 2 diabetes mellitus 8. Coronary calcifications noted on chest CT with normal troponins this admission Continue oral diltiazem Add low-dose bisoprolol for rate control Switch Lovenox to Eliquis due to dropping platelets and concern for heparin-induced thrombocytopenia No plans for invasive testing at this time. Follow with serial echoes as needed.
[2024-12-12 12:56] LABS: Blood Urea Nitrogen 29 mg/dl (9-20); Creatinine Clearance Estimated 107 mL/min (50-200); Creatinine,Serum 1.20 mg/dl (0.66-1.25); Estimated Glomerular Filt Rate 61 ml/min (>60); GFR (African American) 74 ML/MIN (>60)
[2024-12-12] MEDS: APIXABAN 5MG TABLET 5 MG PO ×2 (13:57→20:44)
[2024-12-12] MEDS: BISOPROLOL 5MG TABLET 5 MG PO (13:57)
[2024-12-12] MEDS: FORMOTEROL 20 MCG/2 ML 1 EACH PO (15:00)
--- NOTE | 2024-12-12 17:02 | PC.NURSE ---
resting supine in bed with at bedside. venti mask @9L. home nebs reordered. treated per may for complaints of pain. no needs at this time. call light within reach.
[2024-12-12 17:39] LABS: POC Glucose,Bedside 191 gm/dL (70-110)
--- NOTE | 2024-12-12 19:39 | CA_ITS ---
APPROVED REPORT EXAM: Comprehensive 2D, Doppler, and color-flow Echocardiogram Emt: Georgina Anaya RVT Ht: 6 ft 0 in Wt: 272lbs BSA: 2.43 BP: 128/96 mmHg Indications: PULMONARY EMBOLUS,A-FIB,SHORTNESS OF BREATH,PERICARDIAL EFFUSION SEEN ON CT 2D Dimensions LA Volume 66.20 mL LA Volume Index 27.24 mL/m2 (M/F) 16-34 M-Mode Dimensions RVDd 2.64 cm (0.9-2.6) LA Diam 4.36 cm (1.9-4.0) LVDd 6.21 cm (3.5-5.7) LVDs 4.45 cm (3.5-5.7) IVSd 1.30 cm (0.6-1.1) PWd 0.93 cm (0.6-1.1) EF (Teich) 53.70% FS 28.30% EDV (Teich) 194.70 mL TAPSE 1.45 (<1.7) ESV (Teich) 90.10 mL Aortic Valve SANDY Index 1.98 cm2/m2 AoV Peak Juancarlos. 104.0 (50-130 cm/s) AO Peak GR. 4.40 mmHg AO Mean GR. 2.30 (<5 mmHg) AO VTI 16.6 (18-25 cm) SANDY (VTI) 4.94 (2.5-4.5 cm2) Pulmonary Valve PV Peak Velocity 102.0 (50-150 cm/s) Left Ventricle The left ventricle is normal size. Left ventricular systolic function is normal. The left ventricular ejection fraction is within the normal range. There is increased left ventricular wall thickness. There is normal LV segmental wall motion. The left ventricular diastolic function is indeterminate. LVEF is 55% Right Ventricle The right ventricle is mildly dilated. The right ventricular systolic function is mildly reduced. Atria The left atrium is mildly dilated. The right atrium is mildly dilated. There is no color Doppler evidence of interatrial shunt. Aortic Valve The aortic valve is mildly thickened. There is no hemodynamically significant aortic valvular stenosis. Trace aortic regurgitation is present. Mitral Valve The mitral valve is normal in structure. No evidence of mitral valve stenosis. Trace mitral regurgitation is present. Tricuspid Valve The tricuspid valve leaflets are thin and pliable. Mild tricuspid regurgitation. RVSP is 35-40 mmHg. Pulmonic Valve The pulmonary valve is grossly normal in structure. Trace pulmonic valve regurgitation is present. Great Vessels The aortic root is normal in size. The ascending aorta is mildly dilated, measuring 4.0 cm in diameter. The IVC is dilated, collapses < 50% with respirophasic dilation. RA pressure is estimated at 15 mmHg. Pericardium There is a small sized, circumferential pericardial effusion present. The largest pocket measures 0.9 cm in diastole. No clear evidence of chamber collapse. Other Information Study Quality: Fair Conclusion Normal LV systolic function. Mild RV dilation with mild reduction in RV function. Biatrial dilation. Mild TR. Elevated RVSP 35-40 mmHg. Small sized, circumferential pericardial effusion present. The largest pocket measures 0.9 cm in diastole. No clear evidence of chamber collapse. Clinical correlation is required. Serial limited TTE's are suggested for evaluation of pericardial effusion progression. Electronically signed by : Angie Randolph MD 12/12/2024 10:26:14
[2024-12-12] MEDS: TAMSULOSIN 0.4MG CAPSULE 0.4 MG PO (20:44)
[2024-12-12 20:45] LABS: POC Glucose,Bedside 182 gm/dL (70-110)
[2024-12-13] VITALS (10 sets, daily range): BP systolic 107–126; BP diastolic 71–75; PULSE 78–110; RESP 12–20; TEMP 36.4–36.8; O2SAT 86–96; BMI 38.1
[2024-12-13] MEDS: FORMOTEROL 20 MCG/2 ML 1 EACH PO ×2 (05:58→18:18)
[2024-12-13] MEDS: LEVALBUTEROL 1.25MG/3ML NEB 1.25 MG IH ×2 (06:10→19:02)
[2024-12-13 06:28] LABS: POC Glucose,Bedside 119 gm/dL (70-110)
--- NOTE | 2024-12-13 08:10 | EXP.PN ---
Subjective *Date: 12/13/24 *Time: 08:49 Interval history: Patient feels he is on his way to recovery. He feels his breathing is better and his breathing treatments are in line. He has had a productive cough. He is eating well. He states he has been out of bed. He continues on vent 80 mask at 9 L/min of O2. He has been out of bed without difficulty. He loves the food. He is voiding QS. Takes tramadol and uses a heating pad for his right kidney pain Exam Data for Last 24 hours Vital signs and Labs for Last 24 Hours: Temp Pulse Resp BP Pulse Ox O2 Del Method O2 Flow Rate 97.5 F L 102 H 20 119/75 96 Venturi Mask 9 12/13/24 07:39 12/13/24 07:39 12/13/24 07:39 12/13/24 07:39 12/13/24 07:39 12/13/24 07:39 12/13/24 06:12 FiO2 35 12/13/24 06:12 Laboratory Results - last 24 hr 12/12/24 05:18: Sodium 134 L, Potassium 4.0, Chloride 100, Carbon Dioxide 24, Anion Gap 14.0, BUN 29 H, Creatinine 1.20, Estimated Creat Clear 107, Estimated GFR 61, Est GFR ( Amer) 74, Glucose 137 H D, Calcium 9.1, Magnesium 2.2, Total Bilirubin 1.0, AST 14 L, ALT 13, Alkaline Phosphatase 86, Total Protein 7.0, Albumin 3.7, Globulin 3.3 H, Albumin/Globulin Ratio 1.1 12/12/24 11:16: POC Glucose 249 H 12/12/24 17:19: POC Glucose 191 H 12/12/24 20:33: POC Glucose 182 H 12/13/24 06:03: POC Glucose 119 H I & O for Last 24 hours: Intake & Output 12/10/24 12/11/24 12/12/24 12/13/24 11:59 11:59 11:59 11:59 Intake Total 1430.166 / 2792.611 2892 / 1720 1420 / 1420 Output Total 425 / 425 1575 / 1575 750 / 750 Balance 1005.166 / 1005.166 145 / 145 670 / 670 Weight 272 lb 6.4 oz 272 lb 6.098 oz 281 lb 6.4 oz Microbiology Reports for the Last 24 Hours: Microbiology 12/10/24 18:58 Urine,Clean Catch Urine Culture - Final NO GROWTH AFTER 48 HOURS 12/10/24 17:45 Blood Blood Culture - Preliminary NO GROWTH AFTER 48 HOURS 12/10/24 17:50 Blood Blood Culture - Preliminary NO GROWTH AFTER 48 HOURS Constitutional Constitutional: no acute distress Comments: Sitting up in the bed and appears comfortable. *Routine Respiratory Exam Respiratory: Present wheezes (Soft scattered expiratory wheeze throughout posteriorly.) and diminished air movement (Posteriorly) *Routine Cardiovascular Exam Cardiovascular: Present irregular rhythm (Monitor showing atrial flutter this a.m. with controlled ventricular response) *Routine Abdominal Exam Abdominal: Present soft, normoactive bowel sounds and obese; Absent tenderness *Routine Extremities Exam Extremities: Absent edema or calf tenderness *Routine Neurological Exam Neurological: Present alert and oriented X3 Assessment and Plan *Assessment and plan (1) Atrial fibrillation with rapid ventricular response: Status: Acute Category: Medical Code(s): I48.91 - Unspecified atrial fibrillation (2) Acute pericardial effusion: Status: Acute Category: Medical Code(s): I30.9 - Acute pericarditis, unspecified (3) Pulmonary embolism: Status: Acute Qualifiers: Pulmonary embolism type: multiple subsegmental (without acute cor pulmonale) Qualified Code(s): I26.94 - Multiple subsegmental thrombotic pulmonary emboli without acute cor pulmonale Category: Medical Code(s): I26.99 - Other pulmonary embolism without acute cor pulmonale (4) CMML (chronic myelomonocytic leukemia): Status: Acute Qualifiers: Leukemia Active/Remission status: without remission Qualified Code(s): C93.10 - Chronic myelomonocytic leukemia not having achieved remission Category: Medical Code(s): C93.10 - Chronic myelomonocytic leukemia not having achieved remission (5) COPD (chronic obstructive pulmonary disease): Status: Acute Qualifiers: COPD type: unspecified COPD Qualified Code(s): J44.9 - Chronic obstructive pulmonary disease, unspecified Category: Medical Code(s): J44.9 - Chronic obstructive pulmonary disease, unspecified (6) Hypertension: Status: Acute Qualifiers: Hypertension type: primary hypertension Qualified Code(s): I10 - Essential (primary) hypertension Category: Medical Code(s): I10 - Essential (primary) hypertension (7) Type 2 diabetes mellitus: Status: Acute Qualifiers: Diabetes mellitus complication detail: with other circulatory complications Diabetes mellitus complication status: with circulatory complication Diabetes mellitus longterm insulin use: without longterm use Qualified Code(s): E11.59 - Type 2 diabetes mellitus with other circulatory complications Category: Medical Code(s): E11.9 - Type 2 diabetes mellitus without complications Plan Dr. Holland entry - Saw patient, agree with above note. He continues to improve. Supplemental O2 has been weaned down to 2 L/min /NC. Platelets have stabilized. Plan to continue current care.
[2024-12-13] MEDS: HYDROXYUREA 500MG CAPSULE 500 MG PO (08:17)
[2024-12-13] MEDS: dilTIAZem ER 240MG CAPSULE 240 MG PO (08:17)
[2024-12-13] MEDS: BISOPROLOL 5MG TABLET 5 MG PO ×2 (08:17→20:03)
[2024-12-13] MEDS: APIXABAN 5MG TABLET 5 MG PO ×2 (08:17→20:04)
--- NOTE | 2024-12-13 08:28 | PC.NURSE ---
pt removed from venti mask @9L and placed on 2LNC
[2024-12-13 09:27] LABS: Hematocrit 33.9 % (42.0-52.0); Hemoglobin 10.5 g/dL (14.1-18.0); Immature Granulocytes % 11.5 %; Mean Corpuscular HGB Conc 31.0 g/dL (31.8-35.4); Mean Corpuscular Hemoglobin 29.6 pg (27.0-31.2); Mean Corpuscular Volume 95.5 fl (80-94); Nucleated Red Blood Cells % 0.1 %; Platelet Count 81 K/mm3 (142-424); Red Blood Count 3.55 M/mm3 (4.60-6.20); Red Cell Distribution Width-SD 67.2 fL
[2024-12-13 09:32] LABS: Albumin Level 3.8 g/dl (3.5-5.0); Chloride 98 mmol/L (98-107); Potassium 4.6 mmoL/L (3.5-5.1); Sodium 135 mmol/L (136-145); White Blood Count 32.3 K/mm3 (4.8-10.8)
[2024-12-13 09:35] LABS: Alanine Aminotransferase 15 U/L (12-78); Albumin/Globulin Ratio 1.2 (1.1-1.8); Alkaline Phosphatase 95 U/L (38-126); Anion Gap 16.6 mEq/L (5-15); Aspartate Amino Transferase 20 U/L (17-59); Bilirubin,Total 0.7 mg/dl (0.2-1.3); Blood Urea Nitrogen 44 mg/dl (9-20); Carbon Dioxide 25 mmol/L (22.0-30.0); Creatinine Clearance Estimated 111 mL/min (50-200); Creatinine,Serum 1.20 mg/dl (0.66-1.25); Estimated Glomerular Filt Rate 61 ml/min (>60); GFR (African American) 74 ML/MIN (>60); Globulin 3.3 g/dL (1.3-3.2); Total Protein,Serum 7.1 g/dl (6.3-8.2)
[2024-12-13 09:36] LABS: Calcium 9.5 mg/dl (8.4-10.2); Glucose 234 mg/dl (74-100)
[2024-12-13 10:07] LABS: Anisocytosis 1+; Total Cells Counted 100
[2024-12-13 10:08] LABS: Hypochromasia 1+
[2024-12-13 10:10] LABS: Polychromasia 1+
[2024-12-13] MEDS: humaLOG 100 UNITS/ML 10ML VIAL (SSI) SUBCUT ×3 (11:28→20:06)
[2024-12-13 11:41] LABS: POC Glucose,Bedside 231 gm/dL (70-110)
--- NOTE | 2024-12-13 14:13 | P.PN_ITS ---
Subjective Subjective Date: 12/13/24 Time: 14:13 Exam Data for Last 24 hours Vital signs and Labs for Last 24 Hours: Temp Pulse Resp BP Pulse Ox O2 Del Method O2 Flow Rate 97.5 F L 100 H 18 126/71 96 Nasal Cannula 2 12/13/24 07:39 12/13/24 12:00 12/13/24 11:52 12/13/24 11:52 12/13/24 11:52 12/13/24 13:00 12/13/24 13:00 FiO2 35 12/13/24 06:12 Laboratory Results - last 24 hr 12/12/24 17:19: POC Glucose 191 H 12/12/24 20:33: POC Glucose 182 H 12/13/24 06:03: POC Glucose 119 H 12/13/24 08:32: WBC 32.3 H*, RBC 3.55 L, Hgb 10.5 L, Hct 33.9 L, MCV 95.5 H, MCH 29.6, MCHC 31.0 L, RDW 19.2 H, Plt Count 81 L, Neut % (Auto) 76.5, Lymph % (Auto) 4.1 L, [place] % (Auto) 7.4, Eos % (Auto) 0.1, Baso % (Auto) 0.4, Neut # (Auto) 24.7 H, Lymph # (Auto) 1.3, [place] # (Auto) 2.4 H, Eos # (Auto) 0.0, Baso # (Auto) 0.1, Total Counted 100, Neutrophils % (Manual) 82 H, Lymphocytes % (Manual) 11, Atypical Lymphs % 2.0, Monocytes % (Manual) 3, Eosinophils % (Manual) 2, Platelet Estimate Slight decrease, Polychromasia 1+, Hypochromasia 1+, Anisocytosis 1+, Sodium 135 L, Potassium 4.6, Chloride 98, Carbon Dioxide 25, Anion Gap 16.6 H, BUN 44 H D, Creatinine 1.20, Estimated Creat Clear 111, Estimated GFR 61, Est GFR ( Amer) 74, Glucose 234 H, Calcium 9.5, Total Bilirubin 0.7, AST 20 D, ALT 15, Alkaline Phosphatase 95, Total Protein 7.1, Albumin 3.8, Globulin 3.3 H, Albumin/Globulin Ratio 1.2 12/13/24 11:17: POC Glucose 231 H I & O for Last 24 hours: Intake & Output 12/11/24 12/12/24 12/13/24 12/14/24 11:59 11:59 11:59 11:59 Intake Total 1430.166 / 5654.242 6963 / 1720 1780 / 1780 200 / 200 Output Total 425 / 425 1575 / 1575 1300 / 1300 Balance 1005.166 / 1005.166 145 / 145 480 / 480 200 / 200 Weight 272 lb 6.4 oz 272 lb 6.098 oz 281 lb 6.4 oz Microbiology Reports for the Last 24 Hours: Microbiology 12/10/24 18:58 Urine,Clean Catch Urine Culture - Final NO GROWTH AFTER 48 HOURS 12/10/24 17:45 Blood Blood Culture - Preliminary NO GROWTH AFTER 48 HOURS 12/10/24 17:50 Blood Blood Culture - Preliminary NO GROWTH AFTER 48 HOURS Progress Note: A&P Assessment and plan (1) Atrial fibrillation with rapid ventricular response: Status: Acute (2) Acute pericardial effusion: Status: Acute (3) Pulmonary embolism: Status: Acute (4) CMML (chronic myelomonocytic leukemia): Status: Acute (5) COPD (chronic obstructive pulmonary disease): Status: Acute (6) Hypertension: Status: Acute (7) Type 2 diabetes mellitus: Status: Acute Assessment and Plan Assessment and Plan for All Diagnoses:: 1. Atrial fibrillation with RVR, new diagnosis of unknown duration -On diltiazem and bisoprolol -On Eliquis -Echo shows normal LV systolic function with mild RV dilation and mild reduction in RV function with biatrial dilation 2. Small, subsegmental pulmonary emboli present in the posterior right lower lobe without cardiac strain -On Eliquis -Bilateral venous Doppler negative for DVT 3. Pericardial effusion, acute -Echocardiogram shows it to be small and circumferential. No evidence of tamponade. -Continue to monitor serial TTE's as indicated clinically. 4. CMML -Platelets declining from 148,000-77,000 in the last month, now up to 81,000 -on hydroxyurea -Followed by Dr. Miguel 5. Hypertension -controlled on diltiazem and bisoprolol 6. COPD -use oxygen at home PRN 7. Type 2 diabetes mellitus -Hgb A1c 8.2 this admission 8. Coronary calcifications noted on chest CT -with normal troponins this admission 9. Possible bronchitis -On ceftriaxone 10. BPH with history of benign biopsy Clinically stable from a cardiac standpoint. No plans for pericardiocentesis or cardioversion at this time. Will increase bisoprolol to 5 mg twice daily to achieve better rate control (although likely exacerbated by pulmonary issues). If discharged home today, then home medication recommendations would be: Eliquis 5 mg twice daily Bisoprolol 5 mg twice daily Diltiazem ER 240 mg daily Follow-up in our office in 1 to 2 weeks with plans to consider cardioversion in 1 month if still in A-fib.
[2024-12-13 17:02] LABS: POC Glucose,Bedside 204 gm/dL (70-110)
--- NOTE | 2024-12-13 17:33 | PC.NURSE ---
resting supine in bed with at bedside. Tolerating 2LNC. abx given per may. SSI given to cover fsbs. no needs at this time. call light within reach.
[2024-12-13 19:53] LABS: POC Glucose,Bedside 182 gm/dL (70-110)
[2024-12-13] MEDS: TRAMADOL 50MG TABLET 100 MG PO (20:03)
[2024-12-13] MEDS: TAMSULOSIN 0.4MG CAPSULE 0.4 MG PO (20:04)
[2024-12-14] VITALS: BP 114/72; PULSE 70; PULSE 72; RESP 14; TEMP 36.8; O2SAT 90
[2024-12-14 04:00] VITALS: BP 119/58; PULSE 88; RESP 14; TEMP 36.7; O2SAT 91; BMI 38.0
[2024-12-14 06:38] VITALS: PULSE 86; PULSE 90; O2SAT 90
[2024-12-14] MEDS: FORMOTEROL 20 MCG/2 ML 1 EACH PO (06:38)
[2024-12-14 07:53] VITALS: BP 118/71; PULSE 82; RESP 18; TEMP 36.6; O2SAT 92
[2024-12-14 08:00] VITALS: PULSE 90; O2SAT 92
--- NOTE | 2024-12-14 08:12 | EXP.ACUTE.PN ---
Subjective *Date: 12/14/24 *Time: 08:21 Interval history: Patient is feeling better this am. He slept and is eating well. He has been up and down to the bathroom. He still requires oxygen but has oxygen at home. He is anxious to go home. Medical Exam Vital signs and Labs for Last 24 Hours: Vital Signs Temp Pulse Pulse Resp BP Pulse Ox O2 Del Method 12/14/24 07:53 97.9 F 82 18 118/71 92 L Nasal Cannula 12/14/24 07:00 Nasal Cannula 12/14/24 06:38 86 12/14/24 06:38 90 12/14/24 06:38 90 L Nasal Cannula 12/14/24 05:00 Nasal Cannula 12/14/24 04:00 98.0 F 88 14 119/58 L 91 L Nasal Cannula 12/14/24 03:00 Nasal Cannula 12/14/24 01:00 Nasal Cannula 12/14/24 00:00 70 12/14/24 00:00 98.3 F 72 14 114/72 90 L Room Air 12/13/24 23:00 Nasal Cannula 12/13/24 21:00 Nasal Cannula 12/13/24 20:00 90 12/13/24 20:00 Nasal Cannula 12/13/24 20:00 98.3 F 88 14 125/71 92 L Nasal Cannula 12/13/24 19:55 Nasal Cannula 12/13/24 18:47 Nasal Cannula 12/13/24 17:00 Nasal Cannula 12/13/24 16:00 80 12/13/24 16:00 98.2 F 78 18 118/75 96 Nasal Cannula 12/13/24 14:49 Nasal Cannula 12/13/24 13:00 Nasal Cannula 12/13/24 12:00 100 H 12/13/24 11:52 97 H 18 126/71 96 Nasal Cannula 12/13/24 11:05 86 L Room Air 12/13/24 11:00 Nasal Cannula 12/13/24 09:00 Nasal Cannula O2 Flow Rate FiO2 12/14/24 07:53 12/14/24 07:00 2 12/14/24 06:38 12/14/24 06:38 12/14/24 06:38 2 28 12/14/24 05:00 2 12/14/24 04:00 2 12/14/24 03:00 2 12/14/24 01:00 2 12/14/24 00:00 12/14/24 00:00 2 12/13/24 23:00 2 12/13/24 21:00 2 12/13/24 20:00 12/13/24 20:00 2 12/13/24 20:00 2 12/13/24 19:55 4 12/13/24 18:47 2 12/13/24 17:00 2 12/13/24 16:00 12/13/24 16:00 12/13/24 14:49 2 12/13/24 13:00 2 12/13/24 12:00 12/13/24 11:52 2 12/13/24 11:05 12/13/24 11:00 2 12/13/24 09:00 4 Intake and Output 12/13/24 12/14/24 12/14/24 19:59 03:59 11:59 Intake Total 540 / 1140 600 / 1140 Output Total 575 / 975 400 / 975 Balance -35 / 165 200 / 165 Intake: Intake, Oral Amount 440 / 1040 600 / 1040 Intake, Total IV Amount 100 / 100 Ceftriaxone Sodium 2 gm In 0.9 100 / 100 % Sodium Chloride 100 ml @ 200 mls/hr IV Q24H [facility] Rx#:[id number] Output: Output, Urine Amount 575 / 975 400 / 975 Other: Number of Unmeasured Voids 0 Weight 280 lb 14.4 oz Patient Weight 12/14/24 11:59 Weight 280 lb 14.4 oz Laboratory Results - last 24 hr 12/13/24 08:32: WBC 32.3 H*, RBC 3.55 L, Hgb 10.5 L, Hct 33.9 L, MCV 95.5 H, MCH 29.6, MCHC 31.0 L, RDW 19.2 H, Plt Count 81 L, Neut % (Auto) 76.5, Lymph % (Auto) 4.1 L, Arthur % (Auto) 7.4, Eos % (Auto) 0.1, Baso % (Auto) 0.4, Neut # (Auto) 24.7 H, Lymph # (Auto) 1.3, Arthur # (Auto) 2.4 H, Eos # (Auto) 0.0, Baso # (Auto) 0.1, Total Counted 100, Neutrophils % (Manual) 82 H, Lymphocytes % (Manual) 11, Atypical Lymphs % 2.0, Monocytes % (Manual) 3, Eosinophils % (Manual) 2, Platelet Estimate Slight decrease, Polychromasia 1+, Hypochromasia 1+, Anisocytosis 1+, Sodium 135 L, Potassium 4.6, Chloride 98, Carbon Dioxide 25, Anion Gap 16.6 H, BUN 44 H D, Creatinine 1.20, Estimated Creat Clear 111, Estimated GFR 61, Est GFR ( Amer) 74, Glucose 234 H, Calcium 9.5, Total Bilirubin 0.7, AST 20 D, ALT 15, Alkaline Phosphatase 95, Total Protein 7.1, Albumin 3.8, Globulin 3.3 H, Albumin/Globulin Ratio 1.2 12/13/24 11:17: POC Glucose 231 H 12/13/24 16:55: POC Glucose 204 H 12/13/24 19:46: POC Glucose 182 H I & O for Labs for Last 24 Hours: Intake & Output 12/11/24 12/12/24 12/13/24 12/14/24 11:59 11:59 11:59 11:59 Intake Total 1430.166 / 7487.632 1475 / 1720 1780 / 1780 1140 / 1140 Output Total 425 / 425 1575 / 1575 1300 / 1300 975 / 975 Balance 1005.166 / 1005.166 145 / 145 480 / 480 165 / 165 Weight 272 lb 6.4 oz 272 lb 6.098 oz 281 lb 6.4 oz 280 lb 14.4 oz Microbiology Reports for the Last 24 Hours: Microbiology 12/11/24 11:00 Sputum - Expectorated Sputum Gram Stain - Final 12/11/24 11:00 Sputum - Expectorated Sputum Sputum Culture - Final 12/10/24 18:58 Urine,Clean Catch Urine Culture - Final NO GROWTH AFTER 48 HOURS Constitutional: Present no acute distress Respiratory: Present normal respiratory effort Comment:: On supplemental oxygen Cardiac: Present Irregularly Regular GI: Present normal bowel sounds; Absent tenderness Extremities: Present normal inspection and full ROM Skin: Present intact; Absent erythema Neuro: Present Grossly Intact and moves all extremities Assessment and Plan *Assessment and plan (1) Atrial fibrillation with rapid ventricular response: Status: Acute Category: Medical Code(s): I48.91 - Unspecified atrial fibrillation (2) Acute pericardial effusion: Status: Acute Category: Medical Code(s): I30.9 - Acute pericarditis, unspecified (3) Pulmonary embolism: Status: Acute Qualifiers: Pulmonary embolism type: multiple subsegmental (without acute cor pulmonale) Qualified Code(s): I26.94 - Multiple subsegmental thrombotic pulmonary emboli without acute cor pulmonale Category: Medical Code(s): I26.99 - Other pulmonary embolism without acute cor pulmonale (4) CMML (chronic myelomonocytic leukemia): Status: Acute Qualifiers: Leukemia Active/Remission status: without remission Qualified Code(s): C93.10 - Chronic myelomonocytic leukemia not having achieved remission Category: Medical Code(s): C93.10 - Chronic myelomonocytic leukemia not having achieved remission (5) COPD (chronic obstructive pulmonary disease): Status: Acute Qualifiers: COPD type: unspecified COPD Qualified Code(s): J44.9 - Chronic obstructive pulmonary disease, unspecified Category: Medical Code(s): J44.9 - Chronic obstructive pulmonary disease, unspecified (6) Hypertension: Status: Acute Qualifiers: Hypertension type: primary hypertension Qualified Code(s): I10 - Essential (primary) hypertension Category: Medical Code(s): I10 - Essential (primary) hypertension (7) Type 2 diabetes mellitus: Status: Acute Qualifiers: Diabetes mellitus complication detail: with other circulatory complications Diabetes mellitus complication status: with circulatory complication 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 Still requiring supplemental O2. Possibly discharge home today with cardiology f/u. Dr. Holland entry - Saw patient, agree with above note. OK for discharge today, f/u with me in 1 week and cardiology in 2 weeks.
[2024-12-14] MEDS: APIXABAN 5MG TABLET 5 MG PO (10:46)
[2024-12-14] MEDS: dilTIAZem ER 240MG CAPSULE 240 MG PO (10:46)
[2024-12-14] MEDS: BISOPROLOL 5MG TABLET 5 MG PO (10:46)
[2024-12-14] MEDS: HYDROXYUREA 500MG CAPSULE 500 MG PO (10:47)
--- NOTE | 2024-12-15 10:46 | SW/DCPLANNER ---
Spoke with patient on the phone. Patient stated that he is on his last portable tank of oxygen and that [place]. Patient stated that he is aware of his upcoming appointments. Patient stated that he was able to get his new medicine picked up from clinic pharmacy. Patient stated that he has no concerns or questions at this time. Tarun Johnson
--- NOTE | 2024-12-16 15:37 | P.DS_ITS ---
General Admission date:: 12/10/24 Discharge date: 12/14/24 HPI HPI HPI: Patient is a 67-year-old male with past med history of hypertension asthma diabetes mellitus who presents to the hospital due to shortness of breath and chest tightness. According the patient it has been going on for few days provide since yesterday atrial flutter. Was he mentions the patient has been uncontrolled and he also has limitations. On further evaluation patient was found to be in A-fib with RVR as well as PE. Patient otherwise denied nausea vomiting diarrhea constipation dysuria fevers or chills. Hospital Course Hospital Course Hospital Course: The patient had new onset A-fib with RVR and a pericardial effusion. His CTA was positive for a small PE. He was started on therapeutic Lovenox. He was given p.o. Cardizem and transitioned to IV Cardizem. An echo was ordered and he was monitored on telemetry. Cardiology was consulted. He was suspected to have a UTI and Rocephin was started. He was weaned off the Cardizem drip and was started on p.o. Cardizem. He was moved out of the ICU. Cardiology did see the patient and added a low-dose of bisoprolol. His echo showed a normal LV systolic function with mild RV dilatation and mild reduction in RV function with mild biatrial dilatation. The echo showed the pericardial fusion to be small and circumferential. There was no evidence of tamponade. They switched the patient's Lovenox to Eliquis due to his dropping platelets and concern for heparin-induced thrombocytopenia. He is followed by Dr. Romo for his CMML. They had no plans for invasive testing. The patient's shortness of breath did improve. Supplemental oxygen was able to be weaned down to 2 L/min. His platelets stabilized. There was no plans for cardiology to perform a pericardiocentesis or cardioversion. They increased the patient's bisoprolol to 5 mg twice a day to achieve better rate control and wanted him to remain on diltiazem and Eliquis. They felt he could be discharged and should follow-up in their office to consider cardioversion in 1 month if still in atrial fibrill ation. The patient continued to require oxygen and his oxygen was 86% on room air at rest. He was stable to be discharged home on home oxygen and will follow-up with cardiology and Dr. Holland. Exam Data for Last 24 hours Vital signs and Labs for Last 24 Hours: Temp Pulse Resp BP Pulse Ox O2 Del Method O2 Flow Rate 97.9 F 90 18 118/71 92 L Nasal Cannula 2 12/14/24 07:53 12/14/24 08:00 12/14/24 07:53 12/14/24 07:53 12/14/24 08:00 12/14/24 11:00 12/14/24 07:00 FiO2 28 12/14/24 06:38 I & O for Last 24 hours: Intake & Output 12/14/24 12/15/24 12/16/24 12/17/24 11:59 11:59 11:59 11:59 Intake Total 1140 / 1140 Output Total 1525 / 1525 Balance -385 / -385 Weight 280 lb 14.4 oz Microbiology Reports for the Last 24 Hours: Microbiology 12/10/24 17:50 Blood Blood Culture - Final NO GROWTH AFTER 5 DAYS 12/10/24 17:45 Blood Blood Culture - Final NO GROWTH AFTER 5 DAYS Narrative: Constitutional Constitutional: no acute distress *Routine HEENT Exam Head: Present normocephalic Eye: Present EOMI and PERRL ENT: Present mucous membranes moist *Routine Neck Exam Neck: Present supple; Absent lymphadenopathy *Routine Respiratory Exam Respiratory: Present CTA bilaterally *Routine Cardiovascular Exam Cardiovascular: Present tachycardia and irregular rhythm *Routine Abdominal Exam Abdominal: Present soft and normoactive bowel sounds; Absent tenderness *Routine Rectal Exam Rectal:: deferred *Routine Genitalia Exam Genitalia:: deferred *Routine Extremities Exam Extremities: Absent cyanosis, clubbing or edema *Routine Skin Exam Skin: Present warm; Absent rash *Routine Neurological Exam Neurological: Present alert and oriented X3 DS: Diagnosis Discharge Diagnosis (1) Atrial fibrillation with rapid ventricular response: Status: Acute Code(s): I48.91 - Unspecified atrial fibrillation (2) Acute pericardial effusion: Status: Acute Code(s): I30.9 - Acute pericarditis, unspecified (3) Pulmonary embolism: Status: Acute Code(s): I26.99 - Other pulmonary embolism without acute cor pulmonale Qualifiers: Pulmonary embolism type: multiple subsegmental (without acute cor pulmonale) Qualified Code(s): I26.94 - Multiple subsegmental thrombotic pulmonary emboli without acute cor pulmonale (4) CMML (chronic myelomonocytic leukemia): Status: Acute Code(s): C93.10 - Chronic myelomonocytic leukemia not having achieved remission Qualifiers: Leukemia Active/Remission status: without remission Qualified Code(s): C93.10 - Chronic myelomonocytic leukemia not having achieved remission (5) COPD (chronic obstructive pulmonary disease): Status: Acute Code(s): J44.9 - Chronic obstructive pulmonary disease, unspecified Qualifiers: COPD type: unspecified COPD Qualified Code(s): J44.9 - Chronic obstructive pulmonary disease, unspecified (6) Hypertension: Status: Acute Code(s): I10 - Essential (primary) hypertension Qualifiers: Hypertension type: primary hypertension Qualified Code(s): I10 - Essential (primary) hypertension (7) Type 2 diabetes mellitus: Status: Acute Code(s): E11.9 - Type 2 diabetes mellitus without complications Qualifiers: Diabetes mellitus complication detail: with other circulatory complications Diabetes mellitus complication status: with circulatory complication Diabetes mellitus middle or intermediate school principal insulin use: without middle or intermediate school principal use Qualified Code(s): E11.59 - Type 2 diabetes mellitus with other circulatory complications Meds Home Medications and Allergies Home Medications ?Medication ?Instructions ?Recorded ?Confirmed ?Type albuterol sulfate 90 mcg/actuation 2 puff inhalation Q 6HP PRN 09/13/24 12/11/24 History aerosol inhaler Shortness Of Breath glimepiride 2 mg tablet 2 mg PO DAILY 09/13/2412/11 History hydroxyurea 500 mg capsule 500 mg PO DAILY 09/13/24 History tamsulosin 0.4 mg capsule 0.4 mg PO DAILY 09/13/2407/01 History formoterol fumarate 20 mcg/2 mL 2 ml inhalation BID 12/11/24 History solution for nebulization apixaban 5 mg tablet (Eliquis) 5 mg PO BID #60 tabs Rx bisoprolol fumarate 5 mg tablet 5 mg PO BID #60 tabs 1 Rx diltiazem HCl 240 mg 240 mg PO DAILY #30 caps 10/31 Rx capsule,extended release 24 hr New Prescriptions to Start Prescriptions: apixaban [Eliquis] [place],Marek bisoprolol fumarate [place],Marek diltiazem HCl [place],Marek Allergies Allergy/AdvReac Type Severity Reaction Status Date / Time codeine Allergy Mild Verified 09/13/24 11:26 Discharge Plan Disposition Patient Disposition: Home, Self-Care Condition: Fair Discharge Order Discharge Orders: Discharge Order (Routine); Ordered 12/14/24 Ordered By: Marek Holland Follow up Plan Follow up with: Marek Holland MD [Primary Care Provider, Medical] - 12/21/24 11:30 am Miky Randolph MD [Staff Physician, Cardiology] - 12/29/24 11:30 am Prescriptions/Medication Reconciliation: New diltiazem HCl 240 mg Capsule,Extended Release 24hr 240 mg PO DAILY Qty: 30 0RF bisoprolol fumarate 5 mg Tablet 5 mg PO BID Qty: 60 0RF Eliquis 5 mg Tablet 5 mg PO BID Qty: 60 0RF Continued hydroxyurea 500 mg capsule 500 mg PO DAILY glimepiride 2 mg tablet 2 mg PO DAILY tamsulosin 0.4 mg capsule 0.4 mg PO DAILY albuterol sulfate 90 mcg/actuation HFA aerosol inhaler 2 puff inhalation Q6HP PRN (Reason: Shortness Of Breath) formoterol fumarate 20 mcg/2 mL solution for nebulization 2 ml INHALATION BID Patient Comments: USE 2 MLS (20 MCG TOTAL) IN NEBULIZER 2 (TWO) TIMES DAILY Discontinued amlodipine 5 mg tablet 10 mg PO DAILY Problem Reconciliation Problems Reviewed?: Yes Patient Discharge Instructions ACTIVITY: Limited activity DIET: continue same diet Additional Instructions: Resume supplemental oxygen use at home. Patient Instructions: DI for Pulmonary Embolism, DI for Atrial Fibrillation, DI for Leukocytosis Print Language: Divehi Providers Primary Care Provider: Marek Holland Admit Provider: Kenney Lynn Attending Provider: Marek Holland
== END 2024-12-14 11:57 | disposition home or self-care (01) | DRG 314 ==
LOC: ER 18:18 → ICU 18:32 → 2ND 12-11 18:01
PROVIDERS: Admitting Provider Internal Medicine Adolescent Medicine; Emergency Provider Student in an Organized Health Care Education/Training Program; PCP Family Medicine; Visit Provider Family Medicine
DX: I30.9 Acute pericarditis, unspecified (principal); I26.94 Multiple subsegmental thrombotic pulmonary emboli without acute cor pulmonale; J96.21 Acute and chronic respiratory failure with hypoxia; I26.99 Other pulmonary embolism without acute cor pulmonale; I46.2 Cardiac arrest due to underlying cardiac condition; C93.10 Chronic myelomonocytic leukemia not having achieved remission; I48.92 Unspecified atrial flutter; J90 Pleural effusion, not elsewhere classified; D68.9 Coagulation defect, unspecified; N17.9 Acute kidney failure, unspecified; E87.20 Acidosis, unspecified; I48.91 Unspecified atrial fibrillation; D69.6 Thrombocytopenia, unspecified; J44.9 Chronic obstructive pulmonary disease, unspecified; I10 Essential (primary) hypertension; E11.59 Type 2 diabetes mellitus with other circulatory complications; N40.0 Benign prostatic hyperplasia without lower urinary tract symptoms; N28.1 Cyst of kidney, acquired; E87.5 Hyperkalemia; E11.65 Type 2 diabetes mellitus with hyperglycemia; R79.89 Other specified abnormal findings of blood chemistry; Z99.81 Dependence on supplemental oxygen; Z79.01 Long term (current) use of anticoagulants; Z87.891 Personal history of nicotine dependence; Z79.84 Long term (current) use of oral hypoglycemic drugs; Z79.899 Other long term (current) drug therapy; Z88.5 Allergy status to narcotic agent
CPT/HCPCS: 0223U; 36415; 36600; 71045; 71275; 74177; 80053; 80061; 81001; 82009; 82550; 82803; 82962; 83036; 83605; 83735; 83880; 84439; 84443; 84484; 85007; 85025; 85610; 85651; 85730; 86140; 86803; 87040; 87070; 87086; 87205; 87389; 93005; 93306; 93970; 94640; 94760; 94761; 99285; J0169; J0461; J0696; J1163; J1650; J2270; J2371; J2405; J7050; J7614; Q9967

== ENCOUNTER 2024-12-15 18:36 | Inpatient (IN) | payer MEDICARE, OTHER, SELFPAY ==
[2024-12-15] VITALS (24 sets, daily range): BP systolic 81–133; BP diastolic 41–90; PULSE 33–124; RESP 16–36; TEMP 36.4–36.9; O2SAT 85–94; BMI 47.5
--- NOTE | 2024-12-15 18:44 | ECG_ITS ---
APPROVED REPORT Exam: Resting ECG HR:120 bpm ECG Measurements Heart Rate 120 AXES QRSd 97 QRS 61 QT 293 T 6 QTc 364 Conclusion Atrial flutter with variable block Rapid ventricular response No obvious STEMI Electronically signed by : Lucien Hawley, 12/16/2024 00:26:40
--- NOTE | 2024-12-15 18:58 | CT_ITS ---
PROCEDURE INFORMATION: Exam: CTA Chest With Contrast Exam date and time: 12/15/2024 8:13 PM Age: 63 years old Clinical indication: Shortness of breath; Additional info: Short of breath TECHNIQUE: Imaging protocol: Computed tomographic angiography of the chest with contrast. Exam focused on the arteries. 3D rendering (Not supervised by radiologist): MIP and/or 3D reconstructed images were created by the technologist. Radiation optimization: All CT scans at this facility use at least one of these dose optimization techniques: automated exposure control; mA and/or kV adjustment per patient size (includes targeted exams where dose is matched to clinical indication); or iterative reconstruction. Contrast material: ISOVUE; Contrast volume: 75 ml; Contrast route: INTRAVENOUS (IV); COMPARISON: CT ANGIO CHEST PE PROTOCOL 12/10/2024 5:04 PM FINDINGS: Pulmonary arteries: No central or segmental pulmonary arterial intraluminal filling defects identified. Aorta: Unremarkable. No aortic aneurysm. No aortic dissection. Lungs: Unremarkable. No consolidation. No masses. Pleural spaces: Moderate left pleural effusion. Heart: Pericardial effusion measuring up to 2.6 cm. Lymph nodes: Unremarkable. No enlarged lymph nodes. Bones/joints: Unremarkable. No acute fracture. Soft tissues: Unremarkable. IMPRESSION: 1. No central or segmental pulmonary arterial embolism identified. 2. Pericardial effusion. 3. Left pleural effusion.
[2024-12-15 19:06] LABS: Hematocrit 37.6 % (42.0-52.0); Hemoglobin 11.5 g/dL (14.1-18.0); Immature Granulocytes % 12.9 %; Mean Corpuscular HGB Conc 30.6 g/dL (31.8-35.4); Mean Corpuscular Hemoglobin 29.0 pg (27.0-31.2); Mean Corpuscular Volume 94.9 fl (80-94); Nucleated Red Blood Cells % 0.1 %; Platelet Count 184 K/mm3 (142-424); Red Blood Count 3.96 M/mm3 (4.60-6.20); Red Cell Distribution Width-SD 66.8 fL; VBG HCO3 24.5 mmol/L (23-30); VBG PCO2 46.1 mmol/L (35-51); VBG PH 7.34 mmol/L (7.31-7.41); VBG PO2 27.9 mmol/L (28-40)
[2024-12-15 19:07] LABS: Adenovirus,PCR Not Detected (NotDetected); Chlamydophila Pneumoniae, PCR Not Detected (NotDetected); Coronavirus 19, PCR Not Detected (NotDetected); Coronovirus HKU1,PCR Not Detected (NotDetected); Influenza A, PCR Not Detected (NotDetected); Influenza AH1, 2009 Not Detected (NotDetected); Influenza AH1, PCR Not Detected (NotDetected); Influenza AH3,PCR Not Detected (NotDetected); Influenza B, PCR Not Detected (NotDetected); Mycoplasma Pneumoniae, PCR Not Detected (NotDetected); Parainfluenza 1, PCR Not Detected (NotDetected); Parainfluenza 2, PCR Not Detected (NotDetected); Parainfluenza 3, PCR Not Detected (NotDetected); Parainfluenza 4, PCR Not Detected (NotDetected)
[2024-12-15 19:07] LABS: Lactate Venous 2.6 mmol/L (0.4-2.0)
[2024-12-15 19:13] LABS: INR 1.15 (0.9-1.1); Prothrombin Time 12.6 seconds (10.1-12.5)
[2024-12-15 19:16] LABS: White Blood Count 41.5 K/mm3 (4.8-10.8)
--- NOTE | 2024-12-15 19:16 | PC.NURSE ---
critical called from MD letty notified
[2024-12-15 19:17] LABS: Alanine Aminotransferase 33 U/L (12-78); Albumin Level 4.0 g/dl (3.5-5.0); Albumin/Globulin Ratio 1.3 (1.1-1.8); Alkaline Phosphatase 105 U/L (38-126); Anion Gap 19.1 mEq/L (5-15); Aspartate Amino Transferase 26 U/L (17-59); Bilirubin,Total 0.9 mg/dl (0.2-1.3); Blood Urea Nitrogen 32 mg/dl (9-20); Calcium 9.7 mg/dl (8.4-10.2); Carbon Dioxide 24 mmol/L (22.0-30.0); Chloride 101 mmol/L (98-107); Creatinine Clearance Estimated 62 mL/min (50-200); Creatinine,Serum 1.30 mg/dl (0.66-1.25); Estimated Glomerular Filt Rate 55 ml/min (>60); GFR (African American) 67 ML/MIN (>60); Globulin 3.1 g/dL (1.3-3.2); Glucose 234 mg/dl (74-100); Potassium 5.1 mmoL/L (3.5-5.1); Sodium 139 mmol/L (136-145); Total Protein,Serum 7.1 g/dl (6.3-8.2)
[2024-12-15 19:23] LABS: C-Reactive Protein 65.4 mg/L (0-4)
[2024-12-15 19:24] LABS: Acetone, Serum (Rapid) None Detected (None Detect)
--- NOTE | 2024-12-15 19:25 | ED_ITS ---
Discharge Plan Disposition Patient Disposition: Admitted Condition: Critical Clinical Impressions Clinical Impression: Acute pericardial effusion, Respiratory failure, Hx of chronic myeloid leukemia, History of pulmonary embolism Discharge ED Provider: Lucien Hawley HPI <Allison Badillo (ED), COMMUNITY HEALTH DIRECTOR - Last Filed: 12/15/24 21:11> General Chief Complaint: Shortness of Breath/Dyspnea Stated Complaint: CP Time Seen by Provider: 12/15/24 18:49 Mode of Arrival: Wheelchair Source of Information: Patient and Spouse Description of Symptoms (Recalled from ER Triage Doc. by RN): pt became increasingly short of breath this morning after choking on a piece of egg. has progressively gotten worse. was discharged form the hospital recently. edema. aflutter rvr History of Present Illness HPI narrative: 63-year-old male presents to the ED today for increasing short of breath since this morning. He says he started choking on his food and the shortness of breath started to increase as well. He has progressively gotten worse today. His legs have become increasingly swollen. He is becoming more weak. When he walks he becomes more short of breath and weaker. His glucose was 146 this morning. He is now 85% on 2 L which is what he has at home. We have had to increase him to 3 L and he is 90%. He does have COPD, BPH, hypertension, pulmonary embolism, A-fib with RVR and CM and L Related Data Home Medications ?Medication ?Instructions ?Recorded ?Confirmed albuterol sulfate 90 mcg/actuation 2 puff inhalation Q 6HP PRN 09/13/24 12/11/24 aerosol inhaler Shortness Of Breath glimepiride 2 mg tablet 2 mg PO DAILY 09/13/2412/11 hydroxyurea 500 mg capsule 500 mg PO DAILY 09/13/24 tamsulosin 0.4 mg capsule 0.4 mg PO DAILY 09/13/2407/01 formoterol fumarate 20 mcg/2 mL 2 ml inhalation BID 12/11/24 solution for nebulization Previous Rx's ?Medication ?Instructions ?Recorded apixaban 5 mg tablet (Eliquis) 5 mg PO BID #60 tabs bisoprolol fumarate 5 mg tablet 5 mg PO BID #60 tabs 1 diltiazem HCl 240 mg 240 mg PO DAILY #30 caps 10/31 capsule,extended release 24 hr Allergies Allergy/AdvReac Type Severity Reaction Status Date / Time codeine Allergy Mild Verified 09/13/24 11:26 PFSH <Allison Badillo (ED), COMMUNITY HEALTH DIRECTOR - Last Filed: 12/15/24 21:11> PFSH Disclaimer: The information contained in this section may have been updated after the patient was seen, as this information can be updated by other users. Medical History (Updated 12/15/24 @ 23:45 by Lucien Hawley DO) Displaced fracture of clavicle BPH (benign prostatic hyperplasia) Type 2 diabetes mellitus Chronic leukemia Asthma COPD (chronic obstructive pulmonary disease) Allergic rhinitis Hypertension Surgical History H/O hernia repair H/O lateral meniscus repair of right knee H/O lateral meniscus repair of left knee History of cholecystectomy Family History Mother Cancer Social History (Updated 12/15/24 @ 22:23 by Xiao Negro RN) Smoking Status: Never smoker alcohol intake: never current occupational status: retired Travel in the last 8 weeks?: None Have you lived/traveled outside [place] in past 30 days?: No Contact w/someone who lives/traveled outside US past 30 days?: No Exposure to someone with infectious disease in past 14 days?: No Do you have a fever (greater than 100.4 F or 38 C)?: No Have you tested positive for COVID-19?: No Exposed to someone with COVID-19 in past 14 days?: No Do you have a sore throat?: No Do you have a cough?: No Do you have any weakness?: No Do you have any diarrhea?: No Are you experiencing any unusual bleeding?: No Do you have any muscle aches/pain?: No Do you have any abdominal pain?: No Are you experiencing loss of taste or smell?: No Other Medical History Have you received the Flu Vaccine for this season: No Have you received the Pneumonia Vaccine: No <Allison Badillo (ED), COMMUNITY HEALTH DIRECTOR - Last Filed: 12/15/24 21:11> ROS Obtained: Yes Systems reviewed as appropriate & no additional complaints except as documented Constitutional Constitutional: Reports as per HPI Physical Exam <Allison Justino (ED), COMMUNITY HEALTH DIRECTOR - Last Filed: 12/15/24 21:11> General General appearance: alert and in distress Head Head exam: normocephalic Eye Eye exam: Present PERRL and EOMI ENT ENT exam: Present normal oropharynx and mucous membranes moist Neck Neck exam: Present full ROM and trachea midline Respiratory Respiratory exam: Present wheezes Cardiovascular Cardiovascular exam: Present irregular rhythm, normal heart sounds, +S1 and +S2 Abdominal Exam Abdominal exam: Present distention and normal bowel sounds Extremities Exam Extremities exam: Present tenderness and edema Neurological Exam Neurological exam: Present alert and oriented X3 Skin Skin exam: Present warm and dry HEART Score <Allison Esteraugustin (ED), COMMUNITY HEALTH DIRECTOR - Last Filed: 12/15/24 21:11> HEART Score HEART Score assessment performed?: Yes History (anamnesis): Moderately suspicious ECG: Non-specific disturbance Age: 45-65 years Risk factors: Atherosclerosis history Troponin: </= normal limit HEART Score: 5 <Lucien Hawley DO - Last Filed: 12/15/24 23:45> HEART Score HEART Score: 5 Procedures <Lucien Hawley DO - Last Filed: 12/15/24 23:45> Miscellaneous Procedure Procedure Performed: Limited cardiac ultrasound note Indication: Shortness of breath Identified cardiac views: [Cardiac parasternal long axis] [Cardiac parasternal short axis] [Cardiac apical four-chamber] [Cardiac subxiphoid] Findings: Cardiac activity: Present Gross wall motion: Normal Pericardial effusion: Present Right heart strain: Difficult to discern Impression: Large pericardial effusion Images were saved to permanent archive This study applies technically adequate CPT: 57894 This study was performed by me and I personally interpreted all images/videos. Based on my clinical judgment these images were adequate and did not necessitate further imaging. Critical Care <Allison Badillo (ED), COMMUNITY HEALTH DIRECTOR - Last Filed: 12/15/24 21:11> Critical Care Time Critical Care Time: Yes Attestation: On 12/15/24, the high probability of a clinically significant, sudden or life threatening deterioration of the following system(s) required my full and direct attention, intervention and personal management. The time I documented below is in addition to time spent performing reported procedures but includes the following listed in this critical care notation. Total Time Total Critical Care Time: 30 <Lucien Hawley DO - Last Filed: 12/15/24 23:45> Total Time Total Critical Care Time: 37 Medical Decision Making <Allison Badillo (ED) COMMUNITY HEALTH DIRECTOR - Last Filed: 12/15/24 21:11> Srikanth Inquiry Pt receiving controlled substance: No Srikanth was queried for this patient: No Vital Signs Vital Signs: 12/15/24 18:42 12/15/24 18:51 12/15/24 19:00 Temperature 98.4 F Temperature Source Oral Pulse Rate 61 74 Pulse Rate [Right] 123 H Respiratory Rate 34 H 16 Blood Pressure 119/76 113/66 Blood Pressure [Right Arm] 119/76 Blood Pressure Mean [Right Arm] 90 Blood Pressure Position 02 Sat by Pulse Oximetry 92 L 85 L 90 L Oxygen Delivery Method Nasal Cannula Nasal Cannula Nasal Cannula Oxygen Flow Rate (LPM) 3 2 4 12/15/24 19:31 12/15/24 20:01 12/15/24 20:26 Temperature Temperature Source Pulse Rate 63 64 33 L Pulse Rate [Right] Respiratory Rate 23 16 22 Blood Pressure 121/55 L 81/41 L 103/73 L Blood Pressure [Right Arm] Blood Pressure Mean [Right Arm] Blood Pressure Position 02 Sat by Pulse Oximetry 94 L 93 L Oxygen Delivery Method Nasal Cannula Nasal Cannula Nasal Cannula Oxygen Flow Rate (LPM) 4 4 4 12/15/24 20:30 12/15/24 20:42 12/15/24 20:59 Temperature Temperature Source Pulse Rate 65 Pulse Rate [Right] Respiratory Rate 18 16 20 Blood Pressure 106/77 L 93/58 L 108/83 L Blood Pressure [Right Arm] Blood Pressure Mean [Right Arm] Blood Pressure Position 02 Sat by Pulse Oximetry 91 L Oxygen Delivery Method Nasal Cannula Nasal Cannula Nasal Cannula Oxygen Flow Rate (LPM) 4 4 4 12/15/24 21:00 12/15/24 21:03 12/15/24 21:04 Temperature Temperature Source Pulse Rate 67 121 H 74 Pulse Rate [Right] Respiratory Rate 17 23 24 Blood Pressure 111/76 106/78 L 122/80 Blood Pressure [Right Arm] Blood Pressure Mean [Right Arm] Blood Pressure Position 02 Sat by Pulse Oximetry 91 L 90 L 89 L Oxygen Delivery Method Nasal Cannula Nasal Cannula Nasal Cannula Oxygen Flow Rate (LPM) 4 4 4 12/15/24 21:13 12/15/24 21:14 12/15/24 21:19 Temperature Temperature Source Pulse Rate 119 H 69 65 Pulse Rate [Right] Respiratory Rate 36 H 19 19 Blood Pressure 106/76 L 107/77 L 114/88 Blood Pressure [Right Arm] Blood Pressure Mean [Right Arm] Blood Pressure Position 02 Sat by Pulse Oximetry 89 L 90 L 85 L Oxygen Delivery Method Nasal Cannula Oxygen Flow Rate (LPM) 4 12/15/24 21:22 12/15/24 21:26 12/15/24 21:47 Temperature 97.8 F Temperature Source Pulse Rate 117 H 68 104 H Pulse Rate [Right] Respiratory Rate 16 17 28 H Blood Pressure 110/90 133/67 121/80 Blood Pressure [Right Arm] Blood Pressure Mean [Right Arm] Blood Pressure Position Supine 02 Sat by Pulse Oximetry 87 L 92 L Oxygen Delivery Method Non-Rebreather Non-Rebreather Non-Rebreather Oxygen Flow Rate (LPM) 15 15 15 Lab Data Labs: Lab Results 12/15/24 18:45: WBC 41.5 H* D, RBC 3.96 L, Hgb 11.5 L, Hct 37.6 L, MCV 94.9 H, MCH 29.0, MCHC 30.6 L, RDW 19.4 H, Plt Count 184 D, MPV 10.9 H, Neut % (Auto) 74.5, Lymph % (Auto) 4.3 L, Calvert % (Auto) 7.9, Eos % (Auto) 0.0 L, Baso % (Auto) 0.4, Neut # (Auto) 30.9 H, Lymph # (Auto) 1.8, Calvert # (Auto) 3.3 H, Eos # (Auto) 0.0, Baso # (Auto) 0.2, Total Counted 100, Neutrophils % (Manual) 75, Lymphocytes % (Manual) 15, Monocytes % (Manual) 10 H, Platelet Estimate Normal, Giant Platelets 1+, RBC Morphology Normal, Hypochromasia 1+, Anisocytosis 1+, ESR 18, PT 12.6 H, INR 1.15 H, VBG pH 7.34, VBG pCO2 46.1, VBG pO2 27.9 L, VBG HCO3 24.5, VBG Total CO2 25.9, VBG O2 Saturation 46.8 L, VBG Base Excess -1.2, V BG Lactic Acid 2.6 H, Sodium 139, Potassium 5.1, Chloride 101, Carbon Dioxide 24, Anion Gap 19.1 H, BUN 32 H D, Creatinine 1.30 H, Estimated Creat Clear 62, E stimated GFR 55 L, Est GFR ( Amer) 67, Glucose 234 H, Lactate 1.5, Calcium 9.7, Total Bilirubin 0.9, AST 26 D, ALT 33 D, Alkaline Phosphatase 105, Total Creatine Kinase < 20 L, Troponin I < 0.01, C-Reactive Protein 65.4 H, NT-Pro-B Natriuret Pep 2590 H, Total Protein 7.1, Albumin 4.0, Globulin 3.1, Albumin/Globulin Ratio 1.3, Acetone Level None detected 12/15/24 19:05: Chlamy pneumoniae PCR Not detected, Adenovirus (PCR) Not detected, B. pertussis DNA (PCR) Not detected, Coronavirus OC43 (PCR) Not detected, Coronavirus HKU1 (PCR) Not detected, Coronavirus 229E (PCR) Not detected, SARS-CoV-2 (PCR) Not detected, Coronavirus NL63 (PCR) Not detected, Human Metapneumovir PCR Not detected, Influenza A (H1) PCR Not detected, Influ A (H1N1/09) PCR Not detected, Influenza A (H3) PCR Not detected, Influenza Type A (PCR) Not detected, Influenza Type B (PCR) Not detected, M. pneumoniae (PCR) Not detected, Parainfluenza 1 (PCR) Not detected, Parainfluenza 2 (PCR) Not detected, Parainfluenza 3 (PCR) Not detected, Parainfluenza 4 (PCR) Not detected, RSV (PCR) Not detected, Entero/Rhino (PCR) Not detected 12/15/24 18:45 12/15/24 18:45 Response Orders (Tests/Meds): ED MEDICATIONS Generic Name Dose Route Start Last Admin Trade Name Freq PRN Reason Stop Dose Admin Hydrocodone Bitart/Acetaminophen 1 tab 12/15/24 21:14 Hydrocodone/Apap 5/325 Mg Tablet PO 01/14/25 21:13 Q6HP PRN Moderate Pain (4-6) Diltiazem HCl 100 mg/ Sodium 100 mls @ 10 mls/hr 12/15/24 20:50 12/15/24 22:35 Chloride IV 01/14/25 20:49 15 mg/hr .Q10H TY 15 mls/hr Protocol Titration 10 MG/HR Phenylephrine HCl 10 mg/ 251 mls @ 60.24 mls/hr 12/15/24 21:18 Sodium Chloride IV 01/14/25 21:17 .Q4H10M TY Protocol 40 MCG/MIN Insulin Human Lispro 0 unit 12/16/24 06:00 Humalog 100 Units/Ml 10ml Vial (Ssi) SUBCUT 01/15/25 05:59 [facility] Protocol Morphine Sulfate 2 mg 12/15/24 21:14 Morphine 2mg/Ml Syringe IV 01/14/25 21:13 Q2HP PRN Severe Pain (7-10) Sodium Chloride 10 ml 12/15/24 20:22 12/15/24 20:22 Sodium Chloride 0.9% 10ml Syr (Rad Only) IV 01/14/25 20:21 10 ml NEEDED PRN Administration Maintain IV Site Sodium Chloride 10 ml 12/15/24 21:14 Sodium Chloride 0.9% 10ml Flush Syringe IV 01/14/25 21:13 NEEDED PRN Maintain IV Site Discontinued Medications Generic Name Dose Route Start Last Admin Trade Name Freq PRN Reason Stop Dose Admin Aspirin 325 mg 12/15/24 19:58 12/15/24 20:00 Aspirin 325mg Tablet PO 12/15/24 19:59 325 mg ONCE ONE Administration Diltiazem HCl 10 mg 12/15/24 20:46 12/15/24 20:59 Diltiazem 25mg/5ml Vial IV 12/15/24 20:47 10 mg ONCE ONE Administration Iopamidol 75 ml 12/15/24 20:20 12/15/24 20:21 Iopamidol-370 (76%);100ml Bottle IV 12/15/24 20:21 75 ml ONCE ONE Administration Morphine Sulfate 4 mg 12/15/24 19:42 12/15/24 19:54 Morphine 4mg/Ml Syringe IV 12/15/24 19:43 4 mg ONCE ONE Administration Ondansetron HCl 4 mg 12/15/24 19:42 12/15/24 19:54 Ondansetron 4mg/2ml Vial IV 12/15/24 19:43 4 mg ONCE ONE Administration Sodium Chloride 50 ml 12/15/24 20:20 12/15/24 20:21 0.9 % Sodium Chloride 50 Ml Vial IV 12/15/24 20:21 50 ml ONCE ONE Administration ORDERS Category Date Time Status CT angio chest PE protocol Stat Cat Scan 12/15/24 18:58 Completed Consult to Cardiology [CONS] Routine Cons 12/15/24 21:14 Active CA echo limited Routine Exams 12/16/24 09:00 Ordered POCUS Point of Care (ER Only) Stat Exams 12/15/24 20:17 Taken Acetone, Serum (Rapid) Stat Lab 12/15/24 18:45 Completed BNP [NT Pro Brain Natriuretic Pep.] Stat Lab 12/15/24 18:45 Completed Basic Metabolic Panel AMLAB Lab 12/16/24 06:00 Ordered Basic Metabolic Panel AMLAB Lab 12/17/24 06:00 Ordered Basic Metabolic Panel AMLAB Lab 12/18/24 06:00 Ordered Basic Metabolic Panel AMLAB Lab 12/19/24 06:00 Ordered Basic Metabolic Panel AMLAB Lab 12/20/24 06:00 Ordered Basic Metabolic Panel AMLAB Lab 12/21/24 06:00 Ordered Basic Metabolic Panel AMLAB Lab 12/22/24 06:00 Ordered Basic Metabolic Panel AMLAB Lab 12/23/24 06:00 Ordered Basic Metabolic Panel AMLAB Lab 12/24/24 06:00 Ordered Basic Metabolic Panel AMLAB Lab 12/25/24 06:00 Ordered C-Reactive Protein Stat Lab 12/15/24 18:45 Completed Complete Blood Count Auto Diff Stat Lab 12/15/24 18:45 Completed Comprehensive Metabolic Panel Stat Lab 12/15/24 18:45 Completed Creatine Kinase Stat Lab 12/15/24 18:45 Completed Erythrocyte Sedimentation Rate Stat Lab 12/15/24 18:45 Completed Full Resp Panel w/COVID ([facility]) Routine Lab 12/15/24 19:05 Completed Lactic Acid Stat Lab 12/15/24 18:45 Completed Prothrombin Time INR Stat Lab 12/15/24 18:45 Completed Trop I [Troponin I] Stat Lab 12/15/24 18:45 Completed Troponin I Q3H Lab 12/15/24 22:38 Completed Troponin I Q3H Lab 12/16/24 01:00 Ordered Urinalysis and Microscopic Routine Lab 12/15/24 18:56 Ordered Blood Culture Stat Micro 12/15/24 19:20 Received VBG [Venous Blood Gas] Stat RT 12/15/24 18:45 Completed MDM Narrative Medical Decision Narrative: patient is a 63-year-old male presenting to the emergency department for evaluation of shortness of breath, chest pain, weakness. Patient arrives and flutter and tachypneic with O2 at 85% upon arrival, afebrile. Differential diagnosis includes worsening PE, weakness, infection. Workup will be conducted with hematologic labs, specific imaging. Initial inventions include crystalloid bolus, analgesics. 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 Patient had a BUN of 32, creatinine of 1.3 and a GFR of 55. CRP was 65, BNP was 2590. Patient had a clean respiratory panel. Patient's imaging has not reported back by radiology but the preliminary report read by myself and Dr. Hawley showed no obvious PE but does show pericardial effusion. We did a bedside echo, Dr. Hawley and I were both present during this and we both saw a small pericardial effusion. I sent these images to Dr. Merchant and I talked to Dr. Merchant on the phone about this patient. Dr. Merchant wants to admit patient and repeat echo and possibly tap him tomorrow. He wants me to give diltiazem 10 bolus and put him on a IV of 10 an hour. I talked to Jerry the hospitalist who accepts the patient to the ICU.. Still waiting for the imaging to come back per radiology. I was 93/58 with Mayur and he wants me to start a phenylephrine drip which I did put the order in for this. Dr. Hawley and I have worked closely with this patient for the duration of his ER visit. <Lucien Hawley, - Last Filed: 12/15/24 23:45> Medical Records Medical records reviewed: Yes I reviewed the patient's medical records. Vital Signs Vital Signs: 12/15/24 18:42 12/15/24 18:51 12/15/24 19:00 Temperature 98.4 F Temperature Source Oral Pulse Rate 61 74 Pulse Rate [Right] 123 H Respiratory Rate 34 H 16 Blood Pressure 119/76 113/66 Blood Pressure [Right Arm] 119/76 Blood Pressure Mean [Right Arm] 90 Blood Pressure Position 02 Sat by Pulse Oximetry 92 L 85 L 90 L Oxygen Delivery Method Nasal Cannula Nasal Cannula Nasal Cannula Oxygen Flow Rate (LPM) 3 2 4 12/15/24 19:31 12/15/24 20:01 12/15/24 20:26 Temperature Temperature Source Pulse Rate 63 64 33 L Pulse Rate [Right] Respiratory Rate 23 16 22 Blood Pressure 121/55 L 81/41 L 103/73 L Blood Pressure [Right Arm] Blood Pressure Mean [Right Arm] Blood Pressure Position 02 Sat by Pulse Oximetry 94 L 93 L Oxygen Delivery Method Nasal Cannula Nasal Cannula Nasal Cannula Oxygen Flow Rate (LPM) 4 4 4 12/15/24 20:30 12/15/24 20:42 12/15/24 20:59 Temperature Temperature Source Pulse Rate 65 Pulse Rate [Right] Respiratory Rate 18 16 20 Blood Pressure 106/77 L 93/58 L 108/83 L Blood Pressure [Right Arm] Blood Pressure Mean [Right Arm] Blood Pressure Position 02 Sat by Pulse Oximetry 91 L Oxygen Delivery Method Nasal Cannula Nasal Cannula Nasal Cannula Oxygen Flow Rate (LPM) 4 4 4 12/15/24 21:00 12/15/24 21:03 12/15/24 21:04 Temperature Temperature Source Pulse Rate 67 121 H 74 Pulse Rate [Right] Respiratory Rate 17 23 24 Blood Pressure 111/76 106/78 L 122/80 Blood Pressure [Right Arm] Blood Pressure Mean [Right Arm] Blood Pressure Position 02 Sat by Pulse Oximetry 91 L 90 L 89 L Oxygen Delivery Method Nasal Cannula Nasal Cannula Nasal Cannula Oxygen Flow Rate (LPM) 4 4 4 12/15/24 21:13 12/15/24 21:14 12/15/24 21:19 Temperature Temperature Source Pulse Rate 119 H 69 65 Pulse Rate [Right] Respiratory Rate 36 H 19 19 Blood Pressure 106/76 L 107/77 L 114/88 Blood Pressure [Right Arm] Blood Pressure Mean [Right Arm] Blood Pressure Position 02 Sat by Pulse Oximetry 89 L 90 L 85 L Oxygen Delivery Method Nasal Cannula Oxygen Flow Rate (LPM) 4 12/15/24 21:22 12/15/24 21:26 12/15/24 21:47 Temperature 97.8 F Temperature Source Pulse Rate 117 H 68 104 H Pulse Rate [Right] Respiratory Rate 16 17 28 H Blood Pressure 110/90 133/67 121/80 Blood Pressure [Right Arm] Blood Pressure Mean [Right Arm] Blood Pressure Position Supine 02 Sat by Pulse Oximetry 87 L 92 L Oxygen Delivery Method Non-Rebreather Non-Rebreather Non-Rebreather Oxygen Flow Rate (LPM) 15 15 15 Lab Data Labs: Lab Results 12/15/24 18:45: WBC 41.5 H* D, RBC 3.96 L, Hgb 11.5 L, Hct 37.6 L, MCV 94.9 H, MCH 29.0, MCHC 30.6 L, RDW 19.4 H, Plt Count 184 D, MPV 10.9 H, Neut % (Auto) 74.5, Lymph % (Auto) 4.3 L, Calvert % (Auto) 7.9, Eos % (Auto) 0.0 L, Baso % (Auto) 0.4, Neut # (Auto) 30.9 H, Lymph # (Auto) 1.8, Calvert # (Auto) 3.3 H, Eos # (Auto) 0.0, Baso # (Auto) 0.2, Total Counted 100, Neutrophils % (Manual) 75, Lymphocytes % (Manual) 15, Monocytes % (Manual) 10 H, Platelet Estimate Normal, Giant Platelets 1+, RBC Morphology Normal, Hypochromasia 1+, Anisocytosis 1+, ESR 18, PT 12.6 H, INR 1.15 H, VBG pH 7.34, VBG pCO2 46.1, VBG pO2 27.9 L, VBG HCO3 24.5, VBG Total CO2 25.9, VBG O2 Saturation 46.8 L, VBG Base Excess -1.2, V BG Lactic Acid 2.6 H, Sodium 139, Potassium 5.1, Chloride 101, Carbon Dioxide 24, Anion Gap 19.1 H, BUN 32 H D, Creatinine 1.30 H, Estimated Creat Clear 62, E stimated GFR 55 L, Est GFR ( Amer) 67, Glucose 234 H, Lactate 1.5, Calcium 9.7, Total Bilirubin 0.9, AST 26 D, ALT 33 D, Alkaline Phosphatase 105, Total Creatine Kinase < 20 L, Troponin I < 0.01, C-Reactive Protein 65.4 H, NT-Pro-B Natriuret Pep 2590 H, Total Protein 7.1, Albumin 4.0, Globulin 3.1, Albumin/Globulin Ratio 1.3, Acetone Level None detected 12/15/24 19:05: Chlamy pneumoniae PCR Not detected, Adenovirus (PCR) Not detected, B. pertussis DNA (PCR) Not detected, Coronavirus OC43 (PCR) Not detected, Coronavirus HKU1 (PCR) Not detected, Coronavirus 229E (PCR) Not detected, SARS-CoV-2 (PCR) Not detected, Coronavirus NL63 (PCR) Not detected, Human Metapneumovir PCR Not detected, Influenza A (H1) PCR Not detected, Influ A (H1N1/09) PCR Not detected, Influenza A (H3) PCR Not detected, Influenza Type A (PCR) Not detected, Influenza Type B (PCR) Not detected, M. pneumoniae (PCR) Not detected, Parainfluenza 1 (PCR) Not detected, Parainfluenza 2 (PCR) Not detected, Parainfluenza 3 (PCR) Not detected, Parainfluenza 4 (PCR) Not detected, RSV (PCR) Not detected, Entero/Rhino (PCR) Not detected Response Orders (Tests/Meds): ED MEDICATIONS Generic Name Dose Route Start Last Admin Trade Name Freq PRN Reason Stop Dose Admin Hydrocodone Bitart/Acetaminophen 1 tab 12/15/24 21:14 Hydrocodone/Apap 5/325 Mg Tablet PO 01/14/25 21:13 Q6HP PRN Moderate Pain (4-6) Diltiazem HCl 100 mg/ Sodium 100 mls @ 10 mls/hr 12/15/24 20:50 12/15/24 22:35 Chloride IV 01/14/25 20:49 15 mg/hr .Q10H TY 15 mls/hr Protocol Titration 10 MG/HR Phenylephrine HCl 10 mg/ 251 mls @ 60.24 mls/hr 12/15/24 21:18 Sodium Chloride IV 01/14/25 21:17 .Q4H10M TY Protocol 40 MCG/MIN Insulin Human Lispro 0 unit 12/16/24 06:00 Humalog 100 Units/Ml 10ml Vial (Ssi) SUBCUT 01/15/25 05:59 [facility] Protocol Morphine Sulfate 2 mg 12/15/24 21:14 Morphine 2mg/Ml Syringe IV 01/14/25 21:13 Q2HP PRN Severe Pain (7-10) Sodium Chloride 10 ml 10/09/25 20:22 12/15/24 20:22 Sodium Chloride 0.9% 10ml Syr (Rad Only) IV 01/14/25 20:21 10 ml NEEDED PRN Administration Maintain IV Site Sodium Chloride 10 ml 12/15/24 21:14 Sodium Chloride 0.9% 10ml Flush Syringe IV 01/14/25 21:13 NEEDED PRN Maintain IV Site Discontinued Medications Generic Name Dose Route Start Last Admin Trade Name Samir PRN Reason Stop Dose Admin Aspirin 325 mg 12/15/24 19:58 12/15/24 20:00 Aspirin 325mg Tablet PO 12/15/24 19:59 325 mg ONCE ONE Administration Diltiazem HCl 10 mg 12/15/24 20:46 12/15/24 20:59 Diltiazem 25mg/5ml Vial IV 12/15/24 20:47 10 mg ONCE ONE Administration Iopamidol 75 ml 12/15/24 20:20 12/15/24 20:21 Iopamidol-370 (76%);100ml Bottle IV 12/15/24 20:21 75 ml ONCE ONE Administration Morphine Sulfate 4 mg 12/15/24 19:42 12/15/24 19:54 Morphine 4mg/Ml Syringe IV 12/15/24 19:43 4 mg ONCE ONE Administration Ondansetron HCl 4 mg 12/15/24 19:42 12/15/24 19:54 Ondansetron 4mg/2ml Vial IV 12/15/24 19:43 4 mg ONCE ONE Administration Sodium Chloride 50 ml 12/15/24 20:20 12/15/24 20:21 0.9 % Sodium Chloride 50 Ml Vial IV 12/15/24 20:21 50 ml ONCE ONE Administration ORDERS Category Date Time Status CT angio chest PE protocol Stat Cat Scan 12/15/24 18:58 Completed Consult to Cardiology [CONS] Routine Cons 12/15/24 21:14 Active CA echo limited Routine Exams 12/16/24 09:00 Ordered POCUS Point of Care (ER Only) Stat Exams 12/15/24 20:17 Taken Acetone, Serum (Rapid) Stat Lab 12/15/24 18:45 Completed BNP [NT Pro Brain Natriuretic Pep.] Stat Lab 12/15/24 18:45 Completed Basic Metabolic Panel AMLAB Lab 12/16/24 06:00 Ordered Basic Metabolic Panel AMLAB Lab 12/17/24 06:00 Ordered Basic Metabolic Panel AMLAB Lab 12/18/24 06:00 Ordered Basic Metabolic Panel AMLAB Lab 12/19/24 06:00 Ordered Basic Metabolic Panel AMLAB Lab 12/20/24 06:00 Ordered Basic Metabolic Panel AMLAB Lab 12/21/24 06:00 Ordered Basic Metabolic Panel AMLAB Lab 12/22/24 06:00 Ordered Basic Metabolic Panel AMLAB Lab 12/23/24 06:00 Ordered Basic Metabolic Panel AMLAB Lab 12/24/24 06:00 Ordered Basic Metabolic Panel AMLAB Lab 12/25/24 06:00 Ordered C-Reactive Protein Stat Lab 12/15/24 18:45 Completed Complete Blood Count Auto Diff Stat Lab 12/15/24 18:45 Completed Comprehensive Metabolic Panel Stat Lab 12/15/24 18:45 Completed Creatine Kinase Stat Lab 12/15/24 18:45 Completed Erythrocyte Sedimentation Rate Stat Lab 12/15/24 18:45 Completed Full Resp Panel w/COVID ([facility]) Routine Lab 12/15/24 19:05 Completed Lactic Acid Stat Lab 12/15/24 18:45 Completed Prothrombin Time INR Stat Lab 12/15/24 18:45 Completed Trop I [Troponin I] Stat Lab 12/15/24 18:45 Completed Troponin I Q3H Lab 12/15/24 22:38 Completed Troponin I Q3H Lab 12/16/24 01:00 Ordered Urinalysis and Microscopic Routine Lab 12/15/24 18:56 Ordered Blood Culture Stat Micro 12/15/24 19:20 Received VBG [Venous Blood Gas] Stat RT 12/15/24 18:45 Completed ECG Data Tracing #1: Attestation: I reviewed this ECG and interpreted as documented below: ECG Narrative: EKG personally interpreted by me demonstrates atrial flutter with variable block at a rate of 120 bpm, normal axis, narrow QRS, no QTc prolongation. No STEMI. MDM Narrative Medical Decision Narrative: patient is a 63-year-old male presenting to the emergency department for evaluation of shortness of breath, chest pain, weakness. Patient arrives and flutter and tachypneic with O2 at 85% upon arrival, afebrile. Differential diagnosis includes worsening PE, weakness, infection. Workup will be conducted with hematologic labs, specific imaging. Initial inventions include crystalloid bolus, analgesics. 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 Patient had a BUN of 32, creatinine of 1.3 and a GFR of 55. CRP was 65, BNP was 2590. Patient had a clean respiratory panel. Patient's imaging has not reported back by radiology but the preliminary report read by myself and Dr. Hawley showed no obvious PE but does show pericardial effusion. We did a bedside echo, Dr. Hawley and I were both present during this and we both saw a small pericardial effusion. I sent these images to Dr. Merchant and I talked to Dr. Merchant on the phone about this patient. Dr. Merchant wants to admit patient and repeat echo and possibly tap him tomorrow. He wants me to give diltiazem 10 bolus and put him on a IV of 10 an hour. I talked to Jerry the hospitalist who accepts the patient to the ICU.. Still waiting for the imaging to come back per radiology. I was with Mayur and he wants me to start a phenylephrine drip which I did put the order in for this. Dr. Hawley and I have worked closely with this patient for the duration of his ER visit. I was consulted by the NALDO, and we discussed the complexity of problems being addressed. I approved the treatment and management plan for this patient's care in the emergency department, thus performing a substantive portion of the medical decision making. I independently evaluated this patient and contributed to a major portion of their care while here in the emergency department. I have also independently evaluated the patient and obtained collateral history. This gentleman is 63 years old, with a past medical history of CML, COPD on 2 L at home, and hypertension, who presented to the emergency department on 12/10/2024 for acute shortness of breath and was in atrial fibrillation with RVR with a rate in the 130s. He was subsequently diagnosed with a right sided pulmonary embolism as well as a pericardial effusion. This was potentially due to his underlying CML. The patient was stabilized on Eliquis and was ultimately discharged home. Today he states that he became acutely dyspneic and this has worsened significantly since onset. He also feels palpitations and a sensation of discomfort in his chest. On arrival to the emergency department we obtained an EKG which showed that the patient was in probable atrial flutter with variable block with rapid ventricular response. My initial suspicion was that his atrial flutter may have been compensatory for underlying heart strain from potentially worsening pericardial effusion versus worsening pulmonary embolism burden. We connected the patient to the monitor for close hemodynamic monitoring and obtained hematologic labs as well as a CT PE study. On my independent interpretation of this PE study the patient has a significant worsening of his pericardial effusion. At this point we performed a bedside POCUS assessment which showed that the patient had mass effect on his ventricular system from the pericardial effusion. The windows are hard to completely discern if there is true diastolic right ventricular collapse to suggest true echocardiographic tamponade physiology. However, the patient's blood pressure has remained normal so it is unlikely that he is experiencing overt clinical tamponade. We discussed this case directly Dr. Merchant and he ultimately recommended a 10 mg bolus of diltiazem followed by a diltiazem drip and admission to the internal medicine service for pericardiocentesis tomorrow. I had a long conversation with the patient at the bedside and discussed his CODE STATUS. Patient tells me that he is full code and would like to pursue chest compressions and intubation if necessary. We also discussed the potential for necessity of crash pericardiocentesis before tomorrow morning. Hopefully this will not occur, but if it does the patient has acknowledged and verbalized understanding of risk and benefits and would like for us to proceed with that procedure. Patient was placed into a critical room and was monitored with q1 minute blood pressures. We administered a diltiazem bolus and had norepinephrine present at the bedside in the event that he developed hypotension. Diltiazem was administered successfully and the patient's MAP dropped to 67 but did not ever drop below 65. He did develop some worsening hypoxia and required nonrebreather. We ultimately had an interactive discussion with the internal medicine service who admitted the patient to the ICU with plans to have Dr. Merchant evaluate his pericardial effusion for pericardiocentesis in the morning. Patient was admitted in critical condition. Lucien Hawley DO
[2024-12-15 19:29] LABS: Creatine Kinase < 20 U/L (55-170); NT Pro Brain Natriuretic Pep. 2590 pg/mL (0-125)
[2024-12-15 19:33] LABS: Troponin I < 0.01 ng/ml (0.00-0.034)
[2024-12-15 19:38] LABS: Total Cells Counted 100
[2024-12-15 19:39] LABS: Anisocytosis 1+; Hypochromasia 1+; RBC Morphology Normal
[2024-12-15 19:40] LABS: Giant Platelets 1+
--- NOTE | 2024-12-15 19:46 | ECG_ITS ---
APPROVED REPORT Exam: Resting ECG HR:124 bpm ECG Measurements Heart Rate 124 AXES QRSd 89 QRS 59 QT 288 T 24 QTc 361 Conclusion Atrial flutter with variable block Rapid ventricular response No STEMI Electronically signed by : Lucien Hawley, 12/16/2024 00:27:29
[2024-12-15] MEDS: MORPHINE 4MG/ML SYRINGE 4 MG IV (19:54)
[2024-12-15] MEDS: ONDANSETRON 4MG/2ML VIAL 4 MG IV (19:54)
[2024-12-15] MEDS: ASPIRIN 325MG TABLET 325 MG PO (20:00)
[2024-12-15] MEDS: 0.9 % SODIUM CHLORIDE 50 ML VIAL IV (20:21)
[2024-12-15] MEDS: IOPAMIDOL-370 (76%);100ML BOTTLE 75 ML IV (20:21)
[2024-12-15] MEDS: SODIUM CHLORIDE 0.9% 10ML SYR (RAD ONLY) 10 ML IV (20:22)
--- NOTE | 2024-12-15 20:44 | PC.NURSE ---
Decision to move patient to room 4.
--- NOTE | 2024-12-15 20:50 | PC.NURSE ---
pt placed on crash cart pads for precautionary measures.
--- NOTE | 2024-12-15 21:05 | PC.NURSE ---
Admitting provider at the bedside at this time
--- NOTE | 2024-12-15 21:09 | PC.NURSE ---
Attending ED provider at the bedside
--- NOTE | 2024-12-15 21:18 | PC.NURSE ---
Per ED provider levo to be started at MAP below 60
--- NOTE | 2024-12-15 21:21 | P.HP_ITS ---
<Statement entered by Thad Hair MD - 12/16/24 11:25> Agree with plan of care as outlined by the DESK EDITOR. History of Present Illness *Admission Date: 12/15/24 *Reason for visit:: Shortness of breath *History of present illness: This is a 63-year-old male who has a past medical history significant for displaced fracture of the clavicle, BPH, CML, asthma, COPD, home O2 dependency of 2 L, allergic rhinitis, hypertension, and pericardial effusion who presents with worsening shortness of breath. Due to patient's symptoms, he presented to the emergency room for evaluation. While in the emergency room, patient was found to be in atrial flutter with 2:1 ratio and heart rates in the 130s. CTA of the chest revealed moderate left pleural effusion and pericardial effusion-this is pending final read by the radiologist. Patient's case was discussed with on-call track hoe operator who recommended admission. Due to these recommendation, hospital medicine was consulted for further management. During my evaluation of patient, patient states he was recently discharged home due to similar symptoms. He was encouraged to return to the emergency room if his shortness of air worsen. Patient states that his shortness of air started this morning and progressively got worse throughout the day. He reports that he is currently prescribed Eliquis and management of pulmonary embolism with his last dose being this morning., Patient has a health history of CLL and is currently prescribed hydroxyurea (has been managed by Dr. Romo). Patient states he does have some associated chest pain that is across the chest without radiation, 6 out of 10, without any diaphoresis, coupled with some shortness of breath, and is intermittent. EKG reviewed by me shows an atrial flutter with 2:1 ratio, QTc of 364, normal axis, and no ST segment elevation or deviation consistent with STEMI. He reports having increased swelling to his bilateral lower extremities. He is currently denying any lightheadedness, dizziness, fever, chills, rigors, nausea, vomiting, or diarrhea. Additional pertinent vitals obtained include a white blood cell count of 41.5, red blood cell count of 3.96, hemoglobin 9.5, hematocrit 37.6, 1.15, BUN of 32, creatinine 1.30, GFR 55, blood glucose of 234, C-reactive protein of 65.4, and BNP of 2590. [facility] Disclaimer: The information contained in this section may have been updated after the patient was seen, as this information can be updated by other users. Medical History (Updated 12/15/24 @ 21:31 by Jerry Alexis APRN) Displaced fracture of clavicle BPH (benign prostatic hyperplasia) Type 2 diabetes mellitus Chronic leukemia Asthma COPD (chronic obstructive pulmonary disease) Allergic rhinitis Hypertension Surgical History H/O hernia repair H/O lateral meniscus repair of right knee H/O lateral meniscus repair of left knee History of cholecystectomy Family History Mother Cancer Social History (Updated 12/10/24 @ 15:45 by Renata Maciel RN) Smoking Status: Never smoker alcohol intake: never current occupational status: retired Travel in the last 8 weeks?: None Have you lived/traveled outside [place] in past 30 days?: No Contact w/someone who lives/traveled outside US past 30 days?: No Exposure to someone with infectious disease in past 14 days?: No Do you have a fever (greater than 100.4 F or 38 C)?: No Have you tested positive for COVID-19?: No Exposed to someone with COVID-19 in past 14 days?: No Do you have a sore throat?: No Do you have a cough?: No Do you have any weakness?: No Do you have any diarrhea?: No Are you experiencing any unusual bleeding?: No Do you have any muscle aches/pain?: No Do you have any abdominal pain?: No Are you experiencing loss of taste or smell?: No Other Medical History Have you received the Flu Vaccine for this season: No Have you received the Pneumonia Vaccine: No Review of Systems Review of Systems Review of systems:: pertinent systems reviewed and negative unless documented below Constitutional Constitutional: Reports fatigue and Reports weakness Eyes Eyes: Reports system reviewed and no additional complaints, except as documented ENT Ears, Nose, Mouth, and Throat: Reports system reviewed and no additional complaints, except as documented *Cardiovascular Cardiovascular: Reports chest pain, Reports chest pain at rest, Reports dyspnea, Reports dyspnea on exertion, Reports edema, Reports irregular heart rhythm, Reports orthopnea, Reports pedal edema and Reports rapid heart rate *Respiratory Respiratory: Reports dyspnea and Reports dyspnea on exertion *Gastrointestinal Gastrointestinal: Reports system reviewed and no additional complaints, except as documented *Genitourinary Genitourinary: Reports system reviewed and no additional complaints, except as documented *Musculoskeletal Musculoskeletal: Reports muscle weakness Integumentary/Breasts Skin/Breast: Reports system reviewed and no additional complaints, except as documented *Neurologic Neurologic: Reports weakness Psychiatric Psychiatric: Reports system reviewed and no additional complaints, except as documented Endocrine Endocrine: Reports fatigue Hematologic/Lymphatic Hematologic/Lymphatic: Reports system reviewed and no additional complaints, except as documented Allergic/Immunologic Allergic/Immunologic: Reports system reviewed and no additional complaints, except as documented Meds Home Medications and Allergies Home Medications ?Medication ?Instructions ?Recorded ?Confirmed ?Type albuterol sulfate 90 mcg/actuation 2 puff inhalation Q 6HP PRN 09/13/24 12/11/24 History aerosol inhaler Shortness Of Breath glimepiride 2 mg tablet 2 mg PO DAILY 09/13/2412/11 History hydroxyurea 500 mg capsule 500 mg PO DAILY 09/13/24 History tamsulosin 0.4 mg capsule 0.4 mg PO DAILY 09/13/2407/01 History formoterol fumarate 20 mcg/2 mL 2 ml inhalation BID 12/11/24 History solution for nebulization apixaban 5 mg tablet (Eliquis) 5 mg PO BID #60 tabs Rx bisoprolol fumarate 5 mg tablet 5 mg PO BID #60 tabs 1 Rx diltiazem HCl 240 mg 240 mg PO DAILY #30 caps 10/31 Rx capsule,extended release 24 hr New Prescriptions to Start Prescriptions: Allergies Allergy/AdvReac Type Severity Reaction Status Date / Time codeine Allergy Mild Verified 09/13/24 11:26 Exam Data for Last 24 hours Vital signs and Labs for Last 24 Hours: Temp Pulse Resp BP Pulse Ox O2 Del Method O2 Flow Rate 98.4 F 74 24 122/80 89 L Nasal Cannula 4 12/15/24 18:51 12/15/24 21:04 12/15/24 21:04 12/15/24 21:04 12/15/24 21:04 12/15/24 21:04 12/15/24 21:04 Laboratory Results - last 24 hr 12/15/24 18:45: WBC 41.5 H* D, RBC 3.96 L, Hgb 11.5 L, Hct 37.6 L, MCV 94.9 H, MCH 29.0, MCHC 30.6 L, RDW 19.4 H, Plt Count 184 D, MPV 10.9 H, Neut % (Auto) 74.5, Lymph % (Auto) 4.3 L, [place] % (Auto) 7.9, Eos % (Auto) 0.0 L, Baso % (Auto) 0.4, Neut # (Auto) 30.9 H, Lymph # (Auto) 1.8, [place] # (Auto) 3.3 H, Eos # (Auto) 0.0, Baso # (Auto) 0.2, Total Counted 100, Neutrophils % (Manual) 75, Lymphocytes % (Manual) 15, Monocytes % (Manual) 10 H, Platelet Estimate Normal, Giant Platelets 1+, RBC Morphology Normal, Hypochromasia 1+, Anisocytosis 1+, ESR 18, PT 12.6 H, INR 1.15 H, VBG pH 7.34, VBG pCO2 46.1, VBG pO2 27.9 L, VBG HCO3 24.5, VBG Total CO2 25.9, VBG O2 Saturation 46.8 L, VBG Base Excess -1.2, VBG Lactic Acid 2.6 H, Sodium 139, Potassium 5.1, Chloride 101, Carbon Dioxide 24, Anion Gap 19.1 H, BUN 32 H D, Creatinine 1.30 H, Estimated Creat Clear 62, Estimated GFR 55 L, Est GFR ( Amer) 67, Glucose 234 H, Lactate 1.5, Calcium 9.7, Total Bilirubin 0.9, AST 26 D, ALT 33 D, Alkaline Phosphatase 105, Total Creatine Kinase < 20 L, Troponin I < 0.01, C-Reactive Protein 65.4 H, NT-Pro-B Natriuret Pep 2590 H, Total Protein 7.1, Albumin 4.0, Globulin 3.1, Albumin/Globulin Ratio 1.3, Acetone Level None detected 12/15/24 19:05: Chlamy pneumoniae PCR Not detected, Adenovirus (PCR) Not detected, B. pertussis DNA (PCR) Not detected, Coronavirus OC43 (PCR) Not detected, Coronavirus HKU1 (PCR) Not detected, Coronavirus 229E (PCR) Not detected, SARS-CoV-2 (PCR) Not detected, Coronavirus NL63 (PCR) Not detected, Human Metapneumovir PCR Not detected, Influenza A (H1) PCR Not detected, Influ A (H1N1/09) PCR Not detected, Influenza A (H3) PCR Not detected, Influenza Type A (PCR) Not detected, Influenza Type B (PCR) Not detected, M. pneumoniae (PCR) Not detected, Parainfluenza 1 (PCR) Not detected, Parainfluenza 2 (PCR) Not detected, Parainfluenza 3 (PCR) Not detected, Parainfluenza 4 (PCR) Not detected, RSV (PCR) Not detected, Entero/Rhino (PCR) Not detected I & O for Last 24 hours: Intake & Output 12/12/24 12/13/24 12/14/24 12/15/24 23:59 23:59 23:59 23:59 Intake Total 2.5 / 2.5 Balance 2.5 / 2.5 Weight 158.757 kg Constitutional Constitutional: moderate distress and morbidly obese *Routine HEENT Exam Head: Present normocephalic and atraumatic Eye: Present EOMI ENT: Present mucous membranes moist *Routine Neck Exam Neck: Present supple, full ROM and trachea midline *Routine Respiratory Exam Respiratory: Present decreased breath sounds, respiratory distress, wheezes, crackles, diminished air movement and symmetric chest movement *Routine Cardiovascular Exam Cardiovascular: Present Normal S1, Normal S2 and tachycardia *Routine Abdominal Exam Abdominal: Present soft and normoactive bowel sounds *Routine Rectal Exam Rectal:: deferred *Routine Genitalia Exam Genitalia:: deferred *Routine Extremities Exam Extremities: Present edema, full ROM, pulses intact and normal capillary refill Routine Back/Spine/Pelvis Exam Back/Spine: Present full ROM *Routine Skin Exam Skin: Present intact, dry and warm *Routine Neurological Exam Neurological: Present alert, oriented X3, CN II-XII intact and normal speech Routine Psychiatric Exam Psychiatric: Present normal affect, normal thought process, cooperative, good insight and good judgment H&P: Result Impressions 63-year-old male who has known pericardial effusion presents with worsening shortness of air and new development of left lower lung effusion coupled with atrial flutter (patient was in atrial fibrillation on last admission) Assessment and Plan *Assessment and plan (1) Atrial flutter: Status: Acute Qualifiers: Atrial flutter type: unspecified Qualified Code(s): I48.92 - Unspecified atrial flutter Category: Medical Code(s): I48.92 - Unspecified atrial flutter (2) Acute pericardial effusion: Status: Acute Category: Medical Code(s): I30.9 - Acute pericarditis, unspecified (3) Pleural effusion: Status: Acute Category: Medical Code(s): J90 - Pleural effusion, not elsewhere classified (4) Pulmonary embolism: Status: Acute Qualifiers: Pulmonary embolism type: multiple subsegmental (without acute cor pulmonale) Qualified Code(s): I26.94 - Multiple subsegmental thrombotic pulmonary emboli without acute cor pulmonale Category: Medical Code(s): I26.99 - Other pulmonary embolism without acute cor pulmonale (5) CMML (chronic myelomonocytic leukemia): Status: Acute Qualifiers: Leukemia Active/Remission status: without remission Qualified Code(s): C93.10 - Chronic myelomonocytic leukemia not having achieved remission Category: Medical Code(s): C93.10 - Chronic myelomonocytic leukemia not having achieved remission (6) Leukocytosis: Status: Acute Qualifiers: Leukocytosis type: unspecified Qualified Code(s): D72.829 - Elevated white blood cell count, unspecified Category: Medical Code(s): D72.829 - Elevated white blood cell count, unspecified (7) Coagulopathy: Status: Acute Category: Medical Code(s): D68.9 - Coagulation defect, unspecified (8) Hyperglycemia due to type 2 diabetes mellitus: Status: Acute Qualifiers: Diabetes mellitus terminal superintendent insulin use: unspecified terminal superintendent insulin use status Qualified Code(s): E11.65 - Type 2 diabetes mellitus with hy perglycemia Category: Medical Code(s): E11.65 - Type 2 diabetes mellitus with hyperglycemia (9) Acute kidney injury: Status: Acute Category: Medical Code(s): N17.9 - Acute kidney failure, unspecified (10) Elevated brain natriuretic peptide (BNP) level: Status: Acute Category: Medical Code(s): R79.89 - Other specified abnormal findings of blood chemistry (11) Acute on chronic hypoxic respiratory failure: Status: Acute Category: Medical Code(s): J96.21 - Acute and chronic respiratory failure with hypoxia Plan Assessment: Atrial fibrillation/atrial flutter Pulmonary embolism - Patient has been prescribed Eliquis for management of irregular heart rate and pulmonary embolism - I spoke with cardiology who recommended patient maintain Cardizem drip and if patient has episodes of hypotension to start Elvis-Synephrine - Will follow these recommendations Acute pericardial effusion Pleural effusion Elevated BNP Acute on chronic hypoxic respiratory failure - Currently, cardiology is recommending no diuretics - Will make patient n.p.o. after midnight for possible pericardiocentesis - Will follow the recommendations of cardiology - Provide supplemental oxygen to maintain oxygen saturation greater 92%-May use high flow nasal cannula - Will obtain limited 2D echo -Last 2D echo revealed an EF of 55% with right end-diastolic pressures of 35-40 CML Leukocytosis: Most likely proliferative -Will continue hydroxyurea Acute kidney injury -This is mild most likely prerenal in the setting of hypervolemia - Most likely due to intravascular volume loss - Will monitor patient's creatinine daily - If worsens will obtain urine studies and renal ultrasound - Will avoid nephrotoxic drugs Coagulopathy - May be due to DOAC therapy Hyperglycemia -Most likely in the setting of type 2 diabetes - Sliding scale insulin AC and at bedtime with moderate sliding scale coverage Plan: Admit patient to the intensive care unit Activity as tolerated Cardiac monitoring SCD the bilateral lower extremity Saline lock Vital signs every hour Consult cardiology Patient may benefit from pulmonology consult for potential thoracentesis 1800 ADA/cardiac diet then n.p.o. after midnight until evaluated by cardiology CBC/BMP daily Will continue to trend patient's troponin Patient did receive full-strength aspirin while in the emergency room Continue Cardizem drip 5 mg [place] p.o. every 6 hours as needed moderate pain 2 mg morphine IV push every 2 hours as needed severe pain 4 mg Zofran IV push every 8 hours pain nausea vomiting Full code Total critical care time of 40 minutes I discussed this case with attending physician Dr. Hair and a look forward to more input
--- NOTE | 2024-12-15 21:21 | PC.NURSE ---
NRB placed on patient to attempt to raise O2 sats from 85%
--- NOTE | 2024-12-15 21:37 | PC.NURSE ---
Report given to Xiao BELLA
--- NOTE | 2024-12-15 22:00 | PC.NURSE ---
patient arrived to ICU from ED at 2150. Received report from Madelin BELLA.
--- NOTE | 2024-12-15 22:02 | PC.NURSE ---
Patient refused CRE swab.
[2024-12-15 22:23] LABS: Reflex Lactic Add Lactic Reflex
[2024-12-15 22:56] LABS: Lactic Acid Follow Up (RFLX 1) 2.8 mmol/L (0.7-2.1)
--- NOTE | 2024-12-15 22:57 | PC.NURSE ---
Hospitalist at bedside.
[2024-12-15 23:15] LABS: Troponin I < 0.01 ng/ml (0.00-0.034)
[2024-12-15] MEDS: LEVALBUTEROL 1.25MG/3ML NEB 1.25 MG IH (23:59)
[2024-12-16] VITALS: BP 133/67; PULSE 109; RESP 35; O2SAT 90
[2024-12-16 00:43] LABS: Reflex Lactic (2 hrs) Add Lactic Reflex
[2024-12-16 01:00] VITALS: BP 93/62; PULSE 99; RESP 32; O2SAT 89
[2024-12-16 01:03] LABS: VBG HCO3 17.3 mmol/L (23-30); VBG PCO2 31.4 mmol/L (35-51); VBG PH 7.36 mmol/L (7.31-7.41); VBG PO2 47.3 mmol/L (28-40)
[2024-12-16 01:07] LABS: Lactate Venous 5.9 mmol/L (0.4-2.0)
--- NOTE | 2024-12-16 01:09 | PC.NURSE ---
Called and spoke with Dr. Alexis about patients respiratory status and work of breathing. VBG with lactate was ordered. Results called to provider. No new orders received at this time .
[2024-12-16 01:27] LABS: Lactic Acid Follow up (RFLX 2) 4.7 mmol/L (0.7-2.1)
[2024-12-16] MEDS: METOPROLOL TARTRATE 50MG TABLET 50 MG PO (01:35)
[2024-12-16 01:39] LABS: Troponin I < 0.01 ng/ml (0.00-0.034)
[2024-12-16 02:00] VITALS: BP 150/89; PULSE 93; RESP 32; O2SAT 91
[2024-12-16] MEDS: PHENYLEPHRINE HCL 10 MG in 0.9 % SODIUM CHLORIDE 250 ML 60.24 MG IV (02:08)
[2024-12-16 03:00] VITALS: BP 116/90; PULSE 80; RESP 36; O2SAT 90
--- NOTE | 2024-12-16 04:40 | ECG_ITS ---
APPROVED REPORT Exam: Resting ECG HR:53 bpm ECG Measurements Heart Rate 53 AXES QRSd 82 QRS 27 QT 385 T 34 QTc 368 Conclusion ATRIAL FLUTTER/TACHYCARDIA WITH SLOW VENTRICULAR RESPONSE LOW QRS VOLTAGE [QRS DEFLECTION < 0.5/1.0 mV IN LIMB/CHEST LEADS] MARKED ST ELEVATION, CONSIDER INFERIOR INJURY [MARKED ST ELEVATION W/O NORMALLY INFLECTED T-WAVE IN II/aVF] ACUTE DC UNCONFIRMED REPORT Electronically signed by : Jermaine Fraga MD 12/17/2024 08:36:58
[2024-12-16 04:49] LABS: POC Glucose,Bedside 246 gm/dL (70-110)
[2024-12-16 04:50] LABS: ABG HCO3 16.3 mmhg (22.0-26.0); ABG PO2 76.1 mmhg (80-100); ABG TCO2 18.1 mmhg (23-27)
[2024-12-16 04:51] LABS: Source Left Radial
[2024-12-16 04:52] LABS: ABG PH 7.07 mmol/L (7.35-7.45)
[2024-12-16 04:53] LABS: ABG PCO2 57.2 mmhg (35.0-45.0)
[2024-12-16 04:54] LABS: Hematocrit 39.3 % (42.0-52.0); Hemoglobin 11.5 g/dL (14.1-18.0); Immature Granulocytes % 22.6 %; Mean Corpuscular HGB Conc 29.3 g/dL (31.8-35.4); Mean Corpuscular Hemoglobin 29.5 pg (27.0-31.2); Mean Corpuscular Volume 100.8 fl (80-94); Nucleated Red Blood Cells % 0.7 %; Platelet Count 170 K/mm3 (142-424); Red Blood Count 3.90 M/mm3 (4.60-6.20); Red Cell Distribution Width-SD 72.2 fL
[2024-12-16] MEDS: KETAMINE 50MG/1ML SYRINGE 120 MG IV (04:56)
[2024-12-16 04:58] LABS: White Blood Count 77.9 K/mm3 (4.8-10.8)
[2024-12-16 05:47] LABS: RBC Morphology Normal; Total Cells Counted 100
[2024-12-16 05:48] LABS: Anisocytosis 1+
--- NOTE | 2024-12-16 05:56 | ECG_ITS ---
APPROVED REPORT Exam: Resting ECG HR:78 bpm ECG Measurements Heart Rate 78 AXES IA 147 P 67 QRSd 74 QRS 84 QT 319 T -6 QTc 352 Conclusion SINUS RHYTHM WITH SINUS ARRHYTHMIA LOW QRS VOLTAGE [QRS DEFLECTION < 0.5/1.0 mV IN LIMB/CHEST LEADS] MODERATE ST DEPRESSION [0.05+ mV ST DEPRESSION] ABNORMAL QRS-T ANGLE [QRS-T AXIS DIFFERENCE > 60] ABNORMAL ECG UNCONFIRMED REPORT Electronically signed by : Jermaine Fraga MD 12/17/2024 08:36:52
--- NOTE | 2024-12-16 06:31 | P.EN_ITS ---
Called by nursing staff stating that patient had a change in status. Presented to patient's bedside and noted he was pale and agonal he breathing. At that time patient's heart rate was in the 50s. Assessment complete: Minimal responsiveness noted, patient was in a A-flutter with slow rate with 4:1 ratio. Lungs were very diminished. Identified the need for patient to undergo RSI. Called and spoke with patient's powertrain control systems engineer on-call and he encouraged starting epinephrine drip and intubated patient. Called and spoke with ER provider who kindly presented to the patient's bedside. Post RSI, patient bradycardia down and cardiac arrested. Patient had 1 round of CPR and ROSC was achieved. Unfortunately, patient bradycardia down again after being placed on epinephrine drip and given atropine. After at least 30 minutes of CPR, we were unable to obtain pulse. Patient had a cumulative downtime of more than 40 minutes. Discussed the case with attending, powertrain control systems engineer, and ER provider and the decision was to hold our respiratory/cardiovascular resuscitation attempts. Time of 0 627. I have discussed the case with family on multiple occasions. I have updated attending physician.
--- NOTE | 2024-12-16 06:39 | P.DN_ITS ---
Pronouncement Note Date and Time of Date of : 12/16/24 Time of : 06:40 PCOD Preliminary cause of : Cardiac arrest Contributing Factors (1) Atrial flutter: (2) Acute pericardial effusion: (3) Pleural effusion: (4) Pulmonary embolism: (5) CMML (chronic myelomonocytic leukemia): (6) Leukocytosis: (7) Coagulopathy: (8) Hyperglycemia due to type 2 diabetes mellitus: (9) Acute kidney injury: (10) Elevated brain natriuretic peptide (BNP) level: (11) Acute on chronic hypoxic respiratory failure: Summary Additional details: Called by nursing staff stating that patient had a change in status. Presented to patient's bedside and noted he was pale and agonal he breathing. At that time patient's heart rate was in the 50s. Assessment complete: Minimal responsiveness noted, patient was in a A-flutter with slow rate with 4:1 ratio. Lungs were very diminished. Identified the need for patient to undergo RSI. Called and spoke with patient's application lead on-call and he encouraged starting epinephrine drip and intubated patient. Called and spoke with ER provider who kindly presented to the patient's bedside. Post RSI, patient bradycardia down and cardiac arrested. Patient had 1 round of CPR and ROSC was achieved. Unfortunately, patient bradycardia down again after being placed on epinephrine drip and given atropine. After at least 30 minutes of CPR, we were unable to obtain pulse. Patient had a cumulative downtime of more than 40 minutes. Discussed the case with attending, application lead, and ER provider and the decision was to hold our respiratory/cardiovascular resuscitation attempts. Time of 0 627. I have discussed the case with family on multiple occasions. I have updated attending physician. Additional Data Confirmation of : no pulse, no respirations, no heart sounds and pupils fixed and dilated Family: at bedside Attending/PCP notified?: Yes Attending physician: Thad Hair MD Autopsy should be considered if:: Unknown or unanticipated medical complications Cause is not known with certainty on clinical grounds Would allay concerns of the public/family regarding Unexplained/unexpected apparently natural and not subject to a forensic medical jurisdiction DOA Within 24 hours of admission Sustained or apparently sustained injury while in the hospital Result of high risk, infectious and contagious disease Obstetric and pediatric arising from environmental or occupational hazard Unexplained/unexpected from dental, medical, or surgical diagnostic procedures and/or therapies Would disclose a known or suspected illness which also may have a bearing on survivors or recipients of transplanted organs Autopsy requested?: No Does not meet criteria employee operations examiner notified?: No Advance directives: No
[2024-12-16 06:50] LABS: Magnesium 2.2 mg/dl (1.6-2.3)
--- NOTE | 2024-12-16 07:18 | PC.NURSE ---
At approximately 04:15 this nurse went into patients room to check on him for rounding. Diane LAU was also with me to check patients vapotherm due to oxygen saturation. Patient seemed to be more lethargic and clammy with pale colored skin. Patient was sternal rubbed by RT and patient had very little to no response. This RN called Dr. Alexis and he came to bedside. It was noted that patient had agonal breathing at this time. Dr. Alexis then ordered EKG, labs, VBG, and called cardiology. This RN called the fish housekeeper. Dr. Alexis decided to called ED physician to intubate patient. ED physician also spoke with chinese medicine practitioner prior to intubation. Patient was given 1mg of atropine @ 0506 and a manual blood pressure was taken @ 0508, 90/50. patient was given 120mg of ketamine IV push @ 0520. Manual BP @ 0522 - 90/60. 10mg of Neosynephrine was given IV push @ 0523. 100mg of Succ given IV push @ 0524. patient was intubated at [address] Matias. Positive color change was observed, bliateral breath sounds, 7.5 tube size, 24 @ the teeth. At 0530 patient went pulseless and CPR was intiated. 0531 - 1mg Epi 0533 - Asystole, CPR resumed 0534 - calcium gluconate 0534 - bicarb 0534 - 1mg epi 0536 - pulse check, asystole, resume CPR 0537 - epi 0540 - epi 0541 - pulse check, v-fib, 200 joules, shock delivered 0542 - ROSC, epi, manual BP 110/60 0547 - epi drip intiated @ 1 0552 - epi drip increased @ 1.5 0552 - 108/72 manual BP, fentanyl and versed drip mixed. versed drip was started at 0.2mcg/kg/min. fentanyl drip on hold. \ 0602 - epi 0603 - epi, pulseless, CPR intiated 0606 - epi 0609 - epi 0611 - Bicarb 0613 - epi 0616 - epi 0619 - epi FSBG - 186 0622 - pulse check, PEA, CPR resumed 0622 - epi 0627 - pulse check, asystole, Time of pronouced by Dr. Matias Helicopter Mechanic called at 0644 and was cleared to called home. VASHTI was called at 0652, spoke to Saundra Zamarripa, also cleared to call home. Family is at bedside, waiting for them to make decisions for home. Post mortem cared performed.
--- NOTE | 2024-12-16 07:20 | P.EN_ITS ---
Around 0500 I was called to bedside for this patient due to concerns of worsening respiratory and mental status as well as hypotension. When I arrived at bedside patient was altered with GCS 8, hypoxic on nonrebreather, blood pressure in the 70s systolic. He was pale with cool extremities and ill- appearing. Brief review of the chart demonstrated patient was admitted with pleural effusion, pericardial effusion after initially presenting with shortness of breath. Hospitalist informed me that they had attempted multiple respiratory support methods including most recently Vapotherm without success in this patient. He showed me most recent VBG which demonstrated patient was becoming significantly acidotic with pH 7.0, hypercarbia, and lactic acidosis was worsening. Lungs are diminished throughout both lung calderon but no wheezing. With the patient's hemodynamic instability I briefly evaluated his heart with [id number] ultrasound. Below is my procedure note for the [id number] ultrasound: Limited Cardiac Ultrasound Performed by: Jerrell Matias MD Indication: Dyspnea, altered mental status Identified cardiac views: Cardiac subxiphoid Findings: Cardiac activity present with grossly normal ejection fraction, no evidence of right heart strain, there does appear to be borderline right atrial collapse, concern for early tamponade but no right ventricular collapse Impression: Cardiac activity present with grossly normal ejection fraction, no evidence of right heart strain, there does appear to be borderline right atrial collapse, concern for early tamponade but no right ventricular collapse Images were saved to permanent archive The study was technically adequate CPT: 05622 This study was performed by me, and I personally interpreted all images/videos. Based on my clinical judgement, these images were adequate and did not necessitate further imaging. Hospitalist indicated that patient is a full code and family had wanted everything done . Patient was on phenylephrine drip and I asked respiratory therapy to start bagging him to support his respiratory status. He showed slight improvement with was still significantly bradycardic in the 50s. While the patient requires intubation, I am concerned about giving this patient a sedative or paralytic because I believe this will reduce his preload further and likely make him code. I am also concerned that positive pressure ventilation will not be well- tolerated by him but he does need the respiratory support. Because he does not have complete tamponade physiology, I reached out to cardiology and spoke with Dr. Merchant. We reviewed my ultrasound images and he states he does not believe these are significantly changed from his previous echo and since there is not right ventricular collapse does not believe the patient is truly having tamponade. He recommended administering atropine to see if this improves the patient's blood pressure. IV atropine was administered and patient's blood pres sure was in the 90s with heart rate in the 70s to 80s. We discussed the patient's status at length including his respiratory distress, altered mental status, VBG. He is not recommending pericardiocentesis at this time since the patient did have improvement in blood pressure with heart rate improvement. Patient had positive response to the atropine though he remained hypoxic in the 80s so I proceeded with intubation. I administered 120 mg ketamine for sedative to help with hemodynamics, blood pressure after the ketamine was still systolics in the 90s so small push dose of phenylephrine was administered prior to 100 mg succinylcholine administration. Patient was intubated successfully using a Mac 3 blade on video guided laryngoscopy 7.5 cuffed ETT successfully placed through the cords by direct visualization, 24 cm at the teeth. Positive color change. Bilateral breath sounds auscultated. Patient tolerated procedure well, his hypoxia did not worsen during the procedure. He remained in the 80s. Post procedure SBP in the low 100s, saturating in the low 80s. I asked for fentanyl and Versed drip for sedation. Dr. Merchant had indicated that he would like the patient to remain on phenylephrine drip and that he would prefer to not start amiodarone on this patient at this time. Patient appeared to be showing slight signs of improvement with improved heart rate and blood pressure though he was still hypoxic in the 80s but suddenly became bradycardic and lost pulses. We initiated CPR and patient received multiple rounds of ACLS including epinephrine, he had hyperkalemia on his most recent VBG so he received calcium gluconate, and with his severe acidosis I also administered bicarb. He had gone from an asystolic arrest to V-fib arrest after a few rounds of ACLS so he was defibrillated at 200 J and we had ROSC at that time. Patient had undergone 12 minutes of ACLS. I was on the phone with Dr. Merchant and he recommended epinephrine drip which has been initiated. On discussion we agree that the hyperkalemia is corrected based on his acidosis. Because the patient has coded he is going to get ready to come to the hospital to perform pericardiocentesis. We attempted to obtain ECG while the patient had a pulse but had problems getting the patient onto the ventilator so he was being bagged which was causing significant artifact and no readable ECG was able to be obtained. I was preparing to place a right radial arterial line for continued hemodynamic monitoring when patient suddenly went from heart rate in the 70s to be significantly bradycardic, he dropped to the 40s asked for push dose epinephrine which he received twice but continued to get more bradycardic until his heart stopped and he became asystolic. ACLS was resumed. I did not administer fluids to this patient because he already was volume overloaded with peripheral edema, pericardial effusion, pleural effusion. Patient received multiple rounds of ACLS, code dose epinephrine, administered another amp of bicarb to help with the acidosis as well. He continued to be bagged but became more and more difficult to ventilate despite having bilateral breath sounds still present. His hypoxia was worsening despite bagging and bilateral breath sounds and he started having blood come through his endotracheal tube. This is likely a result of the trauma from CPR. Blood glucose during this round of coding was 186. Patient had PEA briefly, but the remainder of this arrest was also an asystolic arrest. All potential reversible causes have been addressed but unfortunately patient did n ot have return of spontaneous circulation. Patient had been hypoxic for a very extended period of time before I was even called to bedside and intubated the patient, he had extended downtime without a pulse total and even between his 2 pulseless episodes was never oxygenating above the low 80s worsening the severity of any anoxic organ injury. At the last pulse check patient remained asystolic, no pulse, no spontaneous respirations, pupils fixed. At 0627 patient was pronounced . This round of ACLS was 25 minutes, in total patient underwent 37 minutes of ACLS between the 2 codes. On 12/16/24, the high probability of a clinically significant, sudden or life threatening deterioration of the following system(s) (cardiac, respiratory) required my full and direct attention, intervention and personal management. The time I documented below is in addition to time spent performing reported procedures but includes the following listed in this critical care notation. Time: 45 minutes Jerrell Matias MD
[2024-12-16 08:38] LABS: Chloride 99 mmol/L (98-107); Potassium 5.6 mmoL/L (3.5-5.1); Sodium 134 mmol/L (136-145)
[2024-12-16 08:41] LABS: Alanine Aminotransferase 330 U/L (12-78); Alkaline Phosphatase 105 U/L (38-126); Anion Gap 21.6 mEq/L (5-15); Aspartate Amino Transferase 371 U/L (17-59); Bilirubin,Total 1.3 mg/dl (0.2-1.3); Carbon Dioxide 19 mmol/L (22.0-30.0)
[2024-12-16 08:42] LABS: Calcium 9.2 mg/dl (8.4-10.2); Glucose 297 mg/dl (74-100); Total Protein,Serum 7.1 g/dl (6.3-8.2)
[2024-12-16 08:54] LABS: Troponin I < 0.01 ng/ml (0.00-0.034)
[2024-12-16 09:05] LABS: Blood Urea Nitrogen 38 mg/dl (9-20); Creatinine Clearance Estimated 45 mL/min (50-200); Creatinine,Serum 1.80 mg/dl (0.66-1.25); Estimated Glomerular Filt Rate 38 ml/min (>60); GFR (African American) 46 ML/MIN (>60)
[2024-12-16 09:17] LABS: Albumin Level 3.8 g/dl (3.5-5.0); Albumin/Globulin Ratio 1.2 (1.1-1.8); Globulin 3.3 g/dL (1.3-3.2)
[2024-12-23 12:26] LABS: POC Glucose,Bedside 186 gm/dL (70-110)
== END 2024-12-16 06:27 | disposition expired | DRG 208 ==
LOC: ER 20:51 → ICU 21:28
PROVIDERS: Nurse Practitioner; Nurse Practitioner Family; Admitting Provider Student in an Organized Health Care Education/Training Program; Emergency Provider Student in an Organized Health Care Education/Training Program; Visit Provider Student in an Organized Health Care Education/Training Program
DX: J96.21 Acute and chronic respiratory failure with hypoxia (principal); I26.99 Other pulmonary embolism without acute cor pulmonale; I26.94 Multiple subsegmental thrombotic pulmonary emboli without acute cor pulmonale; I30.9 Acute pericarditis, unspecified; I48.92 Unspecified atrial flutter; J90 Pleural effusion, not elsewhere classified; C93.10 Chronic myelomonocytic leukemia not having achieved remission; D68.9 Coagulation defect, unspecified; N17.9 Acute kidney failure, unspecified; E87.20 Acidosis, unspecified; I46.2 Cardiac arrest due to underlying cardiac condition; D69.6 Thrombocytopenia, unspecified; J44.9 Chronic obstructive pulmonary disease, unspecified; E87.5 Hyperkalemia; E11.65 Type 2 diabetes mellitus with hyperglycemia; I10 Essential (primary) hypertension; E11.59 Type 2 diabetes mellitus with other circulatory complications; N40.0 Benign prostatic hyperplasia without lower urinary tract symptoms; I48.91 Unspecified atrial fibrillation; N28.1 Cyst of kidney, acquired; R79.89 Other specified abnormal findings of blood chemistry; Z87.891 Personal history of nicotine dependence; Z99.81 Dependence on supplemental oxygen; Z79.84 Long term (current) use of oral hypoglycemic drugs; Z79.01 Long term (current) use of anticoagulants; Z79.899 Other long term (current) drug therapy; Z88.5 Allergy status to narcotic agent
CPT/HCPCS: 0223U; 36415; 36600; 71275; 80053; 82009; 82550; 82803; 82962; 83605; 83735; 83880; 84484; 85007; 85025; 85610; 85651; 86140; 87040; 93005; 93308; 94640; 94760; 94761; 99285; J0169; J0461; J2270; J2371; J2405; J7050; J7614; Q9967